=== PATIENT | male | born 1930 | race Caucasian/White ===

== ENCOUNTER 2019-04-15 08:10 | Inpatient (IN) | payer MEDICARE ==
[~2019-04-15] VITALS: Ht 177.8 cm; Wt 53.2 kg
--- OUTSIDE RECORDS SUMMARY | 2019-04-15 08:13 | XMS REPORT | Clinical Summary ---
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 Active omeprazole (PriLOSEC) 20 Take 20 mg by 0 12/25/201 MG capsule mouth daily. 6 Active VESICARE 5 mg tablet Take 5 mg by 0 mouth 6 nightly. Active aspirin (ECOTRIN) 81 MG Take 81 mg by 0 enteric coated tablet mouth daily. Active VIT C/VIT Take 1 tablet 0 E/LUTEIN/MIN/OMEGA-3 by mouth (OCUVITE ORAL) daily. Active FOLIC Take 1 tablet 0 ACID/MULTIVIT-MIN/LUTEIN by mouth (CENTRUM SILVER ORAL) daily. Active coenzyme Q10 100 mg Take 200 mg 0 capsule by mouth daily. Active lisinopril Take 1 tablet 30 tablet 3 (PRINIVIL,ZESTRIL) 10 MG (10 mg total) 6 tablet by mouth daily. Active Problems Problem Noted Date Hyperlipidemia 03/04/2016 Essential hypertension 03/03/2016 Bright red rectal bleeding 03/02/2016 GI bleed 03/02/2016 Social History Date Tobacco Use Types Packs/Day Years Used Smoker, Current Status Cigarettes Unknown Tobacco Cessation: Ready to Quit: Yes Alcohol Use Drinks/Week oz/Week Comments No Sex Assigned at Date Recorded Not on file Industry Job Start Date Occupation Not on file Not on file Not on file Travel End Travel History Travel Start No recent travel history available. Last Filed Vital Signs Not on file Plan of Treatment Health Maintenance Due Date Last Done Comments SHINGLES VACCINES (#1) 1980 65+ PNEUMOCOCCAL VACCINE 12/07/1995 (1 of 2 - PCV13) INFLUENZA VACCINE 04/22/2019 Results Not on fileafter 04/14/2018 Insurance Type Payer Benefit Subscriber ID Effective Phone Address Plan / Dates Group Medicare MEDICARE MEDICARE xxxxxxxxxx [id number] [place], PART A AND resent [place] B Indemnity [facility] xxxxxxxxx [id number] HEALTHCARE resent INDEMNITY Advance Directives Patient has advance care planning documents, and code status on file. For more i nformation, please contact: Thomas Huerta [phone] [place] [address] Date Inactivated Comments Code Status Date Activated 03/05/2016 7:16 PM Full Code 03/02/2016 9:09 PM Code Status decision reached by: Patient
--- OUTSIDE RECORDS SUMMARY | 2019-04-15 08:14 | XMS REPORT | Continuity of Care Document ---
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 Condition 04/20/2015 [facility] ANEMIA Active 12/15/2013 Condition 04/20/2015 [facility] WEIGHT LOSS, ABNORMAL Inactive 12/14/2013 Condition 04/20/2015 [facility] THYROID NODULE Inactive 12/14/2013 Condition 04/20/2015 [facility] NEED PROPHYLACTIC VACCINATION&INOCULATION FLU Inactive 07/09/2013 Condition 04/20/2015 [facility] BRONCHITIS Inactive 01/27/2013 Condition 04/20/2015 [facility] OTHER SPECIFIED DERMATOSES Inactive 01/29/2012 Condition 04/20/2015 [facility] OTHER ACUTE SINUSITIS Inactive 12/23/2011 Condition 04/20/2015 [facility] URINARY FREQUENCY Inactive 08/07/2011 Condition 04/20/2015 [facility] HYPERLIPIDEMIA Active 08/07/2011 Condition 04/20/2015 [facility] HYPERGLYCEMIA Inactive 08/07/2011 Condition 04/20/2015 [facility] COUGH Inactive 03/22/2011 Condition 04/20/2015 [facility] PNEUMONIA Inactive 02/08/2011 Condition 04/20/2015 [facility] URI Inactive 01/29/2011 Condition 04/20/2015 [facility] ALLERGIC RHINITIS Active 11/30/2010 Condition 04/20/2015 [facility] NOCTURIA Inactive 11/30/2010 Condition 04/20/2015 [facility] DYSURIA Inactive 11/30/2010 Condition 04/20/2015 [facility] BACK PAIN Inactive 09/07/2010 Condition 04/20/2015 [facility] B12 DEFICIENCY Inactive 09/07/2010 Condition 04/20/2015 [facility] UNSPECIFIED VITAMIN D DEFICIENCY Active 09/07/2010 Condition 04/20/2015 [facility] NEUROPATHY, UNSPECIFIED Inactive 04/24/2010 Condition 04/20/2015 [facility] ORTHOSTATIC HYPOTENSION Inactive 11/27/2009 Condition 04/20/2015 [facility] ABDOMINAL PAIN, PERIUMBILICAL Inactive 11/13/2009 Condition 04/20/2015 [facility] ANXIETY DISORDER, GENERALIZED Active 11/13/2009 Condition 04/20/2015 [facility] SCREENING FOR COLON CANCER Inactive 11/13/2009 Condition 04/20/2015 [facility] HTN Active 10/30/2009 Condition 04/20/2015 [facility] LEG PAIN Inactive 10/30/2009 Condition 04/20/2015 [facility] CLAUDICATION, INTERMITTENT Inactive 10/30/2009 Condition 04/20/2015 [facility] THYROMEGALY Inactive 10/30/2009 Condition 04/20/2015 [facility] Medications Medication Details Route Status Patient Instructions Ordering Provider Order Date Source KYLEER WALKER MISC use as directed Active 01/12/2015 [facility] VITAMIN D-3 CAPS 1 tab by mouth once a day Active 10/20/2014 [facility] IRON TABS 1 tab by mouth once a day Active 10/20/2014 [facility] CELEBREX 200 MG CAPS Take one capsule by mouth daily Active 01/25/2014 [facility] CELEBREX 200 MG CAPS Take one capsule by mouth daily No Longer Active 01/25/2014 [facility] CELEBREX 200 MG CAPS Take one capsule by mouth daily No Longer Active 01/25/2014 [facility] CENTRUM SILVER TABS 1 tab by mouth once a day Active 01/11/2014 [facility] CLONIDINE HCL 0.1 MG TABS 1/2 tab by mouth twice a day Active 01/11/2014 [facility] VITAMIN B12 1000 MCG TABS 1 tab by mouth once a day Active 01/11/2014 [facility] OMEPRAZOLE 20 MG TBEC 1 tab by mouth once a day Active 01/11/2014 [facility] LOSARTAN POTASSIUM 100 MG TABS 1 tab by mouth once a day Active 01/11/2014 [facility] XANAX TAB 0.25MG 1 tab by mouth twice a day Active 01/11/2014 [facility] VESICARE 5 MG TABS 1 tab by mouth once a day Active 01/11/2014 [facility] ZOLOFT TAB 50MG 1 tab by mouth once a day Active 01/11/2014 [facility] CLONIDINE HCL 0.1 MG TABS 1/2 tab by mouth twice a day Active 01/11/2014 [facility] OMEPRAZOLE 20 MG TBEC 1 tab by mouth once a day Active 01/11/2014 [facility] VESICARE 5 MG TABS 1 tab by mouth once a day Active 01/11/2014 [facility] LOSARTAN POTASSIUM 100 MG TABS 1 tab by mouth once a day No Longer Active 01/11/2014 [facility] ESCITALOPRAM OXALATE 10 MG TABS 1 tablet daily Active 01/11/2014 [facility] CLONIDINE HCL 0.1 MG TABS 1/2 tab by mouth twice a day Active 01/11/2014 [facility] VESICARE 5 MG TABS 1 tab by mouth once a day Active 01/11/2014 [facility] ESCITALOPRAM OXALATE 20 MG TABS 1 tab by mouth once a day Active 01/11/2014 [facility] LOSARTAN POTASSIUM 100 MG TABS 1 tab by mouth once a day No Longer Active 01/11/2014 [facility] LEVAQUIN 500 MG TABS 1 PO Daily No Longer Active 01/27/2013 [facility] FLONASE 50 MCG/ACT SUSP two sprays each nostril q day No Longer Active 01/27/2013 [facility] PRAVACHOL 20 MG TABS 1 po qhs No Longer Active 01/27/2013 [facility] LEVAQUIN 500 MG TABS 1 PO Daily No Longer Active 01/27/2013 [facility] FLONASE 50 MCG/ACT SUSP two sprays each nostril q day No Longer Active 01/27/2013 [facility] PRAVACHOL 20 MG TABS 1 po qhs No Longer Active 01/27/2013 [facility] LEVAQUIN 500 MG TABS 1 PO Daily No Longer Active 01/27/2013 [facility] FLONASE 50 MCG/ACT SUSP two sprays each nostril q day No Longer Active 01/27/2013 [facility] LEVAQUIN 500 MG TABS 1 po daily x 10 days No Longer Active 12/23/2011 [facility] LEVAQUIN 500 MG TABS 1 po daily x 10 days No Longer Active 12/23/2011 [facility] LEVAQUIN 500 MG TABS 1 po daily x 10 days No Longer Active 12/23/2011 [facility] AMOXICILLIN CAP 500MG one po tid for 10 days No Longer Active 08/23/2011 [facility] AMOXICILLIN CAP 500MG one po tid for 10 days No Longer Active 08/23/2011 [facility] AMOXICILLIN CAP 500MG one po tid for 10 days No Longer Active 08/23/2011 [facility] LEVAQUIN 500 MG TABS 1 po qd x 7 days No Longer Active 08/08/2011 [facility] LEVAQUIN 500 MG TABS 1 po qd x 7 days No Longer Active 08/08/2011 [facility] LEVAQUIN 500 MG TABS 1 po qd x 7 days No Longer Active 08/08/2011 [facility] AMLODIPINE BESYLATE 2.5 MG TABS one po daily No Longer Active 07/24/2011 [facility] AMLODIPINE BESYLATE 2.5 MG TABS one po daily No Longer Active 07/24/2011 [facility] AMLODIPINE BESYLATE 2.5 MG TABS one po daily No Longer Active 07/24/2011 [facility] LEVAQUIN 750 MG TABS 1 po qd x 5 days Inactive 03/22/2011 [facility] LEVAQUIN 750 MG TABS 1 po qd x 5 days Inactive 03/22/2011 [facility] VITAMIN D (ERGOCALCIFEROL) 61412 UNIT CAPS 1 po once a week x 12 weeks, then 1 po once a month Inactive 01/15/2011 [facility] XANAX TAB 0.25MG one tab PO q hs prn anxiety Inactive 01/15/2011 [facility] VITAMIN D (ERGOCALCIFEROL) 71197 UNIT CAPS 1 po once a week x 12 weeks, then 1 po once a month Inactive 01/15/2011 [facility] VITAMIN D (ERGOCALCIFEROL) 13314 UNIT CAPS 1 po once a week x 12 weeks, then 1 po once a month Inactive 01/15/2011 [facility] CLARITIN TAB 10MG one tablet daily Inactive 11/30/2010 [facility] CLARITIN TAB 10MG one tablet daily Inactive 11/30/2010 [facility] PREVACID 30 MG CPDR one a daily Inactive 09/07/2010 [facility] PREVACID 30 MG CPDR one a daily Inactive 09/07/2010 [facility] PREVACID 30 MG CPDR one a daily Inactive 09/07/2010 [facility] COZAAR TAB 25MG 1 po qd Inactive 05/08/2010 [facility] COZAAR TAB 25MG 1 po qd Inactive 05/08/2010 [facility] LEXAPRO 10 MG TABS 1 po qd Inactive 04/24/2010 [facility] LISINOPRIL 10 MG TABS one daily Inactive 04/24/2010 [facility] LEXAPRO 10 MG TABS 1 po qd Inactive 04/24/2010 [facility] LISINOPRIL 10 MG TABS one daily Inactive 04/24/2010 [facility] LISINOPRIL 10 MG TABS one daily Inactive 04/24/2010 [facility] LISINOPRIL 10 MG TABS one daily Inactive 04/24/2010 [facility] Allergies, Adverse Reactions, Alerts No Known Medication Allergies Immunizations Immunization Date Given Site Status Last Updated Comments Source influenza immunization (Flu Vax) has been administered 07/09/2013 completed [facility] Results Order Name Results Value Reference Range Date Interpretation Comments Source Chemistry SODIUM 142 MEQ/L 135 - 145 04/20/2015 [facility] Chemistry POTASSIUM 4.1 MEQ/L 3.5 - 5.1 04/20/2015 Medical [facility] Chemistry CREATININE 0.9 0.5 - 1.4 04/20/2015 [facility] Chemistry BUN 14 7 - 22 04/20/2015 Medical [facility] Chemistry BUN/CREAT 16 6 - 25 04/20/2015 Medical [facility] Chemistry ALBUMIN 3.8 3.5 - 5.0 04/20/2015 Medical [facility] Chemistry CALCIUM 8.7 8.5 - 10.5 04/20/2015 [facility] Chemistry SGPT (ALT) 26 0 - 65 04/20/2015 Medical [facility] Chemistry SGOT (AST) 18 0 - 37 04/20/2015 Medical [facility] Chemistry ALK PHOS 66 39 - 136 04/20/2015 Medical [facility] Hematology HGB 14.2 14.0 - 18.0 04/20/2015 Medical [facility] Hematology HCT 41.9 42.0 - 54.0 04/20/2015 Medical [facility] Hematology PLATELETS 178 K/CMM 133 - 450 04/20/2015 [facility] Chemistry HEMOCCULT Negative 12/19/2013 [facility] Chemistry HEMOCCULT Negative 12/19/2013 [facility] Microbiology HEMOCCULT Negative 12/19/2013 [facility] Chemistry HEMOCCULT Negative 12/17/2013 [facility] Chemistry HEMOCCULT Negative 12/17/2013 [facility] Microbiology HEMOCCULT Negative 12/17/2013 [facility] Chemistry CORTISOL SER 15.0 3.0 - 23.0 12/16/2013 [facility] Chemistry CORTISOL SER 15.0 3.0 - 23.0 12/16/2013 [facility] Chemistry HEMOCCULT Negative 12/15/2013 [facility] Chemistry HEMOCCULT Negative 12/15/2013 [facility] Microbiology HEMOCCULT Negative 12/15/2013 [facility] Chemistry HGBA1C 5.1 - 5.6 12/14/2013 [facility] Chemistry SODIUM 137 MEQ/L 135 - 145 12/14/2013 [facility] Chemistry POTASSIUM 4.8 MEQ/L 3.5 - 5.1 12/14/2013 [facility] Chemistry HGBA1C 5.1 - 5.6 12/14/2013 [facility] Chemistry SODIUM 137 MEQ/L 135 - 145 12/14/2013 [facility] Chemistry POTASSIUM 4.8 MEQ/L 3.5 - 5.1 12/14/2013 [facility] Chemistry CREATININE 0.8 0.5 - 1.4 12/14/2013 [facility] Chemistry BUN 10 7 - 22 12/14/2013 [facility] Chemistry BUN/CREAT 12 6 - 25 12/14/2013 [facility] Chemistry ALBUMIN 4.2 3.5 - 5.0 12/14/2013 [facility] Chemistry CALCIUM 8.9 8.5 - 10.5 12/14/2013 [facility] Chemistry SGPT (ALT) 22 0 - 65 12/14/2013 [facility] Chemistry SGOT (AST) 13 0 - 37 12/14/2013 [facility] Chemistry ALK PHOS 68 39 - 136 12/14/2013 [facility] Chemistry T4, FREE 1.20 0.76 - 1.46 12/14/2013 [facility] Chemistry TSH 1.650 0.360 - 3.740 12/14/2013 Medical [facility] Hematology HGB 13.1 14.0 - 18.0 12/14/2013 [facility] Hematology HCT 41.1 42.0 - 54.0 12/14/2013 Medical [facility] Hematology PLATELETS 197 K/CMM 133 - 450 12/14/2013 [facility] Urinalysis UA COLOR Light Yellow 12/14/2013 [facility] Urinalysis BACTERIA URN Occasional 12/14/2013 [facility] Urinalysis UA COLOR Light Yellow 12/14/2013 [facility] Urinalysis BACTERIA URN Occasional 12/14/2013 [facility] Chemistry CHOLESTEROL 196 120 - 200 01/28/2013 [facility] Chemistry TRIGLYCERIDE 74 0 - 200 01/28/2013 [facility] Chemistry HDL 56 >=35 01/28/2013 [facility] Chemistry CHOLESTEROL 196 120 - 200 01/28/2013 [facility] Chemistry TRIGLYCERIDE 74 0 - 200 01/28/2013 [facility] Chemistry HDL 56 >=35 01/28/2013 [facility] Chemistry SODIUM 141 MEQ/L 135 - 145 01/28/2013 [facility] Chemistry POTASSIUM 4.0 MEQ/L 3.5 - 5.1 01/28/2013 [facility] Chemistry CREATININE 0.9 0.5 - 1.4 01/28/2013 [facility] Chemistry BUN 14 7 - 22 01/28/2013 [facility] Chemistry BUN/CREAT 16 6 - 25 01/28/2013 [facility] Chemistry ALBUMIN 4.0 3.5 - 5.0 01/28/2013 [facility] Chemistry CALCIUM 8.8 8.5 - 10.5 01/28/2013 [facility] Chemistry SGPT (ALT) 19 0 - 65 01/28/2013 [facility] Chemistry SGOT (AST) 14 0 - 37 01/28/2013 [facility] Chemistry ALK PHOS 77 39 - 136 01/28/2013 [facility] Chemistry CHOLESTEROL 196 120 - 200 01/28/2013 [facility] Chemistry TRIGLYCERIDE 74 0 - 200 01/28/2013 [facility] Chemistry HDL 56 >=35 01/28/2013 [facility] Chemistry SODIUM 141 MEQ/L 135 - 145 01/28/2013 [facility] Chemistry POTASSIUM 4.0 MEQ/L 3.5 - 5.1 01/28/2013 [facility] Chemistry CREATININE 0.9 0.5 - 1.4 01/28/2013 [facility] Chemistry BUN 14 7 - 22 01/28/2013 [facility] Chemistry BUN/CREAT 16 6 - 25 01/28/2013 [facility] Chemistry ALBUMIN 4.0 3.5 - 5.0 01/28/2013 [facility] Chemistry CALCIUM 8.8 8.5 - 10.5 01/28/2013 [facility] Chemistry CHOLESTEROL 196 120 - 200 01/28/2013 [facility] Chemistry TRIGLYCERIDE 74 0 - 200 01/28/2013 [facility] Chemistry HDL 56 >=35 01/28/2013 [facility] Chemistry CHOLESTEROL 196 120 - 200 01/28/2013 [facility] Chemistry TRIGLYCERIDE 74 0 - 200 01/28/2013 [facility] Chemistry HDL 56 >=35 01/28/2013 [facility] Chemistry LDL 125 0 - 129 01/28/2013 [facility] Chemistry SODIUM 141 MEQ/L 135 - 145 01/28/2013 [facility] Chemistry POTASSIUM 4.0 MEQ/L 3.5 - 5.1 01/28/2013 [facility] Chemistry CREATININE 0.9 0.5 - 1.4 01/28/2013 [facility] Chemistry BUN 14 7 - 22 01/28/2013 [facility] Chemistry BUN/CREAT 16 6 - 25 01/28/2013 [facility] Chemistry ALBUMIN 4.0 3.5 - 5.0 01/28/2013 [facility] Chemistry CALCIUM 8.8 8.5 - 10.5 01/28/2013 [facility] Chemistry SGPT (ALT) 19 0 - 65 01/28/2013 [facility] Chemistry SGOT (AST) 14 0 - 37 01/28/2013 [facility] Chemistry ALK PHOS 77 39 - 136 01/28/2013 [facility] Chemistry SGPT (ALT) 19 0 - 65 01/28/2013 [facility] Chemistry SGOT (AST) 14 0 - 37 01/28/2013 [facility] Chemistry ALK PHOS 77 39 - 136 01/28/2013 [facility] Hematology HGB 13.7 14.0 - 18.0 01/28/2013 [facility] Hematology HCT 40.8 42.0 - 54.0 01/28/2013 [facility] Hematology PLATELETS 185 K/CMM 133 - 450 01/28/2013 [facility] Hematology HGB 13.7 14.0 - 18.0 01/28/2013 [facility] Hematology HCT 40.8 42.0 - 54.0 01/28/2013 [facility] Hematology PLATELETS 185 K/CMM 133 - 450 01/28/2013 [facility] Hematology HGB 13.7 14.0 - 18.0 01/28/2013 [facility] Hematology HCT 40.8 42.0 - 54.0 01/28/2013 [facility] Hematology PLATELETS 185 K/CMM 133 - 450 01/28/2013 [facility] Chemistry CHOLESTEROL 165 120 - 200 05/01/2012 [facility] Chemistry TRIGLYCERIDE 80 0 - 200 05/01/2012 [facility] Chemistry HDL 58 >=35 05/01/2012 [facility] Chemistry CHOLESTEROL 165 120 - 200 05/01/2012 [facility] Chemistry TRIGLYCERIDE 80 0 - 200 05/01/2012 [facility] Chemistry HDL 58 >=35 05/01/2012 [facility] Chemistry SODIUM 141 MEQ/L 135 - 145 05/01/2012 [facility] Chemistry POTASSIUM 4.0 MEQ/L 3.5 - 5.1 05/01/2012 [facility] Chemistry BUN 15 7 - 22 05/01/2012 [facility] Chemistry CREATININE 1.0 0.5 - 1.4 05/01/2012 [facility] Chemistry BUN/CREAT 15 6 - 25 05/01/2012 [facility] Chemistry ALBUMIN 3.8 3.5 - 5.0 05/01/2012 [facility] Chemistry CALCIUM 8.7 8.5 - 10.5 05/01/2012 [facility] Chemistry SGOT (AST) 13 0 - 37 05/01/2012 [facility] Chemistry SGPT (ALT) 23 0 - 65 05/01/2012 [facility] Chemistry ALK PHOS 50 39 - 136 05/01/2012 [facility] Chemistry CHOLESTEROL 165 120 - 200 05/01/2012 [facility] Chemistry TRIGLYCERIDE 80 0 - 200 05/01/2012 [facility] Chemistry HDL 58 >=35 05/01/2012 [facility] Chemistry LDL 91 0 - 129 05/01/2012 [facility] Chemistry SODIUM 141 MEQ/L 135 - 145 05/01/2012 [facility] Chemistry POTASSIUM 4.0 MEQ/L 3.5 - 5.1 05/01/2012 [facility] Chemistry BUN 15 7 - 22 05/01/2012 [facility] Chemistry CREATININE 1.0 0.5 - 1.4 05/01/2012 [facility] Chemistry BUN/CREAT 15 6 - 25 05/01/2012 [facility] Chemistry ALBUMIN 3.8 3.5 - 5.0 05/01/2012 [facility] Chemistry CALCIUM 8.7 8.5 - 10.5 05/01/2012 [facility] Chemistry CHOLESTEROL 165 120 - 200 05/01/2012 [facility] Chemistry TRIGLYCERIDE 80 0 - 200 05/01/2012 [facility] Chemistry HDL 58 >=35 05/01/2012 [facility] Chemistry CHOLESTEROL 165 120 - 200 05/01/2012 [facility] Chemistry TRIGLYCERIDE 80 0 - 200 05/01/2012 [facility] Chemistry HDL 58 >=35 05/01/2012 [facility] Chemistry LDL 91 0 - 129 05/01/2012 [facility] Chemistry SODIUM 141 MEQ/L 135 - 145 05/01/2012 [facility] Chemistry POTASSIUM 4.0 MEQ/L 3.5 - 5.1 05/01/2012 [facility] Chemistry BUN 15 7 - 22 05/01/2012 [facility] Chemistry CREATININE 1.0 0.5 - 1.4 05/01/2012 [facility] Chemistry BUN/CREAT 15 6 - 25 05/01/2012 [facility] Chemistry ALBUMIN 3.8 3.5 - 5.0 05/01/2012 [facility] Chemistry CALCIUM 8.7 8.5 - 10.5 05/01/2012 [facility] Chemistry SGOT (AST) 13 0 - 37 05/01/2012 [facility] Chemistry SGPT (ALT) 23 0 - 65 05/01/2012 [facility] Chemistry ALK PHOS 50 39 - 136 05/01/2012 [facility] Chemistry SGOT (AST) 13 0 - 37 05/01/2012 [facility] Chemistry SGPT (ALT) 23 0 - 65 05/01/2012 [facility] Chemistry ALK PHOS 50 39 - 136 05/01/2012 [facility] Chemistry CHOLESTEROL 166 120 - 200 11/08/2011 [facility] Chemistry TRIGLYCERIDE 98 0 - 200 11/08/2011 [facility] Chemistry HDL 62 >=35 11/08/2011 [facility] Chemistry CHOLESTEROL 166 120 - 200 11/08/2011 [facility] Chemistry TRIGLYCERIDE 98 0 - 200 11/08/2011 [facility] Chemistry HDL 62 >=35 11/08/2011 [facility] Chemistry LDL 84 0 - 129 11/08/2011 [facility] Chemistry SODIUM 142 MEQ/L 135 - 145 11/08/2011 [facility] Chemistry POTASSIUM 4.2 MEQ/L 3.5 - 5.1 11/08/2011 [facility] Chemistry BUN 14 7 - 22 11/08/2011 [facility] Chemistry CREATININE 0.9 0.5 - 1.4 11/08/2011 [facility] Chemistry BUN/CREAT 16 6 - 25 11/08/2011 [facility] Chemistry ALBUMIN 4.0 3.5 - 5.0 11/08/2011 [facility] Chemistry CALCIUM 9.2 8.5 - 10.5 11/08/2011 [facility] Chemistry SGOT (AST) 17 0 - 37 11/08/2011 [facility] Chemistry SGPT (ALT) 28 0 - 65 11/08/2011 [facility] Chemistry ALK PHOS 58 39 - 136 11/08/2011 [facility] Chemistry CHOLESTEROL 166 120 - 200 11/08/2011 [facility] Chemistry TRIGLYCERIDE 98 0 - 200 11/08/2011 [facility] Chemistry HDL 62 >=35 11/08/2011 [facility] Chemistry LDL 84 0 - 129 11/08/2011 [facility] Chemistry SODIUM 142 MEQ/L 135 - 145 11/08/2011 [facility] Chemistry POTASSIUM 4.2 MEQ/L 3.5 - 5.1 11/08/2011 [facility] Chemistry BUN 14 7 - 22 11/08/2011 [facility] Chemistry CREATININE 0.9 0.5 - 1.4 11/08/2011 [facility] Chemistry BUN/CREAT 16 6 - 25 11/08/2011 [facility] Chemistry ALBUMIN 4.0 3.5 - 5.0 11/08/2011 [facility] Chemistry CALCIUM 9.2 8.5 - 10.5 11/08/2011 [facility] Chemistry CHOLESTEROL 166 120 - 200 11/08/2011 [facility] Chemistry TRIGLYCERIDE 98 0 - 200 11/08/2011 [facility] Chemistry HDL 62 >=35 11/08/2011 [facility] Chemistry CHOLESTEROL 166 120 - 200 11/08/2011 [facility] Chemistry TRIGLYCERIDE 98 0 - 200 11/08/2011 [facility] Chemistry HDL 62 >=35 11/08/2011 [facility] Chemistry LDL 84 0 - 129 11/08/2011 [facility] Chemistry SODIUM 142 MEQ/L 135 - 145 11/08/2011 [facility] Chemistry POTASSIUM 4.2 MEQ/L 3.5 - 5.1 11/08/2011 [facility] Chemistry BUN 14 7 - 22 11/08/2011 [facility] Chemistry CREATININE 0.9 0.5 - 1.4 11/08/2011 [facility] Chemistry BUN/CREAT 16 6 - 25 11/08/2011 [facility] Chemistry ALBUMIN 4.0 3.5 - 5.0 11/08/2011 [facility] Chemistry CALCIUM 9.2 8.5 - 10.5 11/08/2011 [facility] Chemistry SGOT (AST) 17 0 - 37 11/08/2011 [facility] Chemistry SGPT (ALT) 28 0 - 65 11/08/2011 [facility] Chemistry ALK PHOS 58 39 - 136 11/08/2011 [facility] Chemistry SGOT (AST) 17 0 - 37 11/08/2011 [facility] Chemistry SGPT (ALT) 28 0 - 65 11/08/2011 [facility] Chemistry ALK PHOS 58 39 - 136 11/08/2011 [facility] Chemistry SODIUM 142 MEQ/L 135 - 145 08/23/2011 [facility] Chemistry POTASSIUM 4.2 MEQ/L 3.5 - 5.1 08/23/2011 [facility] Chemistry BUN 14 7 - 22 08/23/2011 [facility] Chemistry SODIUM 142 MEQ/L 135 - 145 08/23/2011 [facility] Chemistry POTASSIUM 4.2 MEQ/L 3.5 - 5.1 08/23/2011 [facility] Chemistry BUN 14 7 - 22 08/23/2011 [facility] Chemistry CREATININE 0.8 0.5 - 1.4 08/23/2011 [facility] Chemistry BUN/CREAT 18 6 - 25 08/23/2011 [facility] Chemistry ALBUMIN 3.9 3.5 - 5.0 08/23/2011 [facility] Chemistry CALCIUM 8.6 8.5 - 10.5 08/23/2011 [facility] Chemistry SODIUM 142 MEQ/L 135 - 145 08/23/2011 [facility] Chemistry POTASSIUM 4.2 MEQ/L 3.5 - 5.1 08/23/2011 [facility] Chemistry BUN 14 7 - 22 08/23/2011 [facility] Chemistry SODIUM 142 MEQ/L 135 - 145 08/23/2011 [facility] Chemistry POTASSIUM 4.2 MEQ/L 3.5 - 5.1 08/23/2011 [facility] Chemistry BUN 14 7 - 22 08/23/2011 [facility] Chemistry CREATININE 0.8 0.5 - 1.4 08/23/2011 [facility] Chemistry BUN/CREAT 18 6 - 25 08/23/2011 [facility] Chemistry ALBUMIN 3.9 3.5 - 5.0 08/23/2011 [facility] Chemistry CALCIUM 8.6 8.5 - 10.5 08/23/2011 [facility] Chemistry SGOT (AST) 20 0 - 37 08/23/2011 [facility] Chemistry SGPT (ALT) 29 0 - 65 08/23/2011 [facility] Chemistry ALK PHOS 63 39 - 136 08/23/2011 [facility] Chemistry SGOT (AST) 20 0 - 37 08/23/2011 [facility] Chemistry SGPT (ALT) 29 0 - 65 08/23/2011 [facility] Chemistry ALK PHOS 63 39 - 136 08/23/2011 [facility] Hematology HGB 14.0 14.0 - 18.0 08/23/2011 [facility] Hematology HCT 41.5 42.0 - 54.0 08/23/2011 [facility] Hematology PLATELETS 213 K/CMM 133 - 450 08/23/2011 [facility] Hematology HGB 14.0 14.0 - 18.0 08/23/2011 [facility] Hematology HCT 41.5 42.0 - 54.0 08/23/2011 [facility] Hematology PLATELETS 213 K/CMM 133 - 450 08/23/2011 [facility] Chemistry HGBA1C 5.8 08/07/2011 [facility] Chemistry PSA 8.17 0.00 - 4.00 08/07/2011 [facility] Chemistry HGBA1C 5.8 08/07/2011 [facility] Chemistry PSA 8.17 0.00 - 4.00 08/07/2011 [facility] Urinalysis UA COLOR Yellow Yellow 08/07/2011 [facility] Urinalysis BACTERIA URN None Seen None Seen 08/07/2011 [facility] Urinalysis UA COLOR Yellow Yellow 08/07/2011 [facility] Urinalysis BACTERIA URN None Seen None Seen 08/07/2011 [facility] Chemistry SODIUM 141 MEQ/L 135 - 145 07/12/2011 [facility] Chemistry POTASSIUM 4.1 MEQ/L 3.5 - 5.1 07/12/2011 [facility] Chemistry BUN 12 7 - 22 07/12/2011 [facility] Chemistry SODIUM 141 MEQ/L 135 - 145 07/12/2011 [facility] Chemistry POTASSIUM 4.1 MEQ/L 3.5 - 5.1 07/12/2011 [facility] Chemistry BUN 12 7 - 22 07/12/2011 [facility] Chemistry CREATININE 0.8 0.5 - 1.4 07/12/2011 [facility] Chemistry BUN/CREAT 15 6 - 25 07/12/2011 [facility] Chemistry ALBUMIN 4.2 3.5 - 5.0 07/12/2011 [facility] Chemistry CALCIUM 8.9 8.5 - 10.5 07/12/2011 [facility] Chemistry SODIUM 141 MEQ/L 135 - 145 07/12/2011 [facility] Chemistry POTASSIUM 4.1 MEQ/L 3.5 - 5.1 07/12/2011 [facility] Chemistry BUN 12 7 - 22 07/12/2011 [facility] Chemistry SODIUM 141 MEQ/L 135 - 145 07/12/2011 [facility] Chemistry POTASSIUM 4.1 MEQ/L 3.5 - 5.1 07/12/2011 [facility] Chemistry BUN 12 7 - 22 07/12/2011 [facility] Chemistry CREATININE 0.8 0.5 - 1.4 07/12/2011 [facility] Chemistry BUN/CREAT 15 6 - 25 07/12/2011 [facility] Chemistry ALBUMIN 4.2 3.5 - 5.0 07/12/2011 [facility] Chemistry CALCIUM 8.9 8.5 - 10.5 07/12/2011 [facility] Chemistry SGOT (AST) 10 0 - 37 07/12/2011 [facility] Chemistry SGPT (ALT) 25 0 - 65 07/12/2011 [facility] Chemistry ALK PHOS 66 39 - 136 07/12/2011 [facility] Chemistry SGOT (AST) 10 0 - 37 07/12/2011 [facility] Chemistry SGPT (ALT) 25 0 - 65 07/12/2011 [facility] Chemistry ALK PHOS 66 39 - 136 07/12/2011 [facility] Chemistry BUN 14 7 - 22 06/26/2011 [facility] Chemistry CREATININE 0.8 0.5 - 1.4 06/26/2011 [facility] Chemistry SODIUM 140 MEQ/L 135 - 145 06/26/2011 [facility] Chemistry BUN 14 7 - 22 06/26/2011 [facility] Chemistry CREATININE 0.8 0.5 - 1.4 06/26/2011 [facility] Chemistry BUN 14 7 - 22 06/26/2011 [facility] Chemistry CREATININE 0.8 0.5 - 1.4 06/26/2011 [facility] Chemistry SODIUM 140 MEQ/L 135 - 145 06/26/2011 [facility] Chemistry BUN 14 7 - 22 06/26/2011 [facility] Chemistry CREATININE 0.8 0.5 - 1.4 06/26/2011 [facility] Chemistry SODIUM 140 MEQ/L 135 - 145 06/26/2011 [facility] Chemistry POTASSIUM 4.3 MEQ/L 3.5 - 5.1 06/26/2011 [facility] Chemistry CALCIUM 8.8 8.5 - 10.5 06/26/2011 [facility] Chemistry SODIUM 140 MEQ/L 135 - 145 06/26/2011 [facility] Chemistry POTASSIUM 4.3 MEQ/L 3.5 - 5.1 06/26/2011 [facility] CALCIUM 8.8 8.5 - 10.5 06/26/2011 [facility] SODIUM 141 MEQ/L 135 - 145 05/07/2011 [facility] POTASSIUM 4.5 MEQ/L 3.5 - 5.1 05/07/2011 [facility] BUN 13 7 - 22 05/07/2011 [facility] SODIUM 141 MEQ/L 135 - 145 05/07/2011 [facility] POTASSIUM 4.5 MEQ/L 3.5 - 5.1 05/07/2011 [facility] BUN 13 7 - 22 05/07/2011 [facility] CREATININE 0.8 0.5 - 1.4 05/07/2011 [facility] BUN/CREAT 16 6 - 25 05/07/2011 [facility] ALBUMIN 3.8 3.5 - 5.0 05/07/2011 [facility] CALCIUM 9.1 8.5 - 10.5 05/07/2011 [facility] SODIUM 141 MEQ/L 135 - 145 05/07/2011 [facility] POTASSIUM 4.5 MEQ/L 3.5 - 5.1 05/07/2011 [facility] BUN 13 7 - 22 05/07/2011 [facility] SODIUM 141 MEQ/L 135 - 145 05/07/2011 [facility] POTASSIUM 4.5 MEQ/L 3.5 - 5.1 05/07/2011 [facility] BUN 13 7 - 22 05/07/2011 [facility] CREATININE 0.8 0.5 - 1.4 05/07/2011 [facility] BUN/CREAT 16 6 - 25 05/07/2011 [facility] ALBUMIN 3.8 3.5 - 5.0 05/07/2011 [facility] CALCIUM 9.1 8.5 - 10.5 05/07/2011 [facility] SGOT (AST) 10 0 - 37 05/07/2011 [facility] SGPT (ALT) 23 0 - 65 05/07/2011 [facility] ALK PHOS 59 39 - 136 05/07/2011 [facility] SGOT (AST) 10 0 - 37 05/07/2011 [facility] SGPT (ALT) 23 0 - 65 05/07/2011 [facility] ALK PHOS 59 39 - 136 05/07/2011 [facility] SODIUM 138 135 - 145 03/22/2011 [facility] POTASSIUM 4.4 3.5 - 5.1 03/22/2011 [facility] BUN 19 7 - 22 03/22/2011 [facility] SODIUM 138 135 - 145 03/22/2011 [facility] POTASSIUM 4.4 3.5 - 5.1 03/22/2011 [facility] BUN 19 7 - 22 03/22/2011 [facility] CREATININE 1.1 0.5 - 1.4 03/22/2011 [facility] BUN/CREAT 17 6 - 25 03/22/2011 [facility] ALBUMIN 4.1 3.5 - 5.0 03/22/2011 [facility] CALCIUM 9.0 8.5 - 10.5 03/22/2011 [facility] SGOT (AST) 6 0 - 37 03/22/2011 [facility] SGPT (ALT) 26 0 - 65 03/22/2011 [facility] ALK PHOS 70 39 - 136 03/22/2011 [facility] Hematology HGB 14.4 14.0 - 18.0 03/22/2011 [facility] H[facility] HCT 42.9 42.0 - 54.0 03/22/2011 [facility] PLATELETS 198 K/CMM 133 - 450 03/22/2011 [facility] ESR 4 0 - 15 03/22/2011 [facility] HGB 13.9 14.0 - 18.0 01/29/2011 [facility] H[facility] HCT 41.4 42.0 - 54.0 01/29/2011 [facility] H[facility] PLATELETS 189 K/CMM 133 - 450 01/29/2011 [facility] PSA 7.6 0.0 - 4.0 11/30/2010 [facility] PSA 7.6 0.0 - 4.0 11/30/2010 [facility] CHOLESTEROL 237 120 - 200 09/10/2010 [facility] TRIGLYCERIDE 140 0 - 200 09/10/2010 [facility] HDL 56 >=35 09/10/2010 [facility] CHOLESTEROL 237 120 - 200 09/10/2010 [facility] TRIGLYCERIDE 140 0 - 200 09/10/2010 [facility] HDL 56 >=35 09/10/2010 [facility] LDL 153 0 - 129 09/10/2010 [facility] SODIUM 140 135 - 145 09/10/2010 [facility] POTASSIUM 4.5 3.5 - 5.1 09/10/2010 [facility] BUN 18 7 - 22 09/10/2010 [facility] CREATININE 0.8 0.5 - 1.4 09/10/2010 [facility] BUN/CREAT 23 6 - 25 09/10/2010 [facility] ALBUMIN 3.8 3.5 - 5.0 09/10/2010 [facility] CALCIUM 9.0 8.5 - 10.5 09/10/2010 [facility] SGOT (AST) 15 0 - 37 09/10/2010 [facility] SGPT (ALT) 28 0 - 65 09/10/2010 [facility] ALK PHOS 52 39 - 136 09/10/2010 [facility] Hematology HGB 14.2 14.0 - 18.0 09/10/2010 [facility] Hematology HCT 43.6 42.0 - 54.0 09/10/2010 [facility] Hematology PLATELETS 201 K/CMM 133 - 450 09/10/2010 [facility] Urinalysis UA COLOR Yellow Yellow 09/10/2010 [facility] Urinalysis BACTERIA URN None Seen None Seen 09/10/2010 [facility] Urinalysis UA COLOR Yellow Yellow 09/10/2010 [facility] Urinalysis BACTERIA URN None Seen None Seen 09/10/2010 [facility] TSH 1.120 0.360 - 3.740 11/27/2009 [facility] SODIUM 138 135 - 145 11/27/2009 [facility] POTASSIUM 4.2 3.5 - 5.1 11/27/2009 [facility] TSH 1.120 0.360 - 3.740 11/27/2009 [facility] SODIUM 138 135 - 145 11/27/2009 [facility] POTASSIUM 4.2 3.5 - 5.1 11/27/2009 [facility] BUN 11 7 - 22 11/27/2009 [facility] CREATININE 0.9 0.5 - 1.4 11/27/2009 [facility] BUN/CREAT 12 6 - 25 11/27/2009 [facility] ALBUMIN 4.2 3.5 - 5.0 11/27/2009 [facility] CALCIUM 8.8 8.5 - 10.5 11/27/2009 [facility] SGOT (AST) 28 0 - 37 11/27/2009 [facility] SGPT (ALT) 34 0 - 65 11/27/2009 [facility] ALK PHOS 60 39 - 136 11/27/2009 [facility] T3, TOTAL 109 11/27/2009 [facility] Hematology HGB 14.6 14.0 - 18.0 11/27/2009 [facility] Hemat[facility] HCT 43.6 42.0 - 54.0 11/27/2009 [facility] Hematology PLATELETS 195 K/CMM 133 - 450 11/27/2009 [facility] Urinalysis UA COLOR STRAW 11/27/2009 [facility] Urinalysis BACTERIA URN None Seen NoneSeen 11/27/2009 [facility] Urinalysis UA COLOR STRAW 11/27/2009 [facility] Urinalysis BACTERIA URN None Seen NoneSeen 11/27/2009 [facility] Pathology Reports No Data Provided for This Section Diagnostic Reports No Data Provided for This Section Consultation Notes No Data Provided for This Section Discharge Summaries No Data Provided for This Section History and Physicals No Data Provided for This Section Vital Signs Vital Sign Value Date Comments Source Height 70 04/20/2015 [facility] Weight 156 04/20/2015 [facility] Systolic (mm Hg) 149 04/20/2015 [facility] Diastolic (mm Hg) 66 04/20/2015 [facility] Heart Rate 64 04/20/2015 [facility] Temperature Oral (F) 97.6 F 04/20/2015 [facility] Height 70 10/20/2014 [facility] Weight 159 10/20/2014 [facility] Temperature Oral (F) 97.7 F 10/20/2014 [facility] Systolic (mm Hg) 140 10/20/2014 [facility] Diastolic (mm Hg) 73 10/20/2014 [facility] Heart Rate 64 10/20/2014 [facility] Weight 141.38 04/21/2014 [facility] Temperature Oral (F) 98.0 F 04/21/2014 [facility] Heart Rate 63 04/21/2014 [facility] Systolic (mm Hg) 130 04/21/2014 [facility] Diastolic (mm Hg) 60 04/21/2014 [facility] Weight 136.13 02/08/2014 [facility] Temperature Oral (F) 96.5 F 02/08/2014 [facility] Heart Rate 66 02/08/2014 [facility] Systolic (mm Hg) 140 02/08/2014 [facility] Diastolic (mm Hg) 60 02/08/2014 [facility] Weight 135.38 01/11/2014 [facility] Temperature Oral (F) 96.8 F 01/11/2014 [facility] Heart Rate 63 01/11/2014 [facility] Systolic (mm Hg) 132 01/11/2014 [facility] Diastolic (mm Hg) 60 01/11/2014 [facility] Weight 130.13 12/14/2013 [facility] Temperature Oral (F) 96.4 F 12/14/2013 [facility] Heart Rate 60 12/14/2013 [facility] Systolic (mm Hg) 130 12/14/2013 [facility] Diastolic (mm Hg) 70 12/14/2013 [facility] Weight 135.13 10/22/2013 [facility] Temperature Oral (F) 97.5 F 10/22/2013 [facility] Heart Rate 60 10/22/2013 [facility] Systolic (mm Hg) 130 10/22/2013 [facility] Diastolic (mm Hg) 70 10/22/2013 [facility] Weight 139 09/09/2013 [facility] Systolic (mm Hg) 140 09/09/2013 [facility] Diastolic (mm Hg) 64 09/09/2013 [facility] Temperature Oral (F) 96.2 F 09/09/2013 [facility] Heart Rate 64 09/09/2013 [facility] Weight 144 07/09/2013 [facility] Temperature Oral (F) 97.1 F 07/09/2013 [facility] Systolic (mm Hg) 128 07/09/2013 [facility] Diastolic (mm Hg) 57 07/09/2013 [facility] Heart Rate 58 07/09/2013 [facility] Weight 144.0 06/09/2013 [facility] Temperature Oral (F) 97.6 F 06/09/2013 [facility] Systolic (mm Hg) 129 06/09/2013 [facility] Diastolic (mm Hg) 66 06/09/2013 [facility] Heart Rate 65 06/09/2013 [facility] Weight 144.6 05/26/2013 [facility] Temperature Oral (F) 97.2 F 05/26/2013 [facility] Systolic (mm Hg) 148 05/26/2013 [facility] Diastolic (mm Hg) 59 05/26/2013 [facility] Heart Rate 64 05/26/2013 [facility] Weight 145.25 01/27/2013 [facility] Temperature Oral (F) 98.8 F 01/27/2013 [facility] Systolic (mm Hg) 139 01/27/2013 [facility] Diastolic (mm Hg) 62 01/27/2013 [facility] Heart Rate 79 01/27/2013 [facility] Weight 151 08/17/2012 [facility] Systolic (mm Hg) 120 08/17/2012 [facility] Diastolic (mm Hg) 66 08/17/2012 [facility] Heart Rate 76 08/17/2012 [facility] Temperature Oral (F) 95.6 F 08/17/2012 [facility] Weight 152.13 05/01/2012 [facility] Systolic (mm Hg) 141 05/01/2012 [facility] Diastolic (mm Hg) 74 05/01/2012 [facility] Heart Rate 59 05/01/2012 [facility] Temperature Oral (F) 96.5 F 05/01/2012 [facility] Weight 154 01/29/2012 [facility] Temperature Oral (F) 97.6 F 01/29/2012 [facility] Systolic (mm Hg) 137 01/29/2012 [facility] Diastolic (mm Hg) 65 01/29/2012 [facility] Heart Rate 59 01/29/2012 [facility] Weight 154.4 12/23/2011 [facility] Systolic (mm Hg) 140 12/23/2011 [facility] Diastolic (mm Hg) 61 12/23/2011 [facility] Temperature Oral (F) 97.2 F 12/23/2011 [facility] Heart Rate 79 12/23/2011 [facility] Weight 158 11/06/2011 [facility] Temperature Oral (F) 97.0 F 11/06/2011 [facility] Systolic (mm Hg) 138 11/06/2011 [facility] Diastolic (mm Hg) 66 11/06/2011 [facility] Heart Rate 77 11/06/2011 [facility] Weight 154 08/23/2011 [facility] Temperature Oral (F) 97.1 F 08/23/2011 [facility] Systolic (mm Hg) 128 08/23/2011 [facility] Diastolic (mm Hg) 68 08/23/2011 [facility] Heart Rate 64 08/23/2011 [facility] Weight 154 08/07/2011 [facility] Temperature Oral (F) 97.1 F 08/07/2011 [facility] Systolic (mm Hg) 156 08/07/2011 [facility] Diastolic (mm Hg) 67 08/07/2011 [facility] Heart Rate 72 08/07/2011 [facility] Weight 154 07/24/2011 [facility] Temperature Oral (F) 97.9 F 07/24/2011 [facility] Heart Rate 60 07/24/2011 [facility] Systolic (mm Hg) 120 07/24/2011 [facility] Diastolic (mm Hg) 70 07/24/2011 [facility] Weight 156 06/26/2011 [facility] Temperature Oral (F) 97.2 F 06/26/2011 [facility] Systolic (mm Hg) 128 06/26/2011 [facility] Diastolic (mm Hg) 68 06/26/2011 [facility] Heart Rate 72 06/26/2011 [facility] Weight 155 05/07/2011 [facility] Temperature Oral (F) 98.0 F 05/07/2011 [facility] Systolic (mm Hg) 117 05/07/2011 [facility] Diastolic (mm Hg) 58 05/07/2011 [facility] Heart Rate 58 05/07/2011 [facility] Weight 153 04/22/2011 [facility] Height 70 04/22/2011 [facility] Temperature Oral (F) 96.5 F 04/22/2011 [facility] Systolic (mm Hg) 140 04/22/2011 [facility] Diastolic (mm Hg) 67 04/22/2011 [facility] Heart Rate 59 04/22/2011 [facility] Height 70 03/22/2011 [facility] Weight 153 03/22/2011 [facility] Temperature Oral (F) 98.1 F 03/22/2011 [facility] Systolic (mm Hg) 121 03/22/2011 [facility] Diastolic (mm Hg) 69 03/22/2011 [facility] Heart Rate 72 03/22/2011 [facility] Weight 152 02/08/2011 [facility] Height 70 02/08/2011 [facility] Temperature Oral (F) 97.6 F 02/08/2011 [facility] Systolic (mm Hg) 135 02/08/2011 [facility] Diastolic (mm Hg) 69 02/08/2011 [facility] Heart Rate 69 02/08/2011 [facility] Height 70 01/29/2011 [facility] Weight 151 01/29/2011 [facility] Temperature Oral (F) 98.2 F 01/29/2011 [facility] Systolic (mm Hg) 119 01/29/2011 [facility] Diastolic (mm Hg) 63 01/29/2011 [facility] Heart Rate 95 01/29/2011 [facility] Weight 155 01/15/2011 [facility] Height 70 01/15/2011 [facility] Systolic (mm Hg) 123 01/15/2011 [facility] Diastolic (mm Hg) 59 01/15/2011 [facility] Heart Rate 64 01/15/2011 [facility] Temperature Oral (F) 98.0 F 01/15/2011 [facility] Weight 154 11/30/2010 [facility] Height 70 11/30/2010 [facility] Systolic (mm Hg) 138 11/30/2010 [facility] Diastolic (mm Hg) 65 11/30/2010 [facility] Heart Rate 62 11/30/2010 [facility] Temperature Oral (F) 96.9 F 11/30/2010 [facility] Weight 158 09/07/2010 [facility] Height 70 09/07/2010 [facility] Temperature Oral (F) 96.3 F 09/07/2010 [facility] Systolic (mm Hg) 133 09/07/2010 [facility] Diastolic (mm Hg) 61 09/07/2010 [facility] Heart Rate 60 09/07/2010 [facility] Height 70 06/08/2010 [facility] Weight 164 06/08/2010 [facility] Temperature Oral (F) 97.1 F 06/08/2010 [facility] Systolic (mm Hg) 134 06/08/2010 [facility] Diastolic (mm Hg) 76 06/08/2010 [facility] Heart Rate 59 06/08/2010 [facility] Height 70 05/08/2010 [facility] Weight 166.13 05/08/2010 [facility] Temperature Oral (F) 97.6 F 05/08/2010 [facility] Systolic (mm Hg) 145 05/08/2010 [facility] Diastolic (mm Hg) 73 05/08/2010 [facility] Heart Rate 77 05/08/2010 [facility] Weight 166 04/24/2010 [facility] Height 70 04/24/2010 [facility] Systolic (mm Hg) 154 04/24/2010 [facility] Diastolic (mm Hg) 73 04/24/2010 [facility] Heart Rate 76 04/24/2010 [facility] Temperature Oral (F) 97.0 F 04/24/2010 [facility] Height 70 11/27/2009 [facility] Weight 164 11/27/2009 [facility] Temperature Oral (F) 96.5 F 11/27/2009 [facility] Systolic (mm Hg) 167 11/27/2009 [facility] Diastolic (mm Hg) 67 11/27/2009 [facility] Heart Rate 63 11/27/2009 [facility] Height 70 11/13/2009 [facility] Weight 165 11/13/2009 [facility] Temperature Oral (F) 96.4 F 11/13/2009 [facility] Systolic (mm Hg) 156 11/13/2009 [facility] Diastolic (mm Hg) 70 11/13/2009 [facility] Heart Rate 59 11/13/2009 [facility] Weight 168.50 10/30/2009 [facility] Height 70 10/30/2009 [facility] Temperature Oral (F) 96.8 F 10/30/2009 [facility] Heart Rate 65 10/30/2009 [facility] Systolic (mm Hg) 140 10/30/2009 [facility] Diastolic (mm Hg) 65 10/30/2009 [facility] Encounters Location Location Details Encounter Type Encounter Number Reason For Visit Attending Provider ADM Date DC Date Status Source [facility] Office Visit [id number] Pretty Read MD 02/08/2014 02/08/2014 [facility] Office Visit [id number] Pretty Read MD 04/21/2014 04/21/2014 [facility] Office Visit [id number] Pretty Read MD 10/20/2014 10/20/2014 [facility] Lab Report [id number] Pretty Read MD 04/20/2015 04/20/2015 [facility] Office Visit [id number] Pretty Read MD 04/20/2015 04/20/2015 [facility] Procedures Procedure Code Date Perfomer Comments Source echocardiogram, complete [id number] 05/06/2013 Complete [facility] Assessment and Plan No Data Provided for This Section Plan of Care No Data Provided for This Section Social History No Data Provided for This Section Family History No Data Provided for This Section Advance Directives No Data Provided for This Section Functional Status No Data Provided for This Section
--- OUTSIDE RECORDS SUMMARY | 2019-04-15 08:14 | XMS REPORT | Continuity of Care Document ---
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 Name Role Phone MD Jacek, Pretty PP Unavailable Insurance Providers Payer name Policy type / Coverage type Policy ID Covered green party ID Policy [place] (INDEMN[facility]) [place]OVITAS IQMS [place] VisipriseITAS IQMS [place] VisipriseITAS IQMS Encounters Encounter Performer Location Date Office Visit Pretty Read MD [facility] [place] February 08, 2014 Problems Problem Effective Dates Problem Status HTN Oct 30, 2009 Active LEG PAIN Oct 30, 2009 Inactive CLAUDICATION, INTERMITTENT Oct 30, 2009 Inactive THYROMEGALY Oct 30, 2009 Inactive ABDOMINAL PAIN, PERIUMBILICAL Nov 13, 2009 Inactive ANXIETY DISORDER, 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, 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 SCREENING FOR COLON CANCER Nov 13, 2009 Active ORTHOSTATIC HYPOTENSION Nov 27, 2009 Inactive NEUROPATHY, UNSPECIFIED Apr 24, 2010 Inactive ANXIETY DISORDER, GENERALIZED Apr 24, 2010 Inactive BACK PAIN Sep 07, 2010 Inactive B12 DEFICIENCY Sep 07, 2010 Inactive UNSPECIFIED VITAMIN D DEFICIENCY Sep 07, 2010 Active ALLERGIC RHINITIS Nov 30, 2010 Active NOCTURIA Nov 30, 2010 Inactive DYSURIA Nov 30, 2010 Inactive URI January 29, 2011 Inactive PNEUMONIA February 08, 2011 Inactive COUGH Mar 22, 2011 Inactive URINARY FREQUENCY Aug 07, 2011 Inactive HYPERLIPIDEMIA Aug 07, 2011 Active HYPERGLYCEMIA Aug 07, 2011 Inactive DYSURIA Aug 07, 2011 Inactive OTHER ACUTE SINUSITIS Dec 23, 2011 Inactive OTHER SPECIFIED DERMATOSES January 29, 2012 Inactive BRONCHITIS January 27, 2013 Inactive NEED PROPHYLACTIC VACCINATION&INOCULATION FLU Jul 09, 2013 Inactive WEIGHT LOSS, ABNORMAL Dec 14, 2013 Active 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, 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 ANEMIA Dec 15, 2013 Active Procedures Date Description Comments Oct 30, 2009 smoking status quit Jun 26, 2011 smoking status never smoker May 06, 2013 echocardiogram, complete Complete Medications Medication Instructions Start Date Status LEXAPRO 10 MG TABS 1 po qd Apr 24, 2010 Inactive LISINOPRIL 10 MG TABS one daily Apr 24, 2010 Inactive COZAAR TAB 25MG 1 po qd May 08, 2010 Inactive PREVACID 30 MG CPDR one a daily Sep 07, 2010 Inactive CLARITIN TAB 10MG one tablet daily Nov 30, 2010 Inactive VITAMIN D (ERGOCALCIFEROL) 36001 UNIT CAPS 1 po once a week x 12 weeks, then 1 po once a month Jan 15, 2011 Inactive XANAX TAB 0.25MG one tab PO q hs prn anxiety Jan 15, 2011 Inactive LEVAQUIN 750 MG TABS 1 po qd x 5 days Mar 22, 2011 Inactive LEVAQUIN 500 MG TABS 1 po qd x 7 days Aug 08, 2011 Inactive AMOXICILLIN CAP 500MG one po tid for 10 days Aug 23, 2011 Inactive LEVAQUIN 500 MG TABS 1 po daily x 10 days Dec 23, 2011 Inactive AMLODIPINE BESYLATE 2.5 MG TABS one po daily Jul 24, 2011 Inactive LEVAQUIN 500 MG TABS 1 PO Daily January 27, 2013 Inactive FLONASE 50 MCG/ACT SUSP two sprays each nostril q day January 27, 2013 Inactive PRAVACHOL 20 MG TABS 1 po qhs January 27, 2013 Inactive CENTRUM SILVER TABS 1 tab by mouth once a day Jan 11, 2014 Active CLONIDINE HCL 0.1 MG TABS 1/2 tab by mouth twice a day Jan 11, 2014 Active [facility] VITAMIN B12 1000 MCG TABS 1 tab by mouth once a day Jan 11, 2014 Active OMEPRAZOLE 20 MG TBEC 1 tab by mouth once a day Jan 11, 2014 Active LOSARTAN POTASSIUM 100 MG TABS 1 tab by mouth once a day Jan 11, 2014 Active XANAX TAB 0.25MG 1 tab by mouth twice a day Jan 11, 2014 Active VESICARE 5 MG TABS 1 tab by mouth once a day Jan 11, 2014 Active ZOLOFT TAB 50MG 1 tab by mouth once a day Jan 11, 2014 Active CELEBREX 200 MG CAPS Take one capsule by mouth daily January 25, 2014 Active Immunizations Vaccine Date Status influenza immunization (Flu Vax) has been administered Jul 09, 2013 completed Vital Signs Date Description Test Result Oct 30, 2009 weight E&M - 3141-9 WEIGHT 168.50 lb Oct 30, 2009 height E&M - 8302-2 HEIGHT 70 in Oct 30, 2009 temperature E&M TEMPERATURE 96.8 deg f Oct 30, 2009 pulse rate E&M - 8867-4 PULSE RATE 65 /min Oct 30, 2009 blood pressure, systolic - 8480-6 BP SYSTOLIC 140 mm Hg Oct 30, 2009 blood pressure, diastolic - 8462-4 BP DIASTOLIC 65 mm Hg Oct 30, 2009 blood pressure, systolic, second observation BP SYS #2 132 mm Hg Oct 30, 2009 blood pressure, diastolic, second observation BP YUE #2 78 mm Hg Nov 13, 2009 height E&M - 8302-2 HEIGHT 70 in Nov 13, 2009 weight E&M - 3141-9 WEIGHT 165 lb Nov 13, 2009 temperature E&M TEMPERATURE 96.4 deg f Nov 13, 2009 blood pressure, systolic - 8480-6 BP SYSTOLIC 156 mm Hg Nov 13, 2009 blood pressure, diastolic - 8462-4 BP DIASTOLIC 70 mm Hg Nov 13, 2009 pulse rate E&M - 8867-4 PULSE RATE 59 /min Nov 13, 2009 blood pressure, systolic, second observation BP SYS #2 138 mm Hg Nov 13, 2009 blood pressure, diastolic, second observation BP YUE #2 78 mm Hg Nov 27, 2009 height E&M - 8302-2 HEIGHT 70 in Nov 27, 2009 weight E&M - 3141-9 WEIGHT 164 lb Nov 27, 2009 temperature E&M TEMPERATURE 96.5 deg f Nov 27, 2009 blood pressure, systolic - 8480-6 BP SYSTOLIC 167 mm Hg Nov 27, 2009 blood pressure, diastolic - 8462-4 BP DIASTOLIC 67 mm Hg Nov 27, 2009 pulse rate E&M - 8867-4 PULSE RATE 63 /min Nov 27, 2009 blood pressure, systolic, second observation BP SYS #2 138 mm Hg Nov 27, 2009 blood pressure, diastolic, second observation BP YUE #2 62 mm Hg Apr 24, 2010 weight E&M - 3141-9 WEIGHT 166 lb Apr 24, 2010 height E&M - 8302-2 HEIGHT 70 in Apr 24, 2010 blood pressure, systolic - 8480-6 BP SYSTOLIC 154 mm Hg Apr 24, 2010 blood pressure, diastolic - 8462-4 BP DIASTOLIC 73 mm Hg Apr 24, 2010 pulse rate E&M - 8867-4 PULSE RATE 76 /min Apr 24, 2010 temperature E&M TEMPERATURE 97.0 deg f May 08, 2010 height E&M - 8302-2 HEIGHT 70 in May 08, 2010 weight E&M - 3141-9 WEIGHT 166.13 lb May 08, 2010 temperature E&M TEMPERATURE 97.6 deg f May 08, 2010 blood pressure, systolic - 8480-6 BP SYSTOLIC 145 mm Hg May 08, 2010 blood pressure, diastolic - 8462-4 BP DIASTOLIC 73 mm Hg May 08, 2010 pulse rate E&M - 8867-4 PULSE RATE 77 /min May 08, 2010 blood pressure, systolic, second observation BP SYS #2 128 mm Hg May 08, 2010 blood pressure, diastolic, second observation BP YUE #2 78 mm Hg Jun 08, 2010 height E&M - 8302-2 HEIGHT 70 in Jun 08, 2010 weight E&M - 3141-9 WEIGHT 164 lb Jun 08, 2010 temperature E&M TEMPERATURE 97.1 deg f Jun 08, 2010 blood pressure, systolic - 8480-6 BP SYSTOLIC 134 mm Hg Jun 08, 2010 blood pressure, diastolic - 8462-4 BP DIASTOLIC 76 mm Hg Jun 08, 2010 pulse rate E&M - 8867-4 PULSE RATE 59 /min Sep 07, 2010 weight E&M - 3141-9 WEIGHT 158 lb Sep 07, 2010 height E&M - 8302-2 HEIGHT 70 in Sep 07, 2010 temperature E&M TEMPERATURE 96.3 deg f Sep 07, 2010 blood pressure, systolic - 8480-6 BP SYSTOLIC 133 mm Hg Sep 07, 2010 blood pressure, diastolic - 8462-4 BP DIASTOLIC 61 mm Hg Sep 07, 2010 pulse rate E&M - 8867-4 PULSE RATE 60 /min Nov 30, 2010 weight E&M - 3141-9 WEIGHT 154 lb Nov 30, 2010 height E&M - 8302-2 HEIGHT 70 in Nov 30, 2010 blood pressure, systolic - 8480-6 BP SYSTOLIC 138 mm Hg Nov 30, 2010 blood pressure, diastolic - 8462-4 BP DIASTOLIC 65 mm Hg Nov 30, 2010 pulse rate E&M - 8867-4 PULSE RATE 62 /min Nov 30, 2010 temperature E&M TEMPERATURE 96.9 deg f Jan 15, 2011 weight E&M - 3141-9 WEIGHT 155 lb Jan 15, 2011 height E&M - 8302-2 HEIGHT 70 in Jan 15, 2011 blood pressure, systolic - 8480-6 BP SYSTOLIC 123 mm Hg Jan 15, 2011 blood pressure, diastolic - 8462-4 BP DIASTOLIC 59 mm Hg Jan 15, 2011 pulse rate E&M - 8867-4 PULSE RATE 64 /min Jan 15, 2011 temperature E&M TEMPERATURE 98.0 deg f January 29, 2011 height E&M - 8302-2 HEIGHT 70 in January 29, 2011 weight E&M - 3141-9 WEIGHT 151 lb January 29, 2011 temperature E&M TEMPERATURE 98.2 deg f January 29, 2011 blood pressure, systolic - 8480-6 BP SYSTOLIC 119 mm Hg January 29, 2011 blood pressure, diastolic - 8462-4 BP DIASTOLIC 63 mm Hg January 29, 2011 pulse rate E&M - 8867-4 PULSE RATE 95 /min February 08, 2011 weight E&M - 3141-9 WEIGHT 152 lb February 08, 2011 height E&M - 8302-2 HEIGHT 70 in February 08, 2011 temperature E&M TEMPERATURE 97.6 deg f February 08, 2011 blood pressure, systolic - 8480-6 BP SYSTOLIC 135 mm Hg February 08, 2011 blood pressure, diastolic - 8462-4 BP DIASTOLIC 69 mm Hg February 08, 2011 pulse rate E&M - 8867-4 PULSE RATE 69 /min Mar 22, 2011 height E&M - 8302-2 HEIGHT 70 in Mar 22, 2011 weight E&M - 3141-9 WEIGHT 153 lb Mar 22, 2011 temperature E&M TEMPERATURE 98.1 deg f Mar 22, 2011 blood pressure, systolic - 8480-6 BP SYSTOLIC 121 mm Hg Mar 22, 2011 blood pressure, diastolic - 8462-4 BP DIASTOLIC 69 mm Hg Mar 22, 2011 pulse rate E&M - 8867-4 PULSE RATE 72 /min Apr 22, 2011 weight E&M - 3141-9 WEIGHT 153 lb Apr 22, 2011 height E&M - 8302-2 HEIGHT 70 in Apr 22, 2011 temperature E&M TEMPERATURE 96.5 deg f Apr 22, 2011 blood pressure, systolic - 8480-6 BP SYSTOLIC 140 mm Hg Apr 22, 2011 blood pressure, diastolic - 8462-4 BP DIASTOLIC 67 mm Hg Apr 22, 2011 pulse rate E&M - 8867-4 PULSE RATE 59 /min May 07, 2011 weight E&M - 3141-9 WEIGHT 155 lb May 07, 2011 temperature E&M TEMPERATURE 98.0 deg f May 07, 2011 blood pressure, systolic - 8480-6 BP SYSTOLIC 117 mm Hg May 07, 2011 blood pressure, diastolic - 8462-4 BP DIASTOLIC 58 mm Hg May 07, 2011 pulse rate E&M - 8867-4 PULSE RATE 58 /min Jun 26, 2011 weight E&M - 3141-9 WEIGHT 156 lb Jun 26, 2011 temperature E&M TEMPERATURE 97.2 deg f Jun 26, 2011 blood pressure, systolic - 8480-6 BP SYSTOLIC 128 mm Hg Jun 26, 2011 blood pressure, diastolic - 8462-4 BP DIASTOLIC 68 mm Hg Jun 26, 2011 pulse rate E&M - 8867-4 PULSE RATE 72 /min Jul 24, 2011 weight E&M - 3141-9 WEIGHT 154 lb Jul 24, 2011 temperature E&M TEMPERATURE 97.9 deg f Jul 24, 2011 pulse rate E&M - 8867-4 PULSE RATE 60 /min Jul 24, 2011 blood pressure, systolic - 8480-6 BP SYSTOLIC 120 mm Hg Jul 24, 2011 blood pressure, diastolic - 8462-4 BP DIASTOLIC 70 mm Hg Aug 07, 2011 weight E&M - 3141-9 WEIGHT 154 lb Aug 07, 2011 temperature E&M TEMPERATURE 97.1 deg f Aug 07, 2011 blood pressure, systolic - 8480-6 BP SYSTOLIC 156 mm Hg Aug 07, 2011 blood pressure, diastolic - 8462-4 BP DIASTOLIC 67 mm Hg Aug 07, 2011 pulse rate E&M - 8867-4 PULSE RATE 72 /min Aug 23, 2011 weight E&M - 3141-9 WEIGHT 154 lb Aug 23, 2011 temperature E&M TEMPERATURE 97.1 deg f Aug 23, 2011 blood pressure, systolic - 8480-6 BP SYSTOLIC 128 mm Hg Aug 23, 2011 blood pressure, diastolic - 8462-4 BP DIASTOLIC 68 mm Hg Aug 23, 2011 pulse rate E&M - 8867-4 PULSE RATE 64 /min Nov 06, 2011 weight E&M - 3141-9 WEIGHT 158 lb Nov 06, 2011 temperature E&M TEMPERATURE 97.0 deg f Nov 06, 2011 blood pressure, systolic - 8480-6 BP SYSTOLIC 138 mm Hg Nov 06, 2011 blood pressure, diastolic - 8462-4 BP DIASTOLIC 66 mm Hg Nov 06, 2011 pulse rate E&M - 8867-4 PULSE RATE 77 /min Dec 23, 2011 weight E&M - 3141-9 WEIGHT 154.4 lb Dec 23, 2011 blood pressure, systolic - 8480-6 BP SYSTOLIC 140 mm Hg Dec 23, 2011 blood pressure, diastolic - 8462-4 BP DIASTOLIC 61 mm Hg Dec 23, 2011 temperature E&M TEMPERATURE 97.2 deg f Dec 23, 2011 pulse rate E&M - 8867-4 PULSE RATE 79 /min January 29, 2012 weight Michaela&Tomas - Luc1-9 WEIGHT 154 lb January 29, 2012 temperature E&M TEMPERATURE 97.6 deg f January 29, 2012 blood pressure, systolic - 8480-6 BP SYSTOLIC 137 mm Hg January 29, 2012 blood pressure, diastolic - 8462-4 BP DIASTOLIC 65 mm Hg January 29, 2012 pulse rate E&M - 8867-4 PULSE RATE 59 /min May 01, 2012 weight Michaela&Tomas - Luc1-9 WEIGHT 152.13 lb May 01, 2012 blood pressure, systolic - 8480-6 BP SYSTOLIC 141 mm Hg May 01, 2012 blood pressure, diastolic - 8462-4 BP DIASTOLIC 74 mm Hg May 01, 2012 pulse rate E&M - 8867-4 PULSE RATE 59 /min May 01, 2012 temperature E&M TEMPERATURE 96.5 deg f Aug 17, 2012 weight Michaela&Tomas - Luc1-9 WEIGHT 151 lb Aug 17, 2012 blood pressure, systolic - 8480-6 BP SYSTOLIC 120 mm Hg Aug 17, 2012 blood pressure, diastolic - 8462-4 BP DIASTOLIC 66 mm Hg Aug 17, 2012 pulse rate E&M - 8867-4 PULSE RATE 76 /min Aug 17, 2012 temperature E&M TEMPERATURE 95.6 deg f January 27, 2013 weight Michaela&Tomas Calle1-9 WEIGHT 145.25 lb January 27, 2013 temperature E&M TEMPERATURE 98.8 deg f January 27, 2013 blood pressure, systolic - 8480-6 BP SYSTOLIC 139 mm Hg January 27, 2013 blood pressure, diastolic - 8462-4 BP DIASTOLIC 62 mm Hg January 27, 2013 pulse rate E&M - 8867-4 PULSE RATE 79 /min May 26, 2013 weight Michaela&Tomas - Luc1-9 WEIGHT 144.6 lb May 26, 2013 temperature E&M TEMPERATURE 97.2 deg f May 26, 2013 blood pressure, systolic - 8480-6 BP SYSTOLIC 148 mm Hg May 26, 2013 blood pressure, diastolic - 8462-4 BP DIASTOLIC 59 mm Hg May 26, 2013 pulse rate E&M - 8867-4 PULSE RATE 64 /min Jun 09, 2013 weight Michaela&Tomas - Luc1-9 WEIGHT 144.0 lb Jun 09, 2013 temperature E&M TEMPERATURE 97.6 deg f Jun 09, 2013 blood pressure, systolic - 8480-6 BP SYSTOLIC 129 mm Hg Jun 09, 2013 blood pressure, diastolic - 8462-4 BP DIASTOLIC 66 mm Hg Jun 09, 2013 pulse rate E&M - 8867-4 PULSE RATE 65 /min Jul 09, 2013 weight E&M - 3141-9 WEIGHT 144 lb Jul 09, 2013 temperature E&M TEMPERATURE 97.1 deg f Jul 09, 2013 blood pressure, systolic - 8480-6 BP SYSTOLIC 128 mm Hg Jul 09, 2013 blood pressure, diastolic - 8462-4 BP DIASTOLIC 57 mm Hg Jul 09, 2013 pulse rate E&M - 8867-4 PULSE RATE 58 /min Sep 09, 2013 weight E&M - 3141-9 WEIGHT 139 lb Sep 09, 2013 blood pressure, systolic - 8480-6 BP SYSTOLIC 140 mm Hg Sep 09, 2013 blood pressure, diastolic - 8462-4 BP DIASTOLIC 64 mm Hg Sep 09, 2013 temperature E&M TEMPERATURE 96.2 deg f Sep 09, 2013 pulse rate E&M - 8867-4 PULSE RATE 64 /min Oct 22, 2013 weight E&M - 3141-9 WEIGHT 135.13 lb Oct 22, 2013 temperature E&M TEMPERATURE 97.5 deg f Oct 22, 2013 pulse rate E&M - 8867-4 PULSE RATE 60 /min Oct 22, 2013 blood pressure, systolic - 8480-6 BP SYSTOLIC 130 mm Hg Oct 22, 2013 blood pressure, diastolic - 8462-4 BP DIASTOLIC 70 mm Hg Dec 14, 2013 weight E&M - 3141-9 WEIGHT 130.13 lb Dec 14, 2013 temperature E&M TEMPERATURE 96.4 deg f Dec 14, 2013 pulse rate E&M - 8867-4 PULSE RATE 60 /min Dec 14, 2013 blood pressure, systolic - 8480-6 BP SYSTOLIC 130 mm Hg Dec 14, 2013 blood pressure, diastolic - 8462-4 BP DIASTOLIC 70 mm Hg Jan 11, 2014 weight E&M - 3141-9 WEIGHT 135.38 lb Jan 11, 2014 temperature E&M TEMPERATURE 96.8 deg f Jan 11, 2014 pulse rate E&M - 8867-4 PULSE RATE 63 /min Jan 11, 2014 blood pressure, systolic - 8480-6 BP SYSTOLIC 132 mm Hg Jan 11, 2014 blood pressure, diastolic - 8462-4 BP DIASTOLIC 60 mm Hg February 08, 2014 weight E&M - 3141-9 WEIGHT 136.13 lb February 08, 2014 temperature E&M TEMPERATURE 96.5 deg f February 08, 2014 pulse rate E&M - 8867-4 PULSE RATE 66 /min February 08, 2014 blood pressure, systolic - 8480-6 BP SYSTOLIC 140 mm Hg February 08, 2014 blood pressure, diastolic - 8462-4 BP DIASTOLIC 60 mm Hg Results Date Description Test Name Value Reference Interpretation Status Aug 23, 2011 hemoglobin, blood HGB 14.0 g/dL 14.0-18.0 Aug 23, 2011 hematocrit, blood HCT 41.5 % 42.0-54.0 Low Aug 23, 2011 platelet count PLATELETS 213 K/CMM /mm3 133-450 January 28, 2013 hemoglobin, blood HGB 13.7 g/dL 14.0-18.0 Low January 28, 2013 hematocrit, blood HCT 40.8 % 42.0-54.0 Low January 28, 2013 platelet count PLATELETS 185 K/CMM /mm3 133-450 January 28, 2013 hemoglobin, blood HGB 13.7 g/dL 14.0-18.0 Low January 28, 2013 hematocrit, blood HCT 40.8 % 42.0-54.0 Low January 28, 2013 platelet count PLATELETS 185 K/CMM /mm3 133-450 Nov 27, 2009 hemoglobin, blood HGB 14.6 g/dL 14.0-18.0 Nov 27, 2009 hematocrit, blood HCT 43.6 % 42.0-54.0 Nov 27, 2009 platelet count PLATELETS 195 K/CMM /mm3 133-450 Sep 10, 2010 hemoglobin, blood HGB 14.2 g/dL 14.0-18.0 Sep 10, 2010 hematocrit, blood HCT 43.6 % 42.0-54.0 Sep 10, 2010 platelet count PLATELETS 201 K/CMM /mm3 133-450 January 29, 2011 hemoglobin, blood HGB 13.9 g/dL 14.0-18.0 Low January 29, 2011 hematocrit, blood HCT 41.4 % 42.0-54.0 Low January 29, 2011 platelet count PLATELETS 189 K/CMM /mm3 133-450 Mar 22, 2011 hemoglobin, blood HGB 14.4 g/dL 14.0-18.0 Mar 22, 2011 hematocrit, blood HCT 42.9 % 42.0-54.0 Mar 22, 2011 platelet count PLATELETS 198 K/CMM /mm3 133-450 Mar 22, 2011 erythrocyte sedimentation rate ESR 4 mm/hr 0-15 Aug 23, 2011 hemoglobin, blood HGB 14.0 g/dL 14.0-18.0 Aug 23, 2011 hematocrit, blood HCT 41.5 % 42.0-54.0 Low Aug 23, 2011 platelet count PLATELETS 213 K/CMM /mm3 133-450 January 28, 2013 hemoglobin, blood HGB 13.7 g/dL 14.0-18.0 Low January 28, 2013 hematocrit, blood HCT 40.8 % 42.0-54.0 Low January 28, 2013 platelet count PLATELETS 185 K/CMM /mm3 133-450 Dec 14, 2013 hemoglobin, blood HGB 13.1 g/dL 14.0-18.0 Low Dec 14, 2013 hematocrit, blood HCT 41.1 % 42.0-54.0 Low Dec 14, 2013 platelet count PLATELETS 197 K/CMM /mm3 133-450 Nov 27, 2009 urine color UA COLOR STRAW null - Nov 27, 2009 bacteria, urine microscopy BACTERIA URN None Seen null NoneSeen- Sep 10, 2010 urine color UA COLOR Yellow null Yellow- Sep 10, 2010 bacteria, urine microscopy BACTERIA URN None Seen null None Seen- Aug 07, 2011 urine color UA COLOR Yellow null Yellow- Aug 07, 2011 bacteria, urine microscopy BACTERIA URN None Seen null None Seen- Dec 14, 2013 urine color UA COLOR Light Yellow null Yellow Dec 14, 2013 bacteria, urine microscopy BACTERIA URN Occasional null None Seen May 07, 2011 sodium, serum SODIUM 141 MEQ/L mmol/L 135-145 May 07, 2011 potassium, serum POTASSIUM 4.5 MEQ/L mmol/L 3.5-5.1 May 07, 2011 urea nitrogen, blood BUN 13 mg/dL 7-22 May 07, 2011 creatinine, serum CREATININE 0.8 mg/dL 0.5-1.4 May 07, 2011 urea nitrogen/creatinine ratio, serum BUN/CREAT 16 null 6-25 May 07, 2011 albumin, serum ALBUMIN 3.8 g/dL 3.5-5.0 May 07, 2011 calcium, serum CALCIUM 9.1 mg/dL 8.5-10.5 May 07, 2011 aspartate aminotransferase (SGOT), serum SGOT (AST) 10 U/L 0-37 May 07, 2011 alanine aminotransferase (SGPT), serum SGPT (ALT) 23 U/L 0-65 May 07, 2011 alkaline phosphatase, serum ALK PHOS 59 U/L 39-136 Jun 26, 2011 urea nitrogen, blood BUN 14 mg/dL -Jun 26, 2011 creatinine, serum CREATININE 0.8 mg/dL 0.5-1.4 Jun 26, 2011 sodium, serum SODIUM 140 MEQ/L mmol/L 135-145 Jun 26, 2011 potassium, serum POTASSIUM 4.3 MEQ/L mmol/L 3.5-5.1 Jun 26, 2011 calcium, serum CALCIUM 8.8 mg/dL 8.5-10.5 Jul 12, 2011 sodium, serum SODIUM 141 MEQ/L mmol/L 135-145 Jul 12, 2011 potassium, serum POTASSIUM 4.1 MEQ/L mmol/L 3.5-5.1 Jul 12, 2011 urea nitrogen, blood BUN 12 mg/dL -Jul 12, 2011 creatinine, serum CREATININE 0.8 mg/dL 0.5-1.4 Jul 12, 2011 urea nitrogen/creatinine ratio, serum BUN/CREAT 15 null 6-25 Jul 12, 2011 albumin, serum ALBUMIN 4.2 g/dL 3.5-5.0 Jul 12, 2011 calcium, serum CALCIUM 8.9 mg/dL 8.5-10.5 Jul 12, 2011 aspartate aminotransferase (SGOT), serum SGOT (AST) 10 U/L 0-37 Jul 12, 2011 alanine aminotransferase (SGPT), serum SGPT (ALT) 25 U/L 0-65 Jul 12, 2011 alkaline phosphatase, serum ALK PHOS 66 U/L 39-136 Aug 23, 2011 sodium, serum SODIUM 142 MEQ/L mmol/L 135-145 Aug 23, 2011 potassium, serum POTASSIUM 4.2 MEQ/L mmol/L 3.5-5.1 Aug 23, 2011 urea nitrogen, blood BUN 14 mg/dL -Aug 23, 2011 creatinine, serum CREATININE 0.8 mg/dL 0.5-1.4 Aug 23, 2011 urea nitrogen/creatinine ratio, serum BUN/CREAT 18 null 6-25 Aug 23, 2011 albumin, serum ALBUMIN 3.9 g/dL 3.5-5.0 Aug 23, 2011 calcium, serum CALCIUM 8.6 mg/dL 8.5-10.5 Aug 23, 2011 aspartate aminotransferase (SGOT), serum SGOT (AST) 20 U/L 0-37 Aug 23, 2011 alanine aminotransferase (SGPT), serum SGPT (ALT) 29 U/L 0-65 Aug 23, 2011 alkaline phosphatase, serum ALK PHOS 63 U/L 39-136 Nov 08, 2011 cholesterol, serum CHOLESTEROL 166 mg/dl 120-200 Nov 08, 2011 triglyceride, serum, fasting TRIGLYCERIDE 98 mg/dl 0-200 Nov 08, 2011 HDL cholesterol, serum HDL 62 mg/dl >=35 Nov 08, 2011 LDL cholesterol, serum LDL 84 mg/dl 0-129 Nov 08, 2011 sodium, serum SODIUM 142 MEQ/L mmol/L 135-145 Nov 08, 2011 potassium, serum POTASSIUM 4.2 MEQ/L mmol/L 3.5-5.1 Nov 08, 2011 urea nitrogen, blood BUN 14 mg/dL 7-Nov 08, 2011 creatinine, serum CREATININE 0.9 mg/dL 0.5-1.4 Nov 08, 2011 urea nitrogen/creatinine ratio, serum BUN/CREAT 16 null 6-Nov 08, 2011 albumin, serum ALBUMIN 4.0 g/dL 3.5-5.0 Nov 08, 2011 calcium, serum CALCIUM 9.2 mg/dL 8.5-10.5 Nov 08, 2011 aspartate aminotransferase (SGOT), serum SGOT (AST) 17 U/L 0-37 Nov 08, 2011 alanine aminotransferase (SGPT), serum SGPT (ALT) 28 U/L 0-65 Nov 08, 2011 alkaline phosphatase, serum ALK PHOS 58 U/L 39-136 Nov 08, 2011 cholesterol, serum CHOLESTEROL 166 mg/dl 120-200 Nov 08, 2011 triglyceride, serum, fasting TRIGLYCERIDE 98 mg/dl 0-200 Nov 08, 2011 HDL cholesterol, serum HDL 62 mg/dl >=35 Nov 08, 2011 LDL cholesterol, serum LDL 84 mg/dl 0-129 Nov 08, 2011 sodium, serum SODIUM 142 MEQ/L mmol/L 135-145 Nov 08, 2011 potassium, serum POTASSIUM 4.2 MEQ/L mmol/L 3.5-5.1 Nov 08, 2011 urea nitrogen, blood BUN 14 mg/dL -Nov 08, 2011 creatinine, serum CREATININE 0.9 mg/dL 0.5-1.4 Nov 08, 2011 urea nitrogen/creatinine ratio, serum BUN/CREAT 16 null 6-25 Nov 08, 2011 albumin, serum ALBUMIN 4.0 g/dL 3.5-5.0 Nov 08, 2011 calcium, serum CALCIUM 9.2 mg/dL 8.5-10.5 Nov 08, 2011 aspartate aminotransferase (SGOT), serum SGOT (AST) 17 U/L 0-37 Nov 08, 2011 alanine aminotransferase (SGPT), serum SGPT (ALT) 28 U/L 0-65 Nov 08, 2011 alkaline phosphatase, serum ALK PHOS 58 U/L 39-136 May 01, 2012 cholesterol, serum CHOLESTEROL 165 mg/dl 120-200 May 01, 2012 triglyceride, serum, fasting TRIGLYCERIDE 80 mg/dl 0-200 May 01, 2012 HDL cholesterol, serum HDL 58 mg/dl >=35 May 01, 2012 sodium, serum SODIUM 141 MEQ/L mmol/L 135-145 May 01, 2012 potassium, serum POTASSIUM 4.0 MEQ/L mmol/L 3.5-5.1 May 01, 2012 urea nitrogen, blood BUN 15 mg/dL 7-May 01, 2012 creatinine, serum CREATININE 1.0 mg/dL 0.5-1.4 May 01, 2012 urea nitrogen/creatinine ratio, serum BUN/CREAT 15 null 6-25 May 01, 2012 albumin, serum ALBUMIN 3.8 g/dL 3.5-5.0 May 01, 2012 calcium, serum CALCIUM 8.7 mg/dL 8.5-10.5 May 01, 2012 aspartate aminotransferase (SGOT), serum SGOT (AST) 13 U/L 0-37 May 01, 2012 alanine aminotransferase (SGPT), serum SGPT (ALT) 23 U/L 0-65 May 01, 2012 alkaline phosphatase, serum ALK PHOS 50 U/L 39-136 May 01, 2012 cholesterol, serum CHOLESTEROL 165 mg/dl 120-200 May 01, 2012 triglyceride, serum, fasting TRIGLYCERIDE 80 mg/dl 0-200 May 01, 2012 HDL cholesterol, serum HDL 58 mg/dl >=35 May 01, 2012 LDL cholesterol, serum LDL 91 mg/dl 0-129 May 01, 2012 sodium, serum SODIUM 141 MEQ/L mmol/L 135-145 May 01, 2012 potassium, serum POTASSIUM 4.0 MEQ/L mmol/L 3.5-5.1 May 01, 2012 urea nitrogen, blood BUN 15 mg/dL 7-May 01, 2012 creatinine, serum CREATININE 1.0 mg/dL 0.5-1.4 May 01, 2012 urea nitrogen/creatinine ratio, serum BUN/CREAT 15 null 6-25 May 01, 2012 albumin, serum ALBUMIN 3.8 g/dL 3.5-5.0 May 01, 2012 calcium, serum CALCIUM 8.7 mg/dL 8.5-10.5 May 01, 2012 aspartate aminotransferase (SGOT), serum SGOT (AST) 13 U/L 0-37 May 01, 2012 alanine aminotransferase (SGPT), serum SGPT (ALT) 23 U/L 0-65 May 01, 2012 alkaline phosphatase, serum ALK PHOS 50 U/L 39-136 January 28, 2013 cholesterol, serum CHOLESTEROL 196 mg/dl 120-200 January 28, 2013 triglyceride, serum, fasting TRIGLYCERIDE 74 mg/dl 0-200 January 28, 2013 HDL cholesterol, serum HDL 56 mg/dl >=35 January 28, 2013 sodium, serum SODIUM 141 MEQ/L mmol/L 135-145 January 28, 2013 potassium, serum POTASSIUM 4.0 MEQ/L mmol/L 3.5-5.1 January 28, 2013 creatinine, serum CREATININE 0.9 mg/dL 0.5-1.4 January 28, 2013 urea nitrogen, blood BUN 14 mg/dL -January 28, 2013 urea nitrogen/creatinine ratio, serum BUN/CREAT 16 null 6-25 January 28, 2013 albumin, serum ALBUMIN 4.0 g/dL 3.5-5.0 January 28, 2013 calcium, serum CALCIUM 8.8 mg/dL 8.5-10.5 January 28, 2013 alanine aminotransferase (SGPT), serum SGPT (ALT) 19 U/L 0-65 January 28, 2013 aspartate aminotransferase (SGOT), serum SGOT (AST) 14 U/L 0-37 January 28, 2013 alkaline phosphatase, serum ALK PHOS 77 U/L 39-136 January 28, 2013 cholesterol, serum CHOLESTEROL 196 mg/dl 120-200 January 28, 2013 triglyceride, serum, fasting TRIGLYCERIDE 74 mg/dl 0-200 January 28, 2013 HDL cholesterol, serum HDL 56 mg/dl >=35 January 28, 2013 sodium, serum SODIUM 141 MEQ/L mmol/L 135-145 January 28, 2013 potassium, serum POTASSIUM 4.0 MEQ/L mmol/L 3.5-5.1 January 28, 2013 creatinine, serum CREATININE 0.9 mg/dL 0.5-1.4 January 28, 2013 urea nitrogen, blood BUN 14 mg/dL 7-January 28, 2013 urea nitrogen/creatinine ratio, serum BUN/CREAT 16 null 6-25 January 28, 2013 albumin, serum ALBUMIN 4.0 g/dL 3.5-5.0 January 28, 2013 calcium, serum CALCIUM 8.8 mg/dL 8.5-10.5 January 28, 2013 alanine aminotransferase (SGPT), serum SGPT (ALT) 19 U/L 0-65 January 28, 2013 aspartate aminotransferase (SGOT), serum SGOT (AST) 14 U/L 0-37 January 28, 2013 alkaline phosphatase, serum ALK PHOS 77 U/L 39-136 Nov 27, 2009 thyroid stimulating hormone, serum TSH 1.120 uIU/mL 0.360-3.740 Nov 27, 2009 sodium, serum SODIUM 138 mmol/L 135-145 Nov 27, 2009 potassium, serum POTASSIUM 4.2 mmol/L 3.5-5.1 Nov 27, 2009 urea nitrogen, blood BUN 11 mg/dL 7-Nov 27, 2009 creatinine, serum CREATININE 0.9 mg/dL 0.5-1.4 Nov 27, 2009 urea nitrogen/creatinine ratio, serum BUN/CREAT 12 null 6-25 Nov 27, 2009 albumin, serum ALBUMIN 4.2 g/dL 3.5-5.0 Nov 27, 2009 calcium, serum CALCIUM 8.8 mg/dL 8.5-10.5 Nov 27, 2009 aspartate aminotransferase (SGOT), serum SGOT (AST) 28 U/L 0-37 Nov 27, 2009 alanine aminotransferase (SGPT), serum SGPT (ALT) 34 U/L 0-65 Nov 27, 2009 alkaline phosphatase, serum ALK PHOS 60 U/L 39-136 Nov 27, 2009 triiodothyronine (T3), serum T3, TOTAL 109 ng/dL Units converted. See lab report for original value. Sep 10, 2010 cholesterol, serum CHOLESTEROL 237 mg/dl 120-200 High Sep 10, 2010 triglyceride, serum, fasting TRIGLYCERIDE 140 mg/dl 0-200 Sep 10, 2010 HDL cholesterol, serum HDL 56 mg/dl >=35- Sep 10, 2010 LDL cholesterol, serum LDL 153 mg/dl 0-129 High Sep 10, 2010 sodium, serum SODIUM 140 mmol/L 135-145 Sep 10, 2010 potassium, serum POTASSIUM 4.5 mmol/L 3.5-5.1 Sep 10, 2010 urea nitrogen, blood BUN 18 mg/dL 7-Sep 10, 2010 creatinine, serum CREATININE 0.8 mg/dL 0.5-1.4 Sep 10, 2010 urea nitrogen/creatinine ratio, serum BUN/CREAT 23 null 6-25 Sep 10, 2010 albumin, serum ALBUMIN 3.8 g/dL 3.5-5.0 Sep 10, 2010 calcium, serum CALCIUM 9.0 mg/dL 8.5-10.5 Sep 10, 2010 aspartate aminotransferase (SGOT), serum SGOT (AST) 15 U/L 0-37 Sep 10, 2010 alanine aminotransferase (SGPT), serum SGPT (ALT) 28 U/L 0-65 Sep 10, 2010 alkaline phosphatase, serum ALK PHOS 52 U/L 39-136 Nov 30, 2010 prostate specific antigen PSA 7.6 ng/mL 0.0-4.0 High Mar 22, 2011 sodium, serum SODIUM 138 mmol/L 135-145 Mar 22, 2011 potassium, serum POTASSIUM 4.4 mmol/L 3.5-5.1 Mar 22, 2011 urea nitrogen, blood BUN 19 mg/dL -Mar 22, 2011 creatinine, serum CREATININE 1.1 mg/dL 0.5-1.4 Mar 22, 2011 urea nitrogen/creatinine ratio, serum BUN/CREAT 17 null 6-25 Mar 22, 2011 albumin, serum ALBUMIN 4.1 g/dL 3.5-5.0 Mar 22, 2011 calcium, serum CALCIUM 9.0 mg/dL 8.5-10.5 Mar 22, 2011 aspartate aminotransferase (SGOT), serum SGOT (AST) 6 U/L 0-37 Mar 22, 2011 alanine aminotransferase (SGPT), serum SGPT (ALT) 26 U/L 0-65 Mar 22, 2011 alkaline phosphatase, serum ALK PHOS 70 U/L 39-136 May 07, 2011 sodium, serum SODIUM 141 MEQ/L mmol/L 135-145 May 07, 2011 potassium, serum POTASSIUM 4.5 MEQ/L mmol/L 3.5-5.1 May 07, 2011 urea nitrogen, blood BUN 13 mg/dL -May 07, 2011 creatinine, serum CREATININE 0.8 mg/dL 0.5-1.4 May 07, 2011 urea nitrogen/creatinine ratio, serum BUN/CREAT 16 null 6-25 May 07, 2011 albumin, serum ALBUMIN 3.8 g/dL 3.5-5.0 May 07, 2011 calcium, serum CALCIUM 9.1 mg/dL 8.5-10.5 May 07, 2011 aspartate aminotransferase (SGOT), serum SGOT (AST) 10 U/L 0-37 May 07, 2011 alanine aminotransferase (SGPT), serum SGPT (ALT) 23 U/L 0-65 May 07, 2011 alkaline phosphatase, serum ALK PHOS 59 U/L 39-136 Jun 26, 2011 urea nitrogen, blood BUN 14 mg/dL -Jun 26, 2011 creatinine, serum CREATININE 0.8 mg/dL 0.5-1.4 Jun 26, 2011 sodium, serum SODIUM 140 MEQ/L mmol/L 135-145 Jun 26, 2011 potassium, serum POTASSIUM 4.3 MEQ/L mmol/L 3.5-5.1 Jun 26, 2011 calcium, serum CALCIUM 8.8 mg/dL 8.5-10.5 Jul 12, 2011 sodium, serum SODIUM 141 MEQ/L mmol/L 135-145 Jul 12, 2011 potassium, serum POTASSIUM 4.1 MEQ/L mmol/L 3.5-5.1 Jul 12, 2011 urea nitrogen, blood BUN 12 mg/dL -Jul 12, 2011 creatinine, serum CREATININE 0.8 mg/dL 0.5-1.4 Jul 12, 2011 urea nitrogen/creatinine ratio, serum BUN/CREAT 15 null 6-25 Jul 12, 2011 albumin, serum ALBUMIN 4.2 g/dL 3.5-5.0 Jul 12, 2011 calcium, serum CALCIUM 8.9 mg/dL 8.5-10.5 Jul 12, 2011 aspartate aminotransferase (SGOT), serum SGOT (AST) 10 U/L 0-37 Jul 12, 2011 alanine aminotransferase (SGPT), serum SGPT (ALT) 25 U/L 0-65 Jul 12, 2011 alkaline phosphatase, serum ALK PHOS 66 U/L 39-136 Aug 07, 2011 hemoglobin A1C, blood, as % of total hemoglobin HGBA1C 5.8 % - Aug 07, 2011 prostate specific antigen PSA 8.17 ng/mL 0.00-4.00 High Aug 23, 2011 sodium, serum SODIUM 142 MEQ/L mmol/L 135-145 Aug 23, 2011 potassium, serum POTASSIUM 4.2 MEQ/L mmol/L 3.5-5.1 Aug 23, 2011 urea nitrogen, blood BUN 14 mg/dL -Aug 23, 2011 creatinine, serum CREATININE 0.8 mg/dL 0.5-1.4 Aug 23, 2011 urea nitrogen/creatinine ratio, serum BUN/CREAT 18 null 6-25 Aug 23, 2011 albumin, serum ALBUMIN 3.9 g/dL 3.5-5.0 Aug 23, 2011 calcium, serum CALCIUM 8.6 mg/dL 8.5-10.5 Aug 23, 2011 aspartate aminotransferase (SGOT), serum SGOT (AST) 20 U/L 0-37 Aug 23, 2011 alanine aminotransferase (SGPT), serum SGPT (ALT) 29 U/L 0-65 Aug 23, 2011 alkaline phosphatase, serum ALK PHOS 63 U/L 39-136 Nov 08, 2011 cholesterol, serum CHOLESTEROL 166 mg/dl 120-200 Nov 08, 2011 triglyceride, serum, fasting TRIGLYCERIDE 98 mg/dl 0-200 Nov 08, 2011 HDL cholesterol, serum HDL 62 mg/dl >=35 Nov 08, 2011 LDL cholesterol, serum LDL 84 mg/dl 0-129 Nov 08, 2011 sodium, serum SODIUM 142 MEQ/L mmol/L 135-145 Nov 08, 2011 potassium, serum POTASSIUM 4.2 MEQ/L mmol/L 3.5-5.1 Nov 08, 2011 urea nitrogen, blood BUN 14 mg/dL 7-22 Nov 08, 2011 creatinine, serum CREATININE 0.9 mg/dL 0.5-1.4 Nov 08, 2011 urea nitrogen/creatinine ratio, serum BUN/CREAT 16 null 6-25 Nov 08, 2011 albumin, serum ALBUMIN 4.0 g/dL 3.5-5.0 Nov 08, 2011 calcium, serum CALCIUM 9.2 mg/dL 8.5-10.5 Nov 08, 2011 aspartate aminotransferase (SGOT), serum SGOT (AST) 17 U/L 0-37 Nov 08, 2011 alanine aminotransferase (SGPT), serum SGPT (ALT) 28 U/L 0-65 Nov 08, 2011 alkaline phosphatase, serum ALK PHOS 58 U/L 39-136 May 01, 2012 cholesterol, serum CHOLESTEROL 165 mg/dl 120-200 May 01, 2012 triglyceride, serum, fasting TRIGLYCERIDE 80 mg/dl 0-200 May 01, 2012 HDL cholesterol, serum HDL 58 mg/dl >=35 May 01, 2012 LDL cholesterol, serum LDL 91 mg/dl 0-129 May 01, 2012 sodium, serum SODIUM 141 MEQ/L mmol/L 135-145 May 01, 2012 potassium, serum POTASSIUM 4.0 MEQ/L mmol/L 3.5-5.1 May 01, 2012 urea nitrogen, blood BUN 15 mg/dL 7-May 01, 2012 creatinine, serum CREATININE 1.0 mg/dL 0.5-1.4 May 01, 2012 urea nitrogen/creatinine ratio, serum BUN/CREAT 15 null 6-25 May 01, 2012 albumin, serum ALBUMIN 3.8 g/dL 3.5-5.0 May 01, 2012 calcium, serum CALCIUM 8.7 mg/dL 8.5-10.5 May 01, 2012 aspartate aminotransferase (SGOT), serum SGOT (AST) 13 U/L 0-37 May 01, 2012 alanine aminotransferase (SGPT), serum SGPT (ALT) 23 U/L 0-65 May 01, 2012 alkaline phosphatase, serum ALK PHOS 50 U/L 39-136 January 28, 2013 cholesterol, serum CHOLESTEROL 196 mg/dl 120-200 January 28, 2013 triglyceride, serum, fasting TRIGLYCERIDE 74 mg/dl 0-200 January 28, 2013 HDL cholesterol, serum HDL 56 mg/dl >=35 January 28, 2013 LDL cholesterol, serum LDL 125 mg/dl 0-129 January 28, 2013 sodium, serum SODIUM 141 MEQ/L mmol/L 135-145 January 28, 2013 potassium, serum POTASSIUM 4.0 MEQ/L mmol/L 3.5-5.1 January 28, 2013 creatinine, serum CREATININE 0.9 mg/dL 0.5-1.4 January 28, 2013 urea nitrogen, blood BUN 14 mg/dL -January 28, 2013 urea nitrogen/creatinine ratio, serum BUN/CREAT 16 null 6-25 January 28, 2013 albumin, serum ALBUMIN 4.0 g/dL 3.5-5.0 January 28, 2013 calcium, serum CALCIUM 8.8 mg/dL 8.5-10.5 January 28, 2013 alanine aminotransferase (SGPT), serum SGPT (ALT) 19 U/L 0-65 January 28, 2013 aspartate aminotransferase (SGOT), serum SGOT (AST) 14 U/L 0-37 January 28, 2013 alkaline phosphatase, serum ALK PHOS 77 U/L 39-136 Dec 14, 2013 hemoglobin A1C, blood, as % of total hemoglobin HGBA1C 5.1 % <=5.6 Dec 14, 2013 sodium, serum SODIUM 137 MEQ/L mmol/L 135-145 Dec 14, 2013 potassium, serum POTASSIUM 4.8 MEQ/L mmol/L 3.5-5.1 Dec 14, 2013 creatinine, serum CREATININE 0.8 mg/dL 0.5-1.4 Dec 14, 2013 urea nitrogen, blood BUN 10 mg/dL 7-22 Dec 14, 2013 urea nitrogen/creatinine ratio, serum BUN/CREAT 12 null 6-25 Dec 14, 2013 albumin, serum ALBUMIN 4.2 g/dL 3.5-5.0 Dec 14, 2013 calcium, serum CALCIUM 8.9 mg/dL 8.5-10.5 Dec 14, 2013 alanine aminotransferase (SGPT), serum SGPT (ALT) 22 U/L 0-65 Dec 14, 2013 aspartate aminotransferase (SGOT), serum SGOT (AST) 13 U/L 0-37 Dec 14, 2013 alkaline phosphatase, serum ALK PHOS 68 U/L 39-136 Dec 14, 2013 thyroxine, serum, free T4, FREE 1.20 ng/dl 0.76-1.46 Dec 14, 2013 thyroid stimulating hormone, serum TSH 1.650 uIU/mL 0.360-3.740 Dec 16, 2013 cortisol, serum CORTISOL SER 15.0 ug/dL 3.0-23.0 Dec 15, 2013 occult blood, stool (E&M) HEMOCCULT Negative null Negative Dec 17, 2013 occult blood, stool (E&M) HEMOCCULT Negative null Negative Dec 19, 2013 occult blood, stool (E&M) HEMOCCULT Negative null Negative
--- OUTSIDE RECORDS SUMMARY | 2019-04-15 08:15 | XMS REPORT | Continuity of Care Document ---
Author Author [facility] Organization [facility] Address Unknown Phone Unavailable Care Team Providers Care [employer] Name Role Phone MD Jacek, Pretty PP Unavailable Insurance Providers Payer name Policy type / Coverage type Policy ID Covered constitution party ID Policy [place] [place] [place] [employer] [place] [employer]tastic [place] [employer] Encounters Encounter Performer Location Date Office Visit Pretty Read MD 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] by mouth daily January 25, 2014 Active ESCITALOPRAM OXALATE 20 MG TABS 1 tab by mouth once a day Jan 11, 2014 Active LOSARTAN POTASSIUM 100 MG TABS 1 tab by mouth once a day Jan 11, 2014 Inactive Immunizations Vaccine Date Status influenza immunization (Flu Vax) has been administered Jul 09, 2013 completed Vital Signs Date Description Test Result Oct 30, 2009 weight E&M WEIGHT 168.50 lb Oct 30, 2009 height E&M HEIGHT 70 in Oct 30, 2009 temperature E&M TEMPERATURE 96.8 deg f Oct 30, 2009 pulse rate E&M PULSE RATE 65 /min Oct 30, 2009 blood pressure, systolic BP SYSTOLIC 140 mm Hg Oct 30, 2009 blood pressure, diastolic BP DIASTOLIC 65 mm Hg Oct 30, 2009 blood pressure, systolic, second observation BP SYS #2 132 mm Hg Oct 30, 2009 blood pressure, diastolic, second observation BP YUE #2 78 mm Hg Nov 13, 2009 height E&M HEIGHT 70 in Nov 13, 2009 weight E&M WEIGHT 165 lb Nov 13, 2009 temperature E&M TEMPERATURE 96.4 deg f Nov 13, 2009 blood pressure, systolic BP SYSTOLIC 156 mm Hg Nov 13, 2009 blood pressure, diastolic BP DIASTOLIC 70 mm Hg Nov 13, 2009 pulse rate E&M PULSE RATE 59 /min Nov 13, 2009 blood pressure, systolic, second observation BP SYS #2 138 mm Hg Nov 13, 2009 blood pressure, diastolic, second observation BP YUE #2 78 mm Hg Nov 27, 2009 height E&M HEIGHT 70 in Nov 27, 2009 weight E&M WEIGHT 164 lb Nov 27, 2009 temperature E&M TEMPERATURE 96.5 deg f Nov 27, 2009 blood pressure, systolic BP SYSTOLIC 167 mm Hg Nov 27, 2009 blood pressure, diastolic BP DIASTOLIC 67 mm Hg Nov 27, 2009 pulse rate E&M PULSE RATE 63 /min Nov 27, 2009 blood pressure, systolic, second observation BP SYS #2 138 mm Hg Nov 27, 2009 blood pressure, diastolic, second observation BP YUE #2 62 mm Hg Apr 24, 2010 weight E&M WEIGHT 166 lb Apr 24, 2010 height E&M HEIGHT 70 in Apr 24, 2010 blood pressure, systolic BP SYSTOLIC 154 mm Hg Apr 24, 2010 blood pressure, diastolic BP DIASTOLIC 73 mm Hg Apr 24, 2010 pulse rate E&M PULSE RATE 76 /min Apr 24, 2010 temperature E&M TEMPERATURE 97.0 deg f May 08, 2010 height E&M HEIGHT 70 in May 08, 2010 weight E&M WEIGHT 166.13 lb May 08, 2010 temperature E&M TEMPERATURE 97.6 deg f May 08, 2010 blood pressure, systolic BP SYSTOLIC 145 mm Hg May 08, 2010 blood pressure, diastolic BP DIASTOLIC 73 mm Hg May 08, 2010 pulse rate E&M PULSE RATE 77 /min May 08, 2010 blood pressure, systolic, second observation BP SYS #2 128 mm Hg May 08, 2010 blood pressure, diastolic, second observation BP YUE #2 78 mm Hg Jun 08, 2010 height E&M HEIGHT 70 in Jun 08, 2010 weight E&M WEIGHT 164 lb Jun 08, 2010 temperature E&M TEMPERATURE 97.1 deg f Jun 08, 2010 blood pressure, systolic BP SYSTOLIC 134 mm Hg Jun 08, 2010 blood pressure, diastolic BP DIASTOLIC 76 mm Hg Jun 08, 2010 pulse rate E&M PULSE RATE 59 /min Sep 07, 2010 weight E&M WEIGHT 158 lb Sep 07, 2010 height E&M HEIGHT 70 in Sep 07, 2010 temperature E&M TEMPERATURE 96.3 deg f Sep 07, 2010 blood pressure, systolic BP SYSTOLIC 133 mm Hg Sep 07, 2010 blood pressure, diastolic BP DIASTOLIC 61 mm Hg Sep 07, 2010 pulse rate E&M PULSE RATE 60 /min Nov 30, 2010 weight E&M WEIGHT 154 lb Nov 30, 2010 height E&M HEIGHT 70 in Nov 30, 2010 blood pressure, systolic BP SYSTOLIC 138 mm Hg Nov 30, 2010 blood pressure, diastolic BP DIASTOLIC 65 mm Hg Nov 30, 2010 pulse rate E&M PULSE RATE 62 /min Nov 30, 2010 temperature E&M TEMPERATURE 96.9 deg f Jan 15, 2011 weight E&M WEIGHT 155 lb Jan 15, 2011 height E&M HEIGHT 70 in Jan 15, 2011 blood pressure, systolic BP SYSTOLIC 123 mm Hg Jan 15, 2011 blood pressure, diastolic BP DIASTOLIC 59 mm Hg Jan 15, 2011 pulse rate E&M PULSE RATE 64 /min Jan 15, 2011 temperature E&M TEMPERATURE 98.0 deg f January 29, 2011 height E&M HEIGHT 70 in January 29, 2011 weight E&M WEIGHT 151 lb January 29, 2011 temperature E&M TEMPERATURE 98.2 deg f January 29, 2011 blood pressure, systolic BP SYSTOLIC 119 mm Hg January 29, 2011 blood pressure, diastolic BP DIASTOLIC 63 mm Hg January 29, 2011 pulse rate E&M PULSE RATE 95 /min February 08, 2011 weight E&M WEIGHT 152 lb February 08, 2011 height E&M HEIGHT 70 in February 08, 2011 temperature E&M TEMPERATURE 97.6 deg f February 08, 2011 blood pressure, systolic BP SYSTOLIC 135 mm Hg February 08, 2011 blood pressure, diastolic BP DIASTOLIC 69 mm Hg February 08, 2011 pulse rate E&M PULSE RATE 69 /min Mar 22, 2011 height E&M HEIGHT 70 in Mar 22, 2011 weight E&M WEIGHT 153 lb Mar 22, 2011 temperature E&M TEMPERATURE 98.1 deg f Mar 22, 2011 blood pressure, systolic BP SYSTOLIC 121 mm Hg Mar 22, 2011 blood pressure, diastolic BP DIASTOLIC 69 mm Hg Mar 22, 2011 pulse rate E&M PULSE RATE 72 /min Apr 22, 2011 weight E&M WEIGHT 153 lb Apr 22, 2011 height E&M HEIGHT 70 in Apr 22, 2011 temperature E&M TEMPERATURE 96.5 deg f Apr 22, 2011 blood pressure, systolic BP SYSTOLIC 140 mm Hg Apr 22, 2011 blood pressure, diastolic BP DIASTOLIC 67 mm Hg Apr 22, 2011 pulse rate E&M PULSE RATE 59 /min May 07, 2011 weight E&M WEIGHT 155 lb May 07, 2011 temperature E&M TEMPERATURE 98.0 deg f May 07, 2011 blood pressure, systolic BP SYSTOLIC 117 mm Hg May 07, 2011 blood pressure, diastolic BP DIASTOLIC 58 mm Hg May 07, 2011 pulse rate E&M PULSE RATE 58 /min Jun 26, 2011 weight E&M WEIGHT 156 lb Jun 26, 2011 temperature E&M TEMPERATURE 97.2 deg f Jun 26, 2011 blood pressure, systolic BP SYSTOLIC 128 mm Hg Jun 26, 2011 blood pressure, diastolic BP DIASTOLIC 68 mm Hg Jun 26, 2011 pulse rate E&M PULSE RATE 72 /min Jul 24, 2011 weight E&M WEIGHT 154 lb Jul 24, 2011 temperature E&M TEMPERATURE 97.9 deg f Jul 24, 2011 pulse rate E&M PULSE RATE 60 /min Jul 24, 2011 blood pressure, systolic BP SYSTOLIC 120 mm Hg Jul 24, 2011 blood pressure, diastolic BP DIASTOLIC 70 mm Hg Aug 07, 2011 weight E&M WEIGHT 154 lb Aug 07, 2011 temperature E&M TEMPERATURE 97.1 deg f Aug 07, 2011 blood pressure, systolic BP SYSTOLIC 156 mm Hg Aug 07, 2011 blood pressure, diastolic BP DIASTOLIC 67 mm Hg Aug 07, 2011 pulse rate E&M PULSE RATE 72 /min Aug 23, 2011 weight E&M WEIGHT 154 lb Aug 23, 2011 temperature E&M TEMPERATURE 97.1 deg f Aug 23, 2011 blood pressure, systolic BP SYSTOLIC 128 mm Hg Aug 23, 2011 blood pressure, diastolic BP DIASTOLIC 68 mm Hg Aug 23, 2011 pulse rate E&M PULSE RATE 64 /min Nov 06, 2011 weight E&M WEIGHT 158 lb Nov 06, 2011 temperature E&M TEMPERATURE 97.0 deg f Nov 06, 2011 blood pressure, systolic BP SYSTOLIC 138 mm Hg Nov 06, 2011 blood pressure, diastolic BP DIASTOLIC 66 mm Hg Nov 06, 2011 pulse rate E&M PULSE RATE 77 /min Dec 23, 2011 weight E&M WEIGHT 154.4 lb Dec 23, 2011 blood pressure, systolic BP SYSTOLIC 140 mm Hg Dec 23, 2011 blood pressure, diastolic BP DIASTOLIC 61 mm Hg Dec 23, 2011 temperature E&M TEMPERATURE 97.2 deg f Dec 23, 2011 pulse rate E&M PULSE RATE 79 /min January 29, 2012 weight E&M WEIGHT 154 lb January 29, 2012 temperature E&M TEMPERATURE 97.6 deg f January 29, 2012 blood pressure, systolic BP SYSTOLIC 137 mm Hg January 29, 2012 blood pressure, diastolic BP DIASTOLIC 65 mm Hg January 29, 2012 pulse rate E&M PULSE RATE 59 /min May 01, 2012 weight E&M WEIGHT 152.13 lb May 01, 2012 blood pressure, systolic BP SYSTOLIC 141 mm Hg May 01, 2012 blood pressure, diastolic BP DIASTOLIC 74 mm Hg May 01, 2012 pulse rate E&M PULSE RATE 59 /min May 01, 2012 temperature E&M TEMPERATURE 96.5 deg f Aug 17, 2012 weight E&M WEIGHT 151 lb Aug 17, 2012 blood pressure, systolic BP SYSTOLIC 120 mm Hg Aug 17, 2012 blood pressure, diastolic BP DIASTOLIC 66 mm Hg Aug 17, 2012 pulse rate E&M PULSE RATE 76 /min Aug 17, 2012 temperature E&M TEMPERATURE 95.6 deg f January 27, 2013 weight E&M WEIGHT 145.25 lb January 27, 2013 temperature E&M TEMPERATURE 98.8 deg f January 27, 2013 blood pressure, systolic BP SYSTOLIC 139 mm Hg January 27, 2013 blood pressure, diastolic BP DIASTOLIC 62 mm Hg January 27, 2013 pulse rate E&M PULSE RATE 79 /min May 26, 2013 weight E&M WEIGHT 144.6 lb May 26, 2013 temperature E&M TEMPERATURE 97.2 deg f May 26, 2013 blood pressure, systolic BP SYSTOLIC 148 mm Hg May 26, 2013 blood pressure, diastolic BP DIASTOLIC 59 mm Hg May 26, 2013 pulse rate E&M PULSE RATE 64 /min Jun 09, 2013 weight E&M WEIGHT 144.0 lb Jun 09, 2013 temperature E&M TEMPERATURE 97.6 deg f Jun 09, 2013 blood pressure, systolic BP SYSTOLIC 129 mm Hg Jun 09, 2013 blood pressure, diastolic BP DIASTOLIC 66 mm Hg Jun 09, 2013 pulse rate E&M PULSE RATE 65 /min Jul 09, 2013 weight E&M WEIGHT 144 lb Jul 09, 2013 temperature E&M TEMPERATURE 97.1 deg f Jul 09, 2013 blood pressure, systolic BP SYSTOLIC 128 mm Hg Jul 09, 2013 blood pressure, diastolic BP DIASTOLIC 57 mm Hg Jul 09, 2013 pulse rate E&M PULSE RATE 58 /min Sep 09, 2013 weight E&M WEIGHT 139 lb Sep 09, 2013 blood pressure, systolic BP SYSTOLIC 140 mm Hg Sep 09, 2013 blood pressure, diastolic BP DIASTOLIC 64 mm Hg Sep 09, 2013 temperature E&M TEMPERATURE 96.2 deg f Sep 09, 2013 pulse rate E&M PULSE RATE 64 /min Oct 22, 2013 weight E&M WEIGHT 135.13 lb Oct 22, 2013 temperature E&M TEMPERATURE 97.5 deg f Oct 22, 2013 pulse rate E&M PULSE RATE 60 /min Oct 22, 2013 blood pressure, systolic BP SYSTOLIC 130 mm Hg Oct 22, 2013 blood pressure, diastolic BP DIASTOLIC 70 mm Hg Dec 14, 2013 weight E&M WEIGHT 130.13 lb Dec 14, 2013 temperature E&M TEMPERATURE 96.4 deg f Dec 14, 2013 pulse rate E&M PULSE RATE 60 /min Dec 14, 2013 blood pressure, systolic BP SYSTOLIC 130 mm Hg Dec 14, 2013 blood pressure, diastolic BP DIASTOLIC 70 mm Hg Jan 11, 2014 weight E&M WEIGHT 135.38 lb Jan 11, 2014 temperature E&M TEMPERATURE 96.8 deg f Jan 11, 2014 pulse rate E&M PULSE RATE 63 /min Jan 11, 2014 blood pressure, systolic BP SYSTOLIC 132 mm Hg Jan 11, 2014 blood pressure, diastolic BP DIASTOLIC 60 mm Hg February 08, 2014 weight E&M WEIGHT 136.13 lb February 08, 2014 temperature E&M TEMPERATURE 96.5 deg f February 08, 2014 pulse rate E&M PULSE RATE 66 /min February 08, 2014 blood pressure, systolic BP SYSTOLIC 140 mm Hg February 08, 2014 blood pressure, diastolic BP DIASTOLIC 60 mm Hg Apr 21, 2014 weight E&M WEIGHT 141.38 lb Apr 21, 2014 temperature E&M TEMPERATURE 98.0 deg f Apr 21, 2014 pulse rate E&M PULSE RATE 63 /min Apr 21, 2014 blood pressure, systolic BP SYSTOLIC 130 mm Hg Apr 21, 2014 blood pressure, diastolic BP DIASTOLIC 60 mm Hg Results Date [...] urea nitrogen/creatinine ratio, serum BUN/CREAT 16 null -May 07, 2011 albumin, serum ALBUMIN 3.8 g/dL 3.5-5.0 May 07, 2011 calcium, serum CALCIUM 9.1 mg/dL 8.5-10.5 May 07, 2011 aspartate aminotransferase (SGOT), serum SGOT (AST) 10 U/L 0-37 May 07, 2011 alanine aminotransferase (SGPT), serum SGPT (ALT) 23 U/L 0-65 May 07, 2011 alkaline phosphatase, serum ALK PHOS 59 U/L 39-136 Jun 26, 2011 urea nitrogen, blood BUN 14 mg/dL 7-Jun 26, 2011 creatinine, serum CREATININE 0.8 mg/dL [...] 2011 urea nitrogen, blood BUN 12 mg/dL 7-Jul 12, 2011 creatinine, serum CREATININE 0.8 mg/dL [...] 2012 urea nitrogen, blood BUN 15 mg/dL 7-22 May 01, 2012 creatinine, serum CREATININE 1.0 mg/dL [...] urea nitrogen/creatinine ratio, serum BUN/CREAT 16 null 6-January 28, 2013 albumin, serum ALBUMIN 4.0 g/dL 3.5-5.0 January 28, 2013 calcium, serum CALCIUM 8.8 mg/dL 8.5-10.5 January 28, 2013 alanine aminotransferase (SGPT), serum SGPT (ALT) 19 U/L 0-January 28, 2013 aspartate aminotransferase (SGOT), serum SGOT [...] 2013 urea nitrogen, blood BUN 14 mg/dL 04-12January 28, 2013 urea nitrogen/creatinine ratio, serum BUN/CREAT 16 null 6-January 28, 2013 albumin, serum ALBUMIN 4.0 g/dL [...] 2009 urea nitrogen, blood BUN 11 mg/dL 7-22 Nov 27, 2009 creatinine, serum CREATININE 0.9 mg/dL [...] PHOS 60 U/L 39-136 Nov 27, 2009 triiodothyronine, serum T3, TOTAL 109 ng/dL Units converted. [...] 2010 urea nitrogen, blood BUN 18 mg/dL 7-22 Sep 10, 2010 creatinine, serum CREATININE 0.8 mg/dL [...] 2011 urea nitrogen, blood BUN 12 mg/dL 7-22 Jul 12, 2011 creatinine, serum CREATININE 0.8 mg/dL [...] 2011 urea nitrogen, blood BUN 14 mg/dL 7-Aug 23, 2011 creatinine, serum CREATININE 0.8 mg/dL [...] urea nitrogen/creatinine ratio, serum BUN/CREAT 16 null 6-January 28, 2013 albumin, serum ALBUMIN 4.0 g/dL [...] 2013 urea nitrogen, blood BUN 10 mg/dL 7-Dec 14, 2013 urea nitrogen/creatinine ratio, serum BUN/CREAT [...]
--- OUTSIDE RECORDS SUMMARY | 2019-04-15 08:16 | XMS REPORT | Continuity of Care Document ---
Author Author [facility] Organization [facility] Address Unknown Phone Unavailable Care Team Providers Care Cooling Tower Technician Name Role Phone MD Jacek, Pretty PP Unavailable Insurance Providers Payer name Policy type / Coverage type Policy ID Covered democrat ID Policy Cash [place]: [facility] ([facility]MN[facility]) [place]: NOVITAS [employer] MEDICARE [place]: NOV[place]AS [employer] [place]: [employer] Encounters Encounter Performer Location Date Lab Report Pretty Read MD [facility] Apr 20, 2015 Problems Problem Effective Dates Problem Status HTN [...] Inactive WEIGHT LOSS, ABNORMAL Dec 14, 2013 Inactive 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, 2013 Inactive ANEMIA Dec 15, 2013 Active OSTEOARTHROSIS, GENERALIZED, MULTIPLE SITES Oct 20, 2014 Active Procedures Date Description Comments Oct 30, 2009 smoking status quit Jun 26, 2011 smoking status never smoker May 06, 2013 echocardiogram, complete Complete Apr 21, 2014 smoking status Never smoker Oct 20, 2014 smoking status Never smoker Apr 20, 2015 smoking status Never smoker Medications Medication Instructions [...] Nov 30, 2010 Inactive VITAMIN D (ERGOCALCIFEROL) 62781 UNIT CAPS 1 po once a week [...] once a day Jan 11, 2014 Inactive CELEBREX 200 MG CAPS Take one capsule by mouth daily January 25, 2014 Inactive VITAMIN D-3 CAPS 1 tab by mouth once a day Oct 20, 2014 Active IRON TABS 1 tab by mouth once a day Oct 20, 2014 Active ESCITALOPRAM OXALATE 10 MG TABS 1 tablet daily Jan 11, 2014 Active ROLLER WALKER MISC use as directed Jan 12, 2015 Active Immunizations Vaccine Date Status influenza immunization [...] RATE 59 /min May 07, 2011 weight Michaela&M - 3141-9 WEIGHT 155 lb May 07, 2011 temperature E&M TEMPERATURE 98.0 deg f May 07, 2011 blood pressure, systolic - 8480-6 BP SYSTOLIC 117 mm Hg May 07, 2011 blood pressure, diastolic - 8462-4 BP DIASTOLIC 58 mm Hg May 07, 2011 pulse rate E&M - 8867-4 PULSE RATE 58 /min Jun 26, 2011 weight Michaela&M - 3141-9 WEIGHT 156 lb Jun 26, 2011 temperature E&M TEMPERATURE 97.2 deg f Jun 26, 2011 blood pressure, systolic - 8480-6 BP SYSTOLIC 128 mm Hg Jun 26, 2011 blood pressure, diastolic - 8462-4 BP DIASTOLIC 68 mm Hg Jun 26, 2011 pulse rate E&M - 8867-4 PULSE RATE 72 /min Jul 24, 2011 weight Michaela&M - 3141-9 WEIGHT 154 lb Jul 24, 2011 temperature E&M TEMPERATURE 97.9 deg f Jul 24, 2011 pulse rate E&M - 8867-4 PULSE RATE 60 /min Jul 24, 2011 blood pressure, systolic - 8480-6 BP SYSTOLIC 120 mm Hg Jul 24, 2011 blood pressure, diastolic - 8462-4 BP DIASTOLIC 70 mm Hg Aug 07, 2011 weight Michaela&M - 3141-9 WEIGHT 154 lb Aug 07, 2011 temperature E&M TEMPERATURE 97.1 deg f Aug 07, 2011 blood pressure, systolic - 8480-6 BP SYSTOLIC 156 mm Hg Aug 07, 2011 blood pressure, diastolic - 8462-4 BP DIASTOLIC 67 mm Hg Aug 07, 2011 pulse rate E&M - 8867-4 PULSE RATE 72 /min Aug 23, 2011 weight Michaela&M - 3141-9 WEIGHT 154 lb Aug 23, 2011 temperature E&M TEMPERATURE 97.1 deg f Aug 23, 2011 blood pressure, systolic - 8480-6 BP SYSTOLIC 128 mm Hg Aug 23, 2011 blood pressure, diastolic - 8462-4 BP DIASTOLIC 68 mm Hg Aug 23, 2011 pulse rate E&M - 8867-4 PULSE RATE 64 /min Nov 06, 2011 weight Michaela&M - 3141-9 WEIGHT 158 lb Nov 06, 2011 temperature E&M TEMPERATURE 97.0 deg f Nov 06, 2011 blood pressure, systolic - 8480-6 BP SYSTOLIC 138 mm Hg Nov 06, 2011 blood pressure, diastolic - 8462-4 BP DIASTOLIC 66 mm Hg Nov 06, 2011 pulse rate E&M - 8867-4 PULSE RATE 77 /min Dec 23, 2011 weight Michaela&Tomas - Arlene-9 WEIGHT 154.4 lb Dec 23, 2011 blood pressure, systolic - 8480-6 BP SYSTOLIC 140 mm Hg Dec 23, 2011 blood pressure, diastolic - 8462-4 BP DIASTOLIC 61 mm Hg Dec 23, 2011 temperature E&M TEMPERATURE 97.2 deg f Dec 23, 2011 pulse rate E&M - 8867-4 PULSE RATE 79 /min January 29, 2012 weight Michaela&Tomas Jacobs-9 WEIGHT 154 lb January 29, 2012 temperature E&M TEMPERATURE 97.6 deg f January 29, 2012 blood pressure, systolic - 8480-6 BP SYSTOLIC 137 mm Hg January 29, 2012 blood pressure, diastolic - 8462-4 BP DIASTOLIC 65 mm Hg January 29, 2012 pulse rate E&M - 8867-4 PULSE RATE 59 /min May 01, 2012 weight Jerry Jacobs-9 WEIGHT 152.13 lb May 01, 2012 blood pressure, systolic - 8480-6 BP SYSTOLIC 141 mm Hg May 01, 2012 blood pressure, diastolic - 8462-4 BP DIASTOLIC 74 mm Hg May 01, 2012 pulse rate E&M - 8867-4 PULSE RATE 59 /min May 01, 2012 temperature E&M TEMPERATURE 96.5 deg f Aug 17, 2012 weight Jerry Jacobs-Terrie WEIGHT 151 lb Aug 17, 2012 blood pressure, systolic - 8480-6 BP SYSTOLIC 120 mm Hg Aug 17, 2012 blood pressure, diastolic - 8462-4 BP DIASTOLIC 66 mm Hg Aug 17, 2012 pulse rate E&M - 8867-4 PULSE RATE 76 /min Aug 17, 2012 temperature E&M TEMPERATURE 95.6 deg f January 27, 2013 weight Jerry Alexander9 WEIGHT 145.25 lb January 27, 2013 temperature E&M TEMPERATURE 98.8 deg f January 27, 2013 blood pressure, systolic - 8480-6 BP SYSTOLIC 139 mm Hg January 27, 2013 blood pressure, diastolic - 8462-4 BP DIASTOLIC 62 mm Hg January 27, 2013 pulse rate E&M - 8867-4 PULSE RATE 79 /min May 26, 2013 weight Michaela&Tomas Jacobs-9 WEIGHT 144.6 lb May 26, 2013 temperature E&M TEMPERATURE 97.2 deg f May 26, 2013 blood pressure, systolic - 8480-6 BP SYSTOLIC 148 mm Hg May 26, 2013 blood pressure, diastolic - 8462-4 BP DIASTOLIC 59 mm Hg May 26, 2013 pulse rate E&M - 8867-4 PULSE RATE 64 /min Jun 09, 2013 weight E&M - Luc1-9 WEIGHT 144.0 lb Jun 09, [...] RATE 58 /min Sep 09, 2013 weight Michaela&Tomas - Luc1-9 WEIGHT 139 lb Sep 09, 2013 blood pressure, systolic - 8480-6 BP SYSTOLIC 140 mm Hg Sep 09, 2013 blood pressure, diastolic - 8462-4 BP DIASTOLIC 64 mm Hg Sep 09, 2013 temperature E&M TEMPERATURE 96.2 deg f Sep 09, 2013 pulse rate E&M - 8867-4 PULSE RATE 64 /min Oct 22, 2013 weight Michaela&Tomas - Luc1-9 WEIGHT 135.13 lb Oct 22, 2013 temperature E&M TEMPERATURE 97.5 deg f Oct 22, 2013 pulse rate E&M - 8867-4 PULSE RATE 60 /min Oct 22, 2013 blood pressure, systolic - 8480-6 BP SYSTOLIC 130 mm Hg Oct 22, 2013 blood pressure, diastolic - 8462-4 BP DIASTOLIC 70 mm Hg Dec 14, 2013 weight Michaela&Tomas - 3141-9 WEIGHT 130.13 lb Dec 14, 2013 temperature E&M TEMPERATURE 96.4 deg f Dec 14, 2013 pulse rate E&M - 8867-4 PULSE RATE 60 /min Dec 14, 2013 blood pressure, systolic - 8480-6 BP SYSTOLIC 130 mm Hg Dec 14, 2013 blood pressure, diastolic - 8462-4 BP DIASTOLIC 70 mm Hg Jan 11, 2014 weight E&M - Luc1-9 WEIGHT 135.38 lb Jan 11, 2014 temperature E&M TEMPERATURE 96.8 deg f Jan 11, 2014 pulse rate E&M - 8867-4 PULSE RATE 63 /min Jan 11, 2014 blood pressure, systolic - 8480-6 BP SYSTOLIC 132 mm Hg Jan 11, 2014 blood pressure, diastolic - 8462-4 BP DIASTOLIC 60 mm Hg February 08, 2014 weight Michaela&M - 3141-9 WEIGHT 136.13 lb February 08, 2014 temperature E&M TEMPERATURE 96.5 deg f February 08, 2014 pulse rate E&M - 8867-4 PULSE RATE 66 /min February 08, 2014 blood pressure, systolic - 8480-6 BP SYSTOLIC 140 mm Hg February 08, 2014 blood pressure, diastolic - 8462-4 BP DIASTOLIC 60 mm Hg Apr 21, 2014 weight E&M - 3141-9 WEIGHT 141.38 lb Apr 21, 2014 temperature E&M TEMPERATURE 98.0 deg f Apr 21, 2014 pulse rate E&M - 8867-4 PULSE RATE 63 /min Apr 21, 2014 blood pressure, systolic - 8480-6 BP SYSTOLIC 130 mm Hg Apr 21, 2014 blood pressure, diastolic - 8462-4 BP DIASTOLIC 60 mm Hg Oct 20, 2014 height E&M - 8302-2 HEIGHT 70 in Oct 20, 2014 weight Michaela&M - 3141-9 WEIGHT 159 lb Oct 20, 2014 temperature E&M TEMPERATURE 97.7 deg f Oct 20, 2014 blood pressure, systolic - 8480-6 BP SYSTOLIC 140 mm Hg Oct 20, 2014 blood pressure, diastolic - 8462-4 BP DIASTOLIC 73 mm Hg Oct 20, 2014 pulse rate E&M - 8867-4 PULSE RATE 64 /min Apr 20, 2015 height E&M - 8302-2 HEIGHT 70 in Apr 20, 2015 weight Michaela&M - 3141-9 WEIGHT 156 lb Apr 20, 2015 blood pressure, systolic - 8480-6 BP SYSTOLIC 149 mm Hg Apr 20, 2015 blood pressure, diastolic - 8462-4 BP DIASTOLIC 66 mm Hg Apr 20, 2015 pulse rate E&M - 8867-4 PULSE RATE 64 /min Apr 20, 2015 temperature E&M TEMPERATURE 97.6 deg f Results Date Description Test Name Value Reference [...] platelet count PLATELETS 197 K/CMM /mm3 133-450 Apr 20, 2015 hemoglobin, blood HGB 14.2 g/dL 14.0-18.0 Apr 20, 2015 hematocrit, blood HCT 41.9 % 42.0-54.0 Low Apr 20, 2015 platelet count PLATELETS 178 K/CMM /mm3 133-450 Nov 27, 2009 urine [...] urea nitrogen/creatinine ratio, serum BUN/CREAT 16 null 6-May 07, 2011 albumin, serum ALBUMIN 3.8 g/dL [...] 2011 urea nitrogen, blood BUN 19 mg/dL 7-Mar 22, 2011 creatinine, serum CREATININE 1.1 mg/dL [...] 2011 urea nitrogen, blood BUN 13 mg/dL 7-May 07, 2011 creatinine, serum CREATININE 0.8 mg/dL [...] blood, stool (E&M) HEMOCCULT Negative null Negative Apr 20, 2015 sodium, serum SODIUM 142 MEQ/L mmol/L 135-145 Apr 20, 2015 potassium, serum POTASSIUM 4.1 MEQ/L mmol/L 3.5-5.1 Apr 20, 2015 creatinine, serum CREATININE 0.9 mg/dL 0.5-1.4 Apr 20, 2015 urea nitrogen, blood BUN 14 mg/dL 7-22 Apr 20, 2015 urea nitrogen/creatinine ratio, serum BUN/CREAT 16 null 6-Apr 20, 2015 albumin, serum ALBUMIN 3.8 g/dL 3.5-5.0 Apr 20, 2015 calcium, serum CALCIUM 8.7 mg/dL 8.5-10.5 Apr 20, 2015 alanine aminotransferase (SGPT), serum SGPT (ALT) 26 U/L 0-65 Apr 20, 2015 aspartate aminotransferase (SGOT), serum SGOT (AST) 18 U/L 0-37 Apr 20, 2015 alkaline phosphatase, serum ALK PHOS 66 U/L 39-136
--- OUTSIDE RECORDS SUMMARY | 2019-04-15 08:16 | XMS REPORT | Continuity of Care Document ---
Author Author [facility] Organization [facility] Address Unknown Phone Unavailable Care Team Providers Care District Court Bailiff Name Role Phone MD Jacek, Pretty PP Unavailable Insurance Providers Payer name Policy type / Coverage type Policy ID Covered constitution party ID Policy Cash [place]: [employer] [facility] (INDEMNITY) [place]: [place]OVITAS [employer] MEDICARE [place]: [employer] [place]ARE [place]: [place] [employer] Encounters Encounter Performer Location Date Office Visit Pretty Read MD [facility] Apr 20, 2015 Problems Problem Effective Dates [...] Nov 30, 2010 Inactive VITAMIN D (ERGOCALCIFEROL) 29415 UNIT CAPS 1 po once a week [...]
--- OUTSIDE RECORDS SUMMARY | 2019-04-15 08:16 | XMS REPORT | Continuity of Care Document ---
Author Author [facility] Organization [facility] Address Unknown Phone Unavailable Care Team Providers Care Television Station Manager Name Role Phone MD Jacek, Pretty PP Unavailable Insurance Providers Payer name Policy type / Coverage type Policy ID Covered alliance party ID Policy Cash [place]ICARE [place]: Equ[facility] (INDEMNITY) MEDICARE [place]: NOVITAS [employer] MEDICARE [place]: [employer] MEDICARE [place]: [employer]AS [employer] Encounters Encounter Performer Location Date Office Visit Pretty Read MD [facility] Oct 20, 2014 Problems Problem Effective Dates Problem Status [...] Oct 20, 2014 smoking status Never smoker Medications Medication [...] Nov 30, 2010 Inactive VITAMIN D (ERGOCALCIFEROL) 86507 UNIT CAPS 1 po once a week [...] 1 tablet daily Jan 11, 2014 Active Immunizations Vaccine Date Status influenza [...] RATE 72 /min Jul 24, 2011 weight Michaela&Tomas - 3141-9 WEIGHT 154 lb Jul 24, 2011 temperature E&M TEMPERATURE 97.9 deg f Jul 24, 2011 pulse rate E&M - 8867-4 PULSE RATE 60 /min Jul 24, 2011 blood pressure, systolic - 8480-6 BP SYSTOLIC 120 mm Hg Jul 24, 2011 blood pressure, diastolic - 8462-4 BP DIASTOLIC 70 mm Hg Aug 07, 2011 weight Michaela&Tomas - 3141-9 WEIGHT 154 lb Aug 07, 2011 temperature E&M TEMPERATURE 97.1 deg f Aug 07, 2011 blood pressure, systolic - 8480-6 BP SYSTOLIC 156 mm Hg Aug 07, 2011 blood pressure, diastolic - 8462-4 BP DIASTOLIC 67 mm Hg Aug 07, 2011 pulse rate E&M - 8867-4 PULSE RATE 72 /min Aug 23, 2011 weight Michaela&Tomas - Luc1-9 WEIGHT 154 lb Aug 23, 2011 temperature E&M TEMPERATURE 97.1 deg f Aug 23, 2011 blood pressure, systolic - 8480-6 BP SYSTOLIC 128 mm Hg Aug 23, 2011 blood pressure, diastolic - 8462-4 BP DIASTOLIC 68 mm Hg Aug 23, 2011 pulse rate E&M - 8867-4 PULSE RATE 64 /min Nov 06, 2011 weight Michaela&Tomas - 3141-9 WEIGHT 158 lb Nov 06, [...] 79 /min January 29, 2012 weight E&M - 3141-9 WEIGHT 154 lb January 29, 2012 temperature E&M TEMPERATURE 97.6 deg f January 29, 2012 blood pressure, systolic - 8480-6 BP SYSTOLIC 137 mm Hg January 29, 2012 blood pressure, diastolic - 8462-4 BP DIASTOLIC 65 mm Hg January 29, 2012 pulse rate E&M - 8867-4 PULSE RATE 59 /min May 01, 2012 weight E&M - 3141-9 WEIGHT 152.13 lb May 01, 2012 blood pressure, systolic - 8480-6 BP SYSTOLIC 141 mm Hg May 01, 2012 blood pressure, diastolic - 8462-4 BP DIASTOLIC 74 mm Hg May 01, 2012 pulse rate E&M - 8867-4 PULSE RATE 59 /min May 01, 2012 temperature E&M TEMPERATURE 96.5 deg f Aug 17, 2012 weight Michaela&M - 3141-9 WEIGHT 151 lb Aug 17, 2012 blood pressure, systolic - 8480-6 BP SYSTOLIC 120 mm Hg Aug 17, 2012 blood pressure, diastolic - 8462-4 BP DIASTOLIC 66 mm Hg Aug 17, 2012 pulse rate E&M - 8867-4 PULSE RATE 76 /min Aug 17, 2012 temperature E&M TEMPERATURE 95.6 deg f January 27, 2013 weight E&M - 3141-9 WEIGHT 145.25 lb January 27, 2013 temperature E&M TEMPERATURE 98.8 deg f January 27, 2013 blood pressure, systolic - 8480-6 BP SYSTOLIC 139 mm Hg January 27, 2013 blood pressure, diastolic - 8462-4 BP DIASTOLIC 62 mm Hg January 27, 2013 pulse rate E&M - 8867-4 PULSE RATE 79 /min May 26, 2013 weight E&M - 3141-9 WEIGHT 144.6 lb May 26, 2013 temperature [...] /min Jul 09, 2013 weight E&M - Luc1-9 WEIGHT 144 lb Jul 09, 2013 temperature [...] 64 /min Oct 22, 2013 weight Michaela&Tomas Jacobs-9 WEIGHT 135.13 lb Oct 22, 2013 temperature E&M TEMPERATURE 97.5 deg f Oct 22, 2013 pulse rate E&M - 8867-4 PULSE RATE 60 /min Oct 22, 2013 blood pressure, systolic - 8480-6 BP SYSTOLIC 130 mm Hg Oct 22, 2013 blood pressure, diastolic - 8462-4 BP DIASTOLIC 70 mm Hg Dec 14, 2013 weight Michaela&Tomas - Luc1-9 WEIGHT 130.13 lb Dec 14, 2013 temperature E&M TEMPERATURE 96.4 deg f Dec 14, 2013 pulse rate E&M - 8867-4 PULSE RATE 60 /min Dec 14, 2013 blood pressure, systolic - 8480-6 BP SYSTOLIC 130 mm Hg Dec 14, 2013 blood pressure, diastolic - 8462-4 BP DIASTOLIC 70 mm Hg Jan 11, 2014 weight Michaela&Tomas - Luc1-9 WEIGHT 135.38 lb Jan 11, [...] HEIGHT 70 in Oct 20, 2014 weight E&M - 3141-9 WEIGHT 159 lb Oct 20, 2014 temperature E&M TEMPERATURE 97.7 deg f Oct 20, 2014 blood pressure, systolic - 8480-6 BP SYSTOLIC 140 mm Hg Oct 20, 2014 blood pressure, diastolic - 8462-4 BP DIASTOLIC 73 mm Hg Oct 20, 2014 pulse rate E&M - 8867-4 PULSE RATE 64 /min Results Date Description Test Name Value Reference [...] urea nitrogen/creatinine ratio, serum BUN/CREAT 15 null -Jul 12, 2011 albumin, serum ALBUMIN 4.2 g/dL [...] urea nitrogen, blood BUN 14 mg/dL 7-22 Aug 23, 2011 creatinine, serum CREATININE 0.8 mg/dL [...] urea nitrogen/creatinine ratio, serum BUN/CREAT 16 null -January 28, 2013 albumin, serum ALBUMIN 4.0 g/dL [...] 2009 urea nitrogen, blood BUN 11 mg/dL -Nov 27, 2009 creatinine, serum CREATININE 0.9 mg/dL 0.5-1.4 Nov 27, 2009 urea nitrogen/creatinine ratio, serum BUN/CREAT 12 null -Nov 27, 2009 albumin, serum ALBUMIN 4.2 g/dL [...] 2011 urea nitrogen, blood BUN 12 mg/dL 04-12Jul 12, 2011 creatinine, serum CREATININE 0.8 mg/dL [...] urea nitrogen, blood BUN 14 mg/dL 7-22 Aug 23, 2011 creatinine, serum CREATININE 0.8 mg/dL [...] 2012 urea nitrogen, blood BUN 15 mg/dL -May 01, 2012 creatinine, serum CREATININE 1.0 mg/dL [...] 2013 urea nitrogen, blood BUN 14 mg/dL 7-22 January 28, 2013 urea nitrogen/creatinine ratio, serum BUN/CREAT [...]
--- OUTSIDE RECORDS SUMMARY | 2019-04-15 08:17 | XMS REPORT ---
Author Author [facility] Address Unknown Phone Unavailable Care Team Providers Care Lance Crewmember Name Role Phone Unavailable Unavailable Problems This patient has no known problems. Allergies, Adverse Reactions, Alerts This patient has no known allergies or adverse reactions. Medications This patient has no known medications. Encounters Start Date/Time End Date/Time Encounter Type Admission Type Attending Clinicians Care Facility Care Department Encounter ID 2019-03-29 15:07:46 Outpatient [id number] 2019-03-11 14:47:00 2019-03-11 14:47:00 Outpatient [id number]
[2019-04-15 09:16] LABS: BASOPHILS % 0.5 % (0.0-1.0); EOSINOPHILS % 0.5 % (0.0-6.0); HEMATOCRIT 36.3 % (38.2-49.6); HEMOGLOBIN 12.3 g/dL (14.0-18.0); LYMPHOCYTES # (AUTO) 0.6 (1.0-3.2); LYMPHOCYTES % 8.1 % (18.0-39.1); MEAN CORPUSCULAR HEMOGLOBIN 31.9 pg (28-32); MEAN CORPUSCULAR HGB CONC 33.9 g/dL (31-35); MEAN CORPUSCULAR VOLUME 94.3 fL (81-99); MONOCYTES # (AUTO) 0.8 (0.2-0.8); MONOCYTES % 10.1 % (4.4-11.3); NEUTROPHILS % 80.4 % (38.7-80.0); PLATELET COUNT 238 x10e3/uL (140-360); RED BLOOD COUNT 3.85 x10e6/uL (4.3-5.7); RED CELL DISTRIBUTION WIDTH 13.8 % (11.7-14.4)
[2019-04-15] MEDS ORDERED: LISINOPRIL2.5 MG PO (09:36)
[2019-04-15] MEDS ORDERED: CLONIDINE HCL0.1 MG PO (09:36)
[2019-04-15] MEDS ORDERED: ESOMEPRAZOLE (09:36)
[2019-04-15] MEDS ORDERED: OCUVITE LUTEIN1 EACH PO (09:36)
[2019-04-15] MEDS ORDERED: PAROXETINE HCL20 MG PO (09:36)
[2019-04-15 09:38] LABS: ALANINE AMINOTRANSFERASE 12 IU/L (0-55); ALBUMIN 3.8 g/dL (3.5-5.0); ALBUMIN/GLOBULIN RATIO 1.1 (0.8-2.0); ALKALINE PHOSPHATASE 63 IU/L (40-150); ANION GAP 12.1 mmol/L (8-16); BLOOD UREA NITROGEN 20 mg/dL (7-26); BUN/CREATININE RATIO 19 (6-25); CARBON DIOXIDE 29 mmol/L (22-29); CHLORIDE 92 mmol/L (98-107); CREATININE, SERUM 1.03 mg/dL (0.72-1.25); EST GLOMERULAR FILTRATION RATE > 60 ML/MIN (60-); GLUCOSE 117 mg/dL (74-118); POTASSIUM 4.1 mmol/L (3.5-5.1); SODIUM 129 mmol/L (136-145)
[2019-04-15 10:14] LABS: BILIRUBIN,URINE NEGATIVE (NEGATIVE); CLARITY,URINE SL CLOUDY (CLEAR); COLOR,URINE YELLOW (YELLOW); KETONES,URINE NEGATIVE (NEGATIVE); LEUKOCYTE ESTERASE ,URINE NEGATIVE (NEGATIVE); NITRITE,URINE NEGATIVE (NEGATIVE); PROTEIN,URINE DIPSTICK TRACE (NEGATIVE); URINE UROBILINOGEN 0.2 mg/dL (0.2 - 1)
[2019-04-15] MEDS ORDERED: HYDRALAZINE HCL 20 MG/ML VIAL IV NR (10:30)
[2019-04-15 10:42] LABS: BACTERIA,URINE MODERATE /HPF; EPITHELIAL CELLS,URINE FEW /LPF
--- NOTE | 2019-04-15 11:27 | Diagnostic Imaging Report ---
CT of the abdomen and pelvis, with contrast, 04/15/2019. History: Prostate cancer, burning with urination. Comparison: None available. Technique: Multidetector CT scanning of the abdomen and pelvis was performed from the level of the lung bases to the inferior pubic rami after intravenous administration of contrast. No oral contrast was given. Coronal and sagittal multiplanar reformations were obtained. RADIATION DOSE: Total DLP: 173 mGy*cm Dose modulation, iterative reconstruction, and/or weight based adjustment of the mA/kV was utilized to reduce the radiation dose to as low as reasonably achievable. 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 ABDOMEN: There is decreased cortical enhancement of the right kidney with moderate right hydronephrosis and dilatation of the right renal pelvis, but the right ureter is not dilated. No stones are visible. The left kidney is normal. The liver, gallbladder, biliary tree, spleen, pancreas, and adrenal glands normal. The hepatic vein, portal vein, and splenic vein are patent. The infrarenal abdominal aorta is prominent measuring 3.2 x 3.0 cm. Evaluation of bowel is limited without oral contrast or multiple colonic diverticuli are present without evidence of adjacent inflammation. There is no evidence of adenopathy or free fluid. PELVIS: The bladder and prostate are unremarkable. There is no evidence of free fluid. An oval structure is present in the right inguinal canal measuring 1.8 x 2.0 cm and 18 Hounsfield units in density. BONES AND SOFT TISSUES: Degenerative changes are present throughout the lumbar spine without evidence of lytic or sclerotic lesion. IMPRESSION: 1. Moderate right hydronephrosis without visible stone, suggestive of UPJ obstruction. Recommend urologic consult. 2. Infrarenal abdominal aortic aneurysm measuring 3.2 cm. Recommend follow-up exam every 3 years. 3. Colonic diverticulosis. 4. Oval low-density structure in the right inguinal canal suggestive of fluid in the inguinal canal rather than adenopathy. Consider further evaluation with ultrasound. Signed by: Jesus Altman on 04/15/2019 11:23 AM
--- OUTSIDE RECORDS SUMMARY | 2019-04-15 12:08 | XMS REPORT | Clinical Summary ---
Author Author [facility] Address Unknown Phone Unavailable Care Team Providers Care User Acceptance Tester Name Role Phone Pretty Read MD PCP [...] PART A AND resent [place] B Indemnity [facility] xxxxxxxxx 2014-P HEALTHCARE resent INDEMNITY Advance Directives Patient has advance care planning documents, and code status on file. For more i nformation, please contact: Thomas Huerta [address] [place] [address] Date Inactivated Comments Code Status Date Activated 03/05/2016 7:16 PM Full Code 03/02/2016 9:09 PM Code Status decision reached by: Patient
--- OUTSIDE RECORDS SUMMARY | 2019-04-15 12:09 | XMS REPORT | Continuity of Care Document ---
Author Author [facility] Organization [facility] Address Unknown Phone Unavailable Care Team Providers Care Dehydrogenation Converter Operator Name Role Phone [facility] Unavailable Unavailable Problems Problem Status Onset Date [...] Inactive 03/22/2011 Medical Group VITAMIN D (ERGOCALCIFEROL) 29671 UNIT CAPS 1 po once a week x 12 weeks, then 1 po once a month Inactive 01/15/2011 Medical Group XANAX TAB 0.25MG one tab PO q hs prn anxiety Inactive 01/15/2011 Medical Group VITAMIN D (ERGOCALCIFEROL) 54850 UNIT CAPS 1 po once a week x 12 weeks, then 1 po once a month Inactive 01/15/2011 Medical Group VITAMIN D (ERGOCALCIFEROL) 85982 UNIT CAPS 1 po once a week [...] 4.1 MEQ/L 3.5 - 5.1 04/20/2015 [facility] Chemistry CREATININE 0.9 0.5 - 1.4 04/20/2015 [facility] Chemistry BUN 14 7 - 22 04/20/2015 [facility] Chemistry BUN/CREAT 16 6 - 25 04/20/2015 [facility] Chemistry ALBUMIN 3.8 3.5 - 5.0 04/20/2015 [facility] Chemistry CALCIUM 8.7 8.5 - 10.5 04/20/2015 [facility] Chemistry SGPT (ALT) 26 0 - 65 04/20/2015 [facility] Chemistry SGOT (AST) 18 0 - 37 04/20/2015 [facility] Chemistry ALK PHOS 66 39 - 136 04/20/2015 [facility] Hematology HGB 14.2 14.0 - 18.0 04/20/2015 [facility] Hematology HCT 41.9 42.0 - 54.0 04/20/2015 [facility] Hematology PLATELETS 178 K/CMM 133 - 450 [...] TSH 1.650 0.360 - 3.740 12/14/2013 [facility] Hematology HGB 13.1 14.0 - 18.0 12/14/2013 [facility] Hematology HCT 41.1 42.0 - 54.0 12/14/2013 [facility] Hematology PLATELETS 197 K/CMM 133 - 450 [...] HGB 14.2 14.0 - 18.0 09/10/2010 [facility] Hematology HCT 43.6 42.0 - 54.0 09/10/2010 [facility] Hematology PLATELETS 201 K/CMM 133 - 450 [...] Group Diastolic (mm Hg) 65 10/30/2009 [facility] Encounters Location Location Details Encounter Type Encounter Number Reason For Visit Attending Provider ADM Date DC Date Status Source [facility] Office Visit [id number] Pretty Read MD 02/08/2014 02/08/2014 [facility] Office Visit [id number] Pretty Read MD 04/21/2014 04/21/2014 [facility] Office Visit [id number] Pretty Read MD 10/20/2014 10/20/2014 [facility] Lab Report [id number] Pretty Read MD 04/20/2015 04/20/2015 [facility] Office Visit [id number] Pretty Read MD 04/20/2015 04/20/2015 [facility] Procedures Procedure Code Date Perfomer Comments Source echocardiogram, complete [id number] 05/06/2013 Complete [facility] Assessment and Plan No Data Provided for This Section Plan of Care No Data Provided for This Section Social History No Data Provided for This Section Family History No Data Provided for This Section Advance Directives No Data Provided for This Section Functional Status No Data Provided for This Section
[2019-04-15] MEDS: SODIUM CHLORIDE 0.9% 1000ML 1,000 ML IV SCH ×2 (12:15→23:57)
[2019-04-15 13:55] VITALS: BP 146/65
[2019-04-15 14:32] VITALS: BP 146/65
[2019-04-15 15:32] VITALS: BP 149/68
[2019-04-15] MEDS ORDERED: SODIUM CHLORIDE 0.9% 50ML 50 ML ONE (16:50)
[2019-04-15] MEDS ORDERED: IOPAMIDOL 370 MG/ML 200 ML INFUS..BTL INJ ONE (16:50)
--- NOTE | 2019-04-15 18:00 | NUR ---
RECEIVED PHONE CALL FROM RE FLORES, PATIENT'S DAUGHTER, PATIENT GAVE VERBAL CONSENT TO TALK TO TO PATIENT TO RE FLORES, RE FLORES STATED THAT SHE WANTS TO BE CALL PRIOR TO ANY PROCEDURES ON HER FATHER.
[2019-04-15] MEDS ORDERED: CEFEPIME HCL 1 GM VIAL IV SCH (18:30)
--- NOTE | 2019-04-15 19:00 | NUR ---
CHANGE OF SHIFT REPORT GIVEN TO COY Vega RN.
--- NOTE | 2019-04-15 19:18 | NUR ---
Bedside report and walking rounds complete. Pt resting in bed and in no apparent distress. All safety measured ensured and pt call velez near.
[2019-04-15 20:00] VITALS: BP 190/81
[2019-04-15 20:18] VITALS: BP 190/81
[2019-04-15] MEDS: CEFEPIME 1GM/NS 0.9% 50 ML 50 ML IV SCH (20:18)
[2019-04-15 23:51] VITALS: BP 157/79
[2019-04-16] VITALS (8 sets, daily range): BP systolic 100–176; BP diastolic 58–86
[2019-04-16] MEDS: SODIUM CHLORIDE 0.9% 1000ML 1,000 ML IV SCH ×2 (03:36→12:07)
[2019-04-16 05:04] LABS: BASOPHILS % 0.6 % (0.0-1.0); EOSINOPHILS # (AUTO) 0.2 (0.0-0.4); EOSINOPHILS % 3.3 % (0.0-6.0); HEMATOCRIT 37.2 % (38.2-49.6); HEMOGLOBIN 12.4 g/dL (14.0-18.0); LYMPHOCYTES # (AUTO) 0.9 (1.0-3.2); LYMPHOCYTES % 14.1 % (18.0-39.1); MEAN CORPUSCULAR HEMOGLOBIN 31.2 pg (28-32); MEAN CORPUSCULAR HGB CONC 33.3 g/dL (31-35); MEAN CORPUSCULAR VOLUME 93.7 fL (81-99); MONOCYTES # (AUTO) 0.8 (0.2-0.8); NEUTROPHILS # (AUTO) 4.6 (2.1-6.9); NEUTROPHILS % 69.7 % (38.7-80.0); PLATELET COUNT 229 x10e3/uL (140-360); RED BLOOD COUNT 3.97 x10e6/uL (4.3-5.7); RED CELL DISTRIBUTION WIDTH 13.9 % (11.7-14.4)
[2019-04-16 05:35] LABS: ALANINE AMINOTRANSFERASE 13 IU/L (0-55); ALBUMIN 3.4 g/dL (3.5-5.0); ALBUMIN/GLOBULIN RATIO 1.1 (0.8-2.0); ALKALINE PHOSPHATASE 60 IU/L (40-150); BLOOD UREA NITROGEN 12 mg/dL (7-26); BUN/CREATININE RATIO 14 (6-25); CALCIUM 8.7 mg/dL (8.4-10.2); CARBON DIOXIDE 25 mmol/L (22-29); CHLORIDE 95 mmol/L (98-107); CREATININE, SERUM 0.83 mg/dL (0.72-1.25); EST GLOMERULAR FILTRATION RATE > 60 ML/MIN (60-); GLUCOSE 84 mg/dL (74-118); SODIUM 130 mmol/L (136-145)
--- NOTE | 2019-04-16 06:08 | NUR ---
Pt BP 170-190s systolic on occasion. Last reading 176/86. Called Dr. Minor for orders to get prn BP or restart home meds. Message left for .
--- NOTE | 2019-04-16 06:28 | NUR ---
Dr. Minor returned call. Ok'd to restart pt home meds.
[2019-04-16] MEDS: CEFEPIME 1GM/NS 0.9% 50 ML 50 ML IV SCH ×2 (06:29→18:37)
--- NOTE | 2019-04-16 07:00 | NUR ---
BEDSIDE SHIFT REPORT RECEIVED FROM COY ALFARO. PT DENIES NEEDS AT THIS TIME.
--- NOTE | 2019-04-16 07:40 | NUR ---
Bedside report and walking rounds complete with day shift RN
[2019-04-16] MEDS: PAROXETINE HCL 20 MG TAB PO SCH (08:49)
[2019-04-16] MEDS ORDERED: CLONIDINE HCL 0.1 MG TAB PO SCH (09:00)
[2019-04-16] MEDS ORDERED: LISINOPRIL 2.5 MG TAB PO SCH (09:00)
[2019-04-16] MEDS ORDERED: ALBUTEROL/IPRATROPIUM 3 ML NEB NEB PRN (12:45)
[2019-04-16] MEDS: ALBUTEROL/IPRATROPIUM 3 ML NEB NEB SCH ×2 (13:00→20:15)
--- NOTE | 2019-04-16 13:23 | NUR ---
Introductory visit. Tech performing procedure bedside. Informed pt of the scope of [employer] and availability. Will follow up as able. [employer] Spiritual Care Department O: [phone] Pager: [phone] ([phone] number calling from)
[2019-04-16 13:29] LABS: BLOOD UREA NITROGEN 12 mg/dL (7-26); GLUCOSE 84 mg/dL (74-118); OSMOLALITY,SERUM 260 mOsm/kg (278-305); SODIUM 130 mmol/L (136-145)
--- NOTE | 2019-04-16 14:04 | NUR ---
PATIENT INDENTIFIER . Patient Identifier Name Date of PATIENT INFORMATION . Diagnosis hyponatremia, UPJ Patient History Pt is 88 year old male admitted with hyponatremia and UPJ. WBC ok, on cardiac diet, Pt has felt nauseaated and been unable to keep food down recently and has had burning whith urination. Pt dx with prostate CA 2 weeks ago. Lugs show calcified pleural plaque in bilateral lung bases Hearing Acuity WFL CXR/CT of the Chest see above Previous Swallowing Function history of dysphagia at another facility, did not seek treatment Patient/Family Goals none stated, "I have lived too long" Current Diet Regular Current Diet Comments cardiat restrictions CURRENT PAIN . Current Complaint of Pain Yes Pain Comment pain level of 2 in abdomin ORAL PERIPHERAL EXAMINATION . Unable to assess? No Mandible Normal Lingual Normal Labial Normal Vocal Quality Normal Velar Function unable to visualize Dentition Missing Teeth Secretions WFL Consistencies Administered Thin by cup Thick puree Regular ORAL PHASE . Anterior Spillage Not present Decreased A-P Bolus Populsion Not present Tongue Pumping Severe Reduced Tongue Function Not present Slow/Ineffective Mastication Mild Prolonged Oral Transit Time Not present Reduced Bolus Formation Mild Oral/Lingual Residue Not present Pocketing Not present Piecemeal Deglutition Not present Comments slow mastication, excessive mastication, multiple swallows PHARYNGEAL PHASE . Delay in Swallow Initiation Swallow not delayed Signs of Aspiration SPO2 steady, clear vocals, however, concern with pharyngeal residue and expectoration and risk for aspiration Pharyngeal Phase Comments Swallow not delayed, multiple oral and pharyngeal swallows noted with need for liquid wash, pt expectorated after each bolus, some food brought up with expectoration. Pt stated this is normal and that he "had one of theses done a while ago and never sought treatment" POST TREATMENT PAIN . Patient's pain level post treatment 2 Post treatment pain scale used 0-10 Scale THERAPIST ASSESSMENT . Clinical Impressions Pt with mild/mod oropharyngeal dysphagia, concern for aspiraiton/penetration, excessive pharyngeal residue and riskd of aspiration/penetration Recommendations MBS today Recommendations to follow Aspiration Precautions Standard Correction Goal(s) Pt to tolerate LRD while maintaining proper nutrition/hydration Short Term Goal(s) Pt to safely swallow regular texture with thin liquids Pt to follow standard swallow precautions Frequency & Duration 2 x week x duration of hospitalization Education Provided to Patient Nurse Physician Education provided and patient response R, pt, MD verbalize understanding of eval results/recs/POC Swallow precautions were given to patient to take home? No Clinical Evaluation of Swallow Function 1 Therapy Discipline Speech Justification for Modifier Comments LYN NOMS swallow level 4 Handoff to ANGELINA Palomares and Dr Minor
--- NOTE | 2019-04-16 15:00 | History and Physical ---
PRIMARY CARE PHYSICIAN: Dr. Weiss. TIRE TESTER: Dr. Kenroy Newton. CHIEF COMPLAINT: Recent diagnosis of prostate cancer with nausea, vomiting, unable to keep food down. The patient also has generalized weakness. HISTORY: An 88-year-old male recently had a prostate biopsy approximately two weeks ago, found to have prostate cancer. The patient progressively worse since then the patient was having increasing nausea, vomiting, not able to eat oral food. Therefore, he had to increase in his oral intake. The patient came to the hospital with evaluation, found to have sodium level 129. The patient also has some dehydration as well. Urinalysis showed bacteria, which is moderate, cloudy urine. The patient had a CT scan of abdomen and pelvis, found to have moderate right hydronephrosis without visible stone, but possible UPJ obstruction. The patient is admitted to the hospital for further evaluation. PAST MEDICAL HISTORY: Prostate cancer recently diagnosed. 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 Hypertension. SOCIAL HISTORY: A smoker, but no alcohol. ALLERGIES: NO KNOWN ALLERGIES. HOME MEDICATION: Include clonidine, lisinopril, Paxil. PHYSICAL EXAMINATION: VITAL SIGNS: Temperature is 98, blood pressure 197/82, pulse rate 78, respiration 18. GENERAL: The patient is not in acute distress. HEENT: Normocephalic, atraumatic. Pupils reactive. Anicteric. NECK: Supple grossly. PULMONARY: Diminished breath sounds bilaterally with some courses. CARDIOVASCULAR: S1, S2. Regular rate and rhythm. ABDOMEN: Soft, cachexia. EXTREMITIES: No cyanosis or edema. NEUROLOGIC: No gross focal deficit. LABORATORY DATA: Sodium is 129, potassium 4.1, chloride 92, bicarb 29, BUN is 20, creatinine 1.0, glucose is 117. WBC 7.4, hemoglobin 12.3, hematocrit 36.3, and platelets 238. IMPRESSION: 1. Hyponatremia. 2. Prostatitis and urinary tract infection. 3. Generalized weakness. 4. Nausea and vomiting. 5. Dysphagia, problem with swallowing. 6. Progressive decline with weight loss. 7. 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 PLAN: CT chest without contrast. Echocardiogram. Continue with antibiotics. IV fluid, normal saline cut down to 75 mL/hour. Resume the patient's home medication. The patient will see Dr. Newton. The patient may need cystoscopy with right UPJ or ureteral stent placement pending on finding. The patient is otherwise stable. We will admit this patient and continue with treatment. MD MANDA Kovacs/BAMBI /[id number]
--- NOTE | 2019-04-16 15:46 | NUR ---
Nutrition Intervention Note RD Recommendation(s) for Physician: - Continue Cardiac diet - Recommend Ensure Enlive TID - Recommend MVI with minerals once daily for adequacy - Consider DAMPPROOFER eval 2/2 swallowing difficulties - Consider an appetite stimulant - Pt meets criteria for severe protein calorie malnutrition Plan of Care: RD following, monitoring for tolerance and adequacy Nutrition reason for involvement: Nutrition Risk Trigger- MST RD Assessment 04/16: 88 YOM admitted for hyponatremia, R UPJ, and UTI. Pt seen today per MST score. Pt with recent dx of prostate cancer, Urology consulted. Pt reports decreased appetite "for the past 6 mo to a year." He states he has been eating 50% of typical intake and weighed 140# 6 mo-1 yr ago, noted 17% wt loss in 1 yr. Pt reports difficulties swallowing that have made it more difficult to eat, states "I had an x-ray for it today". Pt states he drinks Ensure at home, receptive to Ensure Enlive while inpatient. Pt denies any GI distress. All questions and concerns addressed at time of visit. Pt discussed during am rounds. Will monitor and continue to follow. Principal Problems/Diagnoses: Hyponatremia, R UPJ, UTI PMH: HTN, recent prostate cancer dx GI: WDL Skin: intact Labs: 04/16: Na 130, 4, BUN 12, Cr 0.83, Gluc 84 Meds: abx Ht: 70 in Wt:116 lb BMI: 16.6 IBW: 166 lb Malnutrition Evaluation (04/16/19) The patient meets criteria for unspecified SEVERE protein-calorie malnutrition. Energy intake: <75% of estimated energy requirements for >3 months Weight loss: >10% in 6 months (Chronic) Fat loss: Moderate- very little arm skinfold fat Muscle loss: Severe- clavicle protrusion Supporting Evidence: Fluid accumulation: none Functional Status: not assessed Nutrition Prescription (Diet Order): Cardiac Estimated Nutritional Needs: 6904-7843 calories/day (30-35 kcal/kg CBW) 79-105 g protein/day (1.5-2 g pro/kg CBW) Diet Adequacy: Not meeting calorie needs, Not meeting protein needs Diet Education Needs Assessment: Diet education indicated, but patient not appropriate for education at this time. 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 Goal: Patient will meet 75-100% of estimated needs by follow up Progress: N/A Interventions: Fat, mineral modified diet, Commercial beverage, Prescription medications, Multivitamin/mineral supplement therapy, Collaboration with other providers Monitoring/Evaluation: Total energy intake, Total protein intake,Prescription medication, Modified diet, Liquid supplement, Weight change Signed: Katelyn Mcfarlane RD, LD, [facility]
[2019-04-16] MEDS: CLONIDINE HCL 0.1 MG TAB PO SCH ×2 (16:35→20:26)
[2019-04-16] MEDS: LISINOPRIL 2.5 MG TAB PO SCH (16:36)
--- NOTE | 2019-04-16 19:41 | Diagnostic Imaging Report ---
EXAM: CT Chest WITHOUT contrast 04/16/2019 12:32 PM INDICATION: ^SOB ^[id number] ^[id number] COMPARISON: Modified barium swallow 04/16/[address] abdomen pelvis 04/15/2019 TECHNIQUE: Chest was scanned utilizing a multidetector helical scanner from the lung apex through the level of the adrenal glands without administration of IV contrast. Absence of intravenous contrast decreases sensitivity for detection of lymphadenopathy and vascular pathology. Coronal and sagittal reformations were obtained. Routine protocol was performed. IV CONTRAST: None COMPLICATIONS: None RADIATION DOSE: Total DLP: 341.5 mGy*cm Estimated effective dose: (DLP x 0.015 x size factor) mSv CTDIvol has been reviewed. It is below the limits set by the Radiation Protocol Committee (RPC). FINDINGS: LINES/ TUBES: None. LUNGS AND AIRWAYS: Mild subpleural reticulation of the lungs in the posterior lower lobes, better seen on series 3, image 117. Few tree-in-bud pulmonary nodules in the posterior right lower lobe, measuring up to 3 mm on series 3, image 107 and unchanged and suggestive of aspiration. No new consolidations or suspicious pulmonary nodules. Mild bilateral centrilobular emphysema. 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 Minimal bronchiectasis without peribronchial wall thickening. PLEURA: The pleural spaces are clear. Extensive bilateral lower lobe calcified pleural plaques, unchanged. HEART AND MEDIASTINUM: The thyroid gland is normal. No mediastinal, hilar or axillary lymphadenopathy. The heart is normal in size. There is no pericardial effusion. Extensive coronary artery calcifications. Mild ectasia of the descending thoracic aorta measuring up to 3.2 cm. Moderate calcification throughout. The main pulmonary arteries normal in size measuring 2.2 cm, however there is enlargement of the right and left pulmonary artery measuring 2.1 cm in each site. Small hiatal hernia. UPPER ABDOMEN: Diffuse calcification versus retained contrast in the right kidney suggestive of some degree of dysfunction. Severe hydronephrosis. This is unchanged. Diverticulosis of the visualized descending colon. Postsurgical changes there appears to be in the stomach. BONES: Diffuse bone demineralization. Multilevel degenerative changes of the thoracic spine. SOFT TISSUES: Unremarkable. IMPRESSION: Unchanged small foci of tree-in-bud pulmonary nodules in the posterior right lower lobe suggestive of aspiration. No new consolidations or suspicious pulmonary nodules. Signed by: Dr. Olimpia Orta M.D. on 04/16/2019 7:37 PM
[2019-04-17] VITALS (7 sets, daily range): BP systolic 112–149; BP diastolic 58–78
[2019-04-17] MEDS: SODIUM CHLORIDE 0.9% 1000ML 1,000 ML IV SCH ×3 (01:36→17:06)
[2019-04-17] MEDS: ALBUTEROL/IPRATROPIUM 3 ML NEB NEB SCH ×4 (03:05→19:35)
[2019-04-17 05:24] LABS: BASOPHILS % 0.4 % (0.0-1.0); EOSINOPHILS # (AUTO) 0.2 (0.0-0.4); EOSINOPHILS % 2.9 % (0.0-6.0); HEMATOCRIT 36.5 % (38.2-49.6); HEMOGLOBIN 12.2 g/dL (14.0-18.0); LYMPHOCYTES # (AUTO) 0.7 (1.0-3.2); LYMPHOCYTES % 9.1 % (18.0-39.1); MEAN CORPUSCULAR HEMOGLOBIN 31.6 pg (28-32); MEAN CORPUSCULAR HGB CONC 33.4 g/dL (31-35); MEAN CORPUSCULAR VOLUME 94.6 fL (81-99); MONOCYTES % 12.8 % (4.4-11.3); NEUTROPHILS # (AUTO) 5.8 (2.1-6.9); NEUTROPHILS % 74.5 % (38.7-80.0); PLATELET COUNT 191 x10e3/uL (140-360); RED BLOOD COUNT 3.86 x10e6/uL (4.3-5.7); RED CELL DISTRIBUTION WIDTH 14.1 % (11.7-14.4)
[2019-04-17 05:47] LABS: ANION GAP 14.1 mmol/L (8-16); BLOOD UREA NITROGEN 10 mg/dL (7-26); BUN/CREATININE RATIO 13 (6-25); CALCIUM 8.5 mg/dL (8.4-10.2); CARBON DIOXIDE 24 mmol/L (22-29); CHLORIDE 97 mmol/L (98-107); CREATININE, SERUM 0.78 mg/dL (0.72-1.25); EST GLOMERULAR FILTRATION RATE > 60 ML/MIN (60-); GLUCOSE 90 mg/dL (74-118); POTASSIUM 4.1 mmol/L (3.5-5.1); SODIUM 131 mmol/L (136-145)
[2019-04-17] MEDS: CEFEPIME 1GM/NS 0.9% 50 ML 50 ML IV SCH ×2 (05:52→19:06)
--- NOTE | 2019-04-17 07:00 | NUR ---
PT RESTING IN BED AA0X3. PT C/O OF PAIN TO BILATERAL ANKLES (STATES THIS PAIN STARTED FROM WALKING YESTERDAY ) WILL GET ICE PACK FOR COMFORT PT HAS AN IV ACCESS TO THE LEFT AC 20 WITH NS AT 75CC.HR (SITE IS CLEAN AND DRY) WILL CONTINUE TO MONITOR PT CLOSELY SIDE RAILSX2, BED WHEELS LOCKED CALL LIGHT IS WITHIN EASY REACH INSTRUCTED TO CALL FOR ASSISTANCE IF NEEDED
[2019-04-17] MEDS: PAROXETINE HCL 20 MG TAB PO SCH (08:32)
[2019-04-17] MEDS: CLONIDINE HCL 0.1 MG TAB PO SCH ×3 (08:32→20:15)
[2019-04-17] MEDS: LISINOPRIL 2.5 MG TAB PO SCH ×2 (08:32→16:43)
--- NOTE | 2019-04-17 18:05 | NUR ---
TOTAL OUTPUT OF TODAY IS 200 PLUS ONE VOID INTO RR. BLADDER SCAN SHOWS 0CC ON BLADDER PT VOIDED 200 BEFORE SCAN DONE NOTIFIED MD STEWART OF PT LOW OUTPUT OF TODAY NOTIFIED MD STEWART OF PT DAUGHTER CONCERNS TO WHY PT WAS NOT ON FLOMAX TO HELP WITH URINATION NEW ORDER TO START FLOMAX GIVEN
[2019-04-17] MEDS ORDERED: TAMSULOSIN HCL 0.4 MG CAP PO NR (18:45)
--- NOTE | 2019-04-17 20:15 | NUR ---
PATIENT WAS CONVINCED BY FAMILY MEMBER TO TAKE FLOMAX MEDICATION. DISPLAYS NO SIGNS OF DISTRESS AND IS AOX4. BED IS LOW, BOTH SIDE RAILS ARE UP, CALL LIGHT WITHIN EASY REACH, WILL CONTINUE TO MONITOR.
[2019-04-18] VITALS (8 sets, daily range): BP systolic 90–136; BP diastolic 51–72
[2019-04-18] MEDS: ALBUTEROL/IPRATROPIUM 3 ML NEB NEB SCH ×4 (00:08→19:00)
--- NOTE | 2019-04-18 00:42 | NUR ---
PATIENT RESTING IN BED, BOTH EYES ARE CLOSED. NO RESPIRATORY DISTRESS NOTED, BOTH SIDE RAILS UP. BED IS IN LOWEST POSITION AND LOCKED, CALL LIGHT IS WITHIN REACH, WILL CONTINUE TO MONITOR.
[2019-04-18] MEDS: CEFEPIME 1GM/NS 0.9% 50 ML 50 ML IV SCH (06:33)
[2019-04-18] MEDS: SODIUM CHLORIDE 0.9% 1000ML 1,000 ML IV SCH ×3 (06:38→23:46)
[2019-04-18] MEDS: PAROXETINE HCL 20 MG TAB PO SCH (08:41)
[2019-04-18] MEDS: CLONIDINE HCL 0.1 MG TAB PO SCH (08:41)
[2019-04-18] MEDS: LISINOPRIL 2.5 MG TAB PO SCH ×2 (08:41→17:07)
[2019-04-18] MEDS ORDERED: CLONIDINE HCL 0.1 MG TAB PO PRN (09:30)
[2019-04-18] MEDS ORDERED: ACETAMINOPHEN 325 MG TAB PO PRN (09:30)
[2019-04-18] MEDS: FAMOTIDINE 20 MG TAB PO SCH ×2 (10:20→17:07)
[2019-04-18] MEDS: SENNOSIDES 8.6 MG TAB PO SCH (10:20)
[2019-04-18] MEDS: LACTOBACILLUS ACIDOPHILUS CAPSULE PO SCH ×3 (10:20→20:55)
[2019-04-18] MEDS: PIPER-TAZ 3.375 GM 50 ML IV SCH ×2 (10:20→17:23)
[2019-04-18] MEDS: HYDROCODONE/APAP 5MG-325MG TAB PO PRN (10:21)
[2019-04-18] MEDS ORDERED: BISACODYL 10 MG SUPP PR ONE (14:45)
--- NOTE | 2019-04-18 16:18 | Diagnostic Imaging Report ---
EXAM: Renal Ultrasound INDICATION: ^hydronephrosis ^[id number] ^[id number] COMPARISON: CT abdomen and pelvis 04/15/2019 TECHNIQUE: Transverse and longitudinal images of the kidneys and bladder were obtained. FINDINGS: Right Kidney: Size: 10.8 cm, right renal cortex 1.5 cm. Appearance: Mildly increased echogenicity. Collecting system: Moderate hydronephrosis Stones: None Cyst/Mass: None Left Kidney: Size: 9.3 cm, left renal cortex 1.4 cm. Appearance: Normal echogenicity. Collecting system: No hydronephrosis Stones: None Cyst/Mass: None Bladder: No focal lesions. Left ureteral jet is identified. Prevoid bladder volume 54.7 mL. Post void bladder volume 12.7 mL. Prostate measures 2.9 x 4.4 x 3.4 cm (estimated volume 22.6 mL, normal). IMPRESSION: 1. Moderate right hydronephrosis, unchanged since prior CT. 2. Mildly increased right renal cortical echogenicity, consistent with medical renal disease. Signed by: Dr. Jackson Patel M.D. on 04/18/2019 4:15 PM
--- NOTE | 2019-04-18 17:00 | Consultation ---
DATE OF CONSULTATION: HISTORY OF PRESENT ILLNESS: This is an 88-year-old male, who recently had a prostate biopsy when he was found to have prostate cancer and since then has been having nausea, vomiting, not eating well, continued not to eat and was found to have sodium of 129. CAT scan demonstrated right hydronephrosis without visible stone, but possible UPJ obstruction. He is followed by Urology and might need a cystoscopy. SOCIAL HISTORY: Positive smoking. No alcohol. ALLERGIES: NO KNOWN DRUG ALLERGIES. PAST MEDICAL HISTORY: Include: 1. Hypertension. 2. Asbestos exposure. 3. Prostate cancer. MEDICATIONS: Home medications: 1. Clonidine. 2. Lisinopril. 3. Paxil. Current medications: 1. Albuterol. 2. Sodium chloride. 3. Paroxetine. 4. Clonidine. 5. Lisinopril. 6. Tamsulosin. REVIEW OF SYSTEMS: Positive nausea. No vomiting. Positive decreased appetite. Positive decreased weight. No blood in the stool. No blood in the urine. No sensory loss or motor loss. No skin changes. No enlarged lymph nodes. Basically otherwise negative. PHYSICAL EXAMINATION: VITAL SIGNS: Blood pressure 129/72. GENERAL: Alert, following commands. HEENT: Pupils are equal, reactive to light and accommodation. NECK: No JVD. No bruit. LUNGS: No rhonchi. No rales. HEART: Regular rate and rhythm. No S3. No S4. ABDOMEN: Nontender and nondistended. No hepatomegaly or splenomegaly. EXTREMITIES: No clubbing, cyanosis, or edema. NEUROLOGIC: Cranial nerves II through XII grossly intact. Sensation intact. LABORATORY DATA: Sodium 131 up from 129, potassium 4.1, chloride 97, BUN 10, and creatinine 0.78. White count 7.8 and hemoglobin 12.2. ASSESSMENT AND PLAN: 1. Hyponatremia. 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 We will check serum osmolality and urine osmolality. Currently, we will restart his normal saline, but we will also change his diet. The patient is currently is on a low-salt diet so changing to a regular diet. The patient has not been eating well and he stated he did not like to food so I am not sure if this is lack of appetite or the need for sodium, so we will evaluate him over the next 24 hours and then might need to add protein supplements, but for now we will liberalize the diet. Restart IV fluids. 2. Possible pneumonia. The patient is on IV antibiotics. 3. Hydronephrosis, followed by Urology. 4. Prostate cancer, followed by Urology. 5. We will order renal ultrasound and bladder ultrasound since the patient's urine output has decreased within the last 24 hours. Last bladder scan was within normal. Carson Witt MD MA/BAMBI /[id number]
[2019-04-18] MEDS: TAMSULOSIN HCL 0.4 MG CAP PO SCH (17:07)
[2019-04-19] VITALS (7 sets, daily range): BP systolic 118–146; BP diastolic 58–94
[2019-04-19] MEDS: ALBUTEROL/IPRATROPIUM 3 ML NEB NEB SCH ×4 (01:00→19:32)
[2019-04-19] MEDS: PIPER-TAZ 3.375 GM 50 ML IV SCH ×2 (02:12→10:06)
--- NOTE | 2019-04-19 04:06 | NUR ---
Patient received lying in bed. AAO x 3. Patient had no complaints of pain. Respirations even and non-labored. Fall precautions implemented. Patient instructed to call for assistance when needed. Call light within reach.
[2019-04-19 05:16] LABS: BASOPHILS % 0.4 % (0.0-1.0); EOSINOPHILS # (AUTO) 0.4 (0.0-0.4); EOSINOPHILS % 5.6 % (0.0-6.0); HEMATOCRIT 30.1 % (38.2-49.6); HEMOGLOBIN 10.1 g/dL (14.0-18.0); LYMPHOCYTES # (AUTO) 0.7 (1.0-3.2); LYMPHOCYTES % 10.3 % (18.0-39.1); MEAN CORPUSCULAR HEMOGLOBIN 31.5 pg (28-32); MEAN CORPUSCULAR HGB CONC 33.6 g/dL (31-35); MEAN CORPUSCULAR VOLUME 93.8 fL (81-99); MONOCYTES # (AUTO) 0.8 (0.2-0.8); MONOCYTES % 11.8 % (4.4-11.3); NEUTROPHILS # (AUTO) 4.9 (2.1-6.9); NEUTROPHILS % 71.6 % (38.7-80.0); PLATELET COUNT 176 x10e3/uL (140-360); RED BLOOD COUNT 3.21 x10e6/uL (4.3-5.7); RED CELL DISTRIBUTION WIDTH 14.2 % (11.7-14.4)
[2019-04-19 05:39] LABS: ANION GAP 10.7 mmol/L (8-16); BLOOD UREA NITROGEN 16 mg/dL (7-26); BUN/CREATININE RATIO 20 (6-25); CALCIUM 7.9 mg/dL (8.4-10.2); CARBON DIOXIDE 25 mmol/L (22-29); CHLORIDE 97 mmol/L (98-107); CREATININE, SERUM 0.79 mg/dL (0.72-1.25); EST GLOMERULAR FILTRATION RATE > 60 ML/MIN (60-); GLUCOSE 95 mg/dL (74-118); POTASSIUM 3.7 mmol/L (3.5-5.1); SODIUM 129 mmol/L (136-145)
[2019-04-19] MEDS: FAMOTIDINE 20 MG TAB PO SCH ×2 (08:15→17:20)
[2019-04-19] MEDS: LISINOPRIL 2.5 MG TAB PO SCH ×2 (08:16→17:00)
[2019-04-19] MEDS: SENNOSIDES 8.6 MG TAB PO SCH (08:16)
[2019-04-19] MEDS: LACTOBACILLUS ACIDOPHILUS CAPSULE PO SCH ×3 (08:16→22:04)
--- NOTE | 2019-04-19 10:17 | NUR ---
ASSESSMENT: Follow up visit Pt's son, Marc, at bedside. Pt communicated in short answers and didn't appear open for conversation. Intervention: Reminded pt of availability of glass furnace tender, if needed. Outcome: Will follow as able. [employer] Description Writer Spiritual Care Department O: [phone] Pager: [phone] ([phone] number calling from)
--- NOTE | 2019-04-19 11:10 | Diagnostic Imaging Report ---
PROCEDURE: X-RAY MODIFIED BARIUM SWALLOW COMPARISON: None. INDICATION: Dysphasia Radiation Details: Fluoroscopy time: 2.0 minutes Cumulative dose: 3.28mGy DISCUSSION: Fluoroscopic examination was performed in conjunction with speech pathology during swallowing a variety of thin and thick liquid consistencies. Provided images demonstrate laryngeal penetration and trace microaspiration. CONCLUSION: Modified barium swallow demonstrating laryngeal penetration and trace microaspiration. Please refer to the speech pathology report for further details. Signed by: Martha Leon MD on 04/19/2019 11:07 AM
[2019-04-19] MEDS ORDERED: IOPAMIDOL 610MG/1ML 300 MG/ML VIAL IV ONE (14:12)
[2019-04-19] MEDS ORDERED: B&O 60MG R/S 60 MG SUPP PR ONE (14:12)
--- NOTE | 2019-04-19 14:31 | NUR ---
ST NOTE: Pt in surgery, unable to complete treatment session at this time, will return 04/20/19, handoff to ANGELINA Abbott
--- NOTE | 2019-04-19 15:12 | NUR ---
DISCUSSED IN BARRIER ROUNDS, PATIENT SODIUM CONTINUE TO DROP AND FLUCTUATE UNDER 130. PATIENT ON IV ABX AND NPO FOR PROCEDURE: RIGHT STENT PLACEMENT AND CYSTOGRAM; RETROGRADE PYELOGRAM. AT THIS TIME DISCHARGE PLAN IS HOME WITH HOME HEALTH. PENDING POST PROCEDURE PROGRESS FOR ANY CHANGES IN DISCHARGE PLAN.
[2019-04-19] MEDS: PHENAZOPYRIDINE HCL 100 MG TAB PO SCH (17:20)
[2019-04-19] MEDS: TAMSULOSIN HCL 0.4 MG CAP PO SCH (17:20)
[2019-04-19] MEDS: SODIUM CHLORIDE 0.9% 1000ML 1,000 ML IV SCH (17:20)
[2019-04-19] MEDS ORDERED: PROPOFOL IV EMULSION 10 MG/ML 20 ML VIAL ONE (19:03)
[2019-04-19] MEDS ORDERED: EPHEDRINE SULFATE INJ 50 MG/10 ML SYR ONE (19:03)
[2019-04-19] MEDS ORDERED: SEVOFLURANE INHAL SOLN 250 ML PEN BTL ONE (19:03)
[2019-04-19] MEDS ORDERED: LIDOCAINE HCL 2% LOCAL INJ 5 ML SDV VIAL INJ ONE (19:03)
[2019-04-19] MEDS: PIPERACILLIN/TAZO 2.25 GM 50 ML IV SCH (22:00)
[2019-04-19] MEDS: HYDROCODONE/APAP 5MG-325MG TAB PO PRN (22:13)
[2019-04-20] VITALS (9 sets, daily range): BP systolic 96–168; BP diastolic 50–70
[2019-04-20] MEDS: ALBUTEROL/IPRATROPIUM 3 ML NEB NEB SCH ×4 (01:20→19:15)
[2019-04-20] MEDS: SODIUM CHLORIDE 0.9% 1000ML 1,000 ML IV SCH (05:20)
[2019-04-20] MEDS: PIPERACILLIN/TAZO 2.25 GM 50 ML IV SCH ×3 (05:21→22:09)
[2019-04-20 05:25] LABS: BASOPHILS % 0.8 % (0.0-1.0); EOSINOPHILS # (AUTO) 0.3 (0.0-0.4); EOSINOPHILS % 5.3 % (0.0-6.0); HEMATOCRIT 29.7 % (38.2-49.6); HEMOGLOBIN 9.7 g/dL (14.0-18.0); LYMPHOCYTES % 18.7 % (18.0-39.1); MEAN CORPUSCULAR HEMOGLOBIN 31.3 pg (28-32); MEAN CORPUSCULAR HGB CONC 32.7 g/dL (31-35); MEAN CORPUSCULAR VOLUME 95.8 fL (81-99); MONOCYTES # (AUTO) 0.7 (0.2-0.8); MONOCYTES % 13.8 % (4.4-11.3); NEUTROPHILS # (AUTO) 3.2 (2.1-6.9); PLATELET COUNT 181 x10e3/uL (140-360); RED CELL DISTRIBUTION WIDTH 14.8 % (11.7-14.4)
[2019-04-20 05:43] LABS: ANION GAP 10.5 mmol/L (8-16); BLOOD UREA NITROGEN 11 mg/dL (7-26); BUN/CREATININE RATIO 12 (6-25); CALCIUM 7.8 mg/dL (8.4-10.2); CARBON DIOXIDE 28 mmol/L (22-29); CHLORIDE 99 mmol/L (98-107); CREATININE, SERUM 0.95 mg/dL (0.72-1.25); EST GLOMERULAR FILTRATION RATE > 60 ML/MIN (60-); GLUCOSE 96 mg/dL (74-118); POTASSIUM 3.5 mmol/L (3.5-5.1); SODIUM 134 mmol/L (136-145)
--- NOTE | 2019-04-20 07:00 | NUR ---
The pt. is awake and alert at bedside rounding and denies pain or discomfort at this time. The bed rails are elevated times [address] in [address].
--- NOTE | 2019-04-20 07:07 | NUR ---
Walking rounds done. Shift report given to oncoming nurse.
[2019-04-20] MEDS: FAMOTIDINE 20 MG TAB PO SCH ×2 (07:30→17:25)
[2019-04-20] MEDS: LISINOPRIL 2.5 MG TAB PO SCH ×2 (08:22→17:26)
[2019-04-20] MEDS: LACTOBACILLUS ACIDOPHILUS CAPSULE PO SCH ×3 (08:22→21:34)
[2019-04-20] MEDS: PHENAZOPYRIDINE HCL 100 MG TAB PO SCH ×3 (08:22→17:26)
[2019-04-20] MEDS: SENNOSIDES 8.6 MG TAB PO SCH (08:22)
[2019-04-20] MEDS ORDERED: POTASSIUM CHLORIDE 20 MEQ TAB CR PO ONE (10:15)
[2019-04-20] MEDS: TAMSULOSIN HCL 0.4 MG CAP PO SCH (17:25)
--- NOTE | 2019-04-20 19:15 | NUR ---
Patient received lying in bed. No acute distress noted. Denies pain at this time. Safety measures in place. Patient instructed to call for assistance when needed. Call light within reach.
[2019-04-21] VITALS: BP 126/59
[2019-04-21] MEDS: ALBUTEROL/IPRATROPIUM 3 ML NEB NEB SCH ×2 (01:25→08:15)
[2019-04-21 04:00] VITALS: BP 115/56
[2019-04-21] MEDS: PIPERACILLIN/TAZO 2.25 GM 50 ML IV SCH (05:45)
[2019-04-21 05:58] LABS: BASOPHILS % 0.4 % (0.0-1.0); EOSINOPHILS # (AUTO) 0.3 (0.0-0.4); EOSINOPHILS % 4.9 % (0.0-6.0); HEMATOCRIT 32.8 % (38.2-49.6); HEMOGLOBIN 11.1 g/dL (14.0-18.0); LYMPHOCYTES % 14.1 % (18.0-39.1); MEAN CORPUSCULAR HEMOGLOBIN 31.7 pg (28-32); MEAN CORPUSCULAR HGB CONC 33.8 g/dL (31-35); MEAN CORPUSCULAR VOLUME 93.7 fL (81-99); MONOCYTES # (AUTO) 0.8 (0.2-0.8); MONOCYTES % 11.7 % (4.4-11.3); NEUTROPHILS # (AUTO) 4.7 (2.1-6.9); NEUTROPHILS % 68.6 % (38.7-80.0); PLATELET COUNT 195 x10e3/uL (140-360); RED CELL DISTRIBUTION WIDTH 14.6 % (11.7-14.4)
[2019-04-21 06:20] LABS: BLOOD UREA NITROGEN 15 mg/dL (7-26); BUN/CREATININE RATIO 18 (6-25); CALCIUM 8.8 mg/dL (8.4-10.2); CARBON DIOXIDE 30 mmol/L (22-29); CHLORIDE 98 mmol/L (98-107); CREATININE, SERUM 0.82 mg/dL (0.72-1.25); EST GLOMERULAR FILTRATION RATE > 60 ML/MIN (60-); GLUCOSE 88 mg/dL (74-118); SODIUM 136 mmol/L (136-145)
[2019-04-21 08:00] VITALS: BP 137/63
[2019-04-21 08:28] VITALS: BP 137/63
[2019-04-21] MEDS: FAMOTIDINE 20 MG TAB PO SCH (09:04)
[2019-04-21] MEDS: LISINOPRIL 2.5 MG TAB PO SCH (09:04)
[2019-04-21] MEDS: PHENAZOPYRIDINE HCL 100 MG TAB PO SCH (09:04)
[2019-04-21] MEDS: LACTOBACILLUS ACIDOPHILUS CAPSULE PO SCH (09:04)
[2019-04-21] MEDS: SENNOSIDES 8.6 MG TAB PO SCH (09:04)
--- NOTE | 2019-04-21 09:30 | NUR ---
IMM letter delivered and explained to pt. He verbalized understanding. Stated he was ready to go home. Son will pick him up. Signed copy placed in chart. Copy to pt.
--- NOTE | 2019-04-21 09:31 | NUR ---
CM SPOKE TO PATIENT AT BEDSIDE REGARDING PLAN OF CARE AND DISCHARGE PLAN. PATIENT STATES HE WANTS TO RESUME HOME HEALTH BUT NOT WITH THE SAME COMPANY. PATIENT GIVEN CHOICES. CHOICE SIGNED FOR [facility]. CLINICAL SENT TO [facility]. LIAISON NOTIFIED. [facility] (P) [phone] (F) [phone] LIAISON: TERESA
--- NOTE | 2019-04-22 06:06 | Discharge Summary ---
CONSULTANTS: Dr. Francesco Williamson. Dr. Kenroy Newton. FINAL DIAGNOSES: 1. Status post aspiration pneumonia on admission. 2. Moderate right hydronephrosis, status post right ureteral stent placement by Dr. Kenroy Newton. 3. Urinary tract infection. 4. Hyponatremia, resolved. 5. Nausea and vomiting, improving. 6. Constipation, resolved. SUMMARY: The patient is an 88 years old male, came into the hospital with low sodium level, but because the patient was having increasing pain in the right flank area, the patient was not able to tolerate oral intake, so therefore, he is to increase in his oral fluid intake. The patient has been on the fluid restriction for possible syndrome of inappropriate antidiuretic hormone. The patient is otherwise stable. Right hydronephrosis, status post stent placement by Dr. Kenroy Newton. The patient will need a stent removal. The patient also has aspiration pneumonia treated. The patient is doing much better. He is stable. He is ambulatory. He has been cleared by specialist for going home. DISCHARGE MEDICATIONS: Includin. Resume home medication. 2. Cipro 5 mg b.i.d. for 7 days. 3. Zofran ODT 4 mg sublingual q.4h. p.r.n. for nausea and vomiting. The patient is otherwise stable. Discharged home. Follow up with Dr. Kenroy Newton in approximately one week. MD MANDA Kovacs/BAMBI /[id number]
--- NOTE | 2019-04-23 15:05 | Diagnostic Imaging Report ---
EXAM: Renal Ultrasound INDICATION: ^hydronephrosis ^[id number] ^[id number] COMPARISON: CT abdomen and pelvis 04/15/2019 TECHNIQUE: Transverse and longitudinal images of the kidneys and bladder were obtained. FINDINGS: Right Kidney: Size: 10.8 cm, right renal cortex 1.5 cm. Appearance: Mildly increased echogenicity. Collecting system: Moderate hydronephrosis Stones: None Cyst/Mass: None Left Kidney: Size: 9.3 cm, left renal cortex 1.4 cm. Appearance: Normal echogenicity. Collecting system: No hydronephrosis Stones: None Cyst/Mass: None Bladder: No focal lesions. Left ureteral jet is identified. Prevoid bladder volume 54.7 mL. Post void bladder volume 12.7 mL. Prostate measures 2.9 x 4.4 x 3.4 cm (estimated volume 22.6 mL, normal). IMPRESSION: 1. Moderate right hydronephrosis, unchanged since prior CT. 2. Mildly increased right renal cortical echogenicity, consistent with medical renal disease. Signed by: Dr. Jackson Patel M.D. on 04/18/2019 4:15 PM
--- NOTE | 2019-06-17 10:07 | Operative Report ---
DATE OF PROCEDURE: 04/19/2019 SURGEON: Kenroy Newton MD PREOPERATIVE DIAGNOSES: 1. Right hydronephrosis. 2. Urinary tract infection. 3. Microhematuria. POSTOPERATIVE DIAGNOSES: 1. Right hydronephrosis. 2. Urinary tract infection. 3. Microhematuria. 4. Right ureteral stricture. OPERATIONS PERFORMED: 1. Cystourethroscopy with bilateral ureteral catheterization and retrograde ureteropyelography (separate procedure performed for the hematuria and urinary tract infections). 2. Interpretation of retrograde ureteropyelography. 3. Supervision of fluoroscopy, no radiologist present. 4. Cystourethroscopy with insertion of right indwelling ureteral stent (separate procedure performed to relieve the hydronephrosis due to ureteral stricture). ANESTHESIA: General. COMPLICATIONS: None. CLINICAL SUMMARY: John Gilman is a complicated 88-year-old man, please refer to the chart. The patient has hydronephrosis in the late 80s, was noted to have hematuria and urinary tract infection. He is brought for evaluation and management. He is aware of the risks of bleeding, infection, injury to adjacent structures, need for additional procedures, and elected to proceed. OPERATIVE PROCEDURE IN DETAIL: Informed consent was verified. John Gilman was properly identified, taken to the operating room, and placed on the cystoscopy table in supine position. Anesthesia was uneventfully begun. The patient was then carefully and gently repositioned in dorsal lithotomy position with all pressure points well padded. The genitalia were prepared and draped in usual sterile fashion. The cystoscope sheath with the visual obturator in place was atraumatically inserted into the patient's urethra. It was guided down the unremarkable distal urethra through the prostate bed, which was significant for trilobar prostatic hypertrophy with visual obstruction. We entered the patient's bladder, where panendoscopy revealed trabeculations, but no tumors, no stones, and no diverticula. Normally positioned and configured ureteral orifices were identified. Ureteral catheter was used to cannulate left ureter and retrograde ureteral pyelogram was performed, was inserted in the right ureter and retrograde ureteral pyelogram was performed. With cystoscopic and fluoroscopic guidance, the right-sided indwelling ureteral stent was then placed, it was coiled in the patient's kidney as well as the patient's bladder. The retaining suture was cut short. Interpretation of retrograde ureteropyelography contrast was instilled in retrograde fashion bilaterally. There was colonic contrast remaining. There was bilateral fullness of both collecting systems with severe ureteral tortuosity. The left hand side did not exhibit any obstruction. The right hand side exhibited severe obstruction at the proximal ureter. The guidewire that was previously negotiated into the upper collecting system allowed the placement of the stent which was now coiled in the patient's kidney as well as the patient's bladder. The patient's bladder was drained. Cystoscope was withdrawn. Belladonna and opium suppositories were placed. The patient was uneventfully reversed from anesthesia and taken to recovery in stable condition. There were no complications of the procedure. He tolerated the procedure well. We will proceed with ongoing in-hospital care and of course we will follow the patient up in the office for further management for his newly diagnosed prostate cancer. Kenroy Newton MD [facility]/MODL /[id number] cc: Kenroy Newton MD
== END 2019-04-21 10:33 | disposition home health service (06) | DRG 177 ==
LOC: ER 08:10 → ERHOLD 11:36 → MED/SURG2 12:50
PROVIDERS: ADMIT Internal Medicine; ATTEND Internal Medicine
PROC: BT1D1ZZ Fluoroscopy of Right Kidney, Ureter and Bladder using Low Osmolar Contrast (ICD-10-PCS; 2019-04-19)
PROC: 0T9680Z Drainage of Right Ureter with Drainage Device, Via Natural or Artificial Opening Endoscopic (ICD-10-PCS; principal; 2019-04-19 11:30)
DX: J69.0 Pneumonitis due to inhalation of food and vomit (principal); E43 Unspecified severe protein-calorie malnutrition; N39.0 Urinary tract infection, site not specified; N13.0 Hydronephrosis with ureteropelvic junction obstruction; R64 Cachexia; E22.2 Syndrome of inappropriate secretion of antidiuretic hormone; Z68.1 Body mass index [BMI] 19.9 or less, adult; C61 Malignant neoplasm of prostate; R33.8 Other retention of urine; E86.0 Dehydration; I10 Essential (primary) hypertension; R53.1 Weakness; R11.2 Nausea with vomiting, unspecified; Z77.090 Contact with and (suspected) exposure to asbestos; R62.7 Adult failure to thrive; K59.00 Constipation, unspecified; R13.12 Dysphagia, oropharyngeal phase; Z87.891 Personal history of nicotine dependence
CPT/HCPCS: 36415; 71250; 74177; 74230; 74420; 76770; 76857; 80048; 80053; 81001; 82947; 83880; 83930; 83935; 84295; 84300; 84443; 84520; 84550; 85025; 87086; 93306; 94640; 97139; 99284; C1758; C2617; J0360; J0692; J2001; J2543; J7030; Q9967

== ENCOUNTER → 2019-05-14 | Outpatient (CLI) | payer MEDICARE ==
[~2019-05-14] MED LIST: CLONIDINE HCL0.1 MG PO; ESOMEPRAZOLE; LISINOPRIL2.5 MG PO; OCUVITE LUTEIN1 EACH PO; PAROXETINE HCL20 MG PO
--- NOTE | 2019-05-14 14:56 | Diagnostic Imaging Report ---
Renal Scan Clinical information: N13.30 Hydronephrosis, unspecified. A right ureteral stent is in place. Technique: Following intravenous administration of 10 mCi of Tc-99m MAG3, dynamic images of the kidneys in the posterior projection were obtained through 40 minutes. Report: Left kidney: Perfusion of the left kidney is prompt. The kidney has a normal reniform shape. Extraction of tracer from the blood pool is normal. Clearance of tracer from the renal parenchyma begins promptly but is not complete by the end of the study. The pelvicalyceal system is not dilated. Physiologic pooling of tracer is seen within the pelvicalyceal system. Drainage of tracer from the pelvicalyceal system is adequate. No significant stasis of tracer is seen within the left ureter. Right kidney: Perfusion to the right kidney is prompt. The right kidney has a reniform shape with mild thinning of the renal cortex. The kidney is slightly smaller than the left kidney. Extraction of tracer by the renal parenchyma is mildly decreased. Clearance of tracer from the renal parenchyma begins promptly but is not complete by the end of the study. The pelvicalyceal system is not dilated. Physiologic pooling of tracer is seen within the pelvicalyceal system. Drainage of tracer from the pelvicalyceal system is adequate. No significant stasis of tracer is seen within the right ureter. Differential renal function: The left kidney contributes 54% of total renal function and the right kidney contributes 46% (normal 43-57%). Impression: 1. Mild medical renal disease is present in the left kidney. No hydronephrosis is present. No obstruction of the renal collecting system is suspected. 2. Mild medical renal disease is present in the right kidney. There is some loss of renal parenchyma evidenced by the smaller size of the kidney and the thinning of the renal cortex. This accounts for the decreased differential function of 46%. No hydronephrosis is present. No obstruction of the renal collecting system is suspected. Signed by: Dr. Ree Bowles M.D. on 05/14/2019 2:53 PM
== END ==
LOC: NM 07:33
PROVIDERS: ATTEND Urology
DX: N13.30 Unspecified hydronephrosis (principal)
CPT/HCPCS: 78707; A9562

== ENCOUNTER → 2019-11-10 | Day surgery (SDC) | payer MEDICARE ==
[2019-11-09 08:57] LABS: BASOPHILS # (AUTO) 0.1 (0.0-0.1); BASOPHILS % 0.9 % (0.0-1.0); EOSINOPHILS # (AUTO) 0.2 (0.0-0.4); HEMATOCRIT 39.8 % (38.2-49.6); HEMOGLOBIN 12.8 g/dL (14.0-18.0); LYMPHOCYTES # (AUTO) 1.1 (1.0-3.2); LYMPHOCYTES % 15.7 % (18.0-39.1); MEAN CORPUSCULAR HEMOGLOBIN 32.7 pg (28-32); MEAN CORPUSCULAR HGB CONC 32.2 g/dL (31-35); MEAN CORPUSCULAR VOLUME 101.5 fL (81-99); MONOCYTES # (AUTO) 0.6 (0.2-0.8); MONOCYTES % 9.3 % (4.4-11.3); NEUTROPHILS # (AUTO) 4.8 (2.1-6.9); NEUTROPHILS % 70.8 % (38.7-80.0); PLATELET COUNT 226 x10e3/uL (140-360); RED BLOOD COUNT 3.92 x10e6/uL (4.3-5.7); RED CELL DISTRIBUTION WIDTH 14.1 % (11.7-14.4)
--- NOTE | 2019-11-09 09:24 | Diagnostic Imaging Report ---
Exam: KUB - 2 views Indication: Preoperative Comparison: KUB of 08/27/2019 Findings: Right internal nephroureteral stent in place. Calcifications overlying both renal silhouettes correspond to vascular calcifications on prior CT. No radiographically apparent renal calculi. No acute osseous injury. Degenerative changes of the visualized spine and both hip joints. Nonobstructive bowel gas pattern. No free air. Impression: Right internal nephroureteral stent in place. No radiographically apparent renal calculi. Signed by: Martha Leon MD on 11/09/2019 9:22 AM
[2019-11-09 09:28] LABS: ALANINE AMINOTRANSFERASE 13 IU/L (0-55); ALBUMIN 4.1 g/dL (3.5-5.0); ALBUMIN/GLOBULIN RATIO 1.2 (0.8-2.0); ALKALINE PHOSPHATASE 72 IU/L (40-150); ANION GAP 14.9 mmol/L (8-16); BLOOD UREA NITROGEN 15 mg/dL (7-26); BUN/CREATININE RATIO 20 (6-25); CALCIUM 9.4 mg/dL (8.4-10.2); CARBON DIOXIDE 29 mmol/L (22-29); CHLORIDE 100 mmol/L (98-107); CREATININE, SERUM 0.74 mg/dL (0.72-1.25); EST GLOMERULAR FILTRATION RATE > 60 ML/MIN (60-); GLUCOSE 111 mg/dL (74-118); POTASSIUM 3.9 mmol/L (3.5-5.1); SODIUM 140 mmol/L (136-145)
[~2019-11-10] MED LIST changes: +B&O 60MG R/S 60 MG SUPP PR ONE; +DEXAMETHASONE SOD PHOS INJ 4 MG/ML VIAL ONE; +FINASTERIDE5 MG PO; +FLOMAX0.4 MG PO; +GENTAMICIN 80MG/NS 100 ML 100 ML IV ONE; +IOPAMIDOL 300MG/ML 50ML INFUS..BTL IV ONE; +LEVOFLOXACIN 500MG/D5W 100ML 100 ML IV ONE; +LIDOCAINE HCL 2% LOCAL INJ 5 ML SDV VIAL INJ ONE; +ONDANSETRON HCL INJ 2MG/ML 2ML 2 MG/ML VIAL ONE; +PROPOFOL IV EMULSION 10 MG/ML 20 ML VIAL ONE; +RABEPRAZOLE SOD20 MG PO; +SEVOFLURANE INHAL SOLN 250 ML PEN BTL ONE
[2019-11-10 09:55] VITALS: BP 147/81
--- NOTE | 2019-12-15 02:07 | Operative Report ---
DATE OF PROCEDURE: 11/10/2019 SURGEON: Kenroy Newton MD PREOPERATIVE DIAGNOSES: 1. Right hydronephrosis. 2. Right ureteropelvic obstruction. 3. Right indwelling ureteral stent. POSTOPERATIVE DIAGNOSES: 1. Right hydronephrosis. 2. Right ureteropelvic obstruction. 3. Right indwelling ureteral stent. OPERATION PERFORMED: 1. Cystourethroscopy with complicated removal of right indwelling ureteral stent (separate procedure performed for the diagnosis of stent). 2. Right ureteroscopy with dilation of UPJ stricture (separate procedure performed for the diagnosis of stricture). 3. Radiological services with supervision and interpretation of ureteroscopy. 4. Interpretation of retrograde ureteropyelography. 5. Supervision of fluoroscopy, no radiologist present. 6. Cystourethroscopy with insertion of right indwelling ureteral stent (separate procedure performed to relieve the hydronephrosis). ANESTHESIA: General. COMPLICATIONS: None. CLINICAL SUMMARY: Please refer to the prior operative dictations for details. The patient was brought for the above procedures. He and his daughter are aware of the risks of bleeding, infection, injury to adjacent structures. They understand that any procedure is riskier in a patient of his age. He understood these risks and elected to proceed. OPERATIVE PROCEDURE IN DETAIL: Informed consent was verified. John Gilman was properly identified, taken to the operating room, placed in a cystoscopy table in supine position. Anesthesia was uneventfully begun. The patient was then carefully and gently repositioned in the dorsal lithotomy position with all pressure points well padded. His genitalia were prepared and draped in usual sterile fashion. The cystoscope sheath with the visual obturator in place was atraumatically inserted into the patient's urethra, was guided unremarkably to distal urethra through normal sphincteric region through the prostate bed, which was significant for visually obstructing BPH and into the patient's bladder. Panendoscopy revealed no suspicious mucosal lesions, no tumors, trabeculations were noted. There was a stent emerging from the right ureteral orifice and it was not significantly encrusted. It was only minimally encrusted. A guidewire was then placed into the right ureter and guided to the level of the patient's kidney. The stent was then grasped completely removed and discarded. A flexible ureteroscope was then placed over the guidewire and guided to the proximal ureter. Contrast was injected and performed ureteroscopy. We identified the proximal ureteral stricture that was at the level of the UPJ over the guidewire. We utilized the ureteroscope to dilate across the stricture. We entered the patient's kidney where panendoscopy revealed dilated kidney with chronic hydronephrosis and some debris. The debris was irrigated out. Guidewire was left in place and with cystoscopic fluoroscopic guidance a right-sided indwelling ureteral stent was then placed. It was coiled in the patient's kidney as well as the patient's bladder. The retaining suture was cut short. Interpretation of retrograde ureteropyelography contrast was instilled in retrograde fashion bilaterally. The ureter was unremarkable distal to the stricture portion of the ureteropelvic junction. There was chronic-appearing hydronephrosis on the right-hand side. The stent was in good position, coiled in the patient's kidneys as well as patient's bladder at the end of the case. The patient's bladder was drained. Cystoscope was withdrawn. Belladonna and opium suppository were placed. The patient was uneventfully reversed from anesthesia and taken to recovery room in stable condition. There were no complications to the procedure. He tolerated the procedure well. Plans will be to bring the patient to the office in followup for his next Lupron injection. Kenroy Newton MD [facility]/MODL /[id number] cc: Asif Weiss MD
== END | disposition home or self-care (01) ==
LOC: OR 06:22
PROVIDERS: ATTEND Urology
DX: N13.30 Unspecified hydronephrosis (principal); N13.5 Crossing vessel and stricture of ureter without hydronephrosis; Z96.0 Presence of urogenital implants; N32.89 Other specified disorders of bladder; N40.1 Benign prostatic hyperplasia with lower urinary tract symptoms; N13.8 Other obstructive and reflux uropathy; Z87.891 Personal history of nicotine dependence; M54.9 Dorsalgia, unspecified; F41.9 Anxiety disorder, unspecified; R05 Cough; K21.9 Gastro-esophageal reflux disease without esophagitis; I10 Essential (primary) hypertension; I71.4 Abdominal aortic aneurysm, without rupture; Z01.812 Encounter for preprocedural laboratory examination; Z01.818 Encounter for other preprocedural examination
CPT/HCPCS: 36415; 74018; 74420; 80053; 84152; 85025; 87086; C2617; J1100; J1580; J1956; J2001; J2405

== ENCOUNTER → 2020-02-09 | Day surgery (SDC) | payer MEDICARE, OTHER ==
[2020-02-04 11:09] LABS: BASOPHILS # (AUTO) 0.1 (0.0-0.1); BASOPHILS % 0.7 % (0.0-1.0); EOSINOPHILS # (AUTO) 0.2 (0.0-0.4); EOSINOPHILS % 3.3 % (0.0-6.0); HEMATOCRIT 38.5 % (38.2-49.6); HEMOGLOBIN 12.2 g/dL (14.0-18.0); LYMPHOCYTES # (AUTO) 1.4 (1.0-3.2); LYMPHOCYTES % 19.1 % (18.0-39.1); MEAN CORPUSCULAR HEMOGLOBIN 31.2 pg (28-32); MEAN CORPUSCULAR HGB CONC 31.7 g/dL (31-35); MEAN CORPUSCULAR VOLUME 98.5 fL (81-99); MONOCYTES # (AUTO) 0.7 (0.2-0.8); MONOCYTES % 9.6 % (4.4-11.3); NEUTROPHILS # (AUTO) 4.9 (2.1-6.9); PLATELET COUNT 200 x10e3/uL (140-360); RED BLOOD COUNT 3.91 x10e6/uL (4.3-5.7); RED CELL DISTRIBUTION WIDTH 14.3 % (11.7-14.4)
--- NOTE | 2020-02-04 13:14 | Diagnostic Imaging Report ---
EXAMINATION: CHEST 2 VIEWS INDICATION: Pre-operative COMPARISON: Chest CT 04/16/2019 FINDINGS: LINES/TUBES:None LUNGS:The lungs are hyperinflated. No focal consolidation or pulmonary edema. PLEURA:No pleural effusion or pneumothorax. Multifocal calcified pleural plaques. MEDIASTINUM:The cardiomediastinal silhouette appears normal in size and shape. Atherosclerotic calcifications of the thoracic aorta. BONES/SOFT TISSUES:No acute osseous injury. ABDOMEN:No free air under the diaphragm. IMPRESSION: Hyperinflated lungs. No focal pneumonia or pulmonary edema. Calcified pleural plaques can be seen in the setting of prior asbestos exposure. Signed by: Martha Leon MD on 02/04/2020 1:11 PM
[~2020-02-09] MED LIST changes: +CEFTRIAXONE SOD 1 GM/NS 50 ML 50 ML IV ONE; +CITRACAL SOFT1 EACH PO; -GENTAMICIN 80MG/NS 100 ML 100 ML IV ONE; -LEVOFLOXACIN 500MG/D5W 100ML 100 ML IV ONE; +MULTIVITAMINS1 EAC7 PO; +OCUVITE TABLET1 EAC1 PO; +PROBIOTIC & AC1 EACH PO; +SENOKOT8.6 MG PO
--- NOTE | 2020-02-09 14:50 | Diagnostic Imaging Report ---
OR Fluoroscopy: IMPRESSION: Fluoroscopy service provided in the OR. Interpretation not requested. Signed by: Renny Marte MD on 02/09/2020 2:47 PM
[2020-02-09 15:00] VITALS: BP 160/88
--- NOTE | 2020-02-10 01:11 | Operative Report ---
DATE OF PROCEDURE: 02/09/2020 SURGEON: Kenroy Newton MD PREOPERATIVE DIAGNOSES: 1. Right ureteropelvic junction obstruction. 2. Right hydronephrosis. 3. Microhematuria. 4. Indwelling ureteral stent. POSTOPERATIVE DIAGNOSES: 1. Right ureteropelvic junction obstruction. 2. Right hydronephrosis. 3. Microhematuria. 4. Indwelling ureteral stent. OPERATION PERFORMED: 1. Cystourethroscopy with complicated removal of right indwelling ureteral stent (separate procedure performed with separate scope for the diagnosis of stent). 2. Cystourethroscopy with dilation for of right ureteropelvic junction obstruction (separate procedure performed for the obstruction). 3. Radiological services with supervision and interpretation of stricture dilation. 4. Cystourethroscopy with insertion of right indwelling ureteral stent (separate procedure performed to relieve the hydronephrosis). 5. Cystourethroscopy with left ureteral catheterization and retrograde ureteropyelography (separate procedure performed to evaluate the contralateral side in light of microhematuria). 6. Interpretation of retrograde ureteropyelography, no radiologist present. 7. Supervision of fluoroscopy, no radiologist present. ANESTHESIA: General. COMPLICATIONS: None. CLINICAL SUMMARY: John Gilman is a complicated 89-year-old male with right ureteropelvic junction obstruction. The patient has prostate cancer, he was managed with hormone therapy. He is brought for the above procedures. He is aware of the risks of bleeding, infection, injury to adjacent structures, need for additional procedures and elected to proceed. OPERATIVE PROCEDURE IN DETAIL: Informed consent was verified. John Gilman was properly identified taken to the operating room, placed on the cystoscopy table in supine position. Anesthesia was uneventfully begun. The patient was then carefully and gently repositioned in the dorsal lithotomy position with all pressure points well padded. His genitalia were prepared and draped in usual sterile fashion. The cystoscope sheath with the visual obturator in place was atraumatically inserted into the patient's urethra. It was guided unremarkable distal urethra through the normal sphincteric region through the patient's prostate bed, which has been significant for trilobar prostatic hypertrophy with visual obstruction. We entered the patient's bladder, where panendoscopy revealed at least grade 2 trabeculations, but no tumors and no suspicious lesions. Normal left ureteral orifice was identified. A stent was emerging from the right ureteral orifice and it was somewhat encrusted. A guidewire was then placed alongside the stent and guided to the level of the patient's kidney. The stent was then grasped completely, removed and discarded. Double-lumen ureteral catheter was then inserted alongside the guidewire and brought up to the level of the proximal ureter. Contrast was injected since there was a persistent ureteropelvic junction obstruction. We then utilized the double-lumen ureteral catheter as a coaxial dilator sheath and we brought it through the ureteropelvic junction into the upper pole calyx. This dilated the obstruction. The dilator was withdrawn under cystoscopic and fluoroscopic guidance. The right-sided indwelling ureteral stent was then placed, it was coiled to the patient's kidneys as well as the patient's bladder. The retaining suture was cut short. An open-ended ureteral catheter was then utilized to cannulate left ureter and retrograde ureteral pyelograms were performed. Interpretation of retrograde ureteropyelography, contrast was instilled in retrograde fashion bilaterally. The right side exhibited hydronephrosis and ureteropelvic junction obstruction. The stone was in good position, coiled the patient's kidney as well as the patient's bladder at the end of the case. The right side exhibited some dramatic ureteral tortuosity of the mid ureter. This tortuosity was significant, but there was no hydronephrosis. Calices were sharp and delicate. There were no obvious stones and there were no obvious lesions. An Unobstructed drainage was observed fluoroscopically and a stent was not required on the left hand side. The patient's bladder was drained. Cystoscope was withdrawn. Belladonna and opium suppository were placed. The patient was uneventfully reversed from anesthesia and taken to recovery room in stable condition. There were no complications of the procedure. He tolerated the procedure well. Plans will be to see the patient in the office in about a [id number] and the plan the next step of management. Kenroy Newton MD [facility]/MODL /[id number] cc: Asif Weiss MD
--- OUTSIDE RECORDS SUMMARY | 2020-02-10 08:56 | XMS REPORT | Clinical Summary ---
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 Active omeprazole (PriLOSEC) 20 Take 20 mg by 0 12/25 MG capsule mouth daily. 6 Active VESICARE [...] Unknown Tobacco Cessation: Ready to Quit: Yes Drinks/Week oz/Week Comments Alcohol Use No Sex Assigned at Date Recorded Not [...] (1 of 2 - PCV13) INFLUENZA VACCINE 04/22/2020 Results Not on fileafter 02/08/2019 Insurance Type Payer Benefit Subscriber ID Effective Phone Address Plan / Dates Group Medicare MEDICARE MEDICARE xxxxxxxxxx [id number] [place], PART A AND resent [place] Indemnity [facility] xxxxxxxxx [id number] HEALTHCARE resent INDEMNITY [id number] Advance Directives For more information, please contact: [phone] Patient Investigation Specialist Explanation Type Date Recorded Advance Directives, Living Will and Medical Power of Sales Operations Specialist Date Inactivated Comments Code Status Date Activated 03/05/2016 7:16 PM Full Code 03/02/2016 9:09 PM Code Status decision reached by: Patient
--- OUTSIDE RECORDS SUMMARY | 2020-02-10 08:58 | XMS REPORT | Continuity of Care Document ---
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 Role Phone [employer] Unavailable Un available Problems Problem Status Onset Date Classification Date [...] Condition 04/20/2015 [facility] OTHER SPECIFIED DERMATOSES [place] ctive 01/29/2012 Condition 04/20/2015 [facility] OTHER ACUTE [...] 09/07/2010 Condition 04/20/2015 [facility] NEUROPATHY, UNSPECIFIED Inacti ve 04/24/2010 Condition 04/20/2015 [facility] ORTHOSTATIC HYPOTENSION Inacti ve 11/27/2009 Condition 04/20/2015 [facility] ABDOMINAL PAIN, PERIUMBILICAL Inactive 11/13/2009 Condition 04/20/2015 [facility] ANXIETY DISORDER, GENERALIZED Active 11/13/2009 Condition 04/20/2015 [facility] SCREENING FOR COLON CANCER [place] ct[place] 11/13/2009 Condition 04/20/2015 [facility] HTN Active 0 10/30/2009 Condition 04/20/2015 [facility] LEG PAIN Inactive 10/30/2009 Condition 04/20/2015 [facility] CLAUDICATION, INTERMITTENT [place] ctive 10/30/2009 Condition 04/20/2015 [facility] THYROMEGALY Inactive 10/30/2009 Condition 04/20/2015 [facility] Medications Medication Details Route Status Patient Instructions Ordering Provider Order Date Source OBDULIO WALKER MISC use as dire cted Active 01/12/2015 [facility] VITAMIN D-3 CAPS 1 tab by mout h once a day Active 10/20/2014 [facility] [...] Group CENTRUM SILVER TABS 1 tab by m outh once a day Active 01/11/2014 [facility] CLONIDINE HCL 0.1 MG TABS 1/2 tab by mouth twice a day Active 01/11/2014 [facility] VITAMIN B12 1000 MCG TABS 1 tab by mouth once a day Active 01/11/2014 [facility] OMEPRAZOLE 20 MG TBEC 1 tab by mouth once a day Active 01/11/2014 [facility] XANAX TAB 0.25MG 1 tab by mout h twice a day Active 01/11/2014 [facility] VESICARE 5 MG TABS 1 tab by mo uth once a day Active 01/11/2014 [facility] LOSARTAN POTASSIUM 100 MG TABS 1 tab by mouth once a day No Longer Active 01/11/2014 [facility] ESCITALOPRAM OXALATE 10 MG TABS 1 tablet daily Active 01/11/2014 [facility] CLONIDINE HCL 0.1 MG TABS 1/2 tab by mouth twice a day Active 01/11/2014 [facility] VESICARE 5 MG TABS 1 tab by mo uth once a day Active 01/11/2014 [facility] ESCITALOPRAM OXALATE 20 MG TABS 1 tab by mouth once a day Active 01/11/2014 [facility] LOSARTAN POTASSIUM 100 MG TABS 1 tab by mouth once a day No Longer Active 01/11/2014 [facility] CLONIDINE HCL 0.1 MG TABS 1/2 tab by mouth twice a day Active 01/11/2014 [facility] OMEPRAZOLE 20 MG TBEC 1 tab by mouth once a day Active 01/11/2014 [facility] LOSARTAN POTASSIUM 100 MG TABS 1 tab by mouth once a day Active 01/11/2014 [facility] VESICARE 5 MG TABS 1 tab by mo uth once a day Active 01/11/2014 [facility] ZOLOFT TAB 50MG 1 tab by mouth once a day Active 01/11/2014 [facility] LEVAQUIN 500 MG TABS 1 PO Daily No Longer Active 01/27/2013 [facility] FLONASE 50 MCG/ACT SUSP two sp rays each nostril q day No Longer Active 01/27/2013 [facility] PRAVACHOL 20 MG TABS 1 po qhs No Longer Active 01/27/2013 [facility] LEVAQUIN 500 MG TABS 1 PO Daily No Longer Active 01/27/2013 [facility] FLONASE 50 MCG/ACT SUSP two sp rays each nostril q day No Longer Active 01/27/2013 [facility] PRAVACHOL 20 MG TABS 1 po qhs No Longer Active 01/27/2013 [facility] LEVAQUIN 500 MG TABS 1 PO Daily No Longer Active 01/27/2013 [facility] FLONASE 50 MCG/ACT SUSP two sp rays each nostril q day No Longer Active 01/27/2013 [facility] LEVAQUIN 500 MG TABS 1 po damian y x 10 days No Longer Active 12/23/2011 [facility] LEVAQUIN 500 MG TABS 1 po damian y x 10 days No Longer Active 12/23/2011 [facility] LEVAQUIN 500 MG TABS 1 po damian y x 10 days No Longer Active 12/23/2011 [facility] AMOXICILLIN CAP 500MG one po t id for 10 days No Longer Active 08/23/2011 [facility] AMOXICILLIN CAP 500MG one po t id for 10 days No Longer Active 08/23/2011 [facility] AMOXICILLIN CAP 500MG one po t id for 10 days No Longer Active 08/23/2011 [...] Inactive 03/22/2011 [facility] VITAMIN D (ERGOCALCIFEROL) 33033 UNIT CAPS 1 po once a week x 12 weeks, then 1 po once a month Inactive 01/15/2011 [facility] XANAX TAB 0.25MG one tab PO q hs prn anxiety Inactive 01/15/2011 [facility] VITAMIN D (ERGOCALCIFEROL) 03138 UNIT CAPS 1 po once a week x 12 weeks, then 1 po once a month Inactive 01/15/2011 [facility] VITAMIN D (ERGOCALCIFEROL) 63520 UNIT CAPS 1 po once a week x 12 weeks, then 1 po once a month Inactive 01/15/2011 [facility] CLARITIN TAB 10MG one tablet d aily Inactive 11/30/2010 [facility] CLARITIN TAB 10MG one tablet d aily Inactive 11/30/2010 [facility] PREVACID 30 MG [...] 4.1 MEQ/L 3.5 - 5.1 04/20/2015 [facility] Chemistry CREATININE 0.9 0.5 - 1.4 04/20/2015 [facility] Chemistry BUN 14 7 - 22 04/20/2015 [facility] Chemistry BUN/CREAT 16 6 - 25 04/20/2015 [facility] Chemistry ALBUMIN 3.8 3.5 - 5.0 04/20/2015 [facility] Chemistry CALCIUM 8.7 8.5 - 10.5 04/20/2015 [facility] Chemistry SGPT (ALT) 26 0 - 65 04/20/2015 [facility] Chemistry SGOT (AST) 18 0 - 37 04/20/2015 [facility] Chemistry ALK PHOS 66 39 - 136 04/20/2015 [facility] Hematology HGB 14.2 14.0 - 18.0 04/20/2015 [facility] Hematology HCT 41.9 42.0 - 54.0 04/20/2015 [facility] Hematology PLATELETS 178 K/CMM 133 - 450 [...] TSH 1.650 0.360 - 3.740 12/14/2013 [facility] Chemistry HGBA1C 5.1 - 5.6 12/14/2013 [facility] Chemistry SODIUM 137 MEQ/L 135 - 145 12/14/2013 [facility] Chemistry POTASSIUM 4.8 MEQ/L 3.5 - 5.1 12/14/2013 [facility] Hematology HGB 13.1 14.0 - 18.0 12/14/2013 [facility] Hematology HCT 41.1 42.0 - 54.0 12/14/2013 [facility] Hematology PLATELETS 197 K/CMM 133 - 450 12/14/2013 [facility] Urinalysis UA COLOR Light Yellow 12/14/2013 [facility] Urinalysis BACTERIA URN Occas ional 12/14/2013 [facility] Urinalysis UA COLOR Light Yellow 12/14/2013 [facility] Urinalysis BACTERIA URN Occas ional 12/14/2013 [facility] Chemistry CHOLESTEROL 196 120 [...] Chemistry HDL 56 >=35 01/28/2013 [facility] Hematology HGB 13.7 14.0 [...] 58 >=35 05/01/2012 [facility] Chemistry CHOLESTEROL 166 120 [...] HDL 62 >=35 11/08/2011 [facility] Chemistry SODIUM 142 MEQ/L [...] 39 - 136 08/23/2011 [facility] Chemistry SODIUM 142 MEQ/L [...] 39 - 136 08/23/2011 [facility] Chemistry SODIUM 142 MEQ/L 135 - 145 08/23/2011 [facility] Chemistry POTASSIUM 4.2 MEQ/L 3.5 - 5.1 08/23/2011 [facility] Chemistry BUN 14 7 - 22 08/23/2011 [facility] Chemistry SODIUM 142 MEQ/L 135 - 145 08/23/2011 [facility] Chemistry POTASSIUM 4.2 MEQ/L 3.5 - 5.1 08/23/2011 [facility] Chemistry BUN 14 7 - 22 08/23/2011 [facility] Hematology HGB 14.0 14.0 [...] 39 - 136 07/12/2011 [facility] Chemistry SODIUM 141 MEQ/L [...] 39 - 136 07/12/2011 [facility] Chemistry SODIUM 141 MEQ/L 135 - 145 07/12/2011 [facility] Chemistry POTASSIUM 4.1 MEQ/L 3.5 - 5.1 07/12/2011 [facility] Chemistry BUN 12 7 - 22 07/12/2011 [facility] Chemistry SODIUM 141 MEQ/L 135 - 145 07/12/2011 [facility] Chemistry POTASSIUM 4.1 MEQ/L 3.5 - 5.1 07/12/2011 [facility] Chemistry BUN 12 7 - 22 07/12/2011 [facility] Chemistry BUN 14 7 - 22 06/26/2011 [facility] Chemistry CREATININE 0.8 0.5 - 1.4 06/26/2011 [facility] Chemistry SODIUM 140 MEQ/L 135 - 145 06/26/2011 [facility] Chemistry POTASSIUM 4.3 MEQ/L 3.5 - 5.1 06/26/2011 [facility] Chemistry CALCIUM 8.8 8.5 - 10.5 06/26/2011 [facility] Chemistry BUN 14 7 - 22 06/26/2011 [facility] Chemistry CREATININE 0.8 0.5 - 1.4 06/26/2011 [facility] Chemistry SODIUM 140 MEQ/L 135 - 145 06/26/2011 [facility] Chemistry POTASSIUM 4.3 MEQ/L 3.5 - 5.1 06/26/2011 [facility] Chemistry CALCIUM 8.8 8.5 - 10.5 06/26/2011 [facility] Chemistry BUN 14 7 - 22 06/26/2011 [facility] Chemistry CREATININE 0.8 0.5 - 1.4 06/26/2011 [facility] Chemistry SODIUM 140 MEQ/L 135 - 145 06/26/2011 [facility] Chemistry BUN 14 7 - 22 06/26/2011 [facility] Chemistry CREATININE 0.8 0.5 - 1.4 06/26/2011 [facility] Chemistry SODIUM 140 MEQ/L 135 - 145 06/26/2011 [facility] Chemistry SODIUM 141 MEQ/L [...] - 136 05/07/2011 [facility] Chemistry SODIUM 141 MEQ/L [...] - 136 05/07/2011 [facility] Chemistry SODIUM 141 MEQ/L 135 - 145 05/07/2011 [facility] Chemistry POTASSIUM 4.5 MEQ/L 3.5 - 5.1 05/07/2011 [facility] Chemistry BUN 13 7 - 22 05/07/2011 [facility] Chemistry SODIUM 141 MEQ/L 135 - 145 05/07/2011 [facility] Chemistry POTASSIUM 4.5 MEQ/L 3.5 - 5.1 05/07/2011 [facility] Chemistry BUN 13 7 - 22 05/07/2011 [facility] Chemistry SODIUM 138 135 [...] 70 39 - 136 03/22/2011 [facility] Chemistry SODIUM 138 135 - 145 03/22/2011 [facility] Chemistry POTASSIUM 4.4 3.5 - 5.1 03/22/2011 [facility] Chemistry BUN 19 7 - 22 03/22/2011 [facility] Hematology HGB 14.4 14.0 [...] 52 39 - 136 09/10/2010 [facility] Chemistry CHOLESTEROL 237 120 - 200 09/10/2010 [facility] Chemistry TRIGLYCERIDE 140 0 - 200 09/10/2010 [facility] Chemistry HDL 56 >=35 09/10/2010 [facility] Hematology HGB 14.2 14.0 - 18.0 09/10/2010 [facility] Hematology HCT 43.6 42.0 - 54.0 09/10/2010 [facility] Hematology PLATELETS 201 K/CMM 133 - 450 [...] Chemistry T3, TOTAL 109 11/27/2009 [facility] Chemistry TSH 1.120 0.360 - 3.740 11/27/2009 [facility] Chemistry SODIUM 138 135 - 145 11/27/2009 [facility] Chemistry POTASSIUM 4.2 3.5 - 5.1 11/27/2009 [facility] Hematology HGB 14.6 14.0 [...] Sign Value Date Comments Source Height 70 0 04/20/2015 [facility] Weight 156 04/20/2015 [facility] Systolic (mm Hg) 149 04/20/2015 [facility] Diastolic (mm Hg) 66 04/20/2015 [facility] Heart Rate 64 04/20/2015 [facility] Temperature Oral (F) 97.6 F 04/20/2015 [facility] Height 70 0 10/20/2014 [facility] Weight 159 10/20/2014 [facility] [...] [facility] Diastolic (mm Hg) 60 01/11/2014 [facility] Weight 130.13 12/14/2013 [facility] Temperature Oral (F) 96.4 F [...] [facility] Systolic (mm Hg) 140 09/09/2013 [facility] Diastolic (mm Hg) 64 09/09/2013 [facility] Temperature Oral (F) 96.2 F 09/09/2013 [facility] Heart Rate 64 09/09/2013 [facility] Weight 144 07/09/2013 [facility] Temperature Oral (F) 97.1 F 07/09/2013 [facility] Systolic (mm Hg) 128 07/09/2013 [facility] Diastolic (mm Hg) 57 07/09/2013 [facility] Heart Rate 58 07/09/2013 [facility] Weight 144.0 06/09/2013 [facility] Temperature Oral (F) 97.6 F 06/09/2013 [facility] Systolic (mm Hg) 129 06/09/2013 [facility] Diastolic (mm Hg) 66 06/09/2013 [facility] Heart Rate 65 06/09/2013 [facility] Weight 144.6 05/26/2013 [facility] Temperature Oral (F) 97.2 F 05/26/2013 [facility] Systolic (mm Hg) 148 05/26/2013 [facility] Diastolic (mm Hg) 59 05/26/2013 [...] 08/17/2012 [facility] Heart Rate 76 08/17/2012 [facility] Temperature Oral (F) 95.6 F 08/17/2012 [facility] Weight 152.13 05/01/2012 [facility] Systolic (mm Hg) 141 05/01/2012 [facility] Diastolic (mm Hg) 74 05/01/2012 [facility] Heart Rate 59 05/01/2012 [facility] [...] [facility] Diastolic (mm Hg) 61 12/23/2011 [facility] Temperature Oral (F) 97.2 F 12/23/2011 [facility] Heart Rate 79 12/23/2011 [facility] Weight 158 11/06/2011 [facility] Temperature Oral (F) 97.0 F 11/06/2011 [facility] Systolic (mm Hg) 138 11/06/2011 [facility] Diastolic (mm Hg) 66 11/06/2011 [facility] Heart Rate 77 11/06/2011 [facility] Weight 154 08/23/2011 [facility] Temperature Oral (F) 97.1 F 08/23/2011 [facility] Systolic (mm Hg) 128 08/23/2011 [facility] Diastolic (mm Hg) 68 08/23/2011 [facility] Heart Rate 64 08/23/2011 [facility] Weight 154 08/07/2011 [facility] Temperature Oral (F) 97.1 F 08/07/2011 [facility] Systolic (mm Hg) 156 08/07/2011 [facility] Diastolic (mm Hg) 67 08/07/2011 [...] Weight 153 04/22/2011 [facility] Height 70 0 04/22/2011 [facility] Temperature Oral (F) 96.5 F 04/22/2011 [facility] Systolic (mm Hg) 140 04/22/2011 [facility] Diastolic (mm Hg) 67 04/22/2011 [facility] Heart Rate 59 04/22/2011 [facility] Height 70 0 03/22/2011 [facility] Weight 153 03/22/2011 [facility] Temperature Oral (F) 98.1 F 03/22/2011 [facility] Systolic (mm Hg) 121 03/22/2011 [facility] Diastolic (mm Hg) 69 03/22/2011 [facility] Heart Rate 72 03/22/2011 [facility] Weight 152 02/08/2011 [facility] Height 70 0 02/08/2011 [facility] Temperature Oral (F) 97.6 F 02/08/2011 [facility] Systolic (mm Hg) 135 02/08/2011 [facility] Diastolic (mm Hg) 69 02/08/2011 [facility] Heart Rate 69 02/08/2011 [facility] Height 70 0 01/29/2011 [facility] Weight 151 01/29/2011 [facility] Temperature Oral (F) 98.2 F 01/29/2011 [facility] Systolic (mm Hg) 119 01/29/2011 [facility] Diastolic (mm Hg) 63 01/29/2011 [facility] Heart Rate 95 01/29/2011 [facility] Weight 155 01/15/2011 [facility] Height 70 0 01/15/2011 [facility] Systolic (mm Hg) 123 01/15/2011 [facility] Diastolic (mm Hg) 59 01/15/2011 [facility] Heart Rate 64 01/15/2011 [facility] Temperature Oral (F) 98.0 F 01/15/2011 [facility] Weight 154 11/30/2010 [facility] Height 70 0 11/30/2010 [facility] Systolic (mm Hg) 138 11/30/2010 [facility] Diastolic (mm Hg) 65 11/30/2010 [facility] Heart Rate 62 11/30/2010 [facility] Temperature Oral (F) 96.9 F 11/30/2010 [facility] Weight 158 09/07/2010 [facility] Height 70 1 11/08/2009 [facility] Temperature Oral (F) 96.3 F 09/07/2010 [facility] Systolic (mm Hg) 133 09/07/2010 [facility] Diastolic (mm Hg) 61 09/07/2010 [facility] Heart Rate 60 09/07/2010 [facility] Height 70 0 06/08/2010 [facility] Weight 164 06/08/2010 [facility] Temperature Oral (F) 97.1 F 06/08/2010 [facility] Systolic (mm Hg) 134 06/08/2010 [facility] Diastolic (mm Hg) 76 06/08/2010 [facility] Heart Rate 59 06/08/2010 [facility] Height 70 0 05/08/2010 [facility] Weight 166.13 05/08/2010 [facility] Temperature Oral (F) 97.6 F 05/08/2010 [facility] Systolic (mm Hg) 145 05/08/2010 [facility] Diastolic (mm Hg) 73 05/08/2010 [facility] Heart Rate 77 05/08/2010 [facility] Weight 166 04/24/2010 [facility] Height 70 0 04/24/2010 [facility] Systolic (mm Hg) 154 04/24/2010 [facility] Diastolic (mm Hg) 73 04/24/2010 [facility] Heart Rate 76 04/24/2010 [facility] Temperature Oral (F) 97.0 F 04/24/2010 [facility] Height 70 0 11/27/2009 [facility] Weight 164 11/27/2009 [facility] Temperature Oral (F) 96.5 F 11/27/2009 [facility] Systolic (mm Hg) 167 11/27/2009 [facility] Diastolic (mm Hg) 67 11/27/2009 [facility] Heart Rate 63 11/27/2009 [facility] Height 70 0 11/13/2009 [facility] Weight 165 11/13/2009 [facility] Temperature Oral (F) 96.4 F 11/13/2009 [facility] Systolic (mm Hg) 156 11/13/2009 [facility] Diastolic (mm Hg) 70 11/13/2009 [facility] Heart Rate 59 11/13/2009 [facility] Weight 168.50 10/30/2009 [facility] Height 70 0 10/30/2009 [facility] Temperature Oral (F) 96.8 F 10/30/2009 [facility] Heart Rate 65 10/30/2009 [facility] Systolic (mm Hg) 140 10/30/2009 [facility] Diastolic (mm Hg) 65 10/30/2009 [facility] Encounters Location Location Details Encounter Type Encounter Number Reason For Visit Attending Provider ADM Date DC Date Status Source [facility] Office Visit [id number] Pretty Read MD 02/08/2014 02/08/2014 [facility] Office Visit [id number] Pretty Read MD 04/21/2014 04/21/2014 [facility] Office Visit [id number] Pretty Read MD 10/20/2014 10/20/2014 [facility] Lab Report [id number] Pretty Read MD 04/20/2015 04/20/2015 [facility] Office Visit [id number] Pretty Read MD 04/20/2015 04/20/2015 [facility] Procedures Procedure Code Date Perfomer Comments Source echocardiogram, complete 36625 05/06/2013 Complete [facility] Assessment and Plan No Data Provided for This Section Plan of Care No Data Provided for This Section Social History No Data Provided for This Section Family History No Data Provided for This Section Advance Directives No Data Provided for This Section Functional Status No Data Provided for This Section
--- OUTSIDE RECORDS SUMMARY | 2020-02-10 09:00 | XMS REPORT ---
Author Author [facility] t Organization [facility] Address [address] [place] [address] Phone Unavailable Care Team Providers Care Shredding Specialist Name Role Phone NONSTAFF PCP Unavailable HAMPEL, NANDO Attphys Unavailable JOIE VELAZQUEZ Attphys Unavailable JOIE VELAZQUEZ Admphys Unavailable Payers Payer Name Policy Type Policy Number Effective Date Expiration Date [facility] [id number] I [facility] Problems Condition Name Condition Details Condition Category Status Onset Date Resolution Date Last Treatment Date Treating Clinician Comments Source Hyperlipidemia Hyperlipidemia Disease Active 2016-03-04 00:00:00 Thomas Huerta Essential hypertension Essential hypertension Disease Active 2016-03-03 00:00:[address] GI bleed GI bleed Disease Active 2016-03-02 00:00:00 Thomas Huerta OSTEOARTHROSIS, GENERALIZED, MULTIPLE SITES OSTEOARTHROSIS, GENERALIZED, MULTIPLE SITES Active 10/20/2014 Condition 04/20/2015 [facility] Group Condition Active 2014-10-20 00:00:00 2015-04-20 08:15:0 0 Medical Group ANEMIA ANEM IA Active 12/15/2013 Condition 04/20/2015 Medical Group Condition Active 2013-12-15 00:00:00 2015-04-20 08:15:00 Medical Group HYPERLIPIDEMIA HYPE RLIPIDEMIA Active 08/07/2011 Condition 04/20/2015 Medical Group Condition Active 2011-08-07 00:00:00 2015-04-20 08:15:00 Medical Group ALLERGIC RHINITIS ONEL RGIC RHINITIS Active 11/30/2010 Condition 04/20/2015 Medical Group Condition Active 2010-11-30 00:00:00 2015-04-20 08:15:00 Medical Group UNSPECIFIED VITAMIN D DEFICIENCY UNSPECIFIED VITAMIN D DEFICIENCY Active 09/07/2010 Condition 04/20/2015 Medical Group Condition Active 2010-09-07 00:00:00 2015-04-20 08:15:00 Medical Group ANXIETY DISORDER, GENERALIZED ANXIETY DISORDER, GENERALIZED Active 11/13/2009 Condition 04/20/2015 Medical Group Condition Active 2009-11-13 00:00:00 2015-04-20 08:15:00 Medical Group HTN HTN Active 10/30/2009 Condition 04/20/2015 Medical Group Condition Active 2009-10-30 00:00:00 2015-04-20 08:15:00 Medical Group Hyponatremia Hyponatremia Problem Active [facility] 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 Social History Social Habit Start Date Stop Date Quantity Comments Source History of tobacco use Cigarette Smoker Thomas Huerta Sex Assigned At [place] Alcohol intake 2016-03-21 00:00:00 2016-03-21 00:00:00 Current non-drinker of alcohol (finding) Thomas Huerta Smoking Status Start Date Stop Date Source Smoker, current status unknown 2016-03-21 00:00:00 Thomas Huerta Medications Ordered Medication Name Filled Medication Name Start Date Stop Da te Current Medication? Ordering Clinician Indication Dosage Frequency Signature (SIG) Comments Components Source aspirin (ECOTRIN) 81 MG enteric coated tablet 2016-03-05 17:16:4 0 Yes 81mg QD Take 81 mg by mouth daily. H geo Huerta VIT C/VIT E/LUTEIN/MIN/OMEGA-3 (OCUVITE ORAL) 2016-03-05 17:16:4 0 Yes 1{tbl} QD Take 1 tablet by mouth daily. Thomas Huerta FOLIC ACID/MULTIVIT-MIN/LUTEIN (CENTRUM SILVER ORAL) 2 17:16:40 Yes 1{tbl} QD Take 1 tablet by mouth daily. Thomas Huerta coenzyme Q10 100 mg capsule 2016-03-05 17:16:40 Yes 200mg QD Take 200 mg by mouth daily. Thomas Huerta lisinopril (PRINIVIL,ZESTRIL) 10 MG tablet 2016-03-05 00:00:00 Yes 10mg QD Take 1 tablet (10 mg total) by mouth daily. Thomas Huerta VESICARE 5 mg tablet 2016-01-12 00:00:00 Yes 5mg QD Take 5 mg by mouth nightly. Thomas Huerta atorvastatin (LIPITOR) 10 MG tablet 2016-01-11 00:00:00 Yes 10mg QD Take 10 mg by mouth nightly. Thomas pro omeprazole (PriLOSEC) 20 MG capsule 2015-12-26 00:00:00 Yes 20mg QD Take 20 mg by mouth daily. Thomas [facility] 2015-01-12 00:00:00 Yes u se as directed [facility] VITAMIN D-3 CAPS 2014-10-20 00:00:00 Yes 1 tab by mouth once a day [facility] IRON TABS 2014-10-20 00:00:00 Yes 1 tab by m outh once a day [facility] CELEBREX 200 MG CAPS 2014-01-25 00:00:00 No Take one capsule by mouth daily [facility] CELEBREX 200 MG CAPS 2014-01-25 00:00:00 Yes Take one capsule by mouth daily [facility] CELEBREX 200 MG [facility] 2014-01-25 00:00:00 No Take one capsule by mouth daily [facility] CENTRUM SILVER TABS 2014-01-11 00:00:00 Yes 1 tab by mouth once a day [facility] CLONIDINE HCL 0.1 MG TABS 2014-01-11 00:00:00 Yes 1/2 tab by mouth twice a day [facility] VITAMIN B12 1000 MCG TABS 2014-01-11 00:00:00 Yes 1 tab by mouth once a day [facility] O[facility]AZOLE 20 MG [facility] 2014-01-11 00:00:00 Yes 1 tab by mouth once a day [facility] XANAX TAB 0.25MG 2014-01-11 00:00:00 Yes 1 tab by mouth twice a day [facility] VESICARE 5 MG TABS 2014-01-11 00:00:00 Yes 1 tab by mouth once a day [facility] LOSARTAN POTASSIUM 100 MG TABS 2014-01-11 00:00:00 No 1 tab by mouth once a day [facility] ESCITALOPRAM OXALATE 10 MG TABS 2014-01-11 00:00:00 Yes 1 tablet daily [facility] CLONIDINE HCL 0.1 MG TABS 2014-01-11 00:00:00 Yes 1/2 tab by mouth twice a day [facility] VESICARE 5 MG TABS 2014-01-11 00:00:00 Yes 1 tab by mouth once a day [facility] ESCITALOPRAM OXALATE 20 MG TABS 2014-01-11 00:00:00 Yes 1 tab by mouth once a day [facility] LOSARTAN POTASSIUM 100 MG TABS 2014-01-11 00:00:00 No 1 tab by mouth once a day [facility] CLONIDINE HCL 0.1 MG TABS 2014-01-11 00:00:00 Yes 1/2 tab by mouth twice a day [facility] OMEPRAZOLE 20 MG [facility]EC 2014-01-11 00:00:00 Yes 1 tab by mouth once a day [facility] LOSARTAN POTASSIUM 100 MG TABS 2014-01-11 00:00:00 Yes 1 tab by mouth once a day [facility] VESICARE 5 MG TABS 2014-01-11 00:00:00 Yes 1 tab by mouth once a day [facility] ZOLOFT TAB 50MG 2014-01-11 00:00:00 Yes 1 tab by mouth once a day [facility] LEVAQUIN 500 MG TABS 2013-01-27 00:00:00 No 1 PO Daily [facility] FLONASE 50 MCG/ACT SUSP 2013-01-27 00:00:00 No two sprays each nostril q day [facility] PRAVACHOL 20 MG TABS 2013-01-27 00:00:00 No 1 po qhs [facility] LEVAQUIN 500 MG TABS 2013-01-27 00:00:00 No 1 PO Daily [facility] FLONASE 50 MCG/ACT SUSP 2013-01-27 00:00:00 No two sprays each nostril q day [facility] PRAVACHOL 20 MG TABS 2013-01-27 00:00:00 No 1 po qhs [facility] LEVAQUIN 500 MG TABS 2013-01-27 00:00:00 No 1 PO Daily [facility] FLONASE 50 MCG/ACT SUSP 2013-01-27 00:00:00 No two sprays each nostril q day [facility] LEVAQUIN 500 MG TABS 2011-12-23 00:00:00 No 1 po daily x 10 days [facility] LEVAQUIN 500 MG TABS 2011-12-23 00:00:00 No 1 po daily x 10 days [facility] LEVAQUIN 500 MG TABS 2011-12-23 00:00:00 No 1 po daily x 10 days [facility] AMOXICILLIN CAP 500MG 2011-08-23 00:00:00 No one po tid for 10 days [facility] AMOXICILLIN CAP 500MG 2011-08-23 00:00:00 No one po tid for 10 days [facility] AMOXICILLIN CAP 500MG 2011-08-23 00:00:00 No one po tid for 10 days [facility] LEVAQUIN 500 MG TABS 2011-08-08 00:00:00 No 1 po qd x 7 days [facility] LEVAQUIN 500 MG TABS 2011-08-08 00:00:00 No 1 po qd x 7 days [facility] LEVAQUIN 500 MG TABS 2011-08-08 00:00:00 No 1 po qd x 7 days [facility] AMLODIPINE BESYLATE 2.5 MG TABS 2011-07-24 00:00:00 No one po daily [facility] AMLODIPINE BESYLATE 2.5 MG TABS 2011-07-24 00:00:00 No one po daily [facility] AMLODIPINE BESYLATE 2.5 MG TABS 2011-07-24 00:00:00 No one po daily [facility] LEVAQUIN 750 MG TABS 2011-03-22 00:00:00 No 1 po qd x 5 days [facility] LEVAQUIN 750 MG TABS 2011-03-22 00:00:00 No 1 po qd x 5 days [facility] VITAMIN D (ERGOCALCIFEROL) 52605 UNIT CAPS 2011-01-15 00:00:00 No 1 po once a week x 12 weeks, then 1 po once a month [facility] XANAX TAB 0.25MG 2011-01-15 00:00:00 No one tab PO q hs prn anxiety [facility] VITAMIN D (ERGOCALCIFEROL) 34313 UNIT CAPS 2011-01-15 00:00:00 No 1 po once a week x 12 weeks, then 1 po once a month [facility] VITAMIN D (ERGOCALCIFEROL) [id number] UNIT CAPS 2011-01-15 00:00:00 No 1 po once a week x 12 weeks, then 1 po once a month [facility] CLARITIN TAB 10MG 2010-11-30 00:00:00 No on e tablet daily [facility] CLARITIN TAB 10MG 2010-11-30 00:00:00 No on e tablet daily [facility] PREVACID 30 MG CPDR 2010-09-07 00:00:00 No one a daily [facility] PREVACID 30 MG CPDR 2010-09-07 00:00:00 No one a daily [facility] PREVACID 30 MG CPDR 2010-09-07 00:00:00 No one a daily [facility] COZAAR TAB 25MG 2010-05-08 00:00:00 No 1 po qd [facility] Group COZAAR TAB 25MG 2010-05-08 00:00:00 No 1 po qd [facility] LEXAPRO 10 MG TABS 2010-04-24 00:00:00 No 1 po qd [facility] LISINOPRIL 10 MG TABS 2010-04-24 00:00:00 No one daily [facility] LISINOPRIL 10 MG TABS 2010-04-24 00:00:00 No one daily [facility] LISINOPRIL 10 MG TABS 2010-04-24 00:00:00 No one daily [facility] LEXAPRO 10 MG TABS 2010-04-24 00:00:00 No 1 po qd [facility] LISINOPRIL 10 MG TABS 2010-04-24 00:00:00 No one daily [facility] Clonidine Hcl 0.1 Mg Tablet Clonidine Hcl 0.1 Mg Tablet Yes 1 Twice A Day [facility] Esomeprazazole Esomeprazazole Yes [facility] Lisinopril 2.5 Mg Tablet Lisinopril 2.5 Mg Tablet Yes 5 Daily [facility] Paroxetine Hcl 20 Mg Tablet Paroxetine Hcl 20 Mg Tablet Yes 10 Daily [facility] Vit C/Vit E Acetate/Lutein/Min (Ocuvite Lutein Capsule ) 1 Each Capsule Vit C/Vit E Acetate/Lutein/Min (Ocuvite Lutein Capsule) 1 Each Capsule Yes 1 Daily [facility] Vital Signs Vital Name Observation Time Observation Value Comments Source Height 2015-04-20 12:46:42 [facility] Weight 2015-04-20 12:46:42 [facility] Systolic (mm Hg) 2015-04-20 12:46:42 [facility] ed[facility] Group Diastolic (mm Hg) 2015-04-20 12:46:42 [facility] Heart Rate 2015-04-20 12:46:42 [facility] Temperature Oral (F) 2015-04-20 12:46:42 97.6 F [facility] Height 2014-10-20 13:47:41 Medic al Group Weight 2014-10-20 13:47:41 [facility] Temperature Oral (F) 2014-10-20 13:47:41 97.7 F [facility] Systolic (mm Hg) 2014-10-20 13:47:41 [facility] ed[facility] Group Diastolic (mm Hg) 2014-10-20 13:47:41 [facility] Group Heart Rate 2014-10-20 13:47:41 Medic al Group Weight 2014-04-21 13:04:11 Medic al Group Temperature Oral (F) 2014-04-21 13:04:11 98.0 F [facility] Heart Rate 2014-04-21 13:04:11 Medic al Group Systolic (mm Hg) 2014-04-21 13:04:11 M ed[facility] Group Diastolic (mm Hg) 2014-04-21 13:04:11 [facility] Group Weight 2014-02-08 13:22:22 Medic al Group Temperature Oral (F) 2014-02-08 13:22:22 96.5 F [facility] Heart Rate 2014-02-08 13:22:22 [facility] Systolic (mm Hg) 2014-02-08 13:22:22 M ed[facility] Group Diastolic (mm Hg) 2014-02-08 13:22:22 [facility] Weight 2014-01-11 18:07:40 Medic al Group Temperature Oral (F) 2014-01-11 18:07:40 96.8 F [facility] Heart Rate 2014-01-11 18:07:40 [facility] Systolic (mm Hg) 2014-01-11 18:07:40 [facility] Diastolic (mm Hg) 2014-01-11 18:07:40 [facility] Weight 2013-12-14 14:08:51 [facility] Temperature Oral (F) 2013-12-14 14:08:51 96.4 F [facility] Heart Rate 2013-12-14 14:08:51 [facility] Systolic (mm Hg) 2013-12-14 14:08:51 [facility] Diastolic (mm Hg) 2013-12-14 14:08:51 [facility] Weight 2013-10-22 21:52:20 [facility] Temperature Oral (F) 2013-10-22 21:52:20 97.5 F [facility] Heart Rate 2013-10-22 21:52:20 [facility] Systolic (mm Hg) 2013-10-22 21:52:20 [facility] Diastolic (mm Hg) 2013-10-22 21:52:20 [facility] Weight 2013-09-09 16:09:52 [facility] Systolic (mm Hg) 2013-09-09 16:09:52 [facility] Diastolic (mm Hg) 2013-09-09 16:09:52 [facility] Temperature Oral (F) 2013-09-09 16:09:52 96.2 F [facility] Heart Rate 2013-09-09 16:09:52 [facility] Weight 2013-07-09 21:17:30 [facility] Temperature Oral (F) 2013-07-09 21:17:30 97.1 F [facility] Systolic (mm Hg) 2013-07-09 21:17:30 [facility] Diastolic (mm Hg) 2013-07-09 21:17:30 [facility] Heart Rate 2013-07-09 21:17:30 [facility] Weight 2013-06-09 17:51:40 [facility] Temperature Oral (F) 2013-06-09 17:51:40 97.6 F [facility] Systolic (mm Hg) 2013-06-09 17:51:40 [facility] Diastolic (mm Hg) 2013-06-09 17:51:40 [facility] Heart Rate 2013-06-09 17:51:40 [facility] Weight 2013-05-26 17:53:51 [facility] Temperature Oral (F) 2013-05-26 17:53:51 97.2 F [facility] Systolic (mm Hg) 2013-05-26 17:53:51 [facility] Diastolic (mm Hg) 2013-05-26 17:53:51 [facility] Heart Rate 2013-05-26 17:53:51 [facility] Weight 2013-01-27 19:42:02 [facility] Temperature Oral (F) 2013-01-27 19:42:02 98.8 F [facility] Systolic (mm Hg) 2013-01-27 19:42:02 [facility] Diastolic (mm Hg) 2013-01-27 19:42:02 [facility] Heart Rate 2013-01-27 19:42:02 [facility] Weight 2012-08-17 21:56:10 [facility] Systolic (mm Hg) 2012-08-17 21:56:10 M ed[facility] Group Diastolic (mm Hg) 2012-08-17 21:56:10 [facility] Heart Rate 2012-08-17 21:56:10 [facility] Temperature Oral (F) 2012-08-17 21:56:10 95.6 F [facility] Weight 2012-05-01 13:09:31 [facility] Systolic (mm Hg) 2012-05-01 13:09:31 [facility] Diastolic (mm Hg) 2012-05-01 13:09:31 [facility] Heart Rate 2012-05-01 13:09:31 [facility] Temperature Oral (F) 2012-05-01 13:09:31 96.5 F [facility] Weight 2012-01-29 14:05:10 [facility] Temperature Oral (F) 2012-01-29 14:05:10 97.6 F [facility] Systolic (mm Hg) 2012-01-29 14:05:10 [facility] Diastolic (mm Hg) 2012-01-29 14:05:10 [facility] Heart Rate 2012-01-29 14:05:10 [facility] Weight 2011-12-23 18:47:23 [facility] Systolic (mm Hg) 2011-12-23 18:47:23 M ed[facility] Group Diastolic (mm Hg) 2011-12-23 18:47:23 [facility] Temperature Oral (F) 2011-12-23 18:47:23 97.2 F [facility] Heart Rate 2011-12-23 18:47:23 [facility] Weight 2011-11-06 15:47:41 [facility] Temperature Oral (F) 2011-11-06 15:47:41 97.0 F [facility] Systolic (mm Hg) 2011-11-06 15:47:41 [facility] Diastolic (mm Hg) 2011-11-06 15:47:41 [facility] Heart Rate 2011-11-06 15:47:41 [facility] Weight 2011-08-23 16:00:20 [facility] Temperature Oral (F) 2011-08-23 16:00:20 97.1 F [facility] Systolic (mm Hg) 2011-08-23 16:00:20 M ed[facility] Group Diastolic (mm Hg) 2011-08-23 16:00:20 [facility] Group Heart Rate 2011-08-23 16:00:20 Medic al Group Weight 2011-08-07 14:47:31 Medic al Group Temperature Oral (F) 2011-08-07 14:47:31 97.1 F [facility] Systolic (mm Hg) 2011-08-07 14:47:31 M ed[facility] Group Diastolic (mm Hg) 2011-08-07 14:47:31 [facility] Group Heart Rate 2011-08-07 14:47:31 [facility] Weight 2011-07-24 14:25:50 [facility] Temperature Oral (F) 2011-07-24 14:25:50 97.9 F [facility] Heart Rate 2011-07-24 14:25:50 Medic al Group Systolic (mm Hg) 2011-07-24 14:25:50 [facility] ed[facility] Group Diastolic (mm Hg) 2011-07-24 14:25:50 [facility] Weight 2011-06-26 15:59:21 Medic al Group Temperature Oral (F) 2011-06-26 15:59:21 97.2 F [facility] Systolic (mm Hg) 2011-06-26 15:59:21 M ed[facility] Group Diastolic (mm Hg) 2011-06-26 15:59:21 [facility] Heart Rate 2011-06-26 15:59:21 [facility] Weight 2011-05-07 18:28:02 [facility] Temperature Oral (F) 2011-05-07 18:28:02 98.0 F [facility] Systolic (mm Hg) 2011-05-07 18:28:02 [facility] Diastolic (mm Hg) 2011-05-07 18:28:02 [facility] Heart Rate 2011-05-07 18:28:02 [facility] Weight 2011-04-22 14:25:54 [facility] Height 2011-04-22 14:25:54 [facility] Temperature Oral (F) 2011-04-22 14:25:54 96.5 F [facility] Systolic (mm Hg) 2011-04-22 14:25:54 [facility] Diastolic (mm Hg) 2011-04-22 14:25:54 [facility] Heart Rate 2011-04-22 14:25:54 [facility] Height 2011-03-22 20:52:21 [facility] Weight 2011-03-22 20:52:21 [facility] Temperature Oral (F) 2011-03-22 20:52:21 98.1 F [facility] Systolic (mm Hg) 2011-03-22 20:52:21 [facility] Diastolic (mm Hg) 2011-03-22 20:52:21 [facility] Heart Rate 2011-03-22 20:52:21 [facility] Weight 2011-02-08 16:05:33 [facility] Height 2011-02-08 16:05:33 [facility] Temperature Oral (F) 2011-02-08 16:05:33 97.6 F [facility] Systolic (mm Hg) 2011-02-08 16:05:33 [facility] Diastolic (mm Hg) 2011-02-08 16:05:33 [facility] Heart Rate 2011-02-08 16:05:33 [facility] Height 2011-01-29 13:43:51 [facility] Weight 2011-01-29 13:43:51 [facility] Temperature Oral (F) 2011-01-29 13:43:51 98.2 F [facility] Systolic (mm Hg) 2011-01-29 13:43:51 [facility] Diastolic (mm Hg) 2011-01-29 13:43:51 [facility] Heart Rate 2011-01-29 13:43:51 [facility] Weight 2011-01-15 18:15:30 [facility] Height 2011-01-15 18:15:30 [facility] Systolic (mm Hg) 2011-01-15 18:15:30 M ed[facility] Group Diastolic (mm Hg) 2011-01-15 18:15:30 [facility] Heart Rate 2011-01-15 18:15:30 [facility] Temperature Oral (F) 2011-01-15 18:15:30 98.0 F [facility] Weight 2010-11-30 14:51:23 [facility] Height 2010-11-30 14:51:23 [facility] Systolic (mm Hg) 2010-11-30 14:51:23 M ed[facility] Group Diastolic (mm Hg) 2010-11-30 14:51:23 [facility] Heart Rate 2010-11-30 14:51:23 [facility] Temperature Oral (F) 2010-11-30 14:51:23 96.9 F [facility] Weight 2010-09-07 15:05:42 [facility] Height 2010-09-07 15:05:42 [facility] Temperature Oral (F) 2010-09-07 15:05:42 96.3 F [facility] Systolic (mm Hg) 2010-09-07 15:05:42 M ed[facility] Group Diastolic (mm Hg) 2010-09-07 15:05:42 [facility] Heart Rate 2010-09-07 15:05:42 [facility] Height 2010-06-08 14:19:40 [facility] Weight 2010-06-08 14:19:40 [facility] Temperature Oral (F) 2010-06-08 14:19:40 97.1 F [facility] Systolic (mm Hg) 2010-06-08 14:19:40 [facility] Diastolic (mm Hg) 2010-06-08 14:19:40 [facility] Heart Rate 2010-06-08 14:19:40 [facility] Height 2010-05-08 14:19:41 [facility] Weight 2010-05-08 14:19:41 [facility] Temperature Oral (F) 2010-05-08 14:19:41 97.6 F [facility] Group Systolic (mm Hg) 2010-05-08 14:19:41 M ed[facility] Group Diastolic (mm Hg) 2010-05-08 14:19:41 Medical Group Heart Rate 2010-05-08 14:19:41 Medic al Group Weight 2010-04-24 15:30:40 Medic al Group Height 2010-04-24 15:30:40 Medic al Group Systolic (mm Hg) 2010-04-24 15:30:40 M ed[facility] Group Diastolic (mm Hg) 2010-04-24 15:30:40 Medical Group Heart Rate 2010-04-24 15:30:40 Medic al Group Temperature Oral (F) 2010-04-24 15:30:40 97.0 F [facility] Height 2009-11-27 15:03:11 Medic al Group Weight 2009-11-27 15:03:11 Medic al Group Temperature Oral (F) 2009-11-27 15:03:11 96.5 F [facility] Systolic (mm Hg) 2009-11-27 15:03:11 M ed[facility] Group Diastolic (mm Hg) 2009-11-27 15:03:11 Medical Group Heart Rate 2009-11-27 15:03:11 Medic al Group Height 2009-11-13 14:29:11 Medic al Group Weight 2009-11-13 14:29:11 Medic al Group Temperature Oral (F) 2009-11-13 14:29:11 96.4 F [facility] Systolic (mm Hg) 2009-11-13 14:29:11 [facility] ed[facility] Diastolic (mm Hg) 2009-11-13 14:29:11 Medical Group Heart Rate 2009-11-13 14:29:11 Medic al Group Weight 2009-10-30 19:49:00 Medic al Group Height 2009-10-30 19:49:00 Medic al Group Temperature Oral (F) 2009-10-30 19:49:00 96.8 F [facility] Group Heart Rate 2009-10-30 19:49:00 Medic al Group Systolic (mm Hg) 2009-10-30 19:49:00 M edical Group Diastolic (mm Hg) 2009-10-30 19:49:00 Medical Group Procedures Procedure Date / Time Performed Performing Clinician Sourc e Cystoscopy with retrograde pyelography 2019-04-19 00:00:00 NANDO HUMPHREY [facility] Ultrasound, renal 2019-04-18 00:00:[address] [facility] Ultrasound examination of pelvis, limited or follow-up 04-18 00:00:00 ROSALINDARITCHIE [facility] Computed tomography of chest without contrast 2019-04-16 00:00:0 0 JOIE VELAZQUEZ [facility] Computed tomography of abdomen and pelvis with contrast 2018 00:00:00 ISHAN MADERA [facility] echocardiogram, complete 2013-05-06 05:00:00 Medical Group Plan of Care Planned Activity Planned Date Details Comments Source Future Scheduled Test 2020-04-22 00:00:00 INFLUENZA VACCINE [code = INFLUENZA VACCINE] [facility] Future Scheduled Test 1995-12-07 00:00:00 65+ PNEUMOCOCCAL V ACCINE (1 of 2 - PCV13) [code = 65+ PNEUMOCOCCAL VACCINE (1 of 2 - PCV13)] [facility] Future Scheduled Test 1980 00:00:00 SHINGLES VACCINES (#1) [code = SHINGLES VACCINES (#1)] [facility] Encounters Start Date/Time End Date/Time En[facility] Source 2019-03-29 15:07:46 Outpatient [id number] 2019-06-23 12:20:00 2019-06-23 12:20:00 Outpatient [id number] 2019-04-15 11:36:00 2019-04-21 10:33:00 Discharged Inpatient [facility] [id number] 2019-03-11 14:47:00 2019-03-11 14:47:00 [id number] 2015-04-20 00:00:00 2015-04-20 00:00:00 Lab Report [facility] [id number] Medical Group 2015-04-20 00:00:00 2015-04-20 00:00:00 [facility] [id number] [facility] 2014-10-20 00:00:00 2014-10-20 00:00:[facility] [id number] [facility] 2014-04-21 00:00:00 2014-04-21 00:00:00 Office Visit [facility] [id number] Medical Group 2014-02-08 00:00:00 2014-02-08 00:00:00 Office Visit [facility] [id number] Medical [facility] Results Test Description Test Time Test Comments Results Result Comments Source RETROGRADE PYELOGRAM 2020-02-09 14:47:00 [place] [id number] Patient Name: SARAH GILMAN MR #: [id number] : 1930 Age/Sex: 89/M Req #: [id number] Adm Physician: Ordered by: NANDO STEWART MD Report #: [id number] Location: OR Room/Bed: Procedure: DX/RETROGRADE PYELOGRAM Exam Date: 02/09/20 Exam Time: 1322 REPORT STATUS: Signed OR Fluoroscopy: IMPRESSION: Fluoroscopy service provided in the OR. Interpretation not requested. Signed by: Renny Jamison MD on 02/09/2020 2:47 PM Dictated By: RENNY JAMISON MD [id number] Transcribed By: LESLEY on 02/09/20 1440 COPY TO: NANDO STEWART MD CHEST 2 VIEWS 2020-02-04 13:09:00 [place] [id number] Patient Name: SARAH GILMAN MR #: [id number] : 1930 Age/Sex: 89/M Req #: [id number] Adm Physician: Ordered by: NANDO STEWART MD Report #: [id number] Location: OR Room/Bed: Procedure: [id number] DX/CHEST 2 VIEWS Exam Date: 02/04/20 Exam Time: 1230 REPORT STATUS: Signed EXAMINATION: CHEST 2 VIEWS INDICATION: Pre-operative COMPARISON: Chest CT 04/16/2019 FINDINGS: LINES/TUBES:None LUNGS:The lungs are hyperinflated. No focal consolidation or pulmonary edema. PLEURA:No pleural effusion or pneumothorax. Multifocal calcified pleural plaques. MEDIASTINUM:The cardiomediastinal silhouette appears normal in size and shape. Atherosclerotic calcifications of the thoracic aorta. BONES/SOFT TISSUES:No acute osseous injury. ABDOMEN:No free air under the diaphragm. IMPRESSION: Hyperinflated lungs. No focal pneumonia or pulmonary edema. Calcified pleural plaques can be seen in the setting of prior asbestos exposure. Signed by: Tarah Andrews MD on 02/04/2020 1:11 PM Dictated By: TARAH ANDREWS MD [id number] Transcribed By: BEKA CASAS on 02/04/20 1311 COPY TO: NANDO STEWART MD ABDOMEN-1VIEW (KUB) 2019-11-09 09:20:00 [place] [address] Patient Name: SARAH GILMAN MR #: [id number] : 1930 Age/Sex: 88/M Req #: [id number] Adm Physician: Ordered by: NANDO STEWART MD Report #: [id number] Location: OR Room/Bed: Procedure: [id number] DX/ABDOMEN-1VIEW (KUB) Exam Date: 11/09/19 Exam Time: 839 REPORT STATUS: Signed Exam: KUB - 2 views Indication: Preoperative Comparison: KUB of 08/27/2019 Findings: Right internal nephroureteral stent in place. Calcifications overlying both renal silhouettes correspond to vascular calcifications on prior CT. No radiographically apparent renal calculi. No acute osseous injury. Degenerative changes of the visualized spine and both hip joints. Nonobstructive bowel gas pattern. No free air. Impression: Right internal nephroureteral stent in place. No radiographically apparent renal calculi. Signed by: Tarah Andrews MD on 11/09/2019 9:22 AM Dictated By: TARAH ANDREWS MD 1 Transcribed By: LESLEY on 11/09/19921 COPY TO: NANDO STEWART MD ABDOMEN-1VIEW (KUB) 2019-08-27 08:16:00 [place] [address] Patient Name: SARAH GILMAN MR #: [id number] : 1930 Age/Sex: 88/M Req #: [id number] Adm Physician: Ordered by: NANDO STEWART MD Report #: [id number] Location: OR Room/Bed: Procedure: [id number] DX/ABDOMEN-1VIEW (KUB) Exam Date: 08/27/19 Exam Time: 0730 REPORT STATUS: Signed Abdomen, one view Clinical indication: Hydronephrosis, preoperative evaluation Comparison: CT the abdomen and pelvis performed 04/15/2019 Findings: A right double-J ureteral stent is in place. A 4 mm calcific density overlies the midpole of th e right kidney and a 5 mm calcific density overlies the upper pole of the right kidney. These correspond to vascular calcifications on the patient's CT scan from 04/16/2019. No renal calculi are identified over the left renal shadow. The bowel gas pattern is nonobstructed. No acute osseous abnormalities. Nonspecific calcified pleural plaques. Impression: Right double-J ureteral stent in place. Signed by: Jhonatan Pinzon MD on 08/27/2019 8:21 AM Dictated By: JHONATAN PINZON MD 0 Transcribed By: LESLEY on 08/27/19820 COPY TO: NANDO STEWART MD CHEST 2 VIEWS 2019-08-24 10:13:00 [place] [address] Patient Name: SARAH GILMAN MR #: [id number] : 1930 Age/Sex: 88/M Req #: [id number] Adm Physician: Ordered by: NANDO STEWART MD Report #: [id number] Location: OR Room/Bed: Procedure: [id number] DX/CHEST 2 VIEWS Exam Date: Exam Time: REPORT STATUS: Signed EXAM: CHEST 2 VIEWS DATE: 08/24/2019 8:42 AM INDICATION: Preoperative evaluation COMPARISON: CT chest without contrast from 04/16/2019. IMPRESSION: The trachea is midline. There are bilateral calcified pleural plaques as noted on prior CT examination. Mildly increased interstitial/reticular opacities noted bilaterally. There is no evidence for large focal consolidation, pneumothorax, or significant pleural effusion. The cardiomediastinal silhouette and pulmonary vasculature are within normal limits. No acute osseous abnormalities identified. Signed by: Dr. Claude Villagomez MD on 08/24/2019 10:16 AM Dictated By: CLAUDE VILLAGOMEZ MD 1016 Transcribed By: LESLEY on 08/24/19 1016 COPY TO: NANDO STEWART MD RENAL SCAN W/FLOW FUNCTION 2019-05-14 14:38:00 [place] [address] Patient Name: SARAH GILMAN MR #: [id number] : 1930 Age/Sex: 88/M Req #: [id number] [facility] Physician: Ordered by: NANDO STEWART MD Report #: [id number] Location: PR Room/Bed: Procedure: [id number] NM/RENAL SCAN W/FLOW FUNCTION Exam Date: 05/14/19 Exam Time: 834 REPORT STATUS: Signed Renal Scan Clinical information: N13.30 Hydronephrosis, unspecified. A right ureteral stent is in place. Technique: Following intravenous administration of 10 mCi of Tc-99m MAG3, dynamic images of the kidneys in the posterior projection were obtained through 40 minutes. Report: Left kidney: Perfusion of the left kidney is prompt. The kidney has a normal reniform shape. Extraction of tracer from the blood pool is normal. Clearance of tracer from the renal parenchyma begins promptly but is not complete by the end of the study. The pelvicalyceal system is not dilated. Physiologic pooling of tracer is seen w ithin the pelvicalyceal system. Drainage of tracer from the pelvicalyceal system is adequate. No significant stasis of tracer is seen within the left ureter. Right kidney: Perfusion to the right kidney is prompt. The right kidney has a reniform shape with mild thinning of the renal cortex. The kidney is slightly smaller than the left kidney. Extraction of tracer by the renal parenchyma is mildly decreased. Clearance of tracer from the renal parenchyma begins promptly but is not complete by the end of the study. The pelvicalyceal system is not dilated. Physiologic pooling of tracer is seen within the pelvicalyceal system. Drainage of tracer from the pelvicalyceal system is adequate. No significant stasis of tracer is seen within the right ureter. Differential renal function: The left kidney contributes 54% of total renal function and the right kidney contributes 46% (normal 43-57%). Impression: 1. Mild medical renal disease is present in the left kidney. No hydronephrosis is present. No obstruction of the renal collecting system is suspected. 2. Mild medical renal disease is present in the right kidney. There is some loss of renal parenchyma evidenced by the smaller size of the kidney and the thinning of the renal cortex. This accounts for the decreased differential function of 46%. No hydronephrosis is present. No obstruction of the renal collecting system is suspected. Signed by: Dr. Dori Bowles M.D. on 05/14/2019 2:53 PM Dictated By: DORI BOWLES MD 52 Transcribed By: LESLEY on 05/14/191452 COPY TO: NANDO STEWART MD Sodium Level 2019-04-21 06:23:00 Test Item Sodium Level (test code = 2951-2) 136 136-145 [facility]Potassium Lltyo2969-85-16 06:23:00* Test Item Value Reference Range Interpretation Comments Potassium Level (test code = 2823-3) 4.0 3.5-5.1 [facility] HospitalChloride Nbpgl1891-06-07 06:23:00* Test Item Value Reference Range Interpretation Comments Chloride Level (test code = 2075-0) 98 98-107 [facility] HospitalCarbon Dioxide Krjiy0804-42-79 06:23:00* Test Item Value Reference Range Interpretation Comments Carbon Dioxide Level (test code = 2028-9) 30 22-29 [facility] HospitalAnion Tdk1107-33-72 06:23:00* Test Item Value Reference Range Interpretation Comments Anion Gap (test code = 34618-6) 12.0 8-16 [facility] HospitalBlood Urea Ikkwauol9308-99-08 06:23:00* Test Item Value Reference Range Interpretation Comments Blood Urea Nitrogen (test code = 3094-0) 15 7-26 [facility] HospitalCreatinine2019-07-31 06:23:00* Test Item Value Reference Range Interpretation Comments Creatinine (test code = 2160-0) 0.82 0.72-1.25 [facility] HospitalBUN/Creatinine Dulpa7804-32-07 06:23:00* Test Item Value Reference Range Interpretation Comments BUN/Creatinine Ratio (test code = 3097-3) 18 6-25 [facility] HospitalEstimat Glomerular Filtration Rate 2019-04-21 06:23:00* Test Item Value Reference Range Interpretation Comments Estimat Glomerular Filtration Rate (test code = 491174231) > 60 >60 Ranges were taken from the National Kidney Disease Education Program and the [facility] Foundation literature.Reference ranges:60 or greater: Fgzymd79-79 ( for 3 consecutive months): Chronic kidney disease 15 or less: Kidney failureNavarro Regional HospitalGlucose Phlou1274-84-97 06:23:00* Test Item Value Reference Range Interpretation Comments Glucose Level (test code = HAJ0903) 88 74-118 [facility] HospitalCalcium Qicgd3935-99-30 06:23:00* Test Item Value Reference Range Interpretation Comments Calcium Level (test code = 88493-2) 8.8 8.4-10.2 [facility] HospitalWhite Blood Nqnkw7010-94-29 06:00:00* Test Item Value Reference Range Interpretation Comments White Blood Count (test code = 6690-2) 6.90 4.8-10.8 [facility] HospitalRed Blood Rttui2371-51-46 06:00:00* Test Item Value Reference Range Interpretation Comments Red Blood Count (test code = 789-8) 3.50 4.3-5.7 [facility] HospitalHemoglobin2019-07-31 06:00:00* Test Item Value Reference Range Interpretation Comments Hemoglobin (test code = 27840-6) 11.1 14.0-18.0 [facility] HospitalHematocrit2019-07-31 06:00:00* Test Item Value Reference Range Interpretation Comments Hematocrit (test code = 4544-3) 32.8 38.2-49.6 [facility] HospitalMean Corpuscular Xhiotk7812-09-27 06:00:00* Test Item Value Reference Range Interpretation Comments Mean Corpuscular Volume (test code = 787-2) 93.7 81-99 [facility] HospitalMean Corpuscular Eeytijopvq0910-69-49 06:00:00* Test Item Value Reference Range Interpretation Comments Mean Corpuscular Hemoglobin (test code = 785-6) 31.7 28-32 [facility] HospitalMean Corpuscular Hemoglobin Concent 2019-04-21 06:00:00* Test Item Value Reference Range Interpretation Comments Mean Corpuscular Hemoglobin Concent (test code = 786-4) 33.8 31-35 [facility] HospitalRed Cell Distribution Uqdnn3626-61-00 06:00:00* Test Item Value Reference Range Interpretation Comments Red Cell Distribution Width (test code = 48215-6) 14.6 11.7 -14.4 [facility] HospitalPlatelet Scaog0200-63-00 06:00:00* Test Item Value Reference Range Interpretation Comments Platelet Count (test code = 777-3) 195 140-360 [facility] HospitalNeutrophils (%) (Auto)2019-04-21 06:00:00 * Test Item Value Reference Range Interpretation Comments Neutrophils (%) (Auto) (test code = 95353-4) 68.6 38.7-80.0 [facility] HospitalLymphocytes (%) (Auto)2019-04-21 06:00:00 * Test Item Value Reference Range Interpretation Comments Lymphocytes (%) (Auto) (test code = 736-9) 14.1 18.0-39.1 [facility] HospitalMonocytes (%) (Auto)2019-04-21 06:00:00* Test Item Value Reference Range Interpretation Comments Monocytes (%) (Auto) (test code = 5905-5) 11.7 4.4-11.3 [facility] HospitalEosinophils (%) (Auto)2019-04-21 06:00:00 * Test Item Value Reference Range Interpretation Comments Eosinophils (%) (Auto) (test code = 713-8) 4.9 0.0-6.0 [facility] HospitalBasophils (%) (Auto)2019-04-21 06:00:00* Test Item Value Reference Range Interpretation Comments Basophils (%) (Auto) (test code = 706-2) 0.4 0.0-1.0 [facility] HospitalIM GRANULOCYTES %2019-04-21 06:00:00* Test Item Value Reference Range Interpretation Comments IM GRANULOCYTES % (test code = IM GRANULOCYTES %) 0.3 0.0- 1.0 [facility] HospitalNeutrophils # (Auto)2019-04-21 06:00:00* Test Item Value Reference Range Interpretation Comments Neutrophils # (Auto) (test code = 751-8) 4.7 2.1-6.9 [facility] HospitalLymphocytes # (Auto)2019-04-21 06:00:00* Test Item Value Reference Range Interpretation Comments Lymphocytes # (Auto) (test code = 63787-0) 1.0 1.0-3.2 [facility] HospitalMonocytes # (Auto)2019-04-21 06:00:00* Test Item Value Reference Range Interpretation Comments Monocytes # (Auto) (test code = 742-7) 0.8 0.2-0.8 [facility] HospitalEosinophils # (Auto)2019-04-21 06:00:00* Test Item Value Reference Range Interpretation Comments Eosinophils # (Auto) (test code = 711-2) 0.3 0.0-0.4 [facility] HospitalBasophils # (Auto)2019-04-21 06:00:00* Test Item Value Reference Range Interpretation Comments Basophils # (Auto) (test code = 704-7) 0.0 0.0-0.1 [facility] HospitalAbsolute Immature Granulocyte (auto 2019-04-21 06:00:00* Test Item Value Reference Range Interpretation Comments Absolute Immature Granulocyte (auto (antwan t code = Absolute Immature Granulocyte (auto) 0.02 0-0.1 [facility] HospitalUrine Ggabbyygbz4386-43-71 22:33:00* Test Item Value Reference Range Interpretation Comments Urine Osmolality (test code = 2695-5) 473 . 24 hr : 300 - 900 Random: 50 - 1400 After 12hr fluid restriction: >850Performed at: HD - [facility] [id number] Director: Dawit Vincent MD, Phone: [phone] Methodist Hospitalerum Osmolality 2019-04-20 22:33:00* Test Item Value Reference Range Interpretation Comments Serum Osmolality (test code = 2692-2) 267 280-301 Performed at: [facility] - [facility] [address] [id number] Director: Dawit Vincent MD, Phone: [phone] Regional HospitalB-Type Natriuretic Wepigzv9288-54-21 05:54:00* Test Item Value Reference Range Interpretation Comments B-Type Natriuretic Peptide (test code = 88548-2) 152.0 0-100 [facility] HospitalMODIFIED BA. TMKTJEZ3722-60-70 11:05:00 [facility] [address] [place] [address] Patient Name: SARAH GILMAN MR #: [id number] : 1930 Age/Sex: 88/M Req #: [id number] Adm Physician: JOIE VELAZQUEZ MD Ordered by: JOIE VELAZQUEZ MD Report #: [id number] Location: [facility]/S[facility] Room/Bed: [facility] Procedure: [id number] DX/MOD IFIED BA. SWALLOW Exam Date: 04/16/19 Exam Time: 133 0 REPORT STATUS: Signed PROCEDUR E: X-RAY MODIFIED BARIUM SWALLOW COMPARISON: None. INDICATION: Dyspha denny Radiation Details: Fluoroscopy time: 2.0 minutes Cumulative dose: 3.28mGy DISCUSSION: Fluoroscopic examination was performed in conjunction w [facility] speech pathology during swallowing a variety of thin and thick liquid cons istencies. Provided images demonstrate laryngeal penetration and trace microas piration. CONCLUSION: Modified barium swallow demonstrating laryngeal p enetration and trace microaspiration. Please refer to the speech pathology rep ort for further details. Signed by: Tarah Andrews MD on 04/19/2019 11:07 AM Dictated By: TARAH ANDREWS MD COPY TO: TARA VELAZQUEZ MD US RENAL RETROPERITONEAL XPAL7878-34-50 16:13:00 [place] [address] Patient Name: SARAH GILMAN MR #: [id number] : 1930 Age/Sex: 88/M Req #: [id number] Adm Physician: JOIE VELAZQUEZ MD Ordered by: RITCHIE TELLEZ MD Report #: [id number] Location: MED/SURG2 Room/Bed: [facility] Procedure: [id number] US/ US RENAL RETROPERITONEAL COMP Exam Date: 04/18/19 Ex am Time: 1445 REPORT STATUS: Signed EXAM: Renal Ultrasound INDICATION: hydronephrosis [id number] COMPARISON: CT abdomen and pelvis 04/15/2019 TECHNIQUE: Transverse and longitudinal images of the kidneys and bladder were obtained. FINDI NGS: Right Kidney: Size: 10.8 cm, right renal cortex 1.5 cm. Appe arance: Mildly increased echogenicity. Collecting system: Moderate hydroneph rosis Stones: None Cyst/Mass: None Left Kidney: Size: 9.3 cm, left r enal cortex 1.4 cm. Appearance: Normal echogenicity. Collecting system: No hydronephrosis Stones: None Cyst/Mass: None Bladder: No focal lesio ns. Left ureteral jet is identified. Prevoid bladder volume 54.7 mL. Post void bladder volume 12.7 mL. Prostate measures 2.9 x 4.4 x 3.4 cm (estimated v olume 22.6 mL, normal). IMPRESSION: 1. Moderate right hydronephrosis, unchanged since prior CT. 2. Mildly increased right renal cortical echogeni city, consistent with medical renal disease. Signed by: Dr. Jackson English M.D. on 04/18/2019 4:15 PM Dictated By: JACKSON ENGLISH MD Electr onically Signed By: JACKSON ENGLISH MD on 04/23/19 1505 Transcribed By: LESLEY on 04/23/19 1502 COPY TO: RITCHIE TELLEZ MD US PELVIC (NON OB) [place] OR F/R7932-78-95 16:13:00 [place] [address] Patient Name: SARAH GILMAN MR #: [id number] : 1930 Age/Sex: 88/M Req #: [id number] Adm Physician: JOIE VELAZQUEZ MD Ordered by: RITCHIE TELLEZ MD Report #: [id number] Location: [facility] Room/Bed: [facility] Procedure: [id number] US/ US PELVIC (NON OB) [place] OR F/U Exam Date: 04/18/19 Ex am Time: 1445 REPORT STATUS: Signed EXAM: Renal Ultrasound INDICATION: hydronephrosis [id number] 1445 COMPARISON: CT abdomen and pelvis 04/15/2019 TECHNIQUE: Transverse and longitudinal images of the kidneys and bladder were obtained. FINDI NGS: Right Kidney: Size: 10.8 cm, right renal cortex 1.5 cm. Appe arance: Mildly increased echogenicity. Collecting system: Moderate hydroneph rosis Stones: None Cyst/Mass: None Left Kidney: Size: 9.3 cm, left r enal cortex 1.4 cm. Appearance: Normal echogenicity. Collecting system: No hydronephrosis Stones: None Cyst/Mass: None Bladder: No focal lesio ns. Left ureteral jet is identified. Prevoid bladder volume 54.7 mL. Post void bladder volume 12.7 mL. Prostate measures 2.9 x 4.4 x 3.4 cm (estimated v olume 22.6 mL, normal). IMPRESSION: 1. Moderate right hydronephrosis, unchanged since prior CT. 2. Mildly increased right renal cortical echogeni city, consistent with medical renal disease. Signed by: Dr. Jackson English M.D. on 04/18/2019 4:15 PM Dictated By: JACKSON ENGLISH MD Electr onically Signed By: JACKSON ENGLISH MD on 04/23/19 1502 Transcribed By: LESLEY on 04/23/19 1502 COPY TO: RITCHIE TELLEZ MD Urine Random Sodium 2019-04-18 13:28:00* Test Item Value Reference Range Interpretation Comments Urine Random Sodium (test code = 2955-3) 108 [facility] HospitalUric Qfyt4765-47-82 12:12:00* Test Item Value Reference Range Interpretation Comments Uric Acid (test code = 3084-1) 2.1 4.8-8.0 [facility] HospitalThyroid Stimulating Hormone (TSH) 2019-04-17 06:25:00* Test Item Value Reference Range Interpretation Comments Thyroid Stimulating Hormone (TSH) (test code = 57143-4) 3.627 0.350-4.940 [facility] HospitalCT CHEST [id number] 18:48:00 [place] [address] Patient Name: SARAH GILMAN MR #: [id number] : 1930 Age/Sex: 88/M Req #: [id number] Adm Physician: JOIE VELAZQUEZ MD Ordered by: JOIE VELAZQEUZ MD Report #: [id number] Location: [facility] Room/Bed: [facility] Procedure: [id number] CT/CT CHEST WO Exam Date: 04/16/19 Exam Time: 1814 REPORT STATUS: Signed EXAM: CT Chest WI THOUT contrast 04/16/2019 12:32 PM INDICATION: SOB [id number] COMPARISON: Modified barium swallow 04/16/[address] abdomen pelvis 04/15/2019 TECHNIQUE: Chest was scanned utilizing a multidetector helical scanner f rom the lung apex through the level of the adrenal glands without administrati on of IV contrast. Absence of intravenous contrast decreases sensitivity for d etection of lymphadenopathy and vascular pathology. Coronal and sagittal refor mations were obtained. Routine protocol was performed. IV CONTRA ST: None COMPLICATIONS: None RADIATION DOSE: Total DLP: 341.5 m Gy*cm Estimated effective dose: (DLP x 0.015 x size factor) mSv CT DIvol has been reviewed. It is below the limits set by the Radiation Protocol Committee (RPC). FINDINGS: LINES/ TUBES: None. LUNGS AND AIRWAYS: Mild subpleural reticulation of the lungs in the posterior lower lobes, bett er seen on series 3, image 117. Few tree-in-bud pulmonary nodules in the poste rior right lower lobe, measuring up to 3 mm on series 3, image 107 and unchang ed and suggestive of aspiration. No new consolidations or suspicious pulmonary nodules. Mild bilateral centrilobular emphysema. 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 Minimal bronchiectasis without peribronchi al wall thickening. PLEURA: The pleural spaces are clear. Extensive bi lateral lower lobe calcified pleural plaques, unchanged. HEART AND MEDIAS TINUM: The thyroid gland is normal. No mediastinal, hilar or axillary lymphad enopathy. The heart is normal in size. There is no pericardial effusion. Ext ensive coronary artery calcifications. Mild ectasia of the descending thoraci c aorta measuring up to 3.2 cm. Moderate calcification throughout. The main pu lmonary arteries normal in size measuring 2.2 cm, however there is enlargement of the right and left pulmonary artery measuring 2.1 cm in each site. Small h iatal hernia. UPPER ABDOMEN: Diffuse calcification versus retained contrast in the right kidney suggestive of some degree of dysfunction. Severe hydronep hrosis. This is unchanged. Diverticulosis of the visualized descending colon. Postsurgical changes there appears to be in the stomach. BONES: Diffuse b one demineralization. Multilevel degenerative changes of the thoracic spine. SOFT TISSUES: Unremarkable. IMPRESSION: Unchanged small foci of tree -in-bud pulmonary nodules in the posterior right lower lobe suggestive of aspi ration. No new consolidations or suspicious pulmonary nodules. Signed by: Dr. Olimpia Orta M.D. on 04/16/2019 7:37 PM Dictated By: Joyce ORTA MD 36 Transcribed By: LESLEY on 04/16/191936 COPY TO: JOIE VELAZQUEZ MD Serum Taxvzwreca0964-20-13 13:29:00* Test Item Value Reference Range Interpretation Comments Serum Osmolality (test code = 99323-8) 260 278-305 [facility] HospitalTotal Ispgooknj8508-07-59 05:35:00* Test Item Value Reference Range Interpretation Comments Total Bilirubin (test code = 1975-2) 0.5 0.2-1.2 [facility] HospitalAspartate Amino Transf (AST/SGOT) 2019-04-16 05:35:00* Test Item Value Reference Range Interpretation Comments Aspartate Amino Transf (AST/SGOT) (test code = Aspartate Amino Transf (AST/SGOT)) 18 5-34 [facility] HospitalAlanine Aminotransferase (ALT/SGPT) 2019-04-16 05:35:00* Test Item Value Reference Range Interpretation Comments Alanine Aminotransferase (ALT/SGPT) (test code = 1742-6) 13 0-55 [facility] HospitalTotal Peejctu0197-36-73 05:35:00* Test Item Value Reference Range Interpretation Comments Total Protein (test code = 2885-2) 6.5 6.5-8.1 [facility] HospitalAlbumin2019-07-26 05:35:00* Test Item Value Reference Range Interpretation Comments Albumin (test code = 1751-7) 3.4 3.5-5.0 [facility] HospitalGlobulin2019-07-26 05:35:00* Test Item Value Reference Range Interpretation Comments Globulin (test code = 35222-6) 3.1 2.3-3.5 [facility] HospitalAlbumin/Globulin Wjflk6364-90-01 05:35:00 * Test Item Value Reference Range Interpretation Comments Albumin/Globulin Ratio (test code = 1759-0) 1.1 0.8-2.0 [facility] HospitalAlkaline Tluyfjmdhhu8006-36-24 05:35:00* Test Item Value Reference Range Interpretation Comments Alkaline Phosphatase (test code = 6768-6) 60 40-150 [facility] HospitalCT ABDOMEN/PELVIS I4472-10-19 10:59:00 [facility] [address] [place] [address] Patient Name: SARAH GILMAN MR #: [id number] : 1930 Age/Sex: 88/M Req #: [id number] Adm Physician: Ordered by: ISHAN MADERA MD Report #: [id number] Location: ER Room/Bed: Procedure: [id number] C T/CT ABDOMEN/PELVIS W Exam Date: 04/15/19 Exam Time: 1030 REPORT STATUS: Signed CT of the abdomen and pelvis, with contrast, 04/15/2019. History: Pros rouse cancer, burning with urination. Comparison: None available. Techn ique: Multidetector CT scanning of the abdomen and pelvis was performed from t he level of the lung bases to the inferior pubic rami after intravenous admini stration of contrast. No oral contrast was given. Coronal and sagittal multipl rome reformations were obtained. RADIATION DOSE: Total DLP: 173 m Gy*cm Dose modulation, iterative reconstruction, and/or weight based adju stment of the mA/kV was utilized to reduce the radiation dose to as low as gualberto sonably achievable. 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 ABDOMEN: There is decreased cortical enhan cement of the right kidney with moderate right hydronephrosis and dilatation o f the right renal pelvis, but the right ureter is not dilated. No stones are v isible. The left kidney is normal. The liver, gallbladder, biliary tree, sp erik, pancreas, and adrenal glands normal. The hepatic vein, portal vein, and splenic vein are patent. The infrarenal abdominal aorta is prominent measurin g 3.2 x 3.0 cm. Evaluation of bowel is limited without oral contrast or multip le colonic diverticuli are present without evidence of adjacent inflammation. There is no evidence of adenopathy or free fluid. PELVIS: The bladder and prostate are unremarkable. There is no evidence of free fluid. An oval str ucture is present in the right inguinal canal measuring 1.8 x 2.0 cm and 18 Ho unsfield units in density. BONES AND SOFT TISSUES: Degenerative changes are present throughout the lumbar spine without evidence of lytic or sclerotic le clara. IMPRESSION: 1. Moderate right hydronephrosis without visible stone, suggestive of UPJ obstruction. Recommend urologic consult. 2. Infrare nal abdominal aortic aneurysm measuring 3.2 cm. Recommend follow-up exam every 3 years. 3. Colonic diverticulosis. 4. Oval low-density structure in the r ight inguinal canal suggestive of fluid in the inguinal canal rather than kiley opathy. Consider further evaluation with ultrasound. Signed by: Jesus nelson on 04/15/2019 11:23 AM Dictated By: JESUS PINEDO MD 1123 Transcribed By: LESLEY on 9 1123 COPY TO: ISHAN MADERA MD Urine OKA6945-93-76 10:42:00 * Test Item Value Reference Range Interpretation Comments Urine WBC (test code = 5821-4) 6-10 0-5 [facility]47 10:42:00* Test Item Value Reference Range Interpretation Comments Urine RBC (test code = 22605-6) 6-10 0-5 [facility] Qvqmrgnb3645-18-30 10:42:00* Test Item Value Reference Range Interpretation Comments Urine Bacteria (test code = 52475-8) MODERATE NONE [facility] Epithelial Avoea8225-08-77 10:42:00 * Test Item Value Reference Range Interpretation Comments Urine Epithelial Cells (test code = 83509-1) FEW NONE [facility] Wwbfz3231-15-55 10:18:00* Test Item Value Reference Range Interpretation Comments Urine Color (test code = 5778-6) YELLOW YELLOW [facility] Ztaqmvo1317-98-53 10:18:00* Test Item Value Reference Range Interpretation Comments Urine Clarity (test code = 07982-9) SL CLOUDY CLEAR [facility] Specific Wciamqd0852-82-06 10:18:00 * Test Item Value Reference Range Interpretation Comments Urine Specific [place] (test code = 5811-5) 1.015 1.010-1.02 5 [facility] oW3745-84-25 10:18:00* Test Item Value Reference Range Interpretation Comments Urine pH (test code = 24527-8) 6.5 5-7 [facility] Leukocyte Jweincui6147-90-41 10:18:00* Test Item Value Reference Range Interpretation Comments Urine Leukocyte Esterase (test code = 11493-2) NEGATIVE NEGATIV E [facility] Lwrlzxo8243-36-87 10:18:00* Test Item Value Reference Range Interpretation Comments Urine Nitrite (test code = 69634-8) NEGATIVE NEGATIVE [facility] Ewmmxvd3500-38-39 10:18:00* Test Item Value Reference Range Interpretation Comments Urine Protein (test code = 89333-8) TRACE NEGATIVE [facility] Glucose (UA)2019-04-15 10:18:00* Test Item Value Reference Range Interpretation Comments Urine Glucose (UA) (test code = 26735-6) NEGATIVE NEGATIVE [facility] Vtieukn7462-22-63 10:18:00* Test Item Value Reference Range Interpretation Comments Urine Ketones (test code = 41006-2) NEGATIVE NEGATIVE [facility] Actlotuldtmb1930 10:18:00* Test Item Value Reference Range Interpretation Comments Urine Urobilinogen (test code = 45228-5) 0.2 0.2-1 [facility] Ojzokqxyz7094-71-06 10:18:00* Test Item Value Reference Range Interpretation Comments Urine Bilirubin (test code = 1977-8) NEGATIVE NEGATIVE [facility] Sfcjx3047-86-12 10:18:00* Test Item Value Reference Range Interpretation Comments Urine Blood (test code = 90497-1) TRACE NEGATIVE [facility] 13:15:37528 MEQ/LM Medical SiwbzWkwasckpr6913-28-98 13:15:004.1 [facility] Medical GroupChemistry 2015-04-20 13:15:000.9 Medical JwbacKwrudaydu1077-54-68 13:15:0014 Medical LrwjgNzwffcqzl7950-55-92 13:15:00* Test Item Value Reference Range Interpretation Comments BUN/CREAT (test code = BUN/CREAT) 16 1 03-16 Medical VgybpFrlqjeswh2469-33-47 13:15:003.8 Medical GroupChemistry 2015-04-20 13:15:008.7 Medical KnnvkHhcayynhi1078-24-43 13:15:0026 Medical SquesHmcnqqthr7422-42-37 13:15:0018 Medical SougbTptwaljwk3047-82-82 13:15:00 66 Medical DeefhKvukyqgfzf3737-74-66 13:15:0014.[facility] Medical GroupHematology 2015-04-20 13:15:0041.9 Medical LqnxzUzgljdjnxm7555-57-53 13:15:48997 [facility] ToaxhBrhnpdngg7899-15-17 16:21:00Negative Medical GroupChemistry 2013-12-19 16:21:00Negative Medical ZctgmUqvnslvixpfz1146-19-66 16:21:00 Negative Medical WwzqiHjuvgoyso9114-14-65 16:20:00Negative Medical Group Hixziqxgy8370-81-87 16:20:00Negative Medical JryfkGjtclgkyiihf6873-72-66 16:20:00Negative Medical OgjdpVagmwufej6107-35-23 14:39:0015.0 Medical Group Tgyaotfgz6997-76-97 14:39:0015.0 Medical QnkbxUokgkqmpz2400-38-61 16:18:00 Negative Medical FftfzGzwtinrqp8270-41-16 16:18:00Negative Medical Group Qxfoxhyiyssi4294-35-08 16:18:00Negative Medical KfzemRordiwlbt1342-07-44 15:09:005.[facility] Medical CifvrXnolkievm7419-89-26 15:09:77019 [facility] Medical Group Olvmetqur3768-13-51 15:09:004.8 [facility] Medical PzaolDujpiusxp3552-54-12 15:09:000.8 Medical MdtuoSldeamozv6728-00-66 15:09:0010 Medical [facility] Qgdqejutk7578-99-13 15:09:00* Test Item Value Reference Range Interpretation Comments BUN/CREAT (test code = BUN/CREAT) 12 03-16 Medical ZlwmsMmasquwpg6912-83-87 15:09:004.[facility] Medical GroupChemistry 2013-12-14 15:09:008.9 Medical YotzfSwjlvukqc5061-69-50 15:09:0022 Medical HfhxwGuguvrswl3175-31-55 15:09:0013 Medical DjixsNglsqbwmz4873-69-78 15:09:00 68 Medical FryfaJipeypdjw5827-21-25 15:09:001.20 Medical GroupChemistry 2013-12-14 15:09:001.650 Medical RukocWqbvljzka8995-46-46 15:09:005.[facility] Medical StadbXsnywotxz3926-75-06 15:09:13943 [facility] Medical GroupChemistry 2013-12-14 15:09:004.8 [facility] Medical VkkgcFuepwnwzvf6489-48-94 15:09:0013.[facility] Medical KlinmMeccgmebzq6144-61-14 15:09:0041.[facility] Medical GroupHematology 2013-12-14 15:09:65794 K/CMMM Medical HvznvVkrkltqgce8536-71-10 15:09:00[facility] Medical JprboFxqyxetftt7129-46-29 [facility] Utfoweelpb1786-15-57 15:09:00[facility] Medical FojruDrkgmqvpqo9820-35-68 15:[facility] MyocwOjjvzgynt7918-02-17 13:47:50682PE Medical EtcjhRiycvazsv9056-13-08 13:47:0074 Medical ScoyhTaelozpac1595-36-39 13:47:00 56 Medical FpgdrPutlogkow0722-40-52 13:47:43102 [facility] Medical GroupChemistry 2013-01-28 13:47:004.0 [facility] Medical CjwpmHkhmqijbi5335-73-37 13:47:000.9 Medical OhexfEgqtocmmq3213-29-70 13:47:0014 Medical YtwajXsevxtoov0562-37-67 13:47:00* Test Item Value Reference Range Interpretation Comments BUN/CREAT (test code = BUN/CREAT) 16 09 27-25 Medical QvxfbVgdvbdqii0727-54-14 13:47:004.0 Medical GroupChemistry 2013-01-28 13:47:008.8 Medical QwcmeCpuiatsgx6214-14-19 13:47:0019 Medical DleljKtdbpkpcm6048-78-15 13:47:0014 Medical PchawByrstatiz4306-55-58 13:47:00 [facility] Medical IwybkIkqipabqy1585-53-97 13:47:07145NC Medical GroupChemistry 2013-01-28 13:47:0074 Medical YtvegAuxenszun9444-17-91 13:47:0056 Medical JubgyVwybyvemu5630-94-77 13:47:48790 [facility] Medical CwtohXeqobsrpx4252-60-05 13:47:004.0 [facility] Medical EuiidTsoqlgnmf1042-54-31 13:47:000.9 Medical Group Nikqywopb2317-80-53 13:47:0014 Medical HhrvjHdnjzbtsr2561-53-45 13:47:00* Test Item Value Reference Range Interpretation Comments BUN/CREAT (test code = BUN/CREAT) 16 09 27- Medical UpktfQurkchqhs2499-07-79 13:47:004.0 Medical GroupChemistry 2013-01-28 13:47:008.8 Medical ChmzeInecodqbs0380-51-74 13:47:0019 Medical LojcyEkithuxzv7291-29-06 13:47:0014 Medical GpkryFvjixblud7803-76-42 13:47:00 [facility] Medical RghbgZydbhjryi7089-48-03 13:47:74123BE Medical GroupChemistry 2013-01-28 13:47:0074 Medical GcxslIlizaflqo9613-43-42 13:47:0056 Medical TnoezQeazyehio6715-69-48 13:47:87956PF Medical LvgniPhdrxypnw3726-29-78 13:47:00 141 MEQ/LMH Medical ZidiaZglbccvqf9935-61-80 13:47:004.0 MEQ/LM Medical Group Pqpzrsjol0438-70-43 13:47:000.9 Medical WqtotLlnqcyqcc0545-81-57 13:47:0014 Medical IngkbXycsatggx8250-31-94 13:47:00* Test Item Value Reference Range Interpretation Comments BUN/CREAT (test code = BUN/CREAT) 16 1 6-25 Medical SqbdiJuyadodmw4673-32-17 13:47:004.0 Medical GroupChemistry 2013-01-28 13:47:008.8 Medical BzawrImnnyygdz1082-36-59 13:47:0019 Medical QzioxAfacpscsa9226-26-81 13:47:0014 Medical WixnfEwwketabo1899-74-00 13:47:00 77 Medical SqegaCrrnzdcxt1682-79-10 13:47:35342VQ Medical GroupChemistry 2013-01-28 13:47:0074 Medical FcxuxVtkjnioqn4978-98-23 13:47:0056 Medical LqoltQuwqbhhjy1631-93-26 13:47:12632MX Medical NrbxrQsgejlvyt5129-10-70 13:47:00 74 Medical VverbHcyozwbim3413-99-48 13:47:0056 Medical GroupHematology 2013-01-28 13:47:0013.7 Medical NsieeSoxvsktjpa5690-73-18 13:47:0040.[facility] Medical DebnmJibtdprgno2774-06-54 13:47:69659 [facility] Medical GroupHematology 2013-01-28 13:47:0013.[facility] Medical CaqdnRwrtmdleit8572-33-30 13:47:0040.[facility] Medical QfadhJkxkweraus3302-52-27 13:47:03795 [facility] Medical GroupHematology 2013-01-28 13:47:0013.[facility] Medical YmckzUmyhnjpdtb4377-56-75 13:47:0040.[facility] Medical BcudxMumnhyshab2658-27-98 13:47:60329 [facility] Medical GroupChemistry 2012-05-01 15:46:35586HA Medical RfmbpNfpnvoifi6784-53-28 15:46:0080 Medical PvddvCxckrapvu2273-68-79 15:46:0058 Medical EyysxCdgvsziln9353-75-65 15:46:00 141 MEQ/LMH Medical EknfoHphgahdhs7827-70-11 15:46:004.0 MEQ/LM Medical Group Esjtmyplb8167-43-79 15:46:0015 Medical NfeqwEofnhopkf5606-93-77 15:46:001.0 Medical MpsalKfqaemeys1646-72-67 15:46:00* Test Item Value Reference Range Interpretation Comments BUN/CREAT (test code = BUN/CREAT) 15 03-16 Medical HndkyRfeijdgdm5814-39-06 15:46:003.8 Medical GroupChemistry 2012-05-01 15:46:008.7 Medical BfcklBdxpwwgzb3445-54-06 15:46:0013 Medical QvnlkNicffrtsr5489-36-44 15:46:0023 Medical AejcbTjoddgysc1812-19-47 15:46:00 [facility] Medical HvsfqTlkqumqkv0609-48-50 15:46:57489HK Medical GroupChemistry 2012-05-01 15:46:0080 Medical SzycxSwerbuqnz7858-67-68 15:46:0058 Medical FtwqhCzwvooozv3706-85-73 15:46:0091 Medical AafrbYirfgzhfq1517-97-25 15:46:00 141 MEQ/[facility] Medical DrvszKwiesobyx0720-64-15 15:46:004.0 [facility] Medical Group Ioitbrebw3342-65-27 15:46:0015 Medical WmmxsBewputccy0425-78-46 15:46:001.0 Medical AluedLnzawwlho8835-52-99 15:46:00* Test Item Value Reference Range Interpretation Comments BUN/CREAT (test code = BUN/CREAT) 15 03-16 Medical IvivrNalfzomfm3466-77-90 15:46:003.8 Medical GroupChemistry 2012-05-01 15:46:008.[facility] Medical TmlbaHnyedewbp6582-98-31 15:46:0013 Medical NunvvJghznbpwb0935-72-57 15:46:0023 Medical QhqqbZzhddoblm6065-46-68 15:46:00 [facility] Medical SwxvuLntrxyatp0853-06-72 15:46:09039ZS Medical GroupChemistry 2012-05-01 15:46:0080 Medical JhygwXyojbyxia4107-62-53 15:46:0058 Medical CneppKcklrmoxg9654-43-47 15:46:0091 Medical TlhieZfsmezwan2672-11-95 15:46:00 141 MEQ/LMH Medical AimeiWvvlmjpxt5298-00-72 15:46:004.0 MEQ/[facility]H Medical Group Fzkaonjze3920-68-11 15:46:0015 Medical TwiofIszdndpzz0369-96-43 15:46:001.0 Medical VtjquNdbtlsgya4493-33-49 15:46:00* Test Item Value Reference Range Interpretation Comments BUN/CREAT (test code = BUN/CREAT) 15 1 6-25 Medical BnjgbGxcfwdjql2104-04-61 15:46:003.8 Medical GroupChemistry 2012-05-01 15:46:008.7 Medical FhaizQxyexumtf0651-74-35 15:46:0013 Medical RenygKoyexzqai9731-81-11 15:46:0023 Medical WpeckRxjjtochm1221-74-35 15:46:00 50 Medical NingzArfpnbhyc5438-45-48 15:46:12608HL Medical GroupChemistry 2012-05-01 15:46:0080 Medical GedpbVojauvgvw5949-95-53 15:46:0058 Medical IslaaYtcqorwoz4327-10-66 15:46:20959QI Medical CbmwwPwwpkxojq7626-96-87 15:46:00 80 Medical AeiqeYpcdmupxx7585-32-07 15:46:0058 Medical GroupChemistry 2011-11-08 14:35:95475MZ Medical YgruiCtljroavl0757-97-23 14:35:0098 Medical NsnnqIyrvpjiul9348-59-88 14:35:0062 Medical LixdqAkibtmgti7032-79-43 14:35:00 84 Medical UmfltRgacayigf8810-04-01 14:35:07407 MEQ/LM Medical GroupChemistry 2011-11-08 14:35:004.2 MEQ/LM Medical CiiymShtasdwle0585-18-97 14:35:0014 Medical MhqypZvfitokov3298-05-73 14:35:000.9 Medical XvmzqCihvujcwy4534-81-44 14:35:00* Test Item Value Reference Range Interpretation Comments BUN/CREAT (test code = BUN/CREAT) 16 1 - Medical VdwdhEnfupkzpt4572-05-25 14:35:004.0 Medical GroupChemistry 2011-11-08 14:35:009.[facility] Medical NgwdsEkrebdjih6334-63-80 14:35:0017 Medical OkovvPxqsghvas3788-29-49 14:35:0028 Medical XwrvaLhvijhkqp5059-49-33 14:35:00 58 Medical SwhooCaurjuikp3464-92-68 14:35:07765TQ Medical GroupChemistry 2011-11-08 14:35:0098 Medical ZarqtJlgbtuxsk0653-78-20 14:35:0062 Medical KyoqdJvznlxakl4592-58-66 14:35:0084 Medical WyzcuXoyjsamuk4829-37-90 14:35:00 142 MEQ/[facility] Medical MqmmqAcwrcvqsl9816-26-96 14:35:004.2 [facility] Medical Group Yqkfljxaw1193-71-91 14:35:0014 Medical ImwejCocknhadp0858-34-90 14:35:000.[facility] Medical JignnHfjsrljqb6043-03-94 14:35:00* Test Item Value Reference Range Interpretation Comments BUN/CREAT (test code = BUN/CREAT) 16 1 - Medical YxqjzWuqsfxctj3093-80-47 14:35:004.0 Medical GroupChemistry 2011-11-08 14:35:009.[facility] Medical BplmfCxzjgzbxw1545-50-57 14:35:0017 Medical MjkyqOsgyxjytm1800-01-68 14:35:0028 Medical VrrrzWdczbxgqh0870-74-86 14:35:00 58 Medical TizydWnpbmxkof9815-80-05 14:35:15140HD Medical GroupChemistry 2011-11-08 14:35:0098 Medical PtrqgTyrotetpo4304-25-85 14:35:006 Medical TcdhjOhbeswdmk0512-35-35 14:35:0084 Medical BknimCnyhezgar9864-28-10 14:35:00 142 MEQ/[facility] Medical XmeyfVpsbxpfpo8154-43-48 14:35:004.2 [facility] Medical Group Dxjmmvnwc4787-87-79 14:35:0014 Medical PhbpxNaqgsahgp0089-50-38 14:35:000.9 Medical QisfkHpjkssqig8938-05-98 14:35:00* Test Item Value Reference Range Interpretation Comments BUN/CREAT (test code = BUN/CREAT) 16 1 6-25 Medical KxdqtJruqcigbp3926-28-61 14:35:004.0 Medical GroupChemistry 2011-11-08 14:35:009.[facility] Medical MwpmwAbspqwxhk5868-90-26 14:35:0017 Medical HoyvqAmpyvuqhx0768-13-22 14:35:0028 Medical DmmbgUdkiqdyru1877-76-84 14:35:00 58 Medical CwupuOuuewlaec1707-76-28 14:35:97310BM Medical GroupChemistry 2011-11-08 14:35:0098 Medical CtpfsHudzdcdss0747-83-86 14:35:0062 Medical XxhvuPatmasxum6838-45-09 14:35:91764RJ Medical LhpvwBszmavhve3751-64-55 14:35:00 98 Medical KcqddPzurxjdsd0240-92-71 14:35:0062 Medical GroupChemistry 2011-08-23 16:25:48298 [facility] Medical OdnedCscochxfm8126-38-47 16:25:004.2 [facility] Medical BdyccQszxpcvyg2542-89-47 16:25:0014 Medical GroupChemistry 2011-08-23 16:25:000.8 Medical SbolkTnfflvons3930-82-87 16:25:00* Test Item Value Reference Range Interpretation Comments BUN/CREAT (test code = BUN/CREAT) 18 1 6- Medical GdyydCzpwuudah9660-21-28 16:25:003.9 Medical GroupChemistry 2011-08-23 16:25:008.[facility] Medical IbrbxSkyxoxewv2415-08-41 16:25:0020 Medical CkzbaGepttveoz4710-06-92 16:25:0029 Medical MvfmdGrjmanaag2555-29-61 16:25:00 63 Medical HysxdOmrryzpxu1023-12-68 16:25:40391 [facility] Medical GroupChemistry 2011-08-23 16:25:004.2 MEQ/[facility] Medical AcgcgQmaeolexe5017-81-00 16:25:0014 Medical WqozoRelsbymzg7369-84-32 16:25:000.8 Medical KihmoTflyzjsuo2046-89-21 16:25:00* Test Item Value Reference Range Interpretation Comments BUN/CREAT (test code = BUN/CREAT) 18 1 625 Medical TziweJzxqhtcim1523-24-33 16:25:003.9 Medical GroupChemistry 2011-08-23 16:25:008.[facility] Medical QfkpsIzsmeiswb2952-54-68 16:25:0020 Medical XfuyeUpbypjqtj0091-21-32 16:25:0029 Medical HhlfkTsuoniyhp4525-03-58 16:25:00 [facility] Medical FdxhkVwffkords2161-87-71 16:25:03185 MEQ/[facility] Medical GroupChemistry 2011-08-23 16:25:004.2 MEQ/[facility] Medical RwntzLxuwfuhik0426-03-68 16:25:0014 Medical WsminDwacpsirh8484-29-35 16:25:00657 MEQ/[facility] Medical GroupChemistry 2011-08-23 16:25:004.2 MEQ/[facility] Medical IubfjWbfyclvas2652-16-02 16:25:0014 Medical DmuxcCmhuybpnft5684-86-90 16:25:0014.[facility] Medical GroupHematology 2011-08-23 16:25:0041.[facility] Medical KfsmtPhgnkyexlw0335-66-69 16:25:02678 [facility] Medical BjlpmBmjwjsytqp9814-77-83 16:25:0014.[facility] Medical GroupHematology 2011-08-23 16:25:0041.[facility] Medical WkewrCvypubdtox5753-98-40 16:25:22323 [facility] Medical DleusRmlvakliz0211-00-22 15:10:005.[facility] Medical CzdclJogelnggk8595-16-33 15:10:008.[facility] Medical NwyvfGibhffwmp0611-67-17 15:10:005.[facility] Medical Group Dcjyorgmk2657-53-02 15:10:008.[facility] Medical OepoaJluezddjjh0975-02-05 15:10:00 [facility] Medical OskzkKvfpzajlbk9139-06-98 15:10:00None [facility] Hniecrpfys3854-54-43 [facility] OlkqnZjdjssrymj6717-97-24 15:10:00 None [facility] Medical IzhjkAdvdjpehb9717-51-34 14:20:10543 [facility] Medical Group Mgseuvwak5779-73-52 14:20:004.1 MEQ/[facility] Medical QpxjtRewlwqins6428-19-95 14:20:0012 Medical GgarbXptsqhvat3759-56-67 14:20:000.[facility] Medical [facility] Xwjfkpyqi8592-12-69 14:20:00* Test Item Value Reference Range Interpretation Comments BUN/CREAT (test code = BUN/CREAT) 15 03-16 Medical UyfglCuhajwdvz2662-38-59 14:20:004.[facility] Medical GroupChemistry 2011-07-12 14:20:008.[facility] Medical AfzftGrfvcyhlz8300-67-85 14:20:0010 Medical ShbylFipxbgofx0267-81-85 14:20:0025 Medical RiavvAzgenqzsy9252-59-97 14:20:00 [facility] Medical SsxtrTiuxahell3648-27-05 14:20:25141 [facility] Medical GroupChemistry 2011-07-12 14:20:004.1 MEQ/[facility] Medical VdtqbDzozsbluo7300-35-81 14:20:0012 Medical LejgtHgghvxodv0089-61-69 14:20:000.[facility] Medical WsqwzIrhhyudeu8694-76-55 14:20:00* Test Item Value Reference Range Interpretation Comments BUN/CREAT (test code = BUN/CREAT) 15 03-16 Medical UknukTpasoxjoy0087-32-13 14:20:004.[facility] Medical GroupChemistry 2011-07-12 14:20:008.[facility] Medical ZgehdYkjoagfce8122-50-83 14:20:0010 Medical HotayCdbkegkub1583-48-15 14:20:0025 Medical JhrwmKsqahnhrh2991-93-53 14:20:00 [facility] Medical SqiksBastexqfc2291-12-34 14:20:15909 [facility] Medical GroupChemistry 2011-07-12 14:20:004.1 MEQ/[facility] Medical AcfbdHjraejdsk6475-56-42 14:20:0012 Medical AdeppKjuzlbjfb3873-68-90 14:20:47862 ME[facility] Medical GroupChemistry 2011-07-12 14:20:004.1 ME[facility] Medical ZbouzVarsfkikk4270-82-81 14:20:0012 Medical IavclEmulojxfv0597-40-84 17:00:0014 Medical RvudnWydsectds0653-14-17 17:00:000.[facility] Medical IwuywLfyfeipuz2391-37-52 17:00:04450 ME[facility] Medical Group Qeprwrmcn3842-03-96 17:00:004.3 ME[facility] Medical BfmpoGekbazprt4669-54-02 17:00:008.[facility] Medical JcpkpBdyzdbuik6255-82-60 17:00:0014 Medical [facility] Vsbbfggvu0023-56-88 17:00:000.[facility] Medical JudilNwgvriunn0712-52-59 17:00:51192 ME[facility] Medical FjqxuKlmnccgva2699-84-17 17:00:004.3 [facility] Medical Group Vxcnyxavp0530-46-94 17:00:008.[facility] Medical NgstpLjuebsimv9943-21-66 17:00:0014 Medical AmrkuMdtnevipq8387-93-49 17:00:000.[facility] Medical PqfhxAvhuzwqzm3935-02-54 17:00:84627 MEQ/[facility] Medical MajsqAcvxabymz5105-01-00 17:00:0014 Medical Group Opufkzfzk5321-13-65 17:00:000.[facility] Medical FgjzwXkcylymbd1998-10-89 17:00:37496 MEQ/[facility] Medical SfoeaHpmmntxpy3473-92-29 18:50:36477 MEQ/[facility] Medical Group Aginwplde1347-84-01 18:50:004.5 MEQ/[facility] Medical CgizzGzkoddxuz6244-17-77 18:50:0013 Medical RebhpZpcogimil2153-30-40 18:50:000.[facility] Medical Group Kocqnbtyf1500-19-92 18:50:00* Test Item Value Reference Range Interpretation Comments BUN/CREAT (test code = BUN/CREAT) 16 1 6-25 Medical BcidmMlhqfwvsl7280-77-50 18:50:003.8 Medical [facility] 2011-05-07 18:50:009.[facility] Medical KdwrkSgpzgypsw4798-83-69 18:50:0010 Medical IacvlKhxwlxnga5776-96-85 18:50:0023 Medical RhkwoXunezwgjg2066-61-87 18:50:00 59 Medical VxupbExwmohwhb1184-91-21 18:50:47623 MEQ/[facility] Medical GroupChemistry 2011-05-07 18:50:004.5 MEQ/[facility] Medical EwinpOynuqykqv6837-41-40 18:50:0013 Medical DxvmtIfskcukom9019-90-07 18:50:000.8 Medical ThdpmIaykiubha9810-86-89 18:50:00* Test Item Value Reference Range Interpretation Comments BUN/CREAT (test code = BUN/CREAT) 16 03-16 Medical KsgbaIoeiqcojn4081-71-16 18:50:003.8 Medical Group[facility] 2011-05-07 18:50:009.[facility] Medical QcpbqQrmhiddoj0139-03-50 18:50:0010 Medical XwungKvfugfmqz1659-72-80 18:50:0023 Medical FexpqHgpsoiniv3359-51-35 18:50:00 [facility] Medical OvtznSvckhvzsq3475-64-49 18:50:40746 MEQ/[facility] Medical GroupChemistry 2011-05-07 18:50:004.5 MEQ/[facility] Medical YkiwaXzsomwcld9412-03-17 18:50:0013 Medical DqmdyKykazugnm8277-66-83 18:50:58006 MEQ/[facility] Medical GroupChemistry 2011-05-07 18:50:004.5 MEQ/[facility] Medical UoopcSyzgnyjpb3070-16-74 18:50:0013 Medical ZpzqzSshbcchyf4395-38-07 21:35:99642SW Medical UsyeaWvhekyjwc4510-93-96 21:35:004.[facility] Medical RhhdvIszrhknox2256-66-55 21:35:0019 Medical Group Oeakyxaup7666-99-39 21:35:001.[facility] Medical YvfahSnnpieddk7655-38-26 21:35:00* Test Item Value Reference Range Interpretation Comments BUN/CREAT (test code = BUN/CREAT) 17 03-16 Medical QtssnGilvpkxem0250-62-19 21:35:004.[facility] Medical GroupChemistry 2011-03-22 21:35:009.0 Medical LcqyxNgtrzhnii8960-12-41 21:35:006 Medical FtklgQzzxujtau5480-64-75 21:35:0026 Medical DcfdmLxxdnoqcq3051-70-48 21:35:00 70 Medical VnbkzKvxyilylf5616-01-13 21:35:76356SX Medical GroupChemistry 2011-03-22 21:35:004.4 Medical UillfMdslovapq4489-29-95 21:35:0019 Medical EpwncCsluurikui6360-36-82 21:35:0014.[facility] Medical GstfzWwqpspgbwd1042-61-78 21:35:0042.[facility] Medical LmsvsWffoyyxdhm6185-85-01 21:35:57938 [facility] Medical PzrpgEtbrcftekn5987-08-94 21:35:004 Medical WeaplRnqjmojust7239-06-04 14:37:00 13.9 Medical QgvirEtmvbencxh2710-58-05 14:37:0041.[facility] Medical GroupHematology 2011-01-29 14:37:45882 [facility] Medical ByedpHzzyrwcgp6937-93-16 15:39:007.[facility] Medical ByjxzDvcpajywc8540-33-52 15:39:007.[facility] Medical GluduBvgcggjsl8233-76-83 14:40:89396HD Medical MemmbYqqlgyvmg8562-04-08 14:40:87372GI Medical Group Wgrjagdxb2671-08-07 14:40:0056 Medical MacpiLdozhxqjz9524-03-48 14:40:80209HT Medical TxqviRvvzbnvft1739-43-93 14:40:18785GK Medical RbqjuDrjzhkpwx1682-31-74 14:40:004.5 Medical NpcaiHcizuqttd3778-14-83 14:40:0018 Medical Group Zaecjqrya4506-09-76 14:40:000.8 Medical FqlamSqcnpmfiu2549-67-98 14:40:00* Test Item Value Reference Range Interpretation Comments BUN/CREAT (test code = BUN/CREAT) 23 09 27- Medical AuhmdHycncyvuo7915-01-50 14:40:003.8 Medical GroupChemistry 2010-09-10 14:40:009.0 Medical RozgnNqkvkwnba5936-60-56 14:40:0015 Medical JlrkgEdguyjiyh7993-76-52 14:40:0028 Medical JmtbjXfriqnbzd8871-16-51 14:40:00 52 Medical KpdvfRpebfugac7197-09-30 14:40:25876QF Medical GroupChemistry 2010-09-10 14:40:21073AL Medical PlqaiIktpcrjlr7925-32-81 14:40:0056 Medical CfqcqQwposqstco0369-53-21 14:40:0014.[facility] Medical VdbyjHtznznwwuo7391-09-04 14:40:0043.[facility] Medical OvsgxJufxeqeubt1335-69-45 14:40:10239 /[facility] Medical PtugsJvszcpjqch6499-53-62 14:40:[facility] BmphtEtststuoaz7171-17-49 14:40:00None Seen Medical CzzteLfnutykxfx3389-63-55 14:40:[facility] ClrxsZfgvgjjoav9244-44-92 14:40:00None [facility] Medical QjtjoNtqmlkcec2670-24-08 16:40:001.120 Medical FikvmGkahfdfqo2516-15-75 16:40:38710MK Medical Group Rkpqiwhld8125-57-91 16:40:004.[facility] Medical IzxsbVvwmwkwpl3948-31-70 16:40:0011 Medical FlogaYceaikrds0318-65-62 16:40:000.9 Medical StnlbThpnvasgj7538-65-50 16:40:00* Test Item Value Reference Range Interpretation Comments BUN/CREAT (test code = BUN/CREAT) 12 1 6-25 Medical QidgsOdxwyxvhk0318-37-86 16:40:004.[facility] Medical GroupChemistry 2009-11-27 16:40:008.8 Medical QsddjOlrkqlbaw7845-20-53 16:40:0028 Medical NkcbiLzngyvnwn7068-25-08 16:40:0034 Medical BhkhjMqfuqzice5560-92-30 16:40:00 60 Medical MrzvuTceyhufwf7549-14-86 16:40:94955LP Medical GroupChemistry 2009-11-27 16:40:001.[facility] Medical YihbiOzvhostoz6311-73-10 16:40:62865QQ Medical KehmpVmyiyynhu0681-72-32 16:40:004.[facility] Medical JrdrpJyohnxskay8447-12-67 16:40:0014.[facility] Medical VnjgoNuaherdvdj0694-72-41 16:40:0043.[facility] Medical Group Cfcynpjisk7810-62-35 16:40:54474 K/[facility] Medical BbpzeWzvcrlgcyz0515-66-21 16:40:00STRAW Medical MvujhBbmmynsoyh8431-37-36 16:40:00None Seen Medical MxzioLwwwbmmxut8179-04-79 16:40:00[facility] HgxrdLmkopyyfnl5617-22-25 16:40:00[facility]
== END | disposition home or self-care (01) ==
LOC: OR 08:55
PROVIDERS: ATTEND Urology
DX: N13.5 Crossing vessel and stricture of ureter without hydronephrosis (principal); N13.30 Unspecified hydronephrosis; Z46.6 Encounter for fitting and adjustment of urinary device; C61 Malignant neoplasm of prostate; Z79.890 Hormone replacement therapy; N40.1 Benign prostatic hyperplasia with lower urinary tract symptoms; N13.8 Other obstructive and reflux uropathy; N32.89 Other specified disorders of bladder; J44.9 Chronic obstructive pulmonary disease, unspecified; I10 Essential (primary) hypertension; I25.10 Atherosclerotic heart disease of native coronary artery without angina pectoris; I71.4 Abdominal aortic aneurysm, without rupture; Z01.810 Encounter for preprocedural cardiovascular examination; Z01.812 Encounter for preprocedural laboratory examination; Z01.818 Encounter for other preprocedural examination; Z11.59 Encounter for screening for other viral diseases
CPT/HCPCS: 36415; 52332; 52341; 71046; 74420; 85025; 87086; 87635; 93005; C1758; C1769; C2617; J0696; J1100; J2001; J2405; J2704; Q9967

== ENCOUNTER → 2020-05-31 | Day surgery (SDC) | payer MEDICARE, OTHER ==
[2020-05-26 10:27] LABS: BASOPHILS % 0.6 % (0.0-1.0); EOSINOPHILS # (AUTO) 0.1 (0.0-0.4); EOSINOPHILS % 1.4 % (0.0-6.0); HEMATOCRIT 36.7 % (38.2-49.6); LYMPHOCYTES # (AUTO) 1.1 (1.0-3.2); MEAN CORPUSCULAR HEMOGLOBIN 31.6 pg (28-32); MEAN CORPUSCULAR HGB CONC 32.7 g/dL (31-35); MEAN CORPUSCULAR VOLUME 96.6 fL (81-99); MONOCYTES # (AUTO) 0.6 (0.2-0.8); MONOCYTES % 9.2 % (4.4-11.3); NEUTROPHILS # (AUTO) 4.6 (2.1-6.9); NEUTROPHILS % 71.6 % (38.7-80.0); PLATELET COUNT 223 x10e3/uL (140-360); RED CELL DISTRIBUTION WIDTH 15.2 % (11.7-14.4)
[2020-05-26 11:15] LABS: ANION GAP 16.2 mmol/L (8-16); BLOOD UREA NITROGEN 15 mg/dL (7-26); BUN/CREATININE RATIO 21 (6-25); CALCIUM 8.7 mg/dL (8.4-10.2); CARBON DIOXIDE 26 mmol/L (22-29); CHLORIDE 96 mmol/L (98-107); EST GLOMERULAR FILTRATION RATE > 60 ML/MIN (60-); GLUCOSE 98 mg/dL (74-118); POTASSIUM 4.2 mmol/L (3.5-5.1); SODIUM 134 mmol/L (136-145)
[~2020-05-31] MED LIST changes: -DEXAMETHASONE SOD PHOS INJ 4 MG/ML VIAL ONE; +FENTANYL CITRATE/PF 100MCG/2 ML INJ ONE; +LISINOPRIL5 MG PO; +NORCO 7.5-3251 EACH PO; -ONDANSETRON HCL INJ 2MG/ML 2ML 2 MG/ML VIAL ONE
[2020-05-31 08:40] VITALS: BP 159/83
--- NOTE | 2020-06-23 04:05 | Operative Report ---
DATE OF PROCEDURE: 05/31/2020 SURGEON: Kenroy Newton MD PREOPERATIVE DIAGNOSES: 1. Right ureteropelvic junction obstruction. 2. Right hydronephrosis. 3. Right indwelling ureteral stent. 4. Microhematuria. POSTOPERATIVE DIAGNOSES: 1. Right ureteropelvic junction obstruction. 2. Right hydronephrosis. 3. Right indwelling ureteral stent. 4. Microhematuria. OPERATION PERFORMED: 1. Cystourethroscopy with left ureteral catheterization and retrograde ureteropyelography (separate procedure performed for the microhematuria). 2. Cystourethroscopy with complicated removal of right indwelling ureteral stent (separate procedure performed for the diagnosis of stent). 3. Cystourethroscopy with dilation of right ureteropelvic junction stricture (separate procedure performed for the diagnosis of stricture). 4. Radiological services for supervision and interpretation of stricture dilation, no radiologist present. 5. Cystourethroscopy with insertion of right indwelling ureteral stent (separate procedure performed to relieve the hydronephrosis). 6. Interpretation of retrograde ureteropyelography, no radiologist present. 7. Supervision of fluoroscopy, no radiologist present. ANESTHESIA: General. COMPLICATIONS: None. CLINICAL SUMMARY: John Gilman is a complicated 89-year-old man with prostate cancer in the ureteropelvic junction with obstruction on the right hand side. The patient has failed non-stenting and is brought for a stent change. He is aware of the risks of bleeding, infection, injury to adjacent structures, need for additional procedures, and elected to proceed. OPERATIVE PROCEDURE IN DETAIL: Informed consent was verified. John Gilman was appropriately identified, taken to the operating room, and placed on the cystoscopy table in supine position. Anesthesia was uneventfully begun. The patient was then carefully gently repositioned in the dorsal lithotomy position with all pressure points well padded. His genitalia were prepared and draped in the usual sterile fashion. The cystoscope sheath with visual obturator in place was atraumatically inserted into the patient's urethra and was guided unremarkable through the normal sphincteric region, through the prostate bed, which was significant for visually obstructing BPH. We entered the patient's bladder, where there were grade 3 trabeculations, but no tumors, no stones, no diverticula, and no suspicious mucosal lesions were identified. A ureteral catheter was used to cannulate the left ureter and retrograde ureteropyelography was performed. A guidewire was then placed into the right ureter and guided to the level of the patient's kidney. The stent was then grasped completely, removed, and discarded. A double-lumen ureteral catheter was then replaced over the guidewire and a coaxial dilator sheath was brought to the level of the patient's kidney. Clear hydronephrotic drip was obtained, but it was sent for culture and sensitivity. With cystoscopic and fluoroscopic guidance, a right-sided indwelling ureteral stent was then placed. It was coiled in the patient's kidney as well as the patient's bladder. The retaining suture was cut short. The patient's bladder was drained and cystoscope was withdrawn. Belladonna and opium suppository were placed revealing 40 g prostate, that was smooth and nonfluctuant without any nodules. The patient was then uneventfully reversed from anesthesia and taken to recovery room in stable condition. There were no complications to the procedure. He tolerated the procedure well. Plan will be to follow the patient up in the office for his next Lupron injection. INTERPRETATION OF RETROGRADE URETEROPYELOGRAPHY: Contrast was instilled in a retrograde fashion bilaterally. Ureteral tortuosity was noted bilaterally. However, on the left hand side, there was no significant hydronephrosis, but on the right-hand side, there was very significant hydronephrosis at the level of the UPJ with calyceal blunting. There was no extravasation. The stent was in good position, coiled into the patient's kidney as well as the patient's bladder at the end of the case. There was sign of prior kyphoplasty. Kenroy Newton MD [place]/MODL /[id number]
== END | disposition home or self-care (01) ==
LOC: OR 05:43
PROVIDERS: ATTEND Urology
DX: N13.5 Crossing vessel and stricture of ureter without hydronephrosis (principal); C61 Malignant neoplasm of prostate; N13.30 Unspecified hydronephrosis; Z46.6 Encounter for fitting and adjustment of urinary device; N40.1 Benign prostatic hyperplasia with lower urinary tract symptoms; N13.8 Other obstructive and reflux uropathy; R35.1 Nocturia; R39.14 Feeling of incomplete bladder emptying; N50.0 Atrophy of testis; N26.9 Renal sclerosis, unspecified; N32.81 Overactive bladder; N39.41 Urge incontinence; E29.1 Testicular hypofunction; N32.89 Other specified disorders of bladder; I25.10 Atherosclerotic heart disease of native coronary artery without angina pectoris; I10 Essential (primary) hypertension; J44.9 Chronic obstructive pulmonary disease, unspecified; I71.4 Abdominal aortic aneurysm, without rupture; K28.9 Gastrojejunal ulcer, unspecified as acute or chronic, without hemorrhage or perforation; K57.90 Diverticulosis of intestine, part unspecified, without perforation or abscess without bleeding; K21.9 Gastro-esophageal reflux disease without esophagitis; M19.90 Unspecified osteoarthritis, unspecified site; Z01.810 Encounter for preprocedural cardiovascular examination; Z01.812 Encounter for preprocedural laboratory examination; Z11.59 Encounter for screening for other viral diseases; Z87.891 Personal history of nicotine dependence
CPT/HCPCS: 36415; 52332; 52341; 74420; 80048; 85025; 87086; 93005; C1758 ×2; C1769; C2617; J0696; J2001; J2704; J3010; Q9967; U0002

== ENCOUNTER 2020-06-20 13:54 | Inpatient (IN) | payer MEDICARE, OTHER ==
[~2020-06-20] VITALS: Ht 177.8 cm; Wt 53.1 kg
[~2020-06-20 13:54] MED LIST changes: -B&O 60MG R/S 60 MG SUPP PR ONE; -CEFTRIAXONE SOD 1 GM/NS 50 ML 50 ML IV ONE; -FENTANYL CITRATE/PF 100MCG/2 ML INJ ONE; -IOPAMIDOL 300MG/ML 50ML INFUS..BTL IV ONE; -LIDOCAINE HCL 2% LOCAL INJ 5 ML SDV VIAL INJ ONE; -PROPOFOL IV EMULSION 10 MG/ML 20 ML VIAL ONE; -SEVOFLURANE INHAL SOLN 250 ML PEN BTL ONE
--- NOTE | 2020-06-20 14:16 | Emergency Department Note ---
History of Present Illnes History of Present Illness Chief Complaint: Genitourinary History of Present Illness This is a 89 year old male Chief Complaint Comment Patient in from home with complaints of back pain from an old vertebral fracture as well as concerns about a kidney stent placed by Dr. Newton and abdominal pain. Patient's daughter did some internet research and decided the patient had a rectal infection. They called his PCP and he was placed on flagyl and cipro last Friday which he took for a couple of days and then stopped when he started wi th "side effects". Patient has had frequent stenting done to his kidney with the most recent about 3 weeks ago. Patient's daughter states that Dr. Newton did a urine sample and called this morning and told them to come to the ER. 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 Any updates have been documented here. Past Medical History Recent Fever: No Clinical Suspicion of Infectio: No New/Unexplained Change in Ment: No Past Medical History: Hypertension, Depression, GERD Other Medical History: MACULAR DEGENERATION Past Surgical History: Knee Replacement Other Surgery: HAMD SURGERY Other Last Tetanus: NONE Review of Systems Review of Systems Constitutional: Reports no symptoms EENTM: Reports no symptoms Cardiovascular: Reports no symptoms Respiratory: Reports no symptoms Gastrointestinal: Reports no symptoms Genitourinary: Reports as per HPI, Reports pain Musculoskeletal: Reports no symptoms Integumentary: Reports no symptoms Neurological: Reports no symptoms Psychological: Reports no symptoms Endocrine: Reports no symptoms Hematological/Lymphatic: Reports no symptoms Physical Exam Related Data Allergies: Coded Allergies: No Known Allergies (Unverified , 04/15/19) Triage Vital Signs Vital Signs Date Time Temp Pulse Resp B/P (MAP) Pulse Ox O2 Delivery O2 Flow Rate FiO2 06/20/20 14:05 98.5 85 18 124/57 100 Room Air Vital signs reviewed: Yes Physical Exam CONSTITUTIONAL Constitutional: Present well-developed, Present well-nourished HENT HENT: Present normocephalic, Present atraumatic, Present oropharynx clear/moist, Present nose normal HENT L/R: Present left ext ear normal, Present right ext ear normal EYES Eyes: Reports PERRL, Reports conjunctivae normal NECK Neck: Present ROM normal PULMONARY Pulmonary: Present effort normal, Present breath sounds normal CARDIOVASCULAR Cardiovascular: Present regular rhythm, Present heart sounds normal, Present capillary refill normal, Present normal rate GASTROINTESTINAL Abdominal: Present soft, Present nontender, Present bowel sounds normal GENITOURINARY Genitourinary: Present exam deferred SKIN Skin: Present warm, Present dry MUSCULOSKELETAL Musculoskeletal: Present ROM normal NEUROLOGICAL Neurological: Present alert, Present oriented x 3, Present no gross motor or sensory deficits PSYCHOLOGICAL Psychological: Present mood/affect normal, Present judgement normal Assessment & Plan Medical Decision Making MDM 89 y.o M presents for concerns over UA from Dr. Newton's office. Patient's daughter gives most of the history and is frustrated that no one can figure out why he has this chronic back pain. Additionally she is concerned he has a rectal infection. Labs unremarkable I discussed the patient with Dr. Newton who recommends inpatient and likely SNF placement. I discussed this option with the patient and daughter who agree to plan as he can no longer take care of himself. He was discussed with Dr. Egan has agreed to accept the patient. Reassessment Reassessment time: 16:42 Reassessment Well appearing, NAD Assessment & Plan Final Impression: (1) Chronic pain Depart Disposition: ADMITTED Last Vital Signs Date Time Temp Pulse Resp B/P (MAP) Pulse Ox O2 Delivery O2 Flow Rate FiO2 06/20/20 14:05 98.5 85 18 124/57 100 Room Air Home Meds Reported Medications Hydrocodone Bit/Acetaminophen (NORCO 7.5-325 TABLET) 1 Each Tablet, 1 TAB PO PRN, TAB 05/25/20 Lisinopril (LISINOPRIL) 5 Mg Tablet, 5 MG PO PRN, #60 TAB 05/25/20 Lactobac Cmb #3/Fos/Pantethine (PROBIOTIC & ACIDOPHILUS CAP) 1 Each Capsule, 1 TAB PO DAILY 02/03/20 Sennosides (SENOKOT) 8.6 Mg Tablet, 1 TAB PO DAILY 02/03/20 Vit A,C & E/Lutein/Minerals (OCUVITE TABLET) 1 Each Tablet, 1 EACH PO DAILY, TAB 02/03/20 Multivitamin (MULTIVITAMINS) 1 Each Capsule, 3 TAB PO DAILY 02/03/20 Calcium Carb/Vitamin D3/Vit K1 (Citracal Soft Chew) 1 Each Tab.chew, 1 TAB PO DAILY 02/03/20 Finasteride (FINASTERIDE) 5 Mg Tablet, 5 MG PO DAILY, #30 TAB 11/09/19 Tamsulosin Hcl* (FLOMAX*) 0.4 Mg Cap, 0.4 MG PO DAILY, #30 CAP 08/24/19 Rabeprazole Sodium (Rabeprazole Sodium) 20 Mg Tablet.dr, 20 MG PO DAILY 08/24/19 LUIS WALKER MD Jun 20, 2020 14:16
--- NOTE | 2020-06-20 14:51 | Diagnostic Imaging Report ---
EXAM: ABDOMEN-1VIEW (KUB) DATE: 06/20/2020 2:32 PM INDICATION: Utero stent identification COMPARISON: Abdominal radiograph from 11/09/2019 FINDINGS: Right ureteral stent identified in stable position with proximal pigtail in the expected location of the right renal pelvis and distal pigtail in the expected location of the urinary bladder. Stable appearing calcifications identified within the upper abdomen likely representing vascular calcifications. No definite radiographically evident renal/urinary calculi appreciated. Vertebral augmentation changes noted within the L2 vertebral body. There are degenerative changes of the visualized spine and bilateral hips. No acute osseous abnormality is identified. IMPRESSION: Right ureteral stent identified in stable position as detailed above. Signed by: Dr. Claude Villagomez MD on 06/20/2020 2:47 PM
--- OUTSIDE RECORDS SUMMARY | 2020-06-20 14:54 | XMS REPORT | Clinical Summary ---
Author Author [facility] Address Unknown Phone Unavailable Care Team Providers Care Art Museum Docent Name Role Phone Pretty Read MD PCP Allergies No Known Active Allergies Medications End Date Status Medication Sig Dispensed Refills Start Date Active atorvastatin (LIPITOR) 10 Take 10 mg by 0 04/2 MG tablet mouth 6 nightly. Active omeprazole (PriLOSEC) 20 Take 20 mg by 0 12/25 /201 MG capsule mouth daily. 6 Active V[employer]ICARE [...] Assigned at Date Recorded Not on file Last Filed Vital Signs Not on file Plan of Treatment Health Maintenance Due Date Last Done Comments SHINGLES VACCINES (#1) 1980 65+ PNEUMOCOCCAL VACCINE 12/07/1995 (1 of 1 - PPSV23) INFLUENZA VACCINE 04/22/2020 Results Not on fileafter 06/20/2019 Insurance Type Payer Benefit Subscriber ID Effective Phone Address Plan / Dates Group Medicare MEDICARE MEDICARE [id number] [id number] [place]IZ, PART A AND resent [place] B Indemnity 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
--- OUTSIDE RECORDS SUMMARY | 2020-06-20 14:55 | XMS REPORT | Continuity of Care Document ---
Author Author [facility] t Organization [facility] Address 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 Name Role Phone NONSTAFF PCP Unavailable Mary Bauman Attphys Unavailable RiaMiriam Spencer Attphys Dino Weiss Attphys HAMNANDO GHOSH Attphys Unavailable Yung Khalil Attphys JOIE VELAZQUEZ Attphys Unavailable IsmailJose Attphys Nellie Velazquez Attphys Lisa Khalil Jam Attphys Yung Khalil Jam Admphys JOIE VELAZQUEZ Admphys Unavailable Payers Payer Name Policy Type Policy Number Effective Date Expiration Date Lis marie [facility] [id number] I [facility] Problems Condition Name Condition Details Condition Category Status Onset Date Resolution Date Last Treatment Date Treating Clinician Comments Source GRICELDA MADISON Active 06/21/2019 [facility] Active 2019-06-21 00:00:00 2019-06-23 12:28:00 M hiro Chowdhury DX: R10.11 =RIGHT UPPER QUADRANT PAIN, M DX: R10.11 =RIGHT UPPER QUADRANT PAIN, M Active 03/15/2019 [facility] Active 2019-03-15 00:00:00 2019-03-30 13:59:00 M hiro Chowdhury Z86.010=PERSONAL HISTORY FO COLONIC POLY Z86.010=PERSONAL HISTORY FO COLONIC POLY Active 03/11/2019 [facility] Active 2019-03-11 00:00:00 2019-03-11 15:17:00 [facility] COUGH COUG H Active 02/28/2017 [facility] Active 2017-02-28 00:00:00 2017-02-28 17:09:00 Susana Chowdhury R13.10 DYSPHAGIA, UNSPECIFIED R93.3 ABN R13.10 DYSPHAGIA, UNSPECIFIED R93.3 ABN Active 04/16/2016 [facility] Active 2016-04-16 00:00:00 2016-04-18 13:54:00 [facility] Z68.20=BMI 20-24/H31=JTTJOMWLYUNR/R13.10 Z68.20=BMI 20- 24/Y96=PNGYSBJIMIHC/R13.10 Active 04/03/2016 [facility] Ac tive 2016-04-03 00:00:00 2016-04-09 13:27:00 Tomas Chowdhury 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 [facility], [facility] Problem Active 2014-10-20 00:00:00 2020-05-04 21:58:15 [facility] OSTEOARTHROSIS, GENERALIZED, MULTIPLE SITES OSTEOARTHROSIS, GENERALIZED, MULTIPLE SITES Active 10/20/2014 Condition 04/20/2015 [facility] Group Condition Active 2014-10-20 00:00:00 2015-04-20 08:15:0 0 [facility] Anemia (disorder) Anem ia (disorder) Active 12/15/2013 Problem 05/04/2020 Data migrated from [employer] on 02/18/15. [facility], [facility] Problem Active 201 12-23-25 00:00:00 2020-05-04 21:58:15 [facility] ANEMIA ANEM IA Active 12/15/2013 Condition 04/20/2015 [facility] Group Condition Active 2013-12-15 00:00:00 2015-04-20 08:15:00 [facility] Hyperlipidemia (disorder) Hype rlipidemia (disorder) Active 08/07/2011 Problem 05/04/2020 Data migrated from [employer] on 02/18/15. [facility] Problem Active 201 10-02-15 00:00:00 2020-05-04 21:58:15 [facility] HYPERLIPIDEMIA HYPE RLIPIDEMIA Active 08/07/2011 Condition 04/20/2015 [facility] Condition Active 2011-08-07 00:00:00 2015-04-20 08:15:00 [facility] Allergic rhinitis (disorder) A llergic rhinitis (disorder) Active 11/30/2010 Problem 05/04/2020 Data migrated from [employer] on 02/18/15. [facility] Problem A ctive 2010-11-30 00:00:00 2020-05-04 21:58:15 [facility] ALLERGIC RHINITIS ONEL RGIC RHINITIS Active 11/30/2010 Condition 04/20/2015 [facility] Group Condition Active 2010-11-30 00:00:00 2015-04-20 08:15:00 [facility] Vitamin D deficiency (disorder) Vitamin D deficiency (disorder) Active 09/07/2010 Problem 05/04/2020 Data migrated from [employer] on 02/18/15. [facility], [facility] Problem A ctive 2010-09-07 00:00:00 2020-05-04 21:58:15 [facility] UNSPECIFIED VITAMIN D DEFICIENCY UNSPECIFIED VITAMIN D DEFICIENCY Active 09/07/2010 Condition 04/20/2015 [facility] Condition Active 2010-09-07 00:00:00 2015-04-20 08:15:00 [facility] Generalized anxiety disorder (disorder) Generalized anxiety disorder (disorder) Active 11/13/2009 Problem 05/04/2020 Data migrated from [employer] on 02/18/15. [facility], [facility] Problem Active 2009-11-13 00:00:00 2020-05-04 21:58:15 [facility] ANXIETY DISORDER, GENERALIZED ANXIETY DISORDER, GENERALIZED Active 11/13/2009 Condition 04/20/2015 [facility] Group Condition Active 2009-11-13 00:00:00 2015-04-20 08:15:00 [facility] Benign hypertension (disorder) Benign hypertension (disorder) Active 10/30/2009 Problem 05/04/2020 Data migrated from [employer] on 02/18/15. [facility], [facility] Problem A ctive 2009-10-30 00:00:00 2020-05-04 21:58:15 M emomatthieu Chowdhury HTN HTN Active 10/30/2009 Condition 04/20/2015 Medical Group Condition Active 2009-10-30 00:00:00 2015-04-20 08:15:00 Susana Chowdhury Hyponatremia Hyponatremia Problem Active [facility] Ureteropelvic junction (UPJ) obstruction UPJ (ureterop elvic junction) obstruction Problem Active [facility] Osteoarthritis -multiple joint (disorder) Osteoarthritis -multiple joint (disorder) Resolved Problem 05/04/2020 [facility] Problem Resolved 2020-05-04 21:58: 15 Susana Chowdhury Acute abdominal pain (finding) Acute abdominal pain (finding) Resolved Problem 05/04/2020 [facility] Problem Resolved 2020-05-04 21:58:15 Malinda Chowdhury Anxiety (finding) Anxi ety (finding) Resolved Problem 05/04/2020 [facility] Problem Resolved 2020-05-04 21:58:15 Susana Chowdhury Chronic osteoarthritis (disorder) Chronic osteoarthritis (disorder) Resolved Problem 05/04/2020 [facility] Problem Resolved 2020-05-04 21:58:15 Malinda Chowdhury Generalized chronic body pains (finding) Generalized chronic body pains (finding) Resolved Problem [facility]04[facility]2020 [facility] 2020-05-04 21:58: 15 Susana Chowdhury Past history of clinical finding (context-dependent ca tegory) Past history of clinical finding (context-dependent category) Resolved Problem 05/04/2020 [facility] Problem Resolved 2020-05-04 21:58:15 Nikko Chowdhury Hypertensive disorder, systemic arterial (disorder) Hypertensive disorder, systemic arterial (disorder) Resolved Problem 05/04/2020 [facility] Problem Resolved 2020-05-04 21:58:15 Susana Chowdhury Inguinal hernia (disorder) Ing uinal hernia (disorder) Resolved Problem 05/04/2020 [facility] Problem Resolved 2020-05-04 21:58:15 Susana Chowdhury Osteoarthritis (disorder) Oste oarthritis (disorder) Resolved Problem 05/04/2020 [facility] Problem Resolved 2020-05-04 21:58:15 Susana Chowdhury Acid reflux status (observable entity) Acid reflux status (observable entity) Active Problem 03/03/2017 [facility] Active 2017-03-03 03:56:28 Susana Chowdhury 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) Active Problem 05/04/2020 [facility], [facility], [facility] Problem Active 2020-05-04 21:58:15 Susana Chowdhury Gastroesophageal reflux disease (disorder) Gastroesophageal reflux disease (disorder) Active Problem 05/04/2020 [facility], [facility], [facility] Problem Active 2020-05-04 21:58:15 Susana Chowdhury 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 [facility] Active 2016-04-09 13:27:00 Susana Chowdhury DYSPHAGIA, UNSPECIFIED DYSP HAGIA, UNSPECIFIED Active [facility] Active 2016-04-18 13:54:00 M hiro Chowdhury 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 02/28/2017 03/03/2017 [facility] Problem 2017-02-28 05:00:00 2017-03-03 03:56:28 2017-02 03:56:28 Susana Chowdhury Hemoptysis Hemo ptysis 02/28/2017 03/03/2017 [facility] Problem 2017-02-28 05:00:00 2017-03-03 03:56:28 2017-03-03 03:56:28 Susana Chowdhury Cough Coug h 02/28/2017 03/03/2017 [facility] Problem 2017-02-28 05:00:00 2017-03-03 03:56:28 2017-03-03 03:56:28 Susana Chowdhury History of Past Illness Condition Name Condition Details Condition Category Status Onset Date Resolution Date Last Treatment Date Treating Clinician Comments Source Bronchitis (disorder) Bron chitis (disorder) Resolved 01/27/2013 Problem 05/04/2020 Data migrated from [facility] on 04/08/15. [facility], [facility] Problem Resolved 2013-01-27 00:00:00 2020-05-04 21:58:15 2020-05-04 21:58:15 M hiro Chowdhury Acute sinusitis (disorder) Acu te sinusitis (disorder) Resolved 12/23/2011 Problem 05/04/2020 Data migrated from [employer] on 04/08/15. [facility] 2011-12-23 00:00:00 2020-05-04 21:58:15 2020-05-04 21:58:15 Susana Chowdhury Pneumonia (disorder) Pneu monia (disorder) Resolved 02/08/2011 Problem 05/04/2020 Data migrated from [employer] on 04/08/15. [facility] 2011-02-08 00:00:00 2020-05-04 21:58:15 2020-05-04 21:58:15 M hiro Chowdhury Upper respiratory infection (disorder) Upper respiratory infection (disorder) Resolved 01/29/2011 Problem 05/04/2020 Data migrated from [employer] on 04/08/15. [facility] 2011-01-29 00:00:00 2020-05-04 21:58:15 2020-05-04 21:58:1 5 Susana Chowdhury Backache (finding) Back ache (finding) Resolved 09/07/2010 Problem 05/04/2020 Data migrated from [employer] on 04/08/15. [facility] 2010-09-07 00:00:00 2020-05-04 21:58:15 2020-05-04 21:58:15 M hiro Chowdhury WEIGHT LOSS, ABNORMAL WEIG HT LOSS, ABNORMAL Inactive 12/14/2013 Condition 04/20/2015 Medical Group Condition Inactive 2013-12-14 00:00:00 2015-04-20 08:15:00 2015-04-20 08:15:00 M hiro Chowdhury THYROID NODULE THYR OID NODULE Inactive 12/14/2013 Condition 04/20/2015 [facility] Condition Inactive 2013-12-14 00: 00:00 2015-04-20 08:15:00 2015-04-20 08:15:00 Susana Chowdhury NEED PROPHYLACTIC VACCINATION&INOCULATION FLU NEED PROPHYLACTIC VACCINATION&INOCULATION FLU Inactive 07/09/2013 Condition 04/20/2015 [facility] Group Condition Inactive 2013-07-09 00:00:00 2015-04-20 08:15:00 2015-04-20 08:15:00 [facility] BRONCHITIS BRON CHITIS Inactive 01/27/2013 Condition 04/20/2015 [facility] Group Condition Inactive 2013-01-27 00:00:00 2015-04-20 08: 15:00 2015-04-20 08:15:00 [facility] OTHER SPECIFIED DERMATOSES OTH ER SPECIFIED DERMATOSES Inactive 01/29/2012 Condition 04/20/2015 [facility] Condition Inactive 2012-01-29 00:00:00 2015-04-20 08:15:00 2015-04-20 08:15:00 [facility] OTHER ACUTE SINUSITIS OTHE R ACUTE SINUSITIS Inactive 12/23/2011 Condition 04/20/2015 [facility] Group Condition Inactive 2011-12-23 00:00:00 2015-04-20 08:15:00 2015-04-20 08:15:00 [facility] URINARY FREQUENCY URIN LAMAR FREQUENCY Inactive 08/07/2011 Condition 04/20/2015 [facility] Group Condition Inactive 2011-08-07 00: 00:00 2015-04-20 08:15:00 2015-04-20 08:15:00 [facility] HYPERGLYCEMIA HYPE RGLYCEMIA Inactive 08/07/2011 Condition 04/20/2015 [facility] Group Condition Inactive 2011-08-07 00: 00:00 2015-04-20 08:15:00 2015-04-20 08:15:00 [facility] COUGH COUG H Inactive 03/22/2011 Condition 04/20/2015 Medical Group Condition Inactive 2011-03-22 00:00:00 2015-04-20 08:15:00 2015-04-20 08:15:00 [facility] PNEUMONIA PNEU MONIA Inactive 02/08/2011 Condition 04/20/2015 [facility] Group Condition Inactive 2011-02-08 00:00:00 2015-04-20 08:15 :00 2015-04-20 08:15:00 [facility] URI URI Inactive 01/29/2011 Condition 04/20/2015 [facility] Group Condition Inactive 2011-01-29 00:00:00 2015-04-20 08:15:00 2015-04-20 08:15:00 [facility] NOCTURIA NOCT URIA Inactive 11/30/2010 Condition 04/20/2015 [facility] Group Condition Inactive 2010-11-30 00:00:00 2015-04-20 08:15:0 0 2015-04-20 08:15:00 [facility] DYSURIA DYSU SHAYLA Inactive 11/30/2010 Condition 04/20/2015 [facility] Group Condition Inactive 2010-11-30 00:00:00 2015-04-20 08:15:00 2015-04-20 08:15:00 [facility] BACK PAIN BACK PAIN Inactive 09/07/2010 Condition 04/20/2015 [facility] Condition Inactive 2010-09-07 00:00:00 2015-04-20 08:15 :00 2015-04-20 08:15:00 [facility] B12 DEFICIENCY B12 DEFICIENCY Inactive 09/07/2010 Condition 04/20/2015 [facility] Group Condition Inactive 2010-09-07 00: 00:00 2015-04-20 08:15:00 2015-04-20 08:15:00 [facility] NEUROPATHY, UNSPECIFIED NEUR OPATHY, UNSPECIFIED Inactive 04/24/2010 Condition 04/20/2015 [facility] Group Condition Inactive 2010-04-24 00:00:00 2015-04-20 08:15:00 2015-04-20 08:15:00 [facility] ORTHOSTATIC HYPOTENSION ORTH OSTATIC HYPOTENSION Inactive 11/27/2009 Condition 04/20/2015 [facility] Group Condition Inactive 2009-11-27 00:00:00 2015-04-20 08:15:00 2015-04-20 08:15:00 [facility] ABDOMINAL PAIN, PERIUMBILICAL ABDOMINAL PAIN, PERIUMBILICAL Inactive 11/13/2009 Condition 04/20/2015 [facility] Group Condition Inactive 2009-11-13 00:00:00 2015-04-20 08:15:00 2015-04-20 08:15:00 [facility] SCREENING FOR COLON CANCER SCR EENING FOR COLON CANCER Inactive 11/13/2009 Condition 04/20/2015 [facility] Group Condition Inactive 2009-11-13 00:00:00 2015-04-20 08:15:00 2015-04-20 08:15:00 [facility] LEG PAIN LEG PAIN Inactive 10/30/2009 Condition 04/20/2015 [facility] Group Condition Inactive 2009-10-30 00:00:00 2015-04-20 08:15:0 0 2015-04-20 08:15:00 [facility] CLAUDICATION, INTERMITTENT CLA UDICATION, INTERMITTENT Inactive 10/30/2009 Condition 04/20/2015 [facility] Group Condition Inactive 2009-10-30 00:00:00 2015-04-20 08:15:00 2015-04-20 08:15:00 [facility] THYROMEGALY THYR OMEGALY Inactive 10/30/2009 Condition 04/20/2015 Medical Group Condition Inactive 2009-10-30 00:00:00 20 05-04-30 08:15:00 2015-04-20 08:15:00 [facility] ling Allergies, Adverse Reactions, Alerts Allergy Name Allergy Type Status Severity Reaction(s) Onset Date Inacti ve Date Treating Clinician Comments Source No Known Medication Allergies No Known Medication Allergies Active [facility] Social History Smoking Status Start Date Stop Date Source Social History 2019-06-23 18:59:02 2019-06-23 18:59:02 Susana [facility] Medications Ordered Medication Name Filled Medication Name Start Date Stop Da te Current Medication? Ordering Clinician Indication Dosage Frequency Signature (SIG) Comments Components Source RABEprazole 20 mg oral enteric coated tablet 2019-06-23 19:56:00 Yes 20 mg = 1 tab, PO, Daily, # 30 tab, 1 Refill(s) Susana Chowdhury Sucralfate 100 MG/ML Oral Suspension [Carafate] 2019-06-23 19:56 :00 Yes 1 gm = 10 ml, PO, QID-Before Meals, # 400 ml, 0 Refill (s) Susana Chowdhury Sodium Chloride 0.9% IV 1000 mL 2019-06-23 18:54:00 No 1,000 mL, Rate: 75 ml/hr, Infuse over: 13.3 hr, Route: IV, Dosing Weight 49.318 kg, Total Volume: 1,000, Start date: 06/23/19 13:54:00 CDT, Duration: 30 day, Stop date: 07/23/19 13:53:00 CDT, 1.56, m2 [facility] Omnipaque 350 injectable solution 2019-03-11 23:00:00 Yes Notes: (same as:Omnipaque 350). WASTE: F/P - Black; E - [employer] Susana Chowdhury Albuterol 0.833 MG/ML / Ipratropium [place] 0.167 MG/ML Inha lant Solution 2017-02-28 20:24:00 No Notes: (Same as: Shadia ivera) [facility] Saline Flush 0.9% 2017-02-28 20:14:00 No Notes: preservative free. [facility] ROLLDRE WALKER MISC 2015-01-12 00:00:00 Yes u se as directed [facility] VITAMIN D-3 CAPS 2014-10-20 00:00:00 Yes 1 tab by mouth once a day [facility] IRON TABS 2014-10-20 00:00:00 Yes 1 tab by m outh once a day [facility] CELEBREX 200 MG CAPS 2014-01-25 00:00:00 No Take one capsule by mouth daily [facility] CELEBREX 200 MG [facility] 2014-01-25 00:00:00 Yes Take one capsule by mouth daily [facility] CELEBREX 200 MG CAPS 2014-01-25 00:00:00 No Take one capsule by mouth daily [facility] CENTRUM SILVER TABS 2014-01-11 00:00:00 Yes 1 tab by mouth once a day [facility] CLONIDINE HCL 0.1 MG TABS 2014-01-11 00:00:00 Yes 1/2 tab by mouth twice a day [facility] VITAMIN B12 1000 MCG TABS 2014-01-11 00:00:00 Yes 1 tab by mouth once a day [facility] OMEPRAZOLE 20 MG [facility] 2014-01-11 00:00:00 Yes 1 tab by mouth once a day [facility] XANAX TAB 0.25MG 2014-01-11 00:00:00 Yes 1 tab by mouth twice a day [facility] VESICARE 5 MG TABS 2014-01-11 00:00:00 Yes 1 tab by mouth once a day [facility] LOSARTAN POTASSIUM 100 MG TABS 2014-01-11 00:00:00 No 1 tab by mouth once a day [facility] ESCITALOPRAM OXALATE 10 MG TABS 2014-01-11 00:00:00 Yes [address] [facility] CLONIDINE HCL 0.1 MG TABS 2014-01-11 00:00:00 Yes 1/2 tab by mouth twice a day [facility] VESICARE 5 MG TABS 2014-01-11 00:00:00 Yes 1 tab by mouth once a day [facility] ESCITALOPRAM OXALATE 20 MG TABS 2014-01-11 00:00:00 Yes 1 tab by mouth once a day [facility] LOSARTAN POTASSIUM 100 MG TABS 2014-01-11 00:00:00 No 1 tab by mouth once a day [facility] CLONIDINE HCL 0.1 MG TABS 2014-01-11 00:00:00 Yes 1/2 tab by mouth twice a day [facility] OMEPRAZOLE 20 MG [facility] 2014-01-11 00:00:00 Yes 1 tab by mouth once a day [facility] LOSARTAN POTASSIUM 100 MG TABS 2014-01-11 00:00:00 Yes 1 tab by mouth once a day [facility] VESICARE 5 MG TABS 2014-01-11 00:00:00 Yes 1 tab by mouth once a day [facility] ZOLOFT TAB 50MG 2014-01-11 00:00:00 Yes 1 tab by mouth once a day [facility] LEVAQUIN 500 MG TABS 2013-01-27 00:00:00 No 1 PO Daily [facility] FLONASE 50 MCG/ACT SUSP 2013-01-27 00:00:00 No two sprays each nostril q day [facility] PRAVACHOL 20 MG TABS 2013-01-27 00:00:00 No 1 po qhs [facility] LEVAQUIN 500 MG TABS 2013-01-27 00:00:00 No 1 PO Daily [facility] FLONASE 50 MCG/ACT SUSP 2013-01-27 00:00:00 No two sprays each nostril q day [facility] PRAVACHOL 20 MG TABS 2013-01-27 00:00:00 No 1 po qhs [facility] LEVAQUIN 500 MG TABS 2013-01-27 00:00:00 No 1 PO Daily [facility] FLONASE 50 MCG/ACT SUSP 2013-01-27 00:00:00 No two sprays each nostril q day [facility] LEVAQUIN 500 MG TABS 2011-12-23 00:00:00 No 1 po daily x 10 days [facility] LEVAQUIN 500 MG TABS 2011-12-23 00:00:00 No 1 po daily x 10 days [facility] LEVAQUIN 500 MG TABS 2011-12-23 00:00:00 No 1 po daily x 10 days [facility] AMOXICILLIN CAP 500MG 2011-08-23 00:00:00 No one po tid for 10 days [facility] AMOXICILLIN CAP 500MG 2011-08-23 00:00:00 No one po tid for 10 days [facility] AMOXICILLIN CAP 500MG 2011-08-23 00:00:00 No one po tid for 10 days [facility] LEVAQUIN 500 MG TABS 2011-08-08 00:00:00 No 1 po qd x 7 days [facility] LEVAQUIN 500 MG TABS 2011-08-08 00:00:00 No 1 po qd x 7 days [facility] LEVAQUIN 500 MG TABS 2011-08-08 00:00:00 No 1 po qd x 7 days [facility] AMLODIPINE BESYLATE 2.5 MG TABS 2011-07-24 00:00:00 No one po daily [facility] AMLODIPINE BESYLATE 2.5 MG TABS 2011-07-24 00:00:00 No one po daily [facility] AMLODIPINE BESYLATE 2.5 MG TABS 2011-07-24 00:00:00 No one po daily [facility] LEVAQUIN 750 MG TABS 2011-03-22 00:00:00 No 1 po qd x 5 days [facility] LEVAQUIN 750 MG TABS 2011-03-22 00:00:00 No 1 po qd x [address] [facility] VITAMIN D (ERGOCALCIFEROL) [id number] UNIT CAPS 2011-01-15 00:00:00 No 1 po once a week x 12 weeks, then 1 po once a month [facility] XANAX TAB 0.25MG 2011-01-15 00:00:00 No one tab PO q hs prn anxiety [facility] VITAMIN D (ERGOCALCIFEROL) [id number] UNIT CAPS 2011-01-15 00:00:00 No 1 po once a week x 12 weeks, then 1 po once a month [facility] VITAMIN D (ERGOCALCIFEROL) [id number] UNIT CAPS 2011-01-15 00:00:00 No 1 po once a week x 12 weeks, then 1 po once a month [facility] CLARITIN TAB 10MG 2010-11-30 00:00:00 No on e tablet daily [facility] CLARITIN TAB 10MG 2010-11-30 00:00:00 No on e tablet daily [facility] PREVACID 30 MG CPDR 2010-09-07 00:00:00 No one a daily [facility] PREVACID 30 MG CPDR 2010-09-07 00:00:00 No one a daily [facility] PREVACID 30 MG CPDR 2010-09-07 00:00:00 No one a daily [facility] COZAAR TAB 25MG 2010-05-08 00:00:00 No 1 po qd [facility] COZAAR TAB 25MG 2010-05-08 00:00:00 No 1 po qd [facility] LEXAPRO 10 MG TABS 2010-04-24 00:00:00 No 1 po qd [facility] LISINOPRIL 10 MG TABS 2010-04-24 00:00:00 No one daily [facility] LISINOPRIL 10 MG TABS 2010-04-24 00:00:00 No one daily [facility] LISINOPRIL 10 MG TABS 2010-04-24 00:00:00 No one daily [facility] LEXAPRO 10 MG TABS 2010-04-24 00:00:00 No 1 po qd [facility] LISINOPRIL 10 MG TABS 2010-04-24 00:00:00 No one daily [facility] Clonidine Hcl 0.1 Mg Tablet Clonidine Hcl 0.1 Mg Tablet Yes 1 Twice A Day [facility] Esomeprazazole Esomeprazazole Yes [facility] Lisinopril 2.5 Mg Tablet Lisinopril 2.5 Mg Tablet Yes [address] [facility] Paroxetine Hcl 20 Mg Tablet Paroxetine Hcl 20 Mg Tablet Yes 10 Daily [facility] Vit C/Vit E Acetate/Lutein/Min (Ocuvite Lutein Capsule ) 1 Each Capsule Vit C/Vit E Acetate/Lutein/Min (Ocuvite Lutein Capsule) 1 Each Capsule Ye s 1 Daily [facility] Vital Signs Vital Name Observation Time Observation Value Comments Source Respitory Rate 2019-06-23 20:30:00 [facility] Systolic (mm Hg) 2019-06-23 20:30:00 [facility] [place] Diastolic (mm Hg) 2019-06-23 20:30:00 [facility] [place] Respitory Rate 2019-06-23 20:15:00 [facility] Systolic (mm Hg) 2019-06-23 20:15:00 [facility] [place] Diastolic (mm Hg) 2019-06-23 20:15:00 [facility] [place] Respitory Rate 2019-06-23 20:00:00 [facility] [place] Systolic (mm Hg) 2019-06-23 20:00:00 [facility] Diastolic (mm Hg) 2019-06-23 20:00:00 [facility] Height 2019-06-23 18:50:00 177.8 cm [facility] Weight 2019-06-23 18:50:00 [facility] BMI Calculated 2019-06-23 18:50:00 [facility] Heart Rate 2019-06-23 18:38:00 [facility] BMI Calculated 2019-03-11 18:42:00 [facility] Height 2019-03-11 18:42:00 177.8 cm [facility] Weight 2019-03-11 18:42:00 [facility] Systolic (mm Hg) 2019-03-11 18:42:00 [facility] [place] Diastolic (mm Hg) 2019-03-11 18:42:00 [facility] Heart Rate 2019-03-11 18:42:00 [facility] Temperature Oral (F) 2019-03-11 18:42:00 98.0 F [facility] Height 2019-03-09 18:53:00 177.8 cm [facility] Weight 2019-03-09 18:53:00 [facility] BMI Calculated 2019-03-09 18:53:00 [facility] Systolic (mm Hg) 2019-03-09 18:53:00 [facility] Diastolic (mm Hg) 2019-03-09 18:53:00 [facility] Heart Rate 2019-03-09 18:53:00 [facility] Temperature Oral (F) 2019-03-09 18:53:00 97.2 F [facility] Respitory Rate 2019-03-09 18:53:00 [facility] Heart Rate 2017-02-28 22:43:00 [facility] Temperature Oral (F) 2017-02-28 22:43:00 98.3 F [facility] Respitory Rate 2017-02-28 22:43:00 [facility] Systolic (mm Hg) 2017-02-28 22:43:00 [facility] Diastolic (mm Hg) 2017-02-28 22:43:00 [facility] Respitory Rate 2017-02-28 22:03:00 [facility] Heart Rate 2017-02-28 21:41:00 [facility] Respitory Rate 2017-02-28 21:41:00 [facility] Heart Rate 2017-02-28 21:13:00 [facility] Diastolic (mm Hg) 2017-02-28 21:13:00 [facility] Systolic (mm Hg) 2017-02-28 21:13:00 [facility] Weight 2017-02-28 20:10:00 [facility] Height 2017-02-28 20:10:00 177.8 cm [facility] BMI Calculated 2017-02-28 20:10:00 [facility] Temperature Oral (F) 2017-02-28 20:10:00 98.4 F [facility] Systolic (mm Hg) 2017-02-28 20:10:00 [facility] Diastolic (mm Hg) 2017-02-28 20:10:00 [facility] Height 2015-04-20 12:46:42 [facility] Weight 2015-04-20 12:46:42 [facility] Systolic (mm Hg) 2015-04-20 12:46:42 [facility] [place] Diastolic (mm Hg) 2015-04-20 12:46:42 [facility] Heart Rate 2015-04-20 12:46:42 [facility] Temperature Oral (F) 2015-04-20 12:46:42 97.6 F [facility] Height 2014-10-20 13:47:41 [facility] Weight 2014-10-20 13:47:41 [facility] Temperature Oral (F) 2014-10-20 13:47:41 97.7 F [facility] Systolic (mm Hg) 2014-10-20 13:47:41 [facility] Diastolic (mm Hg) 2014-10-20 13:47:41 [facility] Heart Rate 2014-10-20 13:47:41 [facility] Weight 2014-04-21 13:04:11 [facility] Temperature Oral (F) 2014-04-21 13:04:11 98.0 F [facility] Heart Rate 2014-04-21 13:04:11 [facility] Systolic (mm Hg) 2014-04-21 13:04:11 [facility] Diastolic (mm Hg) 2014-04-21 13:04:11 [facility] Weight 2014-02-08 13:22:22 [facility] Temperature Oral (F) 2014-02-08 13:22:22 96.5 F [facility] Heart Rate 2014-02-08 13:22:22 [facility] Systolic (mm Hg) 2014-02-08 13:22:22 [facility] Diastolic (mm Hg) 2014-02-08 13:22:22 [facility] Weight 2014-01-11 18:07:40 [facility] Temperature Oral (F) 2014-01-11 18:07:40 96.8 F [facility] Heart Rate 2014-01-11 18:07:40 [facility] Systolic (mm Hg) 2014-01-11 18:07:40 [facility] Diastolic (mm Hg) 2014-01-11 18:07:40 [facility] Weight 2013-12-14 14:08:51 [facility] Temperature Oral (F) 2013-12-14 14:08:51 96.4 F [facility] Heart Rate 2013-12-14 14:08:51 [facility] Systolic (mm Hg) 2013-12-14 14:08:51 [facility] [place] Diastolic (mm Hg) 2013-12-14 14:08:51 [facility] Weight 2013-10-22 21:52:20 [facility] Temperature Oral (F) 2013-10-22 21:52:20 97.5 F [facility] Heart Rate 2013-10-22 21:52:20 [facility] Systolic (mm Hg) 2013-10-22 21:52:20 [facility] [place] Diastolic (mm Hg) 2013-10-22 21:52:20 [facility] Weight 2013-09-09 16:09:52 [facility] Systolic (mm Hg) 2013-09-09 16:09:52 [facility] Diastolic (mm Hg) 2013-09-09 16:09:52 [facility] Temperature Oral (F) 2013-09-09 16:09:52 96.2 F [facility] Heart Rate 2013-09-09 16:09:52 [facility] Weight 2013-07-09 21:17:30 [facility] Temperature Oral (F) 2013-07-09 21:17:30 97.1 F [facility] Systolic (mm Hg) 2013-07-09 21:17:30 [facility] Diastolic (mm Hg) 2013-07-09 21:17:30 [facility] Heart Rate 2013-07-09 21:17:30 [facility] Weight 2013-06-09 17:51:40 [facility] Temperature Oral (F) 2013-06-09 17:51:40 97.6 F [facility] Systolic (mm Hg) 2013-06-09 17:51:40 [facility] Diastolic (mm Hg) 2013-06-09 17:51:40 [facility] Heart Rate 2013-06-09 17:51:40 [facility] Weight 2013-05-26 17:53:51 [facility] Temperature Oral (F) 2013-05-26 17:53:51 97.2 F [facility] Systolic (mm Hg) 2013-05-26 17:53:51 [facility] [place] Diastolic (mm Hg) 2013-05-26 17:53:51 [facility] Heart Rate 2013-05-26 17:53:51 [facility] Weight 2013-01-27 19:42:02 [facility] Temperature Oral (F) 2013-01-27 19:42:02 98.8 F [facility] Systolic (mm Hg) 2013-01-27 19:42:02 [facility] [place] Diastolic (mm Hg) 2013-01-27 19:42:02 [facility] Heart Rate 2013-01-27 19:42:02 [facility] Weight 2012-08-17 21:56:10 [facility] Systolic (mm Hg) 2012-08-17 21:56:10 [facility] Diastolic (mm Hg) 2012-08-17 21:56:10 [facility] Heart Rate 2012-08-17 21:56:10 [facility] Temperature Oral (F) 2012-08-17 21:56:10 95.6 F [facility] Weight 2012-05-01 13:09:31 [facility] Systolic (mm Hg) 2012-05-01 13:09:31 [facility] Diastolic (mm Hg) 2012-05-01 13:09:31 [facility] Heart Rate 2012-05-01 13:09:31 [facility] Temperature Oral (F) 2012-05-01 13:09:31 96.5 F [facility] Weight 2012-01-29 14:05:10 [facility] Temperature Oral (F) 2012-01-29 14:05:10 97.6 F [facility] Systolic (mm Hg) 2012-01-29 14:05:10 [facility] Diastolic (mm Hg) 2012-01-29 14:05:10 [facility] Heart Rate 2012-01-29 14:05:10 [facility] Weight 2011-12-23 18:47:23 [facility] Systolic (mm Hg) 2011-12-23 18:47:23 [facility] Diastolic (mm Hg) 2011-12-23 18:47:23 [facility] Temperature Oral (F) 2011-12-23 18:47:23 97.2 F [facility] Heart Rate 2011-12-23 18:47:23 [facility] Weight 2011-11-06 15:47:41 [facility] Temperature Oral (F) 2011-11-06 15:47:41 97.0 F [facility] Systolic (mm Hg) 2011-11-06 15:47:41 [facility] Diastolic (mm Hg) 2011-11-06 15:47:41 [facility] Heart Rate 2011-11-06 15:47:41 [facility] Weight 2011-08-23 16:00:20 [facility] Temperature Oral (F) 2011-08-23 16:00:20 97.1 F [facility] Systolic (mm Hg) 2011-08-23 16:00:20 [facility] Diastolic (mm Hg) 2011-08-23 16:00:20 [facility] Heart Rate 2011-08-23 16:00:20 [facility] Weight 2011-08-07 14:47:31 [facility] Temperature Oral (F) 2011-08-07 14:47:31 97.1 F [facility] Systolic (mm Hg) 2011-08-07 14:47:31 [facility] Diastolic (mm Hg) 2011-08-07 14:47:31 [facility] Heart Rate 2011-08-07 14:47:31 [facility] Weight 2011-07-24 14:25:50 [facility] Temperature Oral (F) 2011-07-24 14:25:50 97.9 F [facility] Heart Rate 2011-07-24 14:25:50 [facility] Systolic (mm Hg) 2011-07-24 14:25:50 [facility] Diastolic (mm Hg) 2011-07-24 14:25:50 [facility] Weight 2011-06-26 15:59:21 [facility] Temperature Oral (F) 2011-06-26 15:59:21 97.2 F [facility] Systolic (mm Hg) 2011-06-26 15:59:21 [facility] Diastolic (mm Hg) 2011-06-26 15:59:21 [facility] Heart Rate 2011-06-26 15:59:21 [facility] Weight 2011-05-07 18:28:02 [facility] Temperature Oral (F) 2011-05-07 18:28:02 98.0 F [facility] Systolic (mm Hg) 2011-05-07 18:28:02 [facility] Diastolic (mm Hg) 2011-05-07 18:28:02 [facility] Heart Rate 2011-05-07 18:28:02 [facility] Weight 2011-04-22 14:25:54 [facility] Height 2011-04-22 14:25:54 [facility] Temperature Oral (F) 2011-04-22 14:25:54 96.5 F [facility] Systolic (mm Hg) 2011-04-22 14:25:54 [facility] Diastolic (mm Hg) 2011-04-22 14:25:54 [facility] Heart Rate 2011-04-22 14:25:54 [facility] Height 2011-03-22 20:52:21 [facility] Weight 2011-03-22 20:52:21 [facility] Temperature Oral (F) 2011-03-22 20:52:21 98.1 F [facility] Systolic (mm Hg) 2011-03-22 20:52:21 [facility] Diastolic (mm Hg) 2011-03-22 20:52:21 [facility] Heart Rate 2011-03-22 20:52:21 [facility] Weight 2011-02-08 16:05:33 [facility] Height 2011-02-08 16:05:33 [facility] Temperature Oral (F) 2011-02-08 16:05:33 97.6 F [facility] Systolic (mm Hg) 2011-02-08 16:05:33 [facility] Diastolic (mm Hg) 2011-02-08 16:05:33 [facility] Heart Rate 2011-02-08 16:05:33 [facility] Height 2011-01-29 13:43:51 [facility] Weight 2011-01-29 13:43:51 [facility] Temperature Oral (F) 2011-01-29 13:43:51 98.2 F [facility] Systolic (mm Hg) 2011-01-29 13:43:51 [facility] Diastolic (mm Hg) 2011-01-29 13:43:51 [facility] Heart Rate 2011-01-29 13:43:51 [facility] Weight 2011-01-15 18:15:30 [facility] Height 2011-01-15 18:15:30 [facility] Systolic (mm Hg) 2011-01-15 18:15:30 [facility] Diastolic (mm Hg) 2011-01-15 18:15:30 [facility] Heart Rate 2011-01-15 18:15:30 [facility] Temperature Oral (F) 2011-01-15 18:15:30 98.0 F [facility] Weight 2010-11-30 14:51:23 [facility] Height 2010-11-30 14:51:23 [facility] Systolic (mm Hg) 2010-11-30 14:51:23 [facility] Diastolic (mm Hg) 2010-11-30 14:51:23 [facility] Heart Rate 2010-11-30 14:51:23 [facility] Temperature Oral (F) 2010-11-30 14:51:23 96.9 F [facility] Weight 2010-09-07 15:05:42 [facility] Height 2010-09-07 15:05:42 [facility] Temperature Oral (F) 2010-09-07 15:05:42 96.3 F [facility] Systolic (mm Hg) 2010-09-07 15:05:42 [facility] Diastolic (mm Hg) 2010-09-07 15:05:42 [facility] Heart Rate 2010-09-07 15:05:42 [facility] Height 2010-06-08 14:19:40 [facility] Weight 2010-06-08 14:19:40 [facility] Temperature Oral (F) 2010-06-08 14:19:40 97.1 F [facility] Systolic (mm Hg) 2010-06-08 14:19:40 [facility] [place] Diastolic (mm Hg) 2010-06-08 14:19:40 [facility] Heart Rate 2010-06-08 14:19:40 [facility] Height 2010-05-08 14:19:41 [facility] Weight 2010-05-08 14:19:41 [facility] Temperature Oral (F) 2010-05-08 14:19:41 97.6 F [facility] Systolic (mm Hg) 2010-05-08 14:19:41 [facility] Diastolic (mm Hg) 2010-05-08 14:19:41 [facility] Heart Rate 2010-05-08 14:19:41 [facility] Weight 2010-04-24 15:30:40 [facility] Height 2010-04-24 15:30:40 [facility] Systolic (mm Hg) 2010-04-24 15:30:40 [facility] Diastolic (mm Hg) 2010-04-24 15:30:40 [facility] Heart Rate 2010-04-24 15:30:40 [facility] Temperature Oral (F) 2010-04-24 15:30:40 97.0 F [facility] Height 2009-11-27 15:03:11 [facility] Weight 2009-11-27 15:03:11 [facility] Temperature Oral (F) 2009-11-27 15:03:11 96.5 F [facility] Systolic (mm Hg) 2009-11-27 15:03:11 [facility] Diastolic (mm Hg) 2009-11-27 15:03:11 [facility] Heart Rate 2009-11-27 15:03:11 [facility] Height 2009-11-13 14:29:11 [facility] Weight 2009-11-13 14:29:11 [facility] Temperature Oral (F) 2009-11-13 14:29:11 96.4 F [facility] Systolic (mm Hg) 2009-11-13 14:29:11 [facility] Diastolic (mm Hg) 2009-11-13 14:29:11 [facility] Heart Rate 2009-11-13 14:29:11 [facility] Weight 2009-10-30 19:49:00 [facility] Height 2009-10-30 19:49:00 [facility] Temperature Oral (F) 2009-10-30 19:49:00 96.8 F [facility] Heart Rate 2009-10-30 19:49:00 [facility] Systolic (mm Hg) 2009-10-30 19:49:00 [facility] Diastolic (mm Hg) 2009-10-30 19:49:00 [facility] Procedures Procedure Date / Time Performed Performing Clinician [facility] rudi Cystoscopy with retrograde pyelography 2019-04-19 00:00:[address] [facility] Ultrasound, renal 2019-04-18 00:00:00 [facility] Ultrasound examination of pelvis, limited or follow-up 04-18 [facility]:00[facility] Computed tomography of chest without contrast 2019-04-16 00:00:[address] [facility] Computed tomography of abdomen and pelvis with contrast 2018 00:00:[address] [facility] Collection of venous blood by venipuncture 2019-03-09 20:55:00 [facility] echocardiogram, complete 2013-05-06 05:00:00 [facility] Encounters Start Date/Time End Date/Time En[facility] Ad[facility] Source 2019-03-29 15:07:46 Outpatient [facility] [id number] 2020-05-02 13:45:00 2020-05-02 13:45:00 Outpatient Tj Rollins [facility] [id number] 2020-03-23 08:33:00 2020-03-23 23:59:00 Outpatient Asif Weiss [id number] 2019-06-23 12:20:00 2019-06-23 15:45:00 Outpatient Jam Romano [facility] [id number] 2019-06-23 12:20:00 2019-06-23 12:20:00 Outpatient [facility] 2019-04-27 13:15:00 2019-04-27 13:15:00 Outpatient Tj Rollins [facility] [id number] 2019-04-15 11:36:00 2019-04-21 10:33:00 Discharged Inpatient 1 JOIE VELAZQUEZ [facility] [id number] [facility] 2019-03-30 13:57:00 2019-03-30 23:59:00 Outpatient Mary Weiss [facility] [id number] 2019-03-16 14:45:00 2019-03-16 14:45:00 Outpatient Tj Rollins [facility] [id number] 2019-03-11 14:30:00 2019-03-11 23:59:59 Outpatient Tj Rollins [facility] [id number] 2019-03-11 14:47:00 2019-03-11 23:59:00 Outpatient Tj Rollins [facility] [id number] 2019-03-11 14:47:00 2019-03-11 14:47:00 Outpatient [id number] 2019-03-09 14:00:00 2019-03-09 23:59:59 Outpatient SheriftomUbaldo tee [facility] [id number] 2017-02-28 14:56:00 2017-02-28 17:45:00 Outpatient VelazquezEfrem won Ballard [facility] [id number] 2016-04-18 13:41:00 2016-04-18 23:59:00 Outpatient Jam Khalil [facility] [id number] 2016-04-09 13:12:00 2016-04-09 23:59:00 Outpatient Jam Khalil [facility] [id number] Results Test Description Test Time Test Comments Results Result Comments Source [address] (KUB) 2020-06-20 14:44:[address] [address] Patient Name: SARAH FLORES MR #: [id number] : 1930 Age/Sex: 89/M Req #: [id number] Adm Physician: Ordered by: Luis Bauman MD Report #: [id number] Location: ER Room/Bed: Procedure: [id number] DX/ABDOMEN-1VIEW (KUB) Exam Date: 06/20/20 Exam Time: 1432 REPORT STATUS: Signed EXAM: ABDOMEN-1VIEW (KUB) DATE: 06/20/2020 2:32 PM INDICATION: Utero stent identification COMPARISON: Abdominal radiograph from 11/09/2019 FINDINGS: Right ureteral stent identified in stable position with proximal pigtail in the expected location of the right renal pelvis and distal pigtail in the expected location of the urinary bladder. Stable appearing calcifications identified within the upper abdomen likely representing vascular calcifications. No definite radiographically evident renal/urinary calculi appreciated. Vertebral augmentation changes noted within the L2 vertebral body. There are degenerative changes of the visualized spine and bilateral hips. No acute osseous abnormality is identified. IMPRESSION: Right ureteral stent identified in stable position as detailed above. Signed by: Dr. Claude Villagomez MD on 06/20/2020 2:47 PM Dictated By: CLAUDE VILLAGOMEZ MD Transcribed By: LESLEY on 06/20/201446 COPY TO: LUIS BAUAMN MD RETROGRADE PYELOGRAM 2020-02-09 14:47:[address] [address] Patient Name: SARAH FLORES MR #: [id number] : 1930 Age/Sex: 89/M Req #: [id number] Adm Physician: Ordered by: NANDO STEWART MD Report #: [id number] Location: OR Room/Bed: Procedure: DX/RETROGRADE PYELOGRAM Exam Date: 02/09/20 Exam Time: 1322 REPORT STATUS: Signed OR Fluoroscopy: IMPRESSION: Fluoroscopy service provided in the OR. Interpretation not requested. Signed by: Renny Jamison MD on 02/09/2020 2:47 PM Dictated By: RENNY JAMISON MD 46 Transcribed By: LESLEY on 02/09/201446 COPY TO: NANDO STEWART MD CHEST 2 VIEWS 2020-02-04 13:09:[address] [address] Patient Name: SARAH FLORES MR #: [id number] : 1930 Age/Sex: 89/M Req #: [id number] Adm Physician: Ordered by: NANDO STEWART MD Report #: [id number] Location: OR Room/Bed: Procedure: [id number] DX/CHEST 2 VIEWS Exam Date: 02/04/20 Exam [...] NANDO STEWART MD ABDOMEN-1VIEW (KUB) 2019-11-09 09:20:00 [place] [address] Patient Name: SARAH FLORES MR #: [id number] : 1930 Age/Sex: 88/M Req #: [id number] Adm Physician: Ordered by: NANDO STEWART MD Report #: [id number] Location: OR Room/Bed: Procedure: [id number] DX/ABDOMEN-1VIEW (KUB) Exam Date: 11/09/19 Exam Time: 0840 REPORT STATUS: Signed Exam: KUB - 2 [...] NANDO STEWART MD ABDOMEN-1VIEW (KUB) 2019-08-27 08:16:00 [place] [address] Patient Name: SARAH FLORES MR #: [id number] : 1930 Age/Sex: 88/M Req #: [id number] Adm Physician: Ordered by: NANDO STEWART MD Report #: [id number] Location: OR Room/Bed: Procedure: [id number] DX/ABDOMEN-1VIEW (KUB) Exam Date: 08/27/19 Exam Time: [...] STEWART MD CHEST 2 VIEWS 2019-08-24 10:13:00 [place] [address] Patient Name: SARAH FLORES MR #: [id number] : 1930 Age/Sex: 88/M Req #: [id number] Adm Physician: Ordered by: NANDO STEWART MD Report #: [id number] Location: OR Room/Bed: Procedure: [id number] DX/CHEST 2 VIEWS Exam Date: Exam Time: [...] MD RENAL SCAN W/FLOW FUNCTION 2019-05-14 14:38:00 [place] [address] Patient Name: SARAH FLORES MR #: [id number] : 1930 Age/Sex: 88/M Req #: [id number] Adm Physician: Ordered by: NANDO STEWART MD Report #: [id number] Location: [place] Room/Bed: Procedure: [id number] NM/RENAL SCAN W/FLOW FUNCTION Exam Date: 05/14/19 Exam Time: 0835 REPORT STATUS: Signed Renal Scan Clinical information: [...] Level (test code = 2951-2) 136 136-145 [facility] Ebthv1227-71-42 06:23:00* Test Item Value Reference Range Interpretation Comments Potassium Level (test code = 2823-3) 4.0 3.5-5.1 [facility]Chloride Pnkbw4126-38-11 06:23:00* Test Item Value Reference Range Interpretation Comments Chloride Level (test code = 2075-0) 98 98-107 [facility]Carbon Dioxide Suexs1619-16-06 06:23:00* Test Item Value Reference Range Interpretation Comments Carbon Dioxide Level (test code = 8-9) 30 22-[address] [facility]Anion Byf1847-13-20 06:23:00* Test Item Value Reference Range Interpretation Comments Anion Gap (test code = 78911-0) 12.0 8-16 [facility]Blood Urea Febmxbuu9181-45-28 06:23:00* Test Item Value Reference Range Interpretation Comments Blood Urea Nitrogen (test code = 3094-0) 15 7-26 [facility]Creatinine2019-07-31 06:23:00* Test Item Value Reference Range Interpretation Comments Creatinine (test code = 2160-0) 0.82 0.72-1.25 [facility]BUN/Creatinine Yjguw5080-08-88 06:23:00* Test Item Value Reference Range Interpretation Comments BUN/Creatinine Ratio (test code = 3097-3) 18 6-25 [facility]kinEstimat Glomerular Filtration Rate 2019-04-21 06:23:00* Test Item Value Reference Range Interpretation Comments Estimat Glomerular Filtration Rate (test code = 802796118) > 60 >60 Ranges were taken from the National Kidney Disease Education Program and the [facility] Foundation literature.Reference ranges:60 or greater: Zrqage10-42 ( for 3 consecutive months): Chronic kidney disease 15 or less: Kidney failureSt. Luke's Health – Memorial [facility]ufkinGlucose Yjxjp0375-14-76 06:23:00* Test Item Value Reference Range Interpretation Comments Glucose Level (test code = OLZ1284) 88 74-118 [facility]kinCalcium Dqwii4914-83-50 06:23:00* Test Item Value Reference Range Interpretation Comments Calcium Level (test code = 19836-0) 8.8 8.4-10.2 [facility]kinWhite Blood Yhfmo0973-96-46 06:00:00* Test Item Value Reference Range Interpretation Comments White Blood Count (test code = 6690-2) 6.90 4.8-10.8 [facility]kinRed Blood Tyjkc1862-81-62 06:00:00* Test Item Value Reference Range Interpretation Comments Red Blood Count (test code = 789-8) 3.50 4.3-5.[address] [facility]Hemoglobin2019-07-31 06:00:00* Test Item Value Reference Range Interpretation Comments Hemoglobin (test code = 10011-1) 11.1 14.0-18.[address] [facility]Hematocrit2019-07-31 06:00:00* Test Item Value Reference Range Interpretation Comments Hematocrit (test code = 4544-3) 32.8 38.2-49.[address] [facility] LufkinMean Corpuscular Xktlih6775-93-21 06:00:00* Test Item Value Reference Range Interpretation Comments Mean Corpuscular Volume (test code = 787-2) 93.7 81-99 [facility]kinMean Corpuscular Avmdvggkcv5891-13-28 06:00:00* Test Item Value Reference Range Interpretation Comments Mean Corpuscular Hemoglobin (test code = 785-6) 31.7 28-32 [facility]kinMean Corpuscular Hemoglobin Concent 2019-04-21 06:00:00* Test Item Value Reference Range Interpretation Comments Mean Corpuscular Hemoglobin Concent (test code = 786-4) 33.8 31-35 [facility]kinRed Cell Distribution Kresx7189-75-36 06:00:00* Test Item Value Reference Range Interpretation Comments Red Cell Distribution Width (test code = 00117-7) 14.6 11.7 -14.[address] [facility] LufkinPlatelet Prwnq1963-20-59 06:00:00* Test Item Value Reference Range Interpretation Comments Platelet Count (test code = 777-3) 195 140-360 [facility]kinNeutrophils (%) (Auto)2019-04-21 06:00:00 * Test Item Value Reference Range Interpretation Comments Neutrophils (%) (Auto) (test code = 13336-3) 68.6 38.7-80.0 [facility]kinLymphocytes (%) (Auto)2019-04-21 06:00:00 * Test Item Value Reference Range Interpretation Comments Lymphocytes (%) (Auto) (test code = 736-9) 14.1 18.0-39.[address] [facility]kinMonocytes (%) (Auto)2019-04-21 06:00:00* Test Item Value Reference Range Interpretation Comments Monocytes (%) (Auto) (test code = 5905-5) 11.7 4.4-11.[address] [facility]kinEosinophils (%) (Auto)2019-04-21 06:00:00 * Test Item Value Reference Range Interpretation Comments Eosinophils (%) (Auto) (test code = 713-8) 4.9 0.0-6.0 [facility]Basophils (%) (Auto)2019-04-21 06:00:00* Test Item Value Reference Range Interpretation Comments Basophils (%) (Auto) (test code = 706-2) 0.4 0.0-1.0 [facility]kinIM GRANULOCYTES %2019-04-21 06:00:00* Test Item Value Reference Range Interpretation Comments IM GRANULOCYTES % (test code = IM GRANULOCYTES %) 0.3 0.0- 1.0 [facility]kinNeutrophils # (Auto)2019-04-21 06:00:00* Test Item Value Reference Range Interpretation Comments Neutrophils # (Auto) (test code = 751-8) 4.7 2.1-6.9 [facility]Lymphocytes # (Auto)2019-04-21 06:00:00* Test Item Value Reference Range Interpretation Comments Lymphocytes # (Auto) (test code = 76411-8) 1.0 1.0-3.2 [facility]kinMonocytes # (Auto)2019-04-21 06:00:00* Test Item Value Reference Range Interpretation Comments Monocytes # (Auto) (test code = 742-7) 0.8 0.2-0.8 [facility]Eosinophils # (Auto)2019-04-21 06:00:00* Test Item Value Reference Range Interpretation Comments Eosinophils # (Auto) (test code = 711-2) 0.3 0.0-0.4 [facility]Basophils # (Auto)2019-04-21 06:00:00* Test Item Value Reference Range Interpretation Comments Basophils # (Auto) (test code = 704-7) 0.0 0.0-0.1 [facility] Immature Granulocyte (auto 2019-04-21 06:00:00* Test Item Value Reference Range Interpretation Comments Absolute Immature Granulocyte (auto (antwan t code = Absolute Immature Granulocyte (auto) 0.02 0-0.1 [facility]rine [id number] 22:33:00* Test Item Value Reference Range Interpretation Comments Urine Osmolality (test code = 2695-5) 473 . 24 hr : 300 - 900 Random: 50 - 1400 After 12hr fluid restriction: >850Performed at: - [facility] [id number] Director: Dawit Vincent MD, Phone: [phone] Methodist Baytown Hospitalerum Osmolality 2019-04-20 22:33:00* Test Item Value Reference Range Interpretation Comments Serum Osmolality (test code = 2692-2) 267 280-301 L Performed at: HD - [facility] [address] [id number] Director: Dawit Vincent MD, Phone: [phone]. Luke[facility] Health [facility] Memorial LufkinB-Type Natriuretic Acqmnam8960-31-11 05:54:00* Test Item Value Reference Range Interpretation Comments B-Type Natriuretic Peptide (test code = 27744-9) 152.0 0-[address] [facility] LufkinMODIFIED BA. QFTSRDI6348-23-13 11:05:00 [facility] [address] [place] [address] Patient Name: SARAH FLORES MR #: [id number] : [birth year] Age/Sex: 88/M Req #: [id number] Adm Physician: JOIE VELAZQUEZ MD Ordered by: JOIE VELAZQUEZ MD Report #: [id number] Location: MED/SURG2 Room/Bed: [facility] Procedure: [id number] DX/MOD IFIED BA. SWALLOW Exam Date: 04/16/19 Exam Time: 133 0 REPORT STATUS: Signed PROCEDUR E: X-RAY MODIFIED BARIUM SWALLOW COMPARISON: None. INDICATION: Dyspha denny Radiation Details: Fluoroscopy time: 2.0 minutes Cumulative dose: 3.28mGy DISCUSSION: Fluoroscopic examination was performed in conjunction w [facility] speech pathology during swallowing a variety of thin and thick liquid cons istencies. Provided images demonstrate laryngeal penetration and trace microas piration. CONCLUSION: Modified barium swallow demonstrating laryngeal p enetration and trace microaspiration. Please refer to the speech pathology rep ort for further details. Signed by: Tarah Andrews MD on 04/19/2019 11:07 AM Dictated By: TARAH ANDREWS MD 06 COPY TO: TARA VELAZQUEZ MD RENAL RETROPERITONEAL WZHQ3487-52-01 16:13:00 [place] [address] Patient Name: SARAH FLORES MR #: [id number] : 1930 Age/Sex: 88/M Req #: [id number] Adm Physician: JOIE VELAZQUEZ MD Ordered by: RITCHIE TELLEZ MD Report #: [id number] Location: [facility] Room/Bed: [facility] Procedure: [id number] US/ US RENAL RETROPERITONEAL COMP Exam Date: 04/18/19 Ex am Time: 1445 REPORT STATUS: Signed EXAM: Renal Ultrasound INDICATION: hydronephrosis [id number] 1445 COMPARISON: CT abdomen and pelvis 04/15/2019 [...] 04/23/19 1502 COPY TO: RITCHIE TELLEZ MD PELVIC (NON OB) SANTIAGO OR F/K6174-36-28 16:13:00 [place] [address] Patient Name: SARAH FLORES MR #: [id number] : 1930 Age/Sex: 88/M Req #: [id number] [facility] Physician: JOIE VELAZQUEZ MD Ordered by: RITCHIE TELLEZ MD Report #: [id number] Location: MED/SURG2 Room/Bed: [facility] Procedure: [id number] US/ US PELVIC (NON OB) SANTIAGO OR F/U Exam Date: 04/18/19 Ex am Time: 1445 REPORT STATUS: Signed EXAM: Renal Ultrasound INDICATION: hydronephrosis [id number] 1445 COMPARISON: CT abdomen and pelvis 04/15/2019 [...] Random Sodium (test code = 2955-3) 108 [facility] LufkinUric Eucy5921-94-60 12:12:00* Test Item Value Reference Range Interpretation Comments Uric Acid (test code = 3084-1) 2.1 4.8-8.[address] [facility] Memorial LufkinThyroid Stimulating Hormone (TSH) 2019-04-17 06:25:00* Test Item Value Reference Range Interpretation Comments Thyroid Stimulating Hormone (TSH) (test code = 65777-9) 3.627 0.350-4.940 [facility] LufkinCT CHEST HU9317-76-87 18:48:00 [facility] [address] [place] [address] Patient Name: SARAH FLORES MR #: [id number] : 1930 Age/Sex: 88/M Req #: [id number] Adm Physician: JOIE VELAZQUEZ MD Ordered by: JOIE VELAZQUEZ MD Report #: [id number] Location: MED/SURG2 Room/Bed: [facility] Procedure: [id number] CT/CT CHEST WO Exam Date: 04/16/19 Exam Time: 1814 REPORT STATUS: Signed EXAM: CT Chest WI THOUT contrast 04/16/2019 12:32 PM INDICATION: SOB [id number] COMPARISON: Modified barium swallow 04/16/[address] [...] 04/16/191936 COPY TO: JOIE VELAZQUEZ MD Serum Tcjighcldf0845-14-51 13:29:00* Test Item Value Reference Range Interpretation Comments Serum Osmolality (test code = 19124-5) 260 278-[address] [facility] LufkinTotal Frkrpuqbk5505-71-50 05:35:00* Test Item Value Reference Range Interpretation Comments Total Bilirubin (test code = 1975-2) 0.5 0.2-1.2 [facility] LufkinAspartate Amino Transf (AST/SGOT) 2019-04-16 05:35:00* Test Item Value Reference Range Interpretation Comments Aspartate Amino Transf (AST/SGOT) (test code = Aspartate Amino Transf (AST/SGOT)) 18 5-34 [facility] LufkinAlanine Aminotransferase (ALT/SGPT) 2019-04-16 05:35:00* Test Item Value Reference Range Interpretation Comments Alanine Aminotransferase (ALT/SGPT) (test code = 1742-6) 13 0-55 [facility] LufkinTotal Painxug4067-28-78 05:35:00* Test Item Value Reference Range Interpretation Comments Total Protein (test code = 2885-2) 6.5 6.5-8.1 [facility] LufkinAlbumin2019-07-26 05:35:00* Test Item Value Reference Range Interpretation Comments Albumin (test code = 1751-7) 3.4 3.5-5.[address] [facility] LufkinGlobulin2019-07-26 05:35:00* Test Item Value Reference Range Interpretation Comments Globulin (test code = 25802-9) 3.1 2.3-3.5 [facility] LufkinAlbumin/Globulin Mawjw9506-12-94 05:35:00 * Test Item Value Reference Range Interpretation Comments Albumin/Globulin Ratio (test code = 1759-0) 1.1 0.8-2.0 [facility] LufkinAlkaline Xfksoloijsn3293-40-76 05:35:00* Test Item Value Reference Range Interpretation Comments Alkaline Phosphatase (test code = 6768-6) 60 40-150 [facility] LufkinCT ABDOMEN/PELVIS M8387-39-30 10:59:00 [facility] [address] [place] [address] Patient Name: SARAH FLORES MR #: [id number] : [birth year] Age/Sex: 88/M Req #: [id number] Adm Physician: Ordered by: ISHAN MADERA MD Report #: [id number] Location: ER Room/Bed: Procedure: [id number] C T/CT ABDOMEN/PELVIS W Exam Date: 04/15/19 Exam Time: 1030 REPORT STATUS: Signed C T of the abdomen and pelvis, with contrast, [...] 1123 COPY TO: ISHAN MADERA MD Urine VHT7170-84-35 10:42:00 * Test Item Value Reference Range Interpretation Comments Urine WBC (test code = 5821-4) 6-10 0-[address] [facility] LufkinUrine RFU1762-36-02 10:42:00* Test Item Value Reference Range Interpretation Comments Urine RBC (test code = 45323-6) 6-10 0-[address] [facility] LufkinUrine Nyhgaerp4549-97-97 10:42:00* Test Item Value Reference Range Interpretation Comments Urine Bacteria (test code = 47166-1) MODERATE NONE H [facility] LufkinUrine Epithelial Dlgfl3269-92-09 10:42:00 * Test Item Value Reference Range Interpretation Comments Urine Epithelial Cells (test code = 24393-9) FEW NONE [facility] LufkinUrine Wjhcy8576-82-04 10:18:00* Test Item Value Reference Range Interpretation Comments Urine Color (test code = 5778-6) YELLOW YELLOW [facility] LufkinUrine Sjphrwx8637-69-81 10:18:00* Test Item Value Reference Range Interpretation Comments Urine Clarity (test code = 97093-6) SL CLOUDY CLEAR H [facility] LufkinUrine Specific Ihtmlll2455-61-96 10:18:00 * Test Item Value Reference Range Interpretation Comments Urine Specific [place] (test code = 5811-5) 1.015 1.010-1.[address] [facility] LufkinUrine zD6606-83-38 10:18:00* Test Item Value Reference Range Interpretation Comments Urine pH (test code = 36551-7) 6.5 5-7 [facility] LufkinUrine Leukocyte Yutshqrz9200-79-69 10:18:00* Test Item Value Reference Range Interpretation Comments Urine Leukocyte Esterase (test code = 77076-2) NEGATIVE NEGATIV E [facility] LufkinUrine Vdncbfe9698-75-63 10:18:00* Test Item Value Reference Range Interpretation Comments Urine Nitrite (test code = 12503-5) NEGATIVE NEGATIVE [facility] LufkinUrine Vbdbxhe5343-98-24 10:18:00* Test Item Value Reference Range Interpretation Comments Urine Protein (test code = 53244-8) TRACE NEGATIVE H [facility] LufkinUrine Glucose (UA)2019-04-15 10:18:00* Test Item Value Reference Range Interpretation Comments Urine Glucose (UA) (test code = 85390-8) NEGATIVE NEGATIVE [facility] Mawwich6511-41-68 10:18:00* Test Item Value Reference Range Interpretation Comments Urine Ketones (test code = 36909-9) NEGATIVE NEGATIVE [facility] Jsfzectwbkqx8873-98-93 10:18:00* Test Item Value Reference Range Interpretation Comments Urine Urobilinogen (test code = 42774-9) 0.2 0.2-1 [facility] LufkinUrine Ekauzfhre0883-64-34 10:18:00* Test Item Value Reference Range Interpretation Comments Urine Bilirubin (test code = 1977-8) NEGATIVE NEGATIVE [facility] Zppqa7480-31-14 10:18:00* Test Item Value Reference Range Interpretation Comments Urine Blood (test code = 06635-1) TRACE NEGATIVE [facility] LufkinCHEM IYJUR5558-87-24 21:40:0080Mem[facility] HermannCHEM GVJPA7970-20-06 21:40:000.8[facility] ZssjpnyWYYEIHIZVXUS8979-88-56 19:51:0013.0[facility] OefxxvrEGTQXUMPIFPO8372-49-31 19:51:0042.0[facility] [place] GKLPMSVCIMGF5173-78-17 19:51:0014.3[facility] CckyhioPVPATHWLWQEH7427-94-16 19:51:001.14[facility] OphxyykCBYLQCVGDWQR0619-99-79 19:51:0049[facility] [place] UOWNUKPTPYET6598-49-31 19:51:84973Jbyxzkdz DoycainXNDCBKQOEWQN1649-27-99 19:51:001.3[facility] JvukwgjCMQHDZTVNYKK7773-11-26 19:51:0020[facility] OOEXUWVUAKPL8275-66-60 19:51:0030[facility] PpgacpiKCVDDDCZVKXI4327-52-18 19:51:00 98[facility] MhuduqdKSAQTWLIDONL2246-12-87 19:51:004.7[facility] HermannELECTROLYTES 2019-03-09 19:51:00705Avydydqt HermannURINE AND JNAXO0407-43-99 19:41:00* Test Item Value Reference Range Interpretation Comments POC UA pH (test code = POC UA pH) 5.5 1 5.0-8.0 [facility]annUR[facility] AND ENNOU8673-64-48 19:41:00Negative *NA*(03/09/19 2:41 PM) [facility]annUR[facility] AND JVRVN6080-74-81 19:41:00Small *ABN*(03/09/19 2:41 PM) [facility] NBRWH9714-86-38 19:41:00Negative *NA*(03/09/19 2:41 PM) [facility] YLUSA2518-49-59 19:41:000.2[facility]annURINE AND DSWPF6605-47-38 19:41:00Negative *NA*(03/09/19 2:41 PM)[facility]annUR[facility] AND QSRLT3846-50-55 19:41:00* Test Item Value Reference Range Interpretation Comments POC UA SG (test code = POC UA SG) 1.020 1 [facility]annUR[facility] AND ZIKTZ2742-04-77 19:41:00Clear *NA*(03/09/19 2:41 PM) [facility]annUR[facility] AND NRSWT9956-36-55 19:41:00Yellow *NA*(03/09/19 2:41 PM) [facility] HermannCARDIAC LNMUREF8811-96-07 21:39:002.5[facility] HermannCARDIAC VBARRFL6291-28-77 21:39:0061Mem[facility] HermannCARDIAC YRUCJAR2935-76-99 21:39:00< 0.02Mem[facility] HermannCARDIAC WXVBIJI6564-97-64 21:39:0089Mem[facility] HermannCARDIAC SHQPZIT1670-61-71 21:39:002.2[facility] AuuusyrDIPHNFTNSRGK3469-58-76 21:39:52792 Memorial TtxspyyCPJMRIMBKMFT3477-56-27 21:39:0029[facility] HermannELECTROLYTES 2017-02-28 21:39:0093Mem[facility] KycccydRYTZKXZFLTCD0918-13-31 21:39:0014Mem[facility] AvwepyxENXROQVOSHSN8618-00-37 21:39:009.2[facility] FnfxneeOPQECZCYUUBP2017-89-08 21:39:007.4[facility] FdxbwjjEDPOAXYWKVZF8577-11-71 21:39:000.78[facility] ZMTIOLPTIRUJ4013-32-36 21:39:29588Mupugbin AdnpwpuISKEJFQXMFML5524-91-21 21:39:004.0[facility] HidhgqzYHZEESHQJEFC3779-84-45 21:39:004.0[facility] WCMMJJIMLILG0512-16-93 21:39:0018[facility] OtembchNHELPSSGEQAM6165-73-97 21:39:00 3.4Memorial RdupakoCDEVWJKFNMFT1840-89-23 21:39:001.2[facility] [place] RAXWCTHXFSUT3888-60-20 21:39:0067[facility] KelrldnDLEYKNVWQPSK7876-85-12 21:39:00 20[facility] HinnlhzUUNZFUBJQLEO0692-60-45 21:39:000.6[facility] HermannELECTROLYTES 2017-02-28 21:39:0011.0[facility] QjzjqroSBMHVTEEYRCV7809-45-10 21:39:0015Memorial YjjhcmxVGLNWMPSGVET0361-01-64 21:39:0082Memorial RvwwsagUAZOZUXZYA7238-84-31 21:39:000.7[facility] MbmbonpSYDAWGZFKY5118-31-93 21:39:000.7[facility] OVZQFTPTQT9254-95-21 21:39:000.1[facility] VouojdnTHXZVPLLJQ2706-94-47 21:39:006.2 [facility] ElrivtwGZUKJISNHU9031-38-59 21:39:001.2[facility] HermannHEMATOLOGY 2017-02-28 21:39:000.1[facility] LwehoadDRBEQEGNSJ0904-29-86 21:39:0014.8[facility] ZcmguojVRBSPYXGZD4911-10-95 21:39:0075.4[facility] JscgtjoHMNKKSCFBX0773-14-78 21:39:001.2[facility] YpcitqgREYCXNDOAB6954-60-02 21:39:007.9[facility] DEFRDJIMPI7521-65-37 21:39:00* Test Item Value Reference Range Interpretation Comments PT (test code = PT) 12.8 s 12.0-14.7 [facility] VaskkyqBRVLIIUZVS4079-08-47 21:39:000.94[facility] HermannHEMATOLOGY 2017-02-28 21:39:00* Test Item Value Reference Range Interpretation Comments PTT (test code = PTT) 27.9 s 22.9-35.8 [facility] AgjscdkNBIKOHFFDX3517-63-38 21:39:008.3[facility] HermannHEMATOLOGY 2017-02-28 21:39:004.13[facility] XgevnakASJDZJWLAK7010-29-90 21:39:0039.3[facility] RhgnqdkFSIIEHCMEE0159-39-61 21:39:0013.5[facility] EltxzcuVNWJTKTDSH2315-96-01 21:39:0095.emorial KxiezczGUXBXGAWUW7610-96-73 21:39:00* Test Item Value Reference Range Interpretation Comments MCH (test code = MCH) 32.7 pg 27.0-31.0 [facility] TnqipkpQUSPAVXFRY4950-22-90 21:39:0014.4[facility] HermannHEMATOLOGY 2017-02-28 21:39:0034.3[facility] AdtwsfwCYLYCBELIG3015-08-24 21:39:008.5[facility] EnxpjytTEPITCOJGB0989-76-56 21:39:10396Hrdgeyhj SnilgsbYaccqhjlb7753-58-67 13:15:17401 MEQ/LMemorial QfcjusxSrlnbsyau7227-79-16 13:15:004.1 MEQ/LMemorial QsdevntWjgbhgzbo0586-58-56 13:15:000.9[facility] BjzzibnKjaulguls3338-14-92 13:15:0014Mem[facility] SnccqbsUzjitfbqk5268-83-24 13:15:00* Test Item Value Reference Range Interpretation Comments BUN/CREAT (test code = BUN/CREAT) 16 1 03-16 [facility] VmjhfvdIjpucnoap2517-79-71 13:15:003.8[facility] HermannChemistry 2015-04-20 13:15:008.7[facility] NiyialrCzkvzasut1294-64-99 13:15:0026[facility] KyocppwFhgefapmz9567-53-22 13:15:0018[facility] SuyxrvdFdxuushqv7798-99-17 13:15:0066[facility] GthyllzOiwbdzyiyk5519-73-49 13:15:0014.2[facility] [place] Hstspzfwyo6832-23-58 13:15:0041.9[facility] FjdtjglHufoppgqhj5237-25-82 13:15:00 178 K/CMMMemorial FnldxnzIwwevnpny1571-05-69 16:21:00NegativeMemorial Doss Rtaxbvjxx6374-81-92 16:21:00NegativeMemorial UdfwnbzPngdjqpdkzty1386-86-42 16:21:00NegativeMemorial GlhuaptPmsiybwnb9171-95-91 16:20:00NegativeMemorial CaombqgKrpsewdqf2966-42-82 16:20:00NegativeMemorial HermannMicrobiology 2013-12-17 16:20:00NegativeMemorial QzptyccWarwefgxs8422-75-38 14:39:0015.0 Memorial FxviqaeQzquvnygq4370-14-18 14:39:0015.0[facility] HermannChemistry 2013-12-15 16:18:00NegativeMemorial RbzmogzZldmofhts7650-44-18 16:18:00Negative Memorial RabotunXvheeynqxqjv9800-97-77 16:18:00NegativeMemorial HermannChemistry 2013-12-14 15:09:005.1[facility] KzvxkjqQhlumtstb3300-42-36 15:09:92655 MEQ/L Memorial FksrdenPkcuqcpbz9784-96-92 15:09:004.8 MEQ/LMemorial HermannChemistry 2013-12-14 15:09:000.8[facility] HjpadphZccxujxth0384-06-13 15:09:0010Mem[facility] MfzjzkoZiqqufzdc5308-30-09 15:09:00* Test Item Value Reference Range Interpretation Comments BUN/CREAT (test code = BUN/CREAT) 12 03-16 Memorial WqipsloFeijkzwok3084-60-13 15:09:004.2[facility] HermannChemistry 2013-12-14 15:09:008.9[facility] GkmdgljDbmktqigg6476-35-24 15:09:0022Mem[facility] NkblbhiUakpmibxg1268-29-13 15:09:0013Mem[facility] JpoyyvgBbfosdppp6339-00-37 15:09:0068[facility] ErxxspzMullvkerf5184-89-92 15:09:001.20[facility] [place] Jhgxritim9948-22-58 15:09:001.650[facility] QuzjiuaPyodwsush3409-68-99 15:09:005.1 Memorial XkosylzOitcaufuw2776-99-62 15:09:78554 MEQ/LMemorial HermannChemistry 2013-12-14 15:09:004.8 MEQ/LMemorial QsawubfNpzwieuqwj6417-72-12 15:09:0013.1 Memorial DevbobhWrehligzwo4727-72-30 15:09:0041.1[facility] HermannHematology 2013-12-14 15:09:48661 K/CMMMemorial FbdhpeqVomsbufkkt8865-07-82 15:09:00Light YellowMemorial PsgidzpHfovtkuvbm0281-78-99 15:09:00OccasionalMemorial [place] Uefkpiriov9557-93-42 15:09:00Light YellowMemorial MlitctkAegyiduxba8617-64-43 15:09:00OccasionalMemorial HtrvyaaKtflwbcvp5931-48-63 13:47:74468Judhykwr UvgratkNjkhmrefn2172-82-95 13:47:0074Memorial BnzqhulHnsmkxsog9086-90-23 13:47:0056Mem[facility] IijxqdbYzyjuoydz3719-02-40 13:47:42366 MEQ/LMemorial [place] Mpkqehzxf8658-89-30 13:47:004.0 MEQ/LMemorial KebcbmjGwsrvpdif9054-49-83 13:47:000.9[facility] VivgsqeUadvdszyr7547-42-00 13:47:0014Mem[facility] Doss Ajbgapnkf1059-90-80 13:47:00* Test Item Value Reference Range Interpretation Comments BUN/CREAT (test code = BUN/CREAT) 03-16 Memorial JkvkvcsIpovvnylb0733-50-24 13:47:004.0[facility] HermannChemistry 2013-01-28 13:47:008.8[facility] SxrmjzlGjxkycnfx8421-07-33 13:47:0019[facility] VzduzblMrtnxgnvk9542-99-32 13:47:0014Mem[facility] CjukwvoIdrqbpbuk5281-28-92 13:47:0077Mem[facility] SiafpzgGlhqxkxsq1104-64-94 13:47:85846Gbgixwsm Doss Tnbubccii0135-31-03 13:47:0074Memorial IaiwzopFjlosgkii9483-37-00 13:47:0056 Memorial EuzalbzLyddtehvm1361-26-53 13:47:54175 MEQ/LMemorial HermannChemistry 2013-01-28 13:47:004.0 MEQ/LMemorial OsmslqzFnltnfucz6102-62-07 13:47:000.9 Memorial AznemuwKqgwdvvaq0435-81-44 13:47:0014Mem[facility] HermannChemistry 2013-01-28 13:47:00* Test Item Value Reference Range Interpretation Comments BUN/CREAT (test code = BUN/CREAT) 16 03-16 Memorial CwkrptqUywayzqye9049-55-03 13:47:004.0[facility] HermannChemistry 2013-01-28 13:47:008.8[facility] RuujnbtAoevmmqnf1504-03-03 13:47:0019[facility] UpilnepZnvknuvre1217-55-30 13:47:0014Mem[facility] JpaejhkKkldhbhkc6302-97-09 13:47:0077Mem[facility] BztctslKpmainewu0664-29-59 13:47:89791Qblqfiwz [place] Fqyjrhkau8545-97-20 13:47:0074Mem[facility] CzdwzygRoudifbgx9078-85-00 13:47:0056 Memorial LhxvejrRtdxdyytw7051-95-85 13:47:46896Bftmhezh HermannChemistry 2013-01-28 13:47:72673 MEQ/LMemorial IkerrtoGrcpcwslh2647-16-29 13:47:004.0 MEQ/LMemorial BeihzavVfrdtjjqz6100-65-80 13:47:000.9[facility] HermannChemistry 2013-01-28 13:47:0014Mem[facility] DfllzrgYecxeadga1841-41-33 13:47:00* Test Item Value Reference Range Interpretation Comments BUN/CREAT (test code = BUN/CREAT) 16 1 6-25 Memorial DjlpcjyJvmflmyed3542-35-99 13:47:004.0[facility] HermannChemistry 2013-01-28 13:47:008.8[facility] NfoxydkGfoxcrktx1300-01-10 13:47:0019Mem[facility] LzpslkeOhrzvazeo8678-06-39 13:47:0014Mem[facility] OohwlxcAuikkwier0785-25-50 13:47:0077Mem[facility] GzsivjrFdoedqfnd3031-41-86 13:47:72085Pmhbzlqe [place] Kwpazsano6884-75-04 13:47:0074Mem[facility] XqibtwcEfrdceeso6661-60-53 13:47:0056 Memorial OkukxajDddoeqskr9771-79-94 13:47:11137Dofglbsa HermannChemistry 2013-01-28 13:47:0074Mem[facility] LckxhwzUpmxfqvty2736-59-84 13:47:0056Mem[facility] OjeqcdcTvypjrtnfs8444-85-74 13:47:0013.7Mem[facility] IcfcnjeJlkcgkvuuj1477-09-41 13:47:0040.8[facility] RealmykPfdklckfqv1305-81-85 13:47:88760 K/CMMMemorial AgoxbdsSwbilovizl6289-28-71 13:47:0013.7[facility] QgmivrpSioisispis6724-95-99 13:47:0040.8[facility] ZyaraidWzrrhjvvoo3064-42-51 13:47:54962 K/CMMMemorial UhgrjzuCoyqkpfkaj0126-06-12 13:47:0013.7[facility] WuyleuoMzaijbyttr1675-20-00 13:47:0040.8[facility] XfwpjitRttatihwre6819-30-49 13:47:82569 K/CMMMemorial HqhvlfySjwpkeuhu5027-07-86 15:46:59189Pxsohxnk QdkdwaaDrmjzvrti1476-87-60 15:46:0080[facility] SftldisZbnilwrnl9945-41-48 15:46:0058Mem[facility] Doss Lbchdkslk1232-53-07 15:46:41775 MEQ/LMemorial XhdpbcaImmkuzzxr2916-86-18 15:46:004.0 MEQ/LMemorial HxqwcfdQovghcwzd7011-15-57 15:46:0015[facility] [place] Hrdlkbpwd7588-08-38 15:46:001.0[facility] XxhaandYpvdrcyra6370-13-72 15:46:00* Test Item Value Reference Range Interpretation Comments BUN/CREAT (test code = BUN/CREAT) 15 1 6-25 [facility] RixpjmiJjosfdrap7887-32-76 15:46:003.8[facility] HermannChemistry 2012-05-01 15:46:008.7[facility] EozuvsiJxytssjml3716-29-13 15:46:0013Mem[facility] SobubqkSwidzxpyy5946-95-83 15:46:0023Mem[facility] PpwntmcZsythqate8787-46-07 15:46:0050[facility] OcpbvflWysjtbrez2174-75-29 15:46:18722Obyhzluh [place] Pxefyzhmr3821-81-67 15:46:0080[facility] CbkfyqcHmbmgjrqi3404-82-34 15:46:0058 [facility] FsboxrhSgijhrorb3940-40-91 15:46:0091[facility] HermannChemistry 2012-05-01 15:46:29908 MEQ/LMemorial RamrhirSclkbwxev0247-19-90 15:46:004.0 MEQ/LMemorial CwmizuaYcrxulerb9998-10-63 15:46:0015Mem[facility] HermannChemistry 2012-05-01 15:46:001.0[facility] HzgmltzNnerzfrxg2111-23-38 15:46:00* Test Item Value Reference Range Interpretation Comments BUN/CREAT (test code = BUN/CREAT) 15 03-16 Memorial PeyktrlVfzujwfpm6148-87-40 15:46:003.8[facility] 2012-05-01 15:46:008.7[facility] HjidxspVsfhktfdk7050-29-07 15:46:0013[facility] AfmghokAbxeyzclg0636-20-04 15:46:0023[facility] GlxdpscDshsmjlak5283-74-08 15:46:0050[facility] RmtmfmsQiclqtcax2287-09-19 15:46:98395Zismfrti [place] Gnclzlrru5946-81-24 15:46:0080[facility] YkecsgcXkvxkndeh0338-61-62 15:46:0058 [facility] RllyyelLvwwoggdy8065-67-75 15:46:0091[facility] 2012-05-01 15:46:17064 MEQ/LMem[facility] QihtzqiAmgyyfrlh0893-70-71 15:46:004.0 MEQ/LMem[facility] AfxnuwtEzfgssoqz8694-73-36 15:46:0015[facility] 2012-05-01 15:46:001.0[facility] PjdtsfhVdwbszret4149-02-27 15:46:00* Test Item Value Reference Range Interpretation Comments BUN/CREAT (test code = BUN/CREAT) 15 03-16 [facility] ZlrhekuIxlzyisld0304-46-87 15:46:003.8[facility] 2012-05-01 15:46:008.7[facility] UmhlyynQsoybdejo0320-46-41 15:46:0013[facility] FkmuuhtUbxjjochf1265-06-85 15:46:0023[facility] RmpiwfqDjazcevxi2192-17-21 15:46:0050[facility] GsciutmHbwyrpree9206-90-63 15:46:23774Ijqlvrfl [place] Whvzyuwyy9211-61-59 15:46:0080[facility] YvdtqeqJjyavppwy4768-81-08 15:46:0058 [facility] EbvzdcpUxspsikrz3065-81-45 15:46:41961Ooywtpuj [facility] 2012-05-01 15:46:0080[facility] GnpzlutZwicneilz7950-57-19 15:46:0058[facility] HlbqcasZfhcqlttz1362-15-65 14:35:28255Fzvrsgtn OerdwqeHaicynvqt2314-33-95 14:35:0098[facility] ImsyxnpOwmadfnlb7001-59-04 14:35:0062[facility] Doss Qpqpgppvu8518-33-78 14:35:0084[facility] RelcdrlMckcfujcc6003-54-79 14:35:67993 MEQ/LMem[facility] LaiiboyUsgmeluun7146-02-77 14:35:004.2 MEQ/LMem[facility] [place] Akjdgfdek0435-20-95 14:35:0014[facility] BlngcgrKqoxysbdg1497-90-04 14:35:000.9 [facility] LjirwpjKcdwdmshi9957-71-51 14:35:00* Test Item Value Reference Range Interpretation Comments BUN/CREAT (test code = BUN/CREAT) 16 1 6-25 [facility] EsndergIluibfgri5971-45-02 14:35:004.0[facility] 2011-11-08 14:35:009.2[facility] WzglrqtDohzebgwz7621-98-53 14:35:0017[facility] YsofapnPdmhtefco7501-30-84 14:35:0028[facility] RwzozqmTojcmbdde9991-97-34 14:35:0058[facility] NfehyplZxoyljmsh5453-47-14 14:35:97263Fifgpdqv [place] Mnewvbspq5812-25-76 14:35:0098[facility] IjfhwovYtoltffpg2147-22-14 14:35:0062 [facility] OiwhqgwBmkqhfzpk3908-67-47 14:35:0084[facility] 2011-11-08 14:35:32039 MEQ/LMem[facility] QnkvaslBsmkmcchx7600-60-87 14:35:004.2 MEQ/LMem[facility] FdaxderGafinirlr8199-66-34 14:35:0014[facility] 2011-11-08 14:35:000.9[facility] LyteaaeIwdoicuwh5471-23-32 14:35:00* Test Item Value Reference Range Interpretation Comments BUN/CREAT (test code = BUN/CREAT) 16 03-16 [facility] PihzhjfNxuqnjskd6881-26-82 14:35:004.0[facility] 2011-11-08 14:35:009.2[facility] NhuzrwhRawbcvyzl5364-05-46 14:35:0017[facility] XphwstsGyvqgzrfd5754-57-91 14:35:0028[facility] SzjgvmgXxjoyegni5602-57-52 14:35:0058[facility] XkiexvlNxibgejag5695-86-40 14:35:81246Bupjutbb [place] Ibrqwsact5670-61-14 14:35:0098[facility] DidlacxPvxyvznva0757-02-99 14:35:0062 [facility] EbmzrfqCpdggtcus7917-88-29 14:35:0084[facility] 2011-11-08 14:35:59501 MEQ/LMemorial KkegconKzjkzyiah0801-24-73 14:35:004.2 MEQ/LMem[facility] QxfzzekOdscaugsu3461-59-82 14:35:0014[facility] 2011-11-08 14:35:000.9[facility] HpoyigqZnelihnti4414-26-67 14:35:00* Test Item Value Reference Range Interpretation Comments BUN/CREAT (test code = BUN/CREAT) 16 03-16 [facility] JugvaniIkosyeaxd8227-22-21 14:35:004.0[facility] 2011-11-08 14:35:009.2[facility] MafjgohGuopndmam5898-57-92 14:35:0017[facility] SvyxphnEicuwacan3895-27-59 14:35:0028[facility] ZmtxgltAzqqcaokj0406-42-08 14:35:0058[facility] NifeedgNbhsxyvzw3101-48-47 14:35:25593Oapvzqvy [place] Vhbfbwxpq4060-62-06 14:35:0098[facility] KznrcypPyhjjvhau0232-70-08 14:35:0062 [facility] BlrlhhxSpzokhgor0850-00-10 14:35:59788Lzbnteeo [facility] 2011-11-08 14:35:0098[facility] LpvngxpResyjyata0125-94-88 14:35:0062[facility] LujohnyRwowfhoqb0962-10-17 16:25:07937 MEQ/LMemorial SksybzxTgjcqefyk2188-00-58 16:25:004.2 [facility]/L[facility] QjwvcxuLfctiehft2045-38-33 16:25:0014[facility] Oxxcmtkmh8749-38-02 16:25:000.8[facility] FsacsbpHpnefvuzw4574-40-93 16:25:00* Test Item Value Reference Range Interpretation Comments BUN/CREAT (test code = BUN/CREAT) 18 1 6-25 [facility] QyqukgoVfctdijyn9518-55-05 16:25:003.9[facility] 2011-08-23 16:25:008.6[facility] OnwakmiZavzoonzk7032-70-94 16:25:0020[facility] HjenjzqUlrvnvvup3881-30-69 16:25:0029[facility] CzlxszzAxipncwsq6057-93-78 16:25:0063[facility] JbgzuscZmgifsqgb9595-47-93 16:25:14606 [facility] [place] Qzpdcyvvf0358-58-06 16:25:004.2 MEQ/LMem[facility] IzhjdnwLrprkikpq5166-72-27 16:25:0014[facility] ArxxacyXevdmvlsv6841-49-07 16:25:000.8[facility] Xphaijqfl7694-19-13 16:25:00* Test Item Value Reference Range Interpretation Comments BUN/CREAT (test code = BUN/CREAT) 18 1 6-25 [facility] BmcmkxoJwljlfbvi0394-09-77 16:25:003.9[facility] 2011-08-23 16:25:008.6[facility] WqljufdWruharggl3787-04-41 16:25:0020[facility] MeqfaoqKmnpureod3402-65-85 16:25:0029[facility] MxcxiynLqxywyqjn5387-22-39 16:25:0063[facility] PootuafGjsyyjjoe9806-94-23 16:25:31341 ME[facility]/L[facility]oss Feemgdaqv2149-12-68 16:25:004.2 MEQ/LMem[facility] QihghicMxtdwcxav6035-75-08 16:25:0014[facility] PyunnbmFnaoinfmw7991-35-27 16:25:78965 [facility] Zhsvyxumt0771-18-31 16:25:004.2 MEQ/LMem[facility] SfwidhsZkpxcszdx0041-69-41 16:25:0014[facility] EnywmmhTthmssfynb3305-87-52 16:25:0014.0[facility] Ohagsgusck7202-08-28 16:25:0041.5[facility] SmsepeaDpqrsohjoa1497-67-89 16:25:00 213 K/CMMMemorial ZxldsehBnyeaalqfy6732-66-66 16:25:0014.0[facility] Pgwstarhqm6277-51-35 16:25:0041.5[facility] GfsyrsvTwtdjcvpir2348-01-05 16:25:00 213 K/CMMMemorial SbkobszUcjcuvskh8353-48-29 15:10:005.8[facility] Ywmjdhhoz0306-30-31 15:10:008.17[facility] ZftvecbYqmjzixlu7481-22-21 15:10:005.8 [facility] YekpnjaBxheyhshv1187-21-95 15:10:008.17[facility]ann[facility]inalysis 2011-08-07 15:10:00YellowMemorial QyzipigMhomnjuddg3431-21-45 15:10:00None Seen [facility] CcjtvuuXblwbyorqz1235-89-98 15:10:00YellowMem[facility] HermannUrinalysis 2011-08-07 15:10:00None SeenMemorial IkqroojHybyotpuf6256-30-70 14:20:24022 MEQ/LMemorial OiizygzJkdcvyztm2727-10-40 14:20:004.1 [facility] Mlntposnt5686-50-99 14:20:0012[facility] JblikyfUhmraatno3257-68-52 14:20:000.8 [facility] IvckvcwBwjsmzbuz3435-44-01 14:20:00* Test Item Value Reference Range Interpretation Comments BUN/CREAT (test code = BUN/CREAT) 15 03-16 [facility] PhxhvycOeianjlgo6594-51-89 14:20:004.2[facility] 2011-07-12 14:20:008.9[facility] XmzgndiJgonspjfd1845-49-57 14:20:0010[facility] ObnuowhAkdrwlunz6972-29-33 14:20:0025[facility] WdvhmutQouiypqjy2715-37-44 14:20:0066[facility] FyurvhzJgjmxpzdr6256-89-44 14:20:36508 MEQ/L[facility]oss Qdzdebyax6985-09-44 14:20:004.1 MEQ/LMem[facility] UxuuuxeRweolmcxa5004-88-79 14:20:0012[facility] RxvuhakHeclpasas9598-68-42 14:20:000.8[facility] Uhrxeuzwc8168-62-77 14:20:00* Test Item Value Reference Range Interpretation Comments BUN/CREAT (test code = BUN/CREAT) 15 03-16 [facility] UsmttidSozitjehd9708-49-69 14:20:004.2[facility] 2011-07-12 14:20:008.9[facility] CbnqciiNyqmspbis3429-24-97 14:20:0010[facility] BrocyyjHeompzvlz1590-03-62 14:20:0025[facility] NsqmtnrJwgcejpfv5094-83-13 14:20:0066[facility] WebbfkrLeorugmvw5380-74-16 14:20:33639 MEQ/L[facility] Qlaymemdy2117-97-82 14:20:004.1 MEQ/LMem[facility] YcdishkKdrtnyfwz3941-99-93 14:20:0012[facility] DikubyrXbihiwjpc6176-75-30 14:20:58228 [facility] Abrmpyshy2389-33-84 14:20:004.1 MEQ/LMem[facility] SsfristSxsnwxwjf4693-24-80 14:20:0012[facility] WcceynpLdcqwgwza1727-96-86 17:00:0014[facility] Ueqlppsyx8712-95-77 17:00:000.8[facility] LikmsrdFwhfujfty6663-97-22 17:00:40827 MEQ/LMemorial AwvlsxiCwwwlepyr7175-31-18 17:00:004.3 [facility] Rlkepdnjz2270-08-34 17:00:008.8[facility] JpdweroBozccwaoa3989-62-68 17:00:0014 [facility] TdqhdvySzhwghdkr9255-69-02 17:00:000.8[facility] 2011-06-26 17:00:78991 MEQ/LMem[facility] AcggqzvAieueszlh1023-98-96 17:00:004.3 MEQ/LMem[facility] JlvrymaEunfmewxa6464-58-71 17:00:008.8[facility] 2011-06-26 17:00:0014[facility] XqedoydIdozfzjbo7881-87-34 17:00:000.8[facility] FfpinvfGnlfkokub5630-54-83 17:00:72115 MEQ/LMemorial FjrievaBirmvefej8948-66-85 17:00:0014[facility] QxynwtcQnxnkwlkv4176-79-93 17:00:000.8[facility] Arcsbelzj2514-87-34 17:00:41388 MEQ/LMemorial XjdyohuUzwiknpps6358-98-87 18:50:44810 MEQ/LMem[facility] DpfrvdbHroeviruz1850-88-86 18:50:004.5 MEQ/LMem[facility] BszqgvpTedauzsvb0912-63-23 18:50:0013[facility] ZdhorwdFmxqsogre9644-43-33 18:50:000.8[facility] UglsgcsDeudncctv2397-51-27 18:50:00* Test Item Value Reference Range Interpretation Comments BUN/CREAT (test code = BUN/CREAT) 16 03-16 [facility] DsaowsfVgthuitws5035-26-56 18:50:003.8[facility] 2011-05-07 18:50:009.1[facility] MseflzcYubydomtk6023-80-47 18:50:0010[facility] UpajwwcAggksfirf2136-43-99 18:50:0023[facility] UkikqtrOoufdtuuy0356-99-72 18:50:0059[facility] LslvzabBczctctfl3947-56-31 18:50:05897 MEQ/L[facility] Yrsmytwzm6101-40-31 18:50:004.5 MEQ/LMem[facility] YgjffecSwwzhruke2095-72-04 18:50:0013[facility] UgljvyiDbnltxzvh8569-83-76 18:50:000.8[facility] Vayhqhtmp6034-61-52 18:50:00* Test Item Value Reference Range Interpretation Comments BUN/CREAT (test code = BUN/CREAT) 03-16 [facility] IqlvfvcDdgvygoci3601-17-78 18:50:003.8[facility] 2011-05-07 18:50:009.1[facility] HsvrzqqLkekiyitt8240-68-29 18:50:0010[facility] NiawfzdAkqpvzdgu7472-18-94 18:50:0023[facility] MvqzkcvDvtwhzqsc9720-30-99 18:50:0059[facility] AuszgzqLtklsirfy8031-37-82 18:50:36544 [facility] Ralwzqtkb2985-73-09 18:50:004.5 MEQ/LMem[facility] FuyalccLgfpeokfx0284-89-89 18:50:0013[facility] WayqvsbRlzvebydb4143-35-69 18:50:60836 [facility] Vlkhqbwce0288-81-75 18:50:004.5 MEQ/LMem[facility] IqbljlpKnypksrdh4530-04-96 18:50:0013[facility] YyzfvjpKhmrdtfdo5334-04-07 21:35:16672Qxsggots Doss Csepwyylv6937-03-38 21:35:004.4[facility] MmnsxiuOjtmatlmu7990-87-32 21:35:0019 [facility] GbsxeajTqmdeousa8803-82-89 21:35:001.1[facility] 2011-03-22 21:35:00* Test Item Value Reference Range Interpretation Comments BUN/CREAT (test code = BUN/CREAT) 17 1 6-25 [facility] IsmllynOcyofspto4515-41-75 21:35:004.1[facility] 2011-03-22 21:35:009.0[facility] GrgdjlvMapasnqyx3254-48-81 21:35:006[facility] KslyiaqIbhgirdlu4824-93-76 21:35:0026[facility] EhpqzqrOdurrywpp4365-93-28 21:35:0070[facility] FoxxkgeNcptqgzrv7327-04-08 21:35:90794Belcchio Doss Nbjngkwvd7431-47-33 21:35:004.4[facility] CcebmesIikhlhxuw1249-01-05 21:35:0019 [facility] LgqugxeIjqodcvnty5305-82-38 21:35:0014.4[facility]ann[facility] 2011-03-22 21:35:0042.9[facility] XgvurrfJwlzkljecd4164-24-11 21:35:29391 K/[facility] KcuchdwJhusdgvzbr2440-97-65 21:35:004[facility] 2011-01-29 14:37:0013.9[facility] VfdboxoGrzjxpgtlf5506-57-67 14:37:0041.4[facility] KswsyomMopmcsoixf8607-32-26 14:37:34049 K[facility] 2010-11-30 15:39:007.6[facility] MwkrjxrUdfjaejdo1719-94-50 15:39:007.6[facility] FajrcvgShgszrjhl4239-28-35 14:40:08913Atsueogw FuslqlrDwilqtgho1507-74-96 14:40:33274Ihxhisft LjssukwKjbrjymbz9161-86-61 14:40:0056[facility] Clxymqdif1198-59-28 14:40:98882Ptvterhw VddwqstHmqhgcsoz3141-08-90 14:40:85479 [facility] OiuzoctYdidhgzdg2352-77-19 14:40:004.5[facility] 2010-09-10 14:40:0018[facility] ZfqkspvXtldvwxod7396-78-96 14:40:000.8[facility] JrjwmurNgfwfakpg9567-70-23 14:40:00* Test Item Value Reference Range Interpretation Comments BUN/CREAT (test code = BUN/CREAT) 23 1 6-25 [facility] WfmnjjtHfnvybhqr8090-85-36 14:40:003.8[facility] 2010-09-10 14:40:009.0[facility] VlwbhtgDhgusuyxy3996-09-53 14:40:0015[facility] MadetklIvusxxgpf2766-12-98 14:40:0028[facility] XbdptfnNhvumyvqg7418-61-42 14:40:0052[facility] YbxtbrrBdpohhuxg3127-33-19 14:40:14886Veaotopy Doss Cutxcvnja0509-63-17 14:40:47854Mhyrukud VhibrilIloecwyzm3181-80-42 14:40:0056 [facility] LjefqciWkphprikja1390-55-58 14:40:0014.2[facility]ann[facility] 2010-09-10 14:40:0043.6[facility] AkdvheyTbeccoihto3127-48-31 14:40:95478 K/[facility] ZbwnrhqTnnacjzgdh2206-10-88 14:40:00YellowMemorial HermannUrinalysis 2010-09-10 14:40:00None SeenMemorial XfygdwqAmicroxwni1892-70-86 14:40:00Yellow [facility] MznpnvqFjbhxvdhlw0478-82-86 14:40:00None SeenMem[facility] HermannChemistry 2009-11-27 16:40:001.120[facility] CsavmczCnfkhobdg8290-00-55 16:40:66727Fuclvffy RaafnapCyygkchlr4236-41-29 16:40:004.2[facility] KhjiuqhLgxjuxrir9932-32-96 16:40:0011[facility] ZqchrbpNxzzbepff8229-04-00 16:40:000.9[facility] Miymcscrm6981-46-89 16:40:00* Test Item Value Reference Range Interpretation Comments BUN/CREAT (test code = BUN/CREAT) 12 1 25 [facility] DlhaxauHuvavkkso5105-75-25 16:40:004.2[facility] 2009-11-27 16:40:008.8[facility] DxwjspaUqpvceuzh8093-19-82 16:40:0028[facility] JruvqswEjjyudnjh8985-45-04 16:40:0034[facility] EyjbbwdIgkdvklow5538-97-35 16:40:0060[facility] RywouuhHbdfgztip9463-41-26 16:40:65564Xifbuimn [place] Kcfhnezvo8763-35-81 16:40:001.120[facility] ZpknswxCqspjxxzo2648-59-13 16:40:03873 [facility] WjdvtwwPzwlpuglv4078-83-74 16:40:004.2[facility]annH[facility] 2009-11-27 16:40:0014.6[facility] AigdpodQrgdgyzsev5258-64-21 16:40:0043.6[facility] JabmygiIgeiemoosi3824-60-97 16:40:24873 K/CMMMemorial HermannUrinalysis 2009-11-27 16:40:00STRAWMemorial IylkmqfUayldmdyei7935-15-98 16:40:00None Seen [facility] DusjxcbLxnsfrildj0796-24-53 16:40:00STRAWMemorial HermannUrinalysis 2009-11-27 16:40:00None [facility]
--- OUTSIDE RECORDS SUMMARY | 2020-06-20 14:55 | XMS REPORT | Continuity of Care Document ---
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 [facility] OSTEOARTHROSIS, GENERALIZED, MULTIPLE SITES Active 10/20/2014 Condition 04/20/2015 [facility] Anemia (disorder) Active 12/15/2013 Problem 05/04/2020 Data migrated from [employer] on 02/18. [facility] ANEMIA Active 12/15/2013 Condition 04/20/2015 [facility] WEIGHT LOSS, ABNORMAL Inactive 12/14/2013 Condition 04/20/2015 [facility] THYROID NODULE Inactive 12/14/2013 Condition 04/20/2015 [facility] NEED PROPHYLACTIC VACCINATION&INOCULATION FLU Inactive 07/09/2013 Condition 04/20/2015 [facility] Bronchitis (disorder) Resolved 01/27/2013 Problem 05/04/2020 Data migrated from [employer] on 04/08. [facility], JASE Pearson,[facility] BRONCHITIS Inactive 01/27/2013 Condition 04/20/2015 [facility] OTHER SPECIFIED DERMATOSES [place] ctive 01/29/2012 Condition 04/20/2015 [facility] Acute sinusitis (disorder) Res olved 12/23/2011 Problem 05/04/2020 Data migrated from [employer] on 04/08. [facility], JASE Pearson, [facility] OTHER ACUTE SINUSITIS Inactive 12/23/2011 Condition 04/20/2015 [facility] Hyperlipidemia (disorder) Acti ve 08/07/2011 Problem 05/04/2020 Data migrated from [employer] on 02/18. [facility], OPID [place], [facility] URINARY FREQUENCY Inactive 08/07/2011 Condition 04/20/2015 [facility] HYPERLIPIDEMIA Active 08/07/2011 Condition 04/20/2015 [facility] HYPERGLYCEMIA Inactive 08/07/2011 Condition 04/20/2015 [facility] COUGH Inactive 03/22/2011 Condition 04/20/2015 [facility] Pneumonia (disorder) Resolved 02/08/2011 Problem 05/04/2020 Data migrated from [employer] on 04/08. [facility], JASE Pearson, [facility] PNEUMONIA Inactive 02/08/2011 Condition 04/20/2015 [facility] Upper respiratory infection (disorder) Resolved 01/29/2011 Problem 05/04/2020 Data migrated from [employer] on 04/08/15. [facility], JASE Pearson, [facility] URI Inactive 01/29/2011 Condition 04/20/2015 [facility] Allergic rhinitis (disorder) A ctive 11/30/2010 Problem 05/04/2020 Data migrated from [employer] on 02/18. [facility], OPID L[place], [facility] ALLERGIC RHINITIS Active 11/30/2010 Condition 04/20/2015 [facility] NOCTURIA Inactive 11/30/2010 Condition 04/20/2015 [facility] DYSURIA Inactive 11/30/2010 Condition 04/20/2015 [facility] Backache (finding) Resolved 09/07/2010 Problem 05/04/2020 Data migrated from [employer] on 04/08. [facility], JASE Pearson, [facility] Vitamin D deficiency (disorder) Active 09/07/2010 Problem 05/04/2020 Data migrated from [employer] on 02/18. [facility], OPID [place], [facility] BACK PAIN Inactive 09/07/2010 Condition 04/20/2015 [facility] B12 DEFICIENCY Inactive 09/07/2010 Condition 04/20/2015 [facility] UNSPECIFIED VITAMIN D DEFICIENCY Active 09/07/2010 Condition 04/20/2015 [facility] NEUROPATHY, UNSPECIFIED Inacti ve 04/24/2010 Condition 04/20/2015 [facility] ORTHOSTATIC HYPOTENSION Inacti ve 11/27/2009 Condition 04/20/2015 [facility] Generalized anxiety disorder (disorder) Active 11/13/2009 Problem 05/04/2020 Data migrated from [employer] on 02/18/15. [facility], OPID [facility], [facility] ABDOMINAL PAIN, PERIUMBILICAL Inactive 11/13/2009 Condition 04/20/2015 [facility] ANXIETY DISORDER, GENERALIZED Active 11/13/2009 Condition 04/20/2015 [facility] SCREENING FOR COLON CANCER [place] ctive 11/13/2009 Condition 04/20/2015 [facility] Benign hypertension (disorder) Active 10/30/2009 Problem 05/04/2020 Data migrated from [employer] on 02/18. 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 Problem 05/04/2020 [facility], OPID Boyd,[facility] Gastroesophageal reflux disease (disorder) Active Problem 05/04/2020 [facility], OPID Boyd,[facility] Osteoarthritis -multiple joint (disorder) Resolved Problem 05/04/2020 [facility], OPID Boyd,[facility] Acute abdominal pain (finding) Resolved Problem [facility], OPID [facility], [facility] Anxiety (finding) Resolved Problem 05/04/2020 [facility], OPID [place],[facility] Chronic osteoarthritis (disorder) Resolved Problem [facility] Generalized chronic body pains (finding) Resolved Problem 05/04/2020 [facility] Past history of clinical finding (contex t-dependent category) Resolved Pr oblem 05/04/2020 [facility] Boyd,[facility] Hypertensive disorder, systemic arterial (disorder) Resolved Problem 05/04/2020 [facility] [place],[facility] Inguinal hernia (disorder) Res olved Problem [facility] [place],[facility] Osteoarthritis (disorder) Reso lved Problem [facility] 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 [facility] DYSPHAGIA, UNSPECIFIED Active [facility] Medications Medication Details Route Status Patient Instructions Ordering Provider Order Date Source RABEprazole 20 mg oral enteric coated tablet 20 mg = 1 tab, PO, Daily, # 30 tab, 1 Refill(s) Active 06/23/2019 [facility] Sucralfate 100 MG/ML Oral Suspension [Carafate] 1 gm = 10 ml, PO, QID-Before Meals, # 400 ml, 0 Refill(s) Active 06/23/2019 [facility] Sodium Chloride 0.9% IV 1000 mL 1,000 mL, Rate: 75 ml/hr, Infuse over: 13.3 hr, Route: IV, Dosing Weight 49.318 kg, Total Volume: 1,000, Start date: 06/23/19 13:54:00 CDT, Duration: 30 day, Stop date: 07/23/19 13:53:00 CDT, 1.56, m2 Inactiv e 06/23/2019 [facility] Omnipaque 350 injectable solution Notes: (same as:Omnipaque 350). WASTE: F/P - Black; E - [employer]ash [employer] Active 03/11/2019 [facility] Albuterol 0.833 MG/ML / Ipratropium Brom em 0.167 MG/ML Inhalant Solution Notes: (Same as: [place]) Inactive 02/28/2017 [facility] Saline Flush 0.9% Notes: prese rvative free. Inactive 02/28/2017 [facility] ROLLER WALKER MISC use as dire cted Active 01/12/2015 [facility] VITAMIN D-3 CAPS 1 tab by mout h once a day Active 10/20/2014 [facility] IRON TABS 1 tab by [...] CENTRUM SILVER TABS 1 tab by m out once a day Active 01/11/2014 [facility] [...] Inactive 03/22/2011 [facility] VITAMIN D (ERGOCALCIFEROL) [id number] UNIT CAPS 1 po once a week x 12 weeks, then 1 po once a month Inactive 01/15/2011 [facility] XANAX TAB 0.25MG one tab PO q hs prn anxiety Inactive 01/15/2011 [facility] VITAMIN D (ERGOCALCIFEROL) [id number] UNIT CAPS 1 po once a week x 12 weeks, then 1 po once a month Inactive 01/15/2011 [facility] VITAMIN D (ERGOCALCIFEROL) [id number] UNIT CAPS 1 po once a week [...] 04/24/2010 [facility] Allergies, Adverse Reactions, Alerts Substance Category Reaction Severity Reaction type Status Date Reported Comments Source No Known Medication Allergies Assertion Drug aller gy [facility] Immunizations Immunization Date Given Site Status Last Updated Comments Source Hx influenza vaccine-unspecified<sup>1</sup> 07/09/2013 Right Deltoid completed [facility] Result Comment: fluzone. Mi grated from OBS ; Data migrated from [employer] on 10/23/2015. [facility] influenza immunization (Flu Vax) has been administered 07/09/2013 completed [facility] Results Order Name Results Value Reference Range Date Interpretation Comments Source CHEM PANEL eGFR 80 03/11/2019 Result Comment: The eGFR is calculated using the CKD-EPI formula. In most young, healthy individuals the eGFR will be >90 mL/min/1.73m2. The eGFR declines with age. An eGFR of 60-89 may be normal in some populations, particularly the elderly, for whom the CKD-EPI formula has not been extensively validated. Use of the eGFR is not recommended in the following populations:

Individuals with unstable creatinine concentrations, including patients and those with serious co-morbid conditions.

Patients with extremes in muscle mass or diet.

The data above are obtained from the National Kidney Disease Education Program (NKDEP) which additionally recommends that when the eGFR is used in patients with extremes of body mass index for purposes of drug dosing, the eGFR should be multiplied by the estimated BMI. [facility] CHEM PANEL POC Creatinine 0.8 0.5 - 1.4 03/11/2019 [facility] ELECTROLYTES POC AGAP 13.0 10.0 - 20.0 03/09/2019 [facility] ELECTROLYTES POC Hematocrit 42. 0 42.0 - 54.0 03/09/2019 [facility] ELECTROLYTES POC Hemoglobin 14. 3 14.0 - 18.0 03/09/2019 [facility] ELECTROLYTES POC Ion Ca 1.14 1.05 - 1.25 03/09/2019 [facility] ELECTROLYTES eGFR 49 03/09/2019 Result Comment: The eGFR is calculated using the CKD-EPI formula. In most young, healthy individuals the eGFR will be >90 mL/min/1.73m2. The eGFR declines with age. An eGFR of 60-89 may be normal in some populations, particularly the elderly, for whom the CKD-EPI formula has not been extensively validated. Use of the eGFR is not recommended in the following populations:

Individuals with unstable creatinine concentrations, including patients and those with serious co-morbid conditions.

Patients with extremes in muscle mass or diet.

The data above are obtained from the National Kidney Disease Education Program (NKDEP) which additionally recommends that when the eGFR is used in patients with extremes of body mass index for purposes of drug dosing, the eGFR should be multiplied by the estimated BMI. [facility] ELECTROLYTES POC Glucose 121 70 - 99 03/09/2019 [facility] ELECTROLYTES POC Creatinine 1.3 0.5 - 1.4 03/09/2019 [facility] ELECTROLYTES POC BUN 20 7 - 22 03/09/2019 [facility] ELECTROLYTES POC Carbon Dioxide 30 24 - 32 03/09/2019 [facility] ELECTROLYTES POC Chloride 98 95 - 109 03/09/2019 [facility] ELECTROLYTES POC Potassium 4.7 3.5 - 5.1 03/09/2019 [facility] ELECTROLYTES POC Sodium 136 135 - 145 03/09/2019 [facility] URINE AND STOOL POC UA pH 5.5 5.0 - 8.0 03/09/2019 [facility] URINE AND STOOL POC UA Glu Negative mg/dL Negative mg/dL 03/09/2019 [facility] URINE AND STOOL POC UA Prot Negative mg/dL Negative mg/dL 03/09/2019 [facility] URINE AND STOOL POC UA Bili Negative *NA* (03/09/19 2:41 PM) Negative 03/09/2019 [facility] URINE AND STOOL POC UA Ket Trace mg/dL Negative mg/dL 03/09/2019 [facility] URINE AND STOOL POC UA Bld Small *ABN* (03/09/19 2:41 PM) Negative 03/09/2019 [facility] URINE AND STOOL POC UA Nit Negative *NA* (03/09/19 2:41 PM) Negative 03/09/2019 [facility] URINE AND STOOL POC UA Uro 0.2 0.1 - 1.0 03/09/2019 [facility] URINE AND STOOL POC UA LeukEst Negative *NA* (03/09/19 2:41 PM) Negative 03/09/2019 [facility] URINE AND STOOL POC UA SG 1.020 <=1.030 03/09/2019 [facility] URINE AND STOOL POC UA Turbidity Clear *NA* (03/09/19 2:41 PM) Clear 03/09/2019 [facility] URINE AND STOOL POC UA Color Yellow *NA* (03/09/19 2:41 PM) Yellow 03/09/2019 [facility] CARDIAC ENZYMES CK MB Index 2.5 0.0 - 2.5 02/28/2017 [facility] CARDIAC ENZYMES BNP 61 <=100 pg/mL 02/28/2017 [facility] CARDIAC ENZYMES Troponin-I <0.02 0.00 - 0.40 02/28/2017 [facility] CARDIAC ENZYMES Total CK 89 12 - 191 02/28/2017 [facility] CARDIAC ENZYMES CK MB 2.2 0.5 - 3.6 02/28/2017 [facility] ELECTROLYTES Chloride Lvl 102 95 - 109 02/28/2017 [facility] ELECTROLYTES CO2 29 24 - 32 02/28/2017 [facility] ELECTROLYTES Glucose Lvl 93 70 - 99 02/28/2017 [facility] ELECTROLYTES BUN 14 7 - 22 02/28/2017 [facility] ELECTROLYTES Calcium Lvl 9.2 8.5 - 10.5 02/28/2017 [facility] ELECTROLYTES Total Protein 7.4 6.4 - 8.4 02/28/2017 [facility] ELECTROLYTES Creatinine Lvl 0.7 8 0.50 - 1.40 02/28/2017 [facility] ELECTROLYTES Sodium Lvl 138 135 - 145 02/28/2017 [facility] ELECTROLYTES Potassium Lvl 4.0 3.5 - 5.1 02/28/2017 [facility] ELECTROLYTES Albumin Lvl 4.0 3.5 - 5.0 02/28/2017 [facility] ELECTROLYTES B/C Ratio 18 6 - 25 02/28/2017 [facility] ELECTROLYTES Globulin 3.4 2.7 - 4.2 02/28/2017 [facility] ELECTROLYTES A/G Ratio 1.2 0.7 - 1.6 02/28/2017 [facility] ELECTROLYTES Alk Phos 67 39 - 136 02/28/2017 [facility] ELECTROLYTES ALT 20 0 - 65 02/28/2017 [facility] ELECTROLYTES Bili Total 0.6 0.2 - 1.3 02/28/2017 [facility] ELECTROLYTES AGAP 11.0 10.0 - 20.0 02/28/2017 [facility] ELECTROLYTES AST 15 0 - 37 02/28/2017 [facility] ELECTROLYTES eGFR 82 02/28/2017 Result Comment: The eGFR is calculated using the CKD-EPI formula. In most young, healthy individuals the eGFR will be >90 mL/min/1.73m2. The eGFR declines with age. An eGFR of 60-89 may be normal in some populations, particularly the elderly, for whom the CKD-EPI formula has not been extensively validated. Use of the eGFR is not recommended in the following populations:

Individuals with unstable creatinine concentrations, including patients and those with serious co-morbid conditions.

Patients with extremes in muscle mass or diet.

The data above are obtained from the National Kidney Disease Education Program (NKDEP) which additionally recommends that when the eGFR is used in patients with extremes of body mass index for purposes of drug dosing, the eGFR should be multiplied by the estimated BMI. [facility] HEMATOLOGY Basophils 0.7 0.0 - 1.0 02/28/2017 [facility] HEMATOLOGY Monocytes # 0.7 0.0 - 0.8 02/28/2017 [facility] HEMATOLOGY Eosinophils # 0.1 0.0 - 0.5 02/28/2017 [facility] Segs-Bands # 6.2 1.5 - 8.1 02/28/2017 [facility] Lymphocytes # 1.2 1.0 - 5.5 02/28/2017 [facility] Basophils # 0.1 0.0 - 0.2 02/28/2017 [facility] Lymphocytes 14.8 20.0 - 40.0 02/28/2017 [facility] Segs 75.4 45.0 - 75.0 02/28/2017 [facility] Eosinophils 1.2 0.0 - 4.0 02/28/2017 [facility] Monocytes 7.9 2.0 - 12.0 02/28/2017 [facility] PT 12.8 12.0 - 14.7 02/28/2017 [facility] INR 0.94 0.85 - 1.17 02/28/2017 [facility] PTT 27.9 22.9 - 35.8 02/28/2017 [facility] WBC 8.3 3.7 - 10.4 02/28/2017 [facility] RBC 4.13 4.70 - 6.10 02/28/2017 [facility] Hct 39.3 42.0 - 54.0 02/28/2017 [facility] Hgb 13.5 14.0 - 18.0 02/28/2017 [facility] MCV 95.3 80.0 - 94.0 02/28/2017 [facility] MCH 32.7 27.0 - 31.0 02/28/2017 [facility] RDW 14.4 11.5 - 14.5 02/28/2017 [facility] MCHC 34.3 32.0 - 36.0 02/28/2017 [facility] MPV 8.5 7.4 - 10.4 02/28/2017 [facility] HEMATOLOGY Platelet 180 133 - 450 02/28/2017 [facility] Chemistry SODIUM 142 MEQ/L 135 - 145 [...] HCT 41.9 42.0 - 54.0 04/20/2015 [facility] Hematology PLATELETS 178 K/CMM 133 - 450 [...] HCT 43.6 42.0 - 54.0 09/10/2010 [facility] Hematology PLATELETS 201 K/CMM 133 - [...] PHOS 60 39 - 136 11/27/2009 [facility] Chemistry T3, TOTAL 109 11/27/2009 [facility] Chemistry TSH 1.120 0.360 - 3.740 11/27/2009 [facility] Chemistry SODIUM 138 135 - 145 11/27/2009 [facility] Chemistry POTASSIUM 4.2 3.5 - 5.1 11/27/2009 [facility] Hematology HGB 14.6 14.0 - 18.0 11/27/2009 [facility] Hematology HCT 43.6 42.0 - 54.0 11/27/2009 [facility] Hematology PLATELETS 195 K/CMM 133 - 450 11/27/2009 [facility] Urinalysis UA COLOR STRAW 11/27/2009 [facility] Urinalysis BACTERIA URN None Seen NoneSeen 11/27/2009 [facility] Urinalysis UA COLOR STRAW 11/27/2009 [facility] Urinalysis BACTERIA URN None Seen NoneSeen 11/27/2009 [facility] Pathology Reports No Data Provided for This Section Diagnostic Reports Report Value Date Source Spine lumbar 2 or 3 views DX P ROCEDURE INFORMATION: Exam: XR Lumbosacral Spine, 2 or 3 Views Exam date and time: 03/23/2020 4:51 PM Age: 89 years old Clinical indication: Low back pain; Additional info: /low back pain TECHNIQUE: Imaging protocol: XR of the lumbosacral spine, 2 or 3 views. Views: AP Lateral and Coned down lateral COMPARISON: No relevant prior studies available. FINDINGS: Vertebrae: There is mild left curvature of the lumbar spine. Age-indeterminate 10% vertebral body compression fracture at L2 is noted. Alignment is preserved. No other vertebral body height loss is noted. There are osteophytes at all levels. Pedicles and spinous processes are within normal limits. Moderate degenerative changes involving the facet joints at L5-S1 is noted. There is narrowing of the L5-S1 disc space. Vasculature: Right ureteral stent is noted. Soft tissues: Paraspinal soft tissues are unremarkable. Notes: If there is further concern or neurological abnormalities on clinical exam, CT or MRI of the lumbar spine may be performed for complete assessment. IMPRESSION: 1. Age-indeterminate 10% vertebral body compression fracture at L2. 2. No malalignment. 3. Straightening of lumbar spine may be related to patient positioning or muscle spasm. 4. Moderate degenerative changes at L5-S 1. Brian Gambino MD On 03/24/2020 18:33:03; [id number] 03/23/2020 [facility] Abdomen complete US Clinical I ndication: - RUQ pain; Comparison: Abdominopelvic CTA on 03/11/2019 TECHNIQUE: Grayscale and limited color sonographic evaluation of the abdomen was performed with standard technique. FINDINGS: LIVER: The visualized liver shows normal contour, size, and morphology with normal parenchymal echo texture. The liver measures 13.5 cm. Limited visualized portal vein is grossly patent. The main portal vein diameter is 1.1 cm. BILE DUCTS: The intrahepatic and extrahepatic bile ducts are not dilated with the common bile duct measuring 4.3 mm. The distal common bile duct is not well seen. GALLBLADDER: There are no gallstones, gallbladder sludge, pericholecystic fluid or wall thickening. PANCREAS: The pancreas is not well visualized due to overlying bowel gas.. SPLEEN: The spleen is unremarkable and measures 8.5 x 4.1 x 4.3 cm. KIDNEY: The right kidney measures 11.5 x 6.5 x 6.7 cm. The left kidney measures 10.3 x 5.7 x 4.7 cm. The right renal cortex measures 1.3 cm. The left renal cortex measures 1.2 cm. There is normal renal contour and morphology, with normal parenchymal echotexture. There is no left hydronephrosis. There is moderate hydronephrosis versus parapelvic cysts of the right kidney. AORTA AND INFERIOR VENA CAVA: Visualized portions of the IVC appear unremarkable. The proximal abdominal aorta measures 2.1 cm. The mid abdominal aorta measures 2.9 cm. The distal abdominal aorta measures 2.7 cm. Atherosclerotic calcified plaques of the abdominal aorta. ASCITES: There is no right abdominal ascites. IMPRESSION: 1. Moderate hydronephrosis versus para pelvic cysts of the right kidney. 2. Prominent abdominal aorta, similar to prior CTA within the limitation of differences in technique. SL: NGHIA 03/30/2019 [facility] Abdomen/Pelvis CTA CTA abdomen pelvis: Multiplanar helical imaging acquired from the diaphragm to the pubic symphysis before and after IV injection 100 mL Omnipaque 350. Oral contrast used for the study. Three-minute delayed postcontrast images were obtained from diaphragm to pubic symphysis. Three-dimensional MIP reconstruction images of the abdominal aorta and branch vessels obtained from the early arterial phase images. CT imaging performed at this location utilizes radiation dose optimization techniques which include one or more of the following: -Automated exposure control -Adjustment of the mA and/or kV accordin g to patient size (this includes techniques or standardized protocols for targeted exams where the dose is matched to indication/reason for exam; i.e. extremities or head) -Use of iterative reconstruction Exogenesis. CT Radiation Dose DLP 1142 mGy-cm. COMPARISON: Chest abdomen pelvis CT 04/01/2011. HISTORY: Aortic aneurysm, hernia, right-sided abdominal pain. FINDINGS: Lung bases are clear. Renal pelvic calcifications are vascular. Fullness in the right renal pelvis appears to be parapelvic cysts when considering the delayed images. No definite hydronephrosis or ureteral dilatation. No left-sided kidney stone or hydronephrosis. Early arterial enhancement is normal in the liver and spleen. No focal lesions. Bile ducts, gallbladder, pancreas and adrenal glands unremarkable. The kidney parenchyma shows normal enhancement bilaterally. No mass. No retroperitoneal or pelvic adenopathy. Large and small bowel loops are normal caliber without obstruction. There are a few scattered colonic diverticula without diverticulitis. No findings to suggest appendicitis. The prostate is enlarged impressing on the base of bladder. Fusiform enlargement of the upper abdominal aorta from diaphragm to the bifurcation. The maximum diameter is only 3 cm. No dissection. Calcification is noted throughout the iliac arteries. The common and external iliac arteries are widely patent bilaterally down to the groin. Single renal arteries supply each kidney. No renal artery stenosis. Extensive calcification is found at the origin of the celiac artery and SMA but no definite flow-limiting stenosis is observed. The JOEL is patent off the aorta as well. Review on bone window shows no acute bony pathology. No vertebral compression. IMPRESSION: 1. Mild fusiform prominence of the abdom inal aorta without a discrete aneurysm, maximum diameter 3 cm. No flow-limiting stenosis or dissection seen in any of the branch vessels from the abdominal aorta. 2. Right kidney parapelvic cysts. 3. Distal colonic diverticulosis without diverticulitis. 4. Prostate enlargement. SL: JUVE 03/11/2019 [facility] Abdomen AP DX Patient Name: CALEB FLORES : 1930; Age: 88 years y/o Male MR: [id number] Study: Abdomen AP DX 03/09/2019 2:58 PM CDT Ordering Physician: Epi Roberto MD Comparison: None Clinical Indication: - abdominal pain and weight lost Findings: Bilateral calcified pleural plaques. No abnormally dilated loops of bowel. Calcifications overlying the upper abdomen may be atherosclerotic. No mass effect. Decreased bone mineralization with degenerative changes of the spine. IMPRESSION: Nonobstructive bowel gas pattern. SL: DEANN 03/09/2019 [facility] Chest 2 views DX Patient Name: SARAH FLORES : 1930; Age: 88 years y/o Male MR: [id number] Study: Chest 2 views DX 03/09/2019 2:58 PM CDT Ordering Physician: Epi Roberto MD Comparison: Chest radiograph 02/28/2017 Clinical Indication: - weight loss Findings: The lungs are hyperinflated with flattening of the hemidiaphragms. Stable pleural calcifications at the lung bases. Coarse pulmonary markings likely related to emphysematous change. No focal consolidation, pleural effusion or pneumothorax. The cardiac silhouette is within normal limits of size. Atherosclerotic calcifications of the aortic arch. Decreased bone mineralization. IMPRESSION: Findings suggestive of chronic obstructive pulmonary disease. SL: [id number] 03/09/2019 [facility] Chest [address] Patien t Name: SARAH FLORES : 1930; Age: 86 years y/o Male MR: [id number] * CHEST, 2 views HISTORY: cough COMPARISON: 72,012. A chest computed tomography scan of 09/04/2012 was reviewed. TECHNIQUE: Frontal and lateral radiographs of the chest were obtained. IMPRESSION: 1. No acute process. There are no infilt rates or pleural effusions. 2. Changes, possibly related to prior as bestos exposure. There are moderate bilateral calcified pleural plaques and mild chronic nonspecific interstitial change. There is also mild pulmonary hyperexpansion consistent with mild emphysematous change. 3. The heart is normal in size. There is no evidence of failure. 4. Mild tortuosity of the descending tho racic aorta. 5. There are very mild degenerative leigh ges involving the mid thoracic spine. The regional skeleton is otherwise unremarkable. SL: [id number] 02/28/2017 [facility] Barium Swallow w Esophagus Function DX Patient Name: SARAH FLORES : 1930; Age: 85 years y/o Male MR: [id number] Study: Barium Swallow w Esophagus Function DX 04/18/2016 1:52 PM CDT Ordering Physician: Jam Khalil MD Clinical Indication: R13.10 Dysphagia, unspecified, R93.3 Abnormal findings on diagnostic imaging of other parts of digestive tract; Comparison: None FINDINGS: The study was performed in the presence of speech pathology. The patient was given the following consistency contrast material with noted findings: Thin: No penetration and aspiration. Laird: No penetration and aspiration. Honey: No penetration and aspiration. Pudding: No penetration and aspiration. Barium coated cookie: No penetration and aspiration. There is residue in the vallecula with all consistencies. Visualized upper esophageal motility and emptying was normal. Fluoroscopy time: 1.2 minutes IMPRESSION: No penetration or aspiration was noted. Extensive vallecular residue with all consistencies. For complete details please refer to speech pathologist report. SL: [id number] 04/18/2016 [facility] Barium Swallow w Esophagus Function DX Barium Swallow w Esophagus Function DX CLINICAL HISTORY: R13.10 Dysphagia, unspecified, K44.9 Diaphragmatic hernia without obstruction or gangrene. COMPARISON: None TECHNIQUE: Thin barium was utilized for recumbent prone oblique and upright imaging. Single swallow of thick barium was given in the upright position. FINDINGS: Video barium swallow was attempted but could not be completed. Single swallow of thin barium was administered in the prone oblique position. Patient demonstrates marked difficulty in passing the administered bolus from the pharynx to the esophagus. Patient was subsequently placed in the upright position and small swallow of thin barium was given po. Patient again demonstrates moderate to marked difficulty in passing the bolus from the pharynx to the esophagus. Multiple swallows are needed to clear small amount of thin barium from the pharynx to the esophagus. The barium is noted to pool in the valleculae and piriform sinuses. Mild aspiration is noted with thin barium. One additional swallow of thick barium was administered. Patient demonstrated laryngeal penetration and large amount of residual in the vallecula and piriform sinuses. No additional barium was administered. IMPRESSION: The patient demonstrates marked difficulty in passing barium from the pharynx to the esophagus. Aspiration is noted with thin barium. ENT consultation and formal evaluation with speech pathology and a modified barium swallow is recommended before proceeding with the video esophagram examination. Fluoroscopy Time: 0.8 minutes SL: [id number] 04/09/2016 [facility] Consultation Notes No Data Provided for This Section Discharge Summaries No Data Provided for This Section History and Physicals No Data Provided for This Section Vital Signs Vital Sign Value Date Comments Source Respitory Rate 24 06/23/2019 [facility] Systolic (mm Hg) 163 06/23/2019 [facility] Diastolic (mm Hg) 69 06/23/2019 [facility] Respitory Rate 18 06/23/2019 [facility] Systolic (mm Hg) 157 06/23/2019 [facility] Diastolic (mm Hg) 64 06/23/2019 [facility] Respitory Rate 17 06/23/2019 [facility] Systolic (mm Hg) 111 06/23/2019 [facility] Diastolic (mm Hg) 99 06/23/2019 [facility] Height 177.8 cm 06/23/2019 [facility] Weight 49.318 06/23/2019 [facility] BMI Calculated 15.6 06/23/2019 [facility] Heart Rate 66 06/23/2019 [facility] BMI Calculated 16.39 03/11/2019 [facility] Height 177.8 cm 03/11/2019 [facility] Weight 51.818 03/11/2019 [facility] Systolic (mm Hg) 154 03/11/2019 [facility] Diastolic (mm Hg) 67 03/11/2019 [facility] Heart Rate 65 03/11/2019 [facility] Temperature Oral (F) 98.0 F 03/11/2019 [facility] Height 177.8 cm 03/09/2019 [facility] Weight 51.932 03/09/2019 [facility] BMI Calculated 16.43 03/09/2019 [facility] Systolic (mm Hg) 146 03/09/2019 [facility] Diastolic (mm Hg) 67 03/09/2019 [facility] Heart Rate 85 03/09/2019 [facility] Temperature Oral (F) 97.2 F 03/09/2019 [facility] Respitory Rate 18 03/09/2019 [facility] Heart Rate 84 02/28/2017 [facility] Temperature Oral (F) 98.3 F 02/28/2017 [facility] Respitory Rate 16 02/28/2017 [facility] Systolic (mm Hg) 147 02/28/2017 [facility] Diastolic (mm Hg) 69 02/28/2017 [facility] Respitory Rate 15 02/28/2017 [facility] Heart Rate 60 02/28/2017 [facility] Respitory Rate 16 02/28/2017 [facility] Heart Rate 62 02/28/2017 [facility] Diastolic (mm Hg) 87 02/28/2017 [facility] Systolic (mm Hg) 157 02/28/2017 [facility] Weight 54.545 02/28/2017 [facility] Height 177.8 cm 02/28/2017 [facility] BMI Calculated 17.25 02/28/2017 [facility] Temperature Oral (F) 98.4 F 02/28/2017 [facility] Systolic (mm Hg) 142 02/28/2017 [facility] Diastolic (mm Hg) 55 02/28/2017 [facility] Height 70 0 04/20/2015 [facility] Weight 156 04/20/2015 [facility] Systolic (mm Hg) 149 04/20/2015 [facility] Diastolic (mm Hg) 66 04/20/2015 [facility] Heart Rate 64 04/20/2015 [facility] Temperature Oral (F) 97.6 F 04/20/2015 [facility] Height 70 0 10/20/2014 [facility] Weight 159 10/20/2014 [facility] Temperature Oral (F) 97.7 F 10/20/2014 [facility] Systolic (mm Hg) 140 10/20/2014 [facility] Diastolic (mm Hg) 73 10/20/2014 [facility] Heart Rate 64 10/20/2014 [facility] Weight 141.38 04/21/2014 [facility] Temperature Oral (F) 98.0 F 04/21/2014 [facility] Heart Rate 63 04/21/2014 [facility] Systolic (mm Hg) 130 04/21/2014 [facility] Diastolic (mm Hg) 60 04/21/2014 [facility] Weight 136.13 02/08/2014 [facility] Temperature Oral (F) 96.5 F 02/08/2014 [facility] Heart Rate 66 02/08/2014 [facility] Systolic (mm Hg) 140 02/08/2014 [facility] Diastolic (mm Hg) 60 02/08/2014 [...] [facility] Diastolic (mm Hg) 70 12/14/2013 [facility] Weight 135.13 10/22/2013 [facility] Temperature Oral (F) 97.5 F 10/22/2013 [facility] Heart Rate 60 10/22/2013 [facility] Systolic (mm Hg) 130 10/22/2013 [facility] Diastolic (mm Hg) 70 10/22/2013 [facility] Weight 139 09/09/2013 [facility] Systolic (mm Hg) 140 09/09/2013 [facility] Diastolic (mm Hg) 64 09/09/2013 [facility] Temperature Oral (F) 96.2 F 09/09/2013 [facility] Heart Rate 64 09/09/2013 [facility] Weight 144 07/09/2013 [facility] Temperature Oral (F) 97.1 F 07/09/2013 [facility] Systolic (mm Hg) 128 07/09/2013 [facility] Diastolic (mm Hg) 57 07/09/2013 [facility] Heart Rate 58 07/09/2013 [facility] Weight 144.0 06/09/2013 [facility] Temperature Oral (F) 97.6 F 06/09/2013 [facility] Systolic (mm Hg) 129 06/09/2013 [facility] Diastolic (mm Hg) 66 06/09/2013 [facility] Heart Rate 65 06/09/2013 [facility] Weight 144.6 05/26/2013 [facility] Temperature Oral (F) 97.2 F 05/26/2013 [facility] Systolic (mm Hg) 148 05/26/2013 [facility] Diastolic (mm Hg) 59 05/26/2013 [facility] Heart Rate 64 05/26/2013 [facility] Weight 145.25 01/27/2013 [facility] Temperature Oral (F) 98.8 F 01/27/2013 [facility] Systolic (mm Hg) 139 01/27/2013 [facility] Diastolic (mm Hg) 62 01/27/2013 [facility] Heart Rate 79 01/27/2013 [facility] Weight 151 08/17/2012 [facility] Systolic (mm Hg) 120 08/17/2012 [facility] Diastolic (mm Hg) 66 08/17/2012 [facility] Heart Rate 76 08/17/2012 [facility] Temperature Oral (F) 95.6 F 08/17/2012 [facility] Weight 152.13 05/01/2012 [facility] Systolic (mm Hg) 141 05/01/2012 [facility] Diastolic (mm Hg) 74 05/01/2012 [facility] Heart Rate 59 05/01/2012 [facility] Temperature Oral (F) 96.5 F 05/01/2012 [facility] Weight 154 01/29/2012 [facility] Temperature Oral (F) 97.6 F 01/29/2012 [facility] Systolic (mm Hg) 137 01/29/2012 [facility] Diastolic (mm Hg) 65 01/29/2012 [facility] Heart Rate 59 01/29/2012 [facility] Weight 154.4 12/23/2011 [facility] Systolic (mm Hg) 140 12/23/2011 [facility] Diastolic (mm Hg) 61 12/23/2011 [...] [facility] Systolic (mm Hg) 128 08/23/2011 [facility] Diastolic (mm Hg) 68 08/23/2011 [...] Group Temperature Oral (F) 98.1 F 03/22/2011 [facility] Systolic (mm Hg) 121 03/22/2011 [facility] Diastolic (mm Hg) 69 03/22/2011 [...] [facility] Systolic (mm Hg) 138 11/30/2010 [facility] Diastolic (mm Hg) 65 11/30/2010 [...] Group Diastolic (mm Hg) 65 10/30/2009 [facility] Encounters Location Location Details Encounter Type Encounter Number Reason For Visit Attending Provider ADM Date DC Date Status Source [facility] Office Visit [id number] Pretty Read MD 02/08/2014 02/08/2014 [facility] Office Visit [id number] Pretty Read MD 04/21/2014 04/21/2014 [facility] Office Visit [id number] Pretty Read MD 10/20/2014 10/20/2014 [facility] Lab Report [id number] Pretty Read MD 04/20/2015 04/20/2015 [facility] Office Visit [id number] Pretty Read MD 04/20/2015 04/20/2015 [facility] Outpatient [id number] PRETTY READ 04/20/2015 [facility] Outpatient [id number] PRETTY READ 10/17/2015 Active [facility] Outpatient [id number] PRETTY READ 04/02/2016 Active [facility] Outpatient [id number] PRETTY READ 04/08/2016 Active [facility] [id number] [facility] 04/10/2016 [facility] Outpatient [id number] [facility] 04/18/2016 04/19/2016 [facility] Outpatient [id number] EYAD BAKER 07/18/2016 Active [facility] Outpatient [id number] PRETTY READ 09/27/2016 Active [facility] Outpatient [id number] FIRAS QUDDOS 10/15/2016 Active [facility] Outpatient [id number] PHILIP EM MARGO 02/28/2017 Active [facility] Emergency [id number] Marietta Minor 02/28/2017 02/28/2017 [facility] Outpatient [id number] FIRAS QUDDOS 05/30/2017 Active [facility] Outpatient [id number] Epi Ismail 03/09/[address] [facility] Outpatient [id number] Abrar Ismail 03/09/2019 03/10/2019 [facility] Outpatient [id number] Tj Rollins 03/11/[address] [facility] General Surgery [facility] Outpatient [id number] Tj Rollins 03/11/2019 03/12/2019 [facility] Outpatient [id number] Jam Landisendran 03/11/2019 03/12/2019 [facility] Outpatient [id number] Spencer Le 03/16/2019 [facility] Ambulatory Pre-Reg [id number] Spencer Le 03/16/2019 03/16/2019 [facility] Outpatient [id number] Asif Johnsonjacobbruno 03/30/2019 03/31/2019 [facility] Outpatient [id number] Spencer Le 04/27/2019 [facility] Ambulatory Pre-Reg [id number] Spencer Le 04/27/2019 04/27/2019 [facility] Bedded Outpatient [id number] Jam Khalil 06/23/2019 06/23/2019 [facility] [id number] Asif Abhishek 03/23/2020 03/24/2020 [facility] [id number] Tj Rollins 05/02/2020 [facility] Ambulatory Pre-Reg [id number] Hellenliana Osvaldo 0 05/02/2020 [facility] Procedures Procedure Code Date Perfomer Comments Source Collection of venous blood by venipuncture 75791 03/09/2019 [facility] echocardiogram, complete [id number] 05/06/2013 [facility] Assessment and Plan No Data Provided for This Section Plan of Care No Data Provided for This Section Social History Social History Date Source Social History TypeResponse Smoking Status Former smoker; Ready to change: No; Concerns about tobacco use in household: No; Exposure to Tobacco Smoke None; Cigarette Smoking Last 365 Days No; Reg Smoking Cessation Counseling No1 entered on: 06/23/19 1stopped 30years ago 06/23/2019 [facility] Social History TypeResponse Smoking Status Former smoker; Ready to change: No; Concerns about tobacco use in household: No; Exposure to Tobacco Smoke None; Cigarette Smoking Last 365 Days No; Reg Smoking Cessation Counseling No1 entered on: 06/23/19 1stopped 30years ago 06/23/2019 [facility] Social History TypeResponse Smoking Status Former smoker; Ready to change: No; Concerns about tobacco use in household: No; Exposure to Tobacco Smoke None; Cigarette Smoking Last 365 Days No; Reg Smoking Cessation Counseling No1 entered on: 06/23/19 1stopped 30years ago 06/23/2019 [facility] LAGU[facility] Family History No Data Provided for This Section Advance Directives No Data Provided for This Section Functional Status No Data Provided for This Section
[2020-06-20 15:42] LABS: CLARITY,URINE CLEAR (CLEAR); COLOR,URINE YELLOW (YELLOW)
[2020-06-20 15:43] LABS: BILIRUBIN,URINE NEGATIVE (NEGATIVE); KETONES,URINE NEGATIVE (NEGATIVE); LEUKOCYTE ESTERASE ,URINE TRACE (NEGATIVE); NITRITE,URINE NEGATIVE (NEGATIVE); PROTEIN,URINE DIPSTICK 1+ (NEGATIVE); URINE UROBILINOGEN 0.2 mg/dL (0.2 - 1)
[2020-06-20 15:52] LABS: BACTERIA,URINE FEW /HPF; EPITHELIAL CELLS,URINE FEW /LPF; MUCUS,URINE FEW (RARE)
[2020-06-20 15:55] LABS: BASOPHILS % 0.6 % (0.0-1.0); EOSINOPHILS # (AUTO) 0.1 (0.0-0.4); EOSINOPHILS % 1.1 % (0.0-6.0); LYMPHOCYTES # (AUTO) 0.8 (1.0-3.2); LYMPHOCYTES % 12.3 % (18.0-39.1); MEAN CORPUSCULAR HEMOGLOBIN 31.3 pg (28-32); MEAN CORPUSCULAR HGB CONC 32.4 g/dL (31-35); MEAN CORPUSCULAR VOLUME 96.9 fL (81-99); MONOCYTES # (AUTO) 0.6 (0.2-0.8); MONOCYTES % 9.2 % (4.4-11.3); NEUTROPHILS # (AUTO) 4.9 (2.1-6.9); NEUTROPHILS % 76.6 % (38.7-80.0); PLATELET COUNT 282 x10e3/uL (140-360); RED BLOOD COUNT 3.51 x10e6/uL (4.3-5.7)
[2020-06-20 16:18] LABS: ALANINE AMINOTRANSFERASE 17 IU/L (0-55); ALBUMIN 3.8 g/dL (3.5-5.0); ALBUMIN/GLOBULIN RATIO 1.5 (0.8-2.0); ALKALINE PHOSPHATASE 84 IU/L (40-150); ANION GAP 14.9 mmol/L (8-16); BLOOD UREA NITROGEN 15 mg/dL (7-26); BUN/CREATININE RATIO 23 (6-25); CALCIUM 8.4 mg/dL (8.4-10.2); CARBON DIOXIDE 28 mmol/L (22-29); CHLORIDE 97 mmol/L (98-107); CREATININE, SERUM 0.65 mg/dL (0.72-1.25); EST GLOMERULAR FILTRATION RATE > 60 ML/MIN (60-); GLUCOSE 94 mg/dL (74-118); POTASSIUM 4.9 mmol/L (3.5-5.1); SODIUM 135 mmol/L (136-145)
[2020-06-20] MEDS ORDERED: FENTANYL CITRATE/PF 100MCG/2 ML INJ IV PRN (16:45)
--- OUTSIDE RECORDS SUMMARY | 2020-06-20 16:46 | XMS REPORT | Clinical Summary ---
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
--- OUTSIDE RECORDS SUMMARY | 2020-06-20 16:47 | XMS REPORT | Continuity of Care Document ---
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 [facility] OSTEOARTHROSIS, GENERALIZED, MULTIPLE SITES Active 10/20/2014 Condition 04/20/2015 [facility] Anemia (disorder) Active 12/15/2013 Problem 05/04/2020 Data migrated from [employer] on 02/18. [facility] ANEMIA Active 12/15/2013 Condition 04/20/2015 [facility] WEIGHT LOSS, ABNORMAL Inactive 12/14/2013 Condition 04/20/2015 [facility] THYROID NODULE Inactive 12/14/2013 Condition 04/20/2015 [facility] NEED PROPHYLACTIC VACCINATION&INOCULATION FLU Inactive 07/09/2013 Condition 04/20/2015 [facility] Bronchitis (disorder) Resolved 01/27/2013 Problem 05/04/2020 Data migrated from [employer] on 04/08. [facility] JASE [facility] BRONCHITIS Inactive 01/27/2013 Condition 04/20/2015 [facility] OTHER SPECIFIED DERMATOSES Ignacia ctive 01/29/2012 Condition 04/20/2015 [facility] Acute sinusitis (disorder) Res olved 12/23/2011 Problem 05/04/2020 Data migrated from [employer] on 04/08. [facility], J[facility], [facility] OTHER ACUTE SINUSITIS Inactive 12/23/2011 Condition 04/20/2015 [facility] Hyperlipidemia (disorder) Acti ve 08/07/2011 Problem 05/04/2020 Data migrated from [employer] on 02/18. [facility], [facility] [place], [facility] URINARY FREQUENCY Inactive 08/07/2011 Condition 04/20/2015 [facility] HYPERLIPIDEMIA Active 08/07/2011 Condition 04/20/2015 [facility] HYPERGLYCEMIA Inactive 08/07/2011 Condition 04/20/2015 [facility] COUGH Inactive 03/22/2011 Condition 04/20/2015 [facility] Pneumonia (disorder) Resolved 02/08/2011 Problem 05/04/2020 Data migrated from [employer] on 04/08. [facility], JASE [facility], [facility] PNEUMONIA Inactive 02/08/2011 Condition 04/20/2015 [facility] Upper respiratory infection (disorder) Resolved 01/29/2011 Problem 05/04/2020 Data migrated from [employer] on 04/08/15. [facility], [facility], [facility] URI Inactive 01/29/2011 Condition 04/20/2015 [facility] Allergic rhinitis (disorder) A ctive 11/30/2010 Problem 05/04/2020 Data migrated from [employer] on 02/18. [facility], [facility] [place], [facility] ALLERGIC RHINITIS Active 11/30/2010 Condition 04/20/2015 [facility] NOCTURIA Inactive 11/30/2010 Condition 04/20/2015 [facility] DYSURIA Inactive 11/30/2010 Condition 04/20/2015 [facility] Backache (finding) Resolved 09/07/2010 Problem 05/04/2020 Data migrated from [employer] on 04/08. [facility], JASE [facility], [facility] Vitamin D deficiency (disorder) Active 09/07/2010 Problem 05/04/2020 Data migrated from [employer] on 02/18. [facility], [facility] [place], [facility] BACK PAIN Inactive 09/07/2010 Condition 04/20/2015 [facility] B12 DEFICIENCY Inactive 09/07/2010 Condition 04/20/2015 [facility] UNSPECIFIED VITAMIN D DEFICIENCY Active 09/07/2010 Condition 04/20/2015 [facility] NEUROPATHY, UNSPECIFIED Inacti ve 04/24/2010 Condition 04/20/2015 [facility] ORTHOSTATIC HYPOTENSION Inacti ve 11/27/2009 Condition 04/20/2015 [facility] Generalized anxiety disorder (disorder) Active 11/13/2009 Problem 05/04/2020 Data migrated from [employer] on 02/18/15. [facility], [facility] [place], [facility] ABDOMINAL PAIN, PERIUMBILICAL Inactive 11/13/2009 Condition 04/20/2015 [facility] ANXIETY DISORDER, GENERALIZED Active 11/13/2009 Condition 04/20/2015 [facility] SCREENING FOR COLON CANCER Ignacia ctive 11/13/2009 Condition 04/20/2015 [facility] Benign hypertension (disorder) Active 10/30/2009 Problem 05/04/2020 Data migrated from [employer] on 02/18. 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 Problem 05/04/2020 [facility], [facility] [place],[facility] Gastroesophageal reflux disease (disorder) Active Problem 05/04/2020 [facility], [facility] [place],[facility] Osteoarthritis -multiple joint (disorder) Resolved Problem 05/04/2020 [facility], [facility] [place],[facility] Acute abdominal pain (finding) Resolved Problem [facility], [facility] [place], [facility] Anxiety (finding) Resolved Problem 05/04/2020 [facility], [facility] [place],[facility] Chronic osteoarthritis (disorder) Resolved Problem [facility] [place],[facility] Generalized chronic body pains (finding) Resolved Problem 05/04/2020 [facility] Past history of clinical finding (contex t-dependent category) Resolved Pr oblem 05/04/2020 [facility] [place],[facility] Hypertensive disorder, systemic arterial (disorder) Resolved Problem 05/04/2020 [facility] [place],[facility] Inguinal hernia (disorder) Res olved Problem [facility] [place],[facility] Osteoarthritis (disorder) Reso lved Problem [facility] 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 [facility] DYSPHAGIA, UNSPECIFIED Active [facility] Medications Medication Details Route Status Patient Instructions Ordering Provider Order Date Source RABEprazole 20 mg oral enteric coated tablet 20 mg = 1 tab, PO, Daily, # 30 tab, 1 Refill(s) Active 06/23/2019 [facility] Sucralfate 100 MG/ML Oral Suspension [Carafate] 1 gm = 10 ml, PO, QID-Before Meals, # 400 ml, 0 Refill(s) Active 06/23/2019 [facility] Sodium Chloride 0.9% IV 1000 mL 1,000 mL, Rate: 75 ml/hr, Infuse over: 13.3 hr, Route: IV, Dosing Weight 49.318 kg, Total Volume: 1,000, Start date: 06/23/19 13:54:00 CDT, Duration: 30 day, Stop date: 07/23/19 13:53:00 CDT, 1.56, m2 Inactiv e 06/23/2019 [facility] Omnipaque 350 injectable solution Notes: (same as:Omnipaque 350). WASTE: F/P - Black; E - Municipal Trash Bin Active 03/11/2019 [facility] Albuterol 0.833 MG/ML / Ipratropium Brom em 0.167 MG/ML Inhalant Solution Notes: (Same as: [place]) Inactive 02/28/2017 [facility] Saline Flush 0.9% Notes: prese rvative free. Inactive 02/28/2017 [facility] ROLLER WALKER MISC use as dire cted [...] Inactive 03/22/2011 [facility] VITAMIN D (ERGOCALCIFEROL) [id number] UNIT CAPS 1 po once a week x 12 weeks, then 1 po once a month Inactive 01/15/2011 [facility] XANAX TAB 0.25MG one tab PO q hs prn anxiety Inactive 01/15/2011 [facility] VITAMIN D (ERGOCALCIFEROL) [id number] UNIT CAPS 1 po once a week x 12 weeks, then 1 po once a month Inactive 01/15/2011 [facility] VITAMIN D (ERGOCALCIFEROL) [id number] UNIT CAPS 1 po once a week [...] grated from OBS ; Data migrated from [employer] on 10/23/2015. [facility] influenza immunization (Flu Vax) has been administered 07/09/2013 completed [facility] Results Order Name Results Value Reference Range [...] should be multiplied by the estimated BMI. [facility] CHEM PANEL POC Creatinine 0.8 0.5 - 1.4 03/11/2019 [facility] ELECTROLYTES POC AGAP 13.0 10.0 - 20.0 03/09/2019 [facility] ELECTROLYTES POC Hematocrit 42. 0 42.0 - 54.0 03/09/2019 [facility] ELECTROLYTES POC Hemoglobin 14. 3 14.0 - 18.0 03/09/2019 [facility] ELECTROLYTES POC Ion Ca 1.14 1.05 - 1.25 03/09/2019 [facility] ELECTROLYTES eGFR 49 03/09/2019 Result Comment: The [...] should be multiplied by the estimated BMI. [facility] ELECTROLYTES POC Glucose 121 70 - 99 03/09/2019 [facility] ELECTROLYTES POC Creatinine 1.3 0.5 - 1.4 03/09/2019 [facility] ELECTROLYTES POC BUN 20 7 - 22 03/09/2019 [facility] ELECTROLYTES POC Carbon Dioxide 30 24 - 32 03/09/2019 [facility] ELECTROLYTES POC Chloride 98 95 - 109 03/09/2019 [facility] ELECTROLYTES POC Potassium 4.7 3.5 - 5.1 03/09/2019 [facility] ELECTROLYTES POC Sodium 136 135 - 145 03/09/2019 [facility] URINE AND STOOL POC UA pH 5.5 5.0 - 8.0 03/09/2019 [facility] URINE AND STOOL POC UA Glu Negative mg/dL Negative mg/dL 03/09/2019 [facility] URINE AND STOOL POC UA Prot Negative mg/dL Negative mg/dL 03/09/2019 [facility] URINE AND STOOL POC UA Bili Negative *NA* (03/09/19 2:41 PM) Negative 03/09/2019 [facility] URINE AND STOOL POC UA Ket Trace mg/dL Negative mg/dL 03/09/2019 [facility] URINE AND STOOL POC UA Bld Small *ABN* (03/09/19 2:41 PM) Negative 03/09/2019 [facility] URINE AND STOOL POC UA Nit Negative *NA* (03/09/19 2:41 PM) Negative 03/09/2019 [facility] URINE AND STOOL POC UA Uro 0.2 0.1 - 1.0 03/09/2019 [facility] URINE AND STOOL POC UA LeukEst Negative *NA* (03/09/19 2:41 PM) Negative 03/09/2019 [facility] URINE AND STOOL POC UA SG 1.020 <=1.030 03/09/2019 [facility] URINE AND STOOL POC UA Turbidity Clear *NA* (03/09/19 2:41 PM) Clear 03/09/2019 [facility] URINE AND STOOL POC UA Color Yellow *NA* (03/09/19 2:41 PM) Yellow 03/09/2019 [facility] CARDIAC ENZYMES CK MB Index 2.5 0.0 - 2.5 02/28/2017 [facility] CARDIAC ENZYMES BNP 61 <=100 pg/mL 02/28/2017 [facility] CARDIAC ENZYMES Troponin-I <0.02 0.00 - 0.40 02/28/2017 [facility] CARDIAC ENZYMES Total CK 89 12 - 191 02/28/2017 [facility] CARDIAC ENZYMES CK MB 2.2 0.5 - 3.6 02/28/2017 [facility] ELECTROLYTES Chloride Lvl 102 95 - 109 02/28/2017 [facility] ELECTROLYTES CO2 29 24 - 32 02/28/2017 [facility] ELECTROLYTES Glucose Lvl 93 70 - 99 02/28/2017 [facility] ELECTROLYTES BUN 14 7 - 22 02/28/2017 [facility] ELECTROLYTES Calcium Lvl 9.2 8.5 - 10.5 02/28/2017 [facility] ELECTROLYTES Total Protein 7.4 6.4 - 8.4 02/28/2017 [facility] ELECTROLYTES Creatinine Lvl 0.7 8 0.50 - 1.40 02/28/2017 [facility] ELECTROLYTES Sodium Lvl 138 135 - 145 02/28/2017 [facility] ELECTROLYTES Potassium Lvl 4.0 3.5 - 5.1 02/28/2017 [facility] ELECTROLYTES Albumin Lvl 4.0 3.5 - 5.0 02/28/2017 [facility] ELECTROLYTES B/C Ratio 18 6 - 25 02/28/2017 [facility] ELECTROLYTES Globulin 3.4 2.7 - 4.2 02/28/2017 [facility] ELECTROLYTES A/G Ratio 1.2 0.7 - 1.6 02/28/2017 [facility] ELECTROLYTES Alk Phos 67 39 - 136 02/28/2017 [facility] ELECTROLYTES ALT 20 0 - 65 02/28/2017 [facility] ELECTROLYTES Bili Total 0.6 0.2 - 1.3 02/28/2017 [facility] ELECTROLYTES AGAP 11.0 10.0 - 20.0 02/28/2017 [facility] ELECTROLYTES AST 15 0 - 37 02/28/2017 [facility] ELECTROLYTES eGFR 82 02/28/2017 Result Comment: The [...] should be multiplied by the estimated BMI. [facility] HEMATOLOGY Basophils 0.7 0.0 - 1.0 02/28/2017 [facility] HEMATOLOGY Monocytes # 0.7 0.0 - 0.8 02/28/2017 [facility] HEMATOLOGY Eosinophils # 0.1 0.0 - 0.5 02/28/[address] [facility] Segs-Bands # 6.2 1.5 - 8.1 02/28/[address] [facility] Lymphocytes # 1.2 1.0 - 5.5 02/28/[address] [facility] Basophils # 0.1 0.0 - 0.2 02/28/[address] [facility] Lymphocytes 14.8 20.0 - 40.0 02/28/[address] [facility] Segs 75.4 45.0 - 75.0 02/28/[address] [facility] Eosinophils 1.2 0.0 - 4.0 02/28/[address] [facility] Monocytes 7.9 2.0 - 12.0 02/28/[address] [facility] PT 12.8 12.0 - 14.7 02/28/[address] [facility] INR 0.94 0.85 - 1.17 02/28/[address] [facility] PTT 27.9 22.9 - 35.8 02/28/[address] [facility] WBC 8.3 3.7 - 10.4 02/28/[address] [facility] RBC 4.13 4.70 - 6.10 02/28/[address] [facility] Hct 39.3 42.0 - 54.0 02/28/[address] [facility] Hgb 13.5 14.0 - 18.0 02/28/[address] [facility] MCV 95.3 80.0 - 94.0 02/28/[address] [facility] MCH 32.7 27.0 - 31.0 02/28/[address] [facility] RDW 14.4 11.5 - 14.5 02/28/[address] [facility] MCHC 34.3 32.0 - 36.0 02/28/[address] [facility] MPV 8.5 7.4 - 10.4 02/28/2017 [facility] [...] HCT 43.6 42.0 - 54.0 09/10/2010 [facility] Hematology PLATELETS 201 K/CMM 133 - [...] PHOS 60 39 - 136 11/27/2009 [facility] Chemistry T3, TOTAL 109 11/27/2009 [facility] Chemistry TSH 1.120 0.360 - 3.740 11/27/2009 [facility] Chemistry SODIUM 138 135 - 145 11/27/2009 [facility] Chemistry POTASSIUM 4.2 3.5 - 5.1 11/27/2009 [facility] Hematology HGB 14.6 14.0 - 18.0 11/27/2009 [facility] Hematology HCT 43.6 42.0 - 54.0 11/27/2009 [facility] Hematology PLATELETS 195 K/CMM 133 - 450 11/27/2009 [facility] Urinalysis UA COLOR STRAW 11/27/2009 [facility] Urinalysis BACTERIA URN None Seen NoneSeen 11/27/2009 [facility] Urinalysis UA COLOR STRAW 11/27/2009 [facility] Urinalysis BACTERIA URN None Seen NoneSeen 11/27/2009 [facility] Pathology Reports No Data Provided for This [...] 1. Brian Gambino MD On 03/24/2020 18:33:03; [id number] 03/23/2020 [facility] [place] Abdomen complete US Clinical I ndication: - [...] of differences in technique. SL: NGHIA 03/30/2019 [facility] Abdomen/Pelvis CTA CTA abdomen pelvis: Multiplanar helical [...] extremities or head) -Use of iterative reconstruction Clicko. CT Radiation Dose DLP 1142 mGy-cm. COMPARISON: [...] diverticulitis. 4. Prostate enlargement. SL: JUVE 03/11/2019 [facility] Abdomen AP DX Patient Name: CALEB FLORES : 1930; Age: 88 years y/o Male MR: [id number] Study: Abdomen AP DX 03/09/2019 2:58 PM CDT Ordering Physician: Epi Roberto MD Comparison: None Clinical Indication: - abdominal pain and weight lost Findings: Bilateral calcified pleural plaques. No abnormally dilated loops of bowel. Calcifications overlying the upper abdomen may be atherosclerotic. No mass effect. Decreased bone mineralization with degenerative changes of the spine. IMPRESSION: Nonobstructive bowel gas pattern. SL: DEANN 03/09/2019 [facility] Chest 2 views DX Patient Name: SARAH FLORES : 1930; Age: 88 years y/o Male MR: [id number] Study: Chest 2 views DX 03/09/2019 2:58 [...] chronic obstructive pulmonary disease. SL: [id number] 03/09/2019 [facility] Chest [address] Patien t Name: SRAAH FLORES : 1930; Age: 86 years y/o Male MR: [id number] * CHEST, 2 views HISTORY: cough COMPARISON: [...] The regional skeleton is otherwise unremarkable. SL: [id number] 02/28/2017 [facility] Barium Swallow w Esophagus Function DX Patient Name: SARAH FLORES : 1930; Age: 85 years y/o Male MR: [id number] Study: Barium Swallow w Esophagus Function DX 04/18/2016 1:52 PM CDT Ordering Physician: Jam Khalil MD Clinical Indication: R13.10 Dysphagia, unspecified, R93.3 Abnormal findings on diagnostic imaging of other parts of digestive tract; Comparison: None FINDINGS: The study was performed in the presence of speech pathology. The patient was given the following consistency contrast material with noted findings: Thin: No penetration and aspiration. [place]: No penetration and aspiration. [place]: No penetration [...] please refer to speech pathologist report. SL: [id number] 04/18/2016 [facility] Barium Swallow w Esophagus Function DX Barium [...] esophagram examination. Fluoroscopy Time: 0.8 minutes SL: [id number] 04/09/2016 [facility] Consultation Notes No Data Provided for This Section Discharge Summaries No Data Provided for This Section History and Physicals No Data Provided for This Section Vital Signs Vital Sign Value Date Comments Source Respitory Rate 24 06/23/2019 [facility] Systolic (mm Hg) 163 06/23/2019 [facility] Diastolic (mm Hg) 69 06/23/2019 [facility] Respitory Rate 18 06/23/2019 [facility] Systolic (mm Hg) 157 06/23/2019 [facility] Diastolic (mm Hg) 64 06/23/2019 [facility] Respitory Rate 17 06/23/2019 [facility] Systolic (mm Hg) 111 06/23/2019 [facility] Diastolic (mm Hg) 99 06/23/2019 [facility] Height 177.8 cm 06/23/2019 [facility] Weight 49.318 06/23/2019 [facility] BMI Calculated 15.6 06/23/2019 [facility] Heart Rate 66 06/23/2019 [facility] BMI Calculated 16.39 03/11/2019 [facility] Height [...] 03/09/2019 [facility] Heart Rate 84 02/28/2017 [facility] Temperature Oral (F) 98.3 F 02/28/2017 [facility] Respitory Rate 16 02/28/2017 [facility] Systolic (mm Hg) 147 02/28/2017 [facility] Diastolic (mm Hg) 69 02/28/2017 [facility] Respitory Rate 15 02/28/2017 [facility] Heart Rate 60 02/28/2017 [facility] Respitory Rate 16 02/28/2017 [facility] Heart Rate 62 02/28/2017 [facility] Diastolic (mm Hg) 87 02/28/2017 [facility] Systolic (mm Hg) 157 02/28/2017 [facility] Weight 54.545 02/28/2017 [facility] Height 177.8 cm 02/28/2017 [facility] BMI Calculated 17.25 02/28/2017 [facility] Temperature Oral (F) 98.4 F 02/28/2017 [facility] Systolic (mm Hg) 142 02/28/2017 [facility] Diastolic (mm Hg) 55 02/28/2017 [facility] Height 70 0 04/20/2015 [facility] Weight [...] Provider ADM Date DC Date Status Source [facility] Office Visit [id number] Pretty Read MD 02/08/2014 02/08/2014 [facility] Office Visit [id number] Pretty Read MD 04/21/2014 04/21/2014 [facility] Office Visit [id number] Pretty Read MD 10/20/2014 10/20/2014 [facility] Lab Report [id number] Pretty Read MD 04/20/2015 04/20/2015 [facility] Office Visit [id number] Pretty Read MD 04/20/2015 04/20/2015 [facility] Outpatient [id number] PRETTY READ 04/20/2015 Active [facility] Outpatient [id number] PRETTY READ 10/17/2015 Active [facility] Outpatient [id number] PRETTY READ 04/02/2016 Active [facility] Outpatient [id number] PRETTY READ 04/08/2016 Active [id number] [facility]10[facility]2016 [facility] [id number] [facility]/18[facility]2016 04/19/2016 [facility] Outpatient [id number] EYAD BAKER 07/18/2016 Active [facility] Outpatient [id number] PRETTY READ 09/27/2016 Active [facility] Outpatient [id number] FIRAS QUDDOS 10/15/2016 Active [facility] Outpatient [id number] PHILIP EM MARGO 02/28/2017 Active [facility] Emergency [id number] Marietta Minor 02/28/2017 02/28/2017 [facility] Outpatient [id number] FIRAS QUDDOS 05/30/2017 Active [facility] Outpatient [id number] Epi Ismail 03/09/2019 Active [facility] Outpatient [id number] Abrar Ismail 03/09/2019 03/10/2019 [facility] Outpatient [id number] Tj Rollins 03/11/2019 Active [facility] General [facility] Outpatient [id number] Tj Rollins 03/11/2019 03/12/2019 [facility] Outpatient [id number] Jam Landisendran 03/11/2019 03/12/2019 [facility] Outpatient [id number] Spencer Le 03/16/2019 [facility] Ambulatory Pre-Reg [id number] Spencer Le 03/16/2019 03/16/2019 [facility] Outpatient [id number] Asif Johnsonjacobbruno 03/30/2019 03/31/2019 [facility] Outpatient [id number] Spencer Le 04/27/2019 [facility] Ambulatory Pre-Reg [id number] Spencer Le 04/27/2019 04/27/2019 [facility] Bedded Outpatient [id number] Jam Khalil 06/23/2019 06/23/2019 [facility] Outpatient [facility] [place] [facility] [id number] Asif Abhishek 03/23/2020 03/24/2020 [facility] [place] Outpatient [id number] Tj Rollins 05/02/2020 [facility] Ambulatory Pre-Reg [id number] Hellenliana Osvaldo 0 05/02/2020 [facility] Procedures Procedure Code Date Perfomer Comments Source Collection of venous blood by venipuncture [id number] 03/09/2019 [facility] echocardiogram, complete [id number] 05/06/2013 [facility] Assessment and Plan [...] entered on: 06/23/19 1stopped 30years ago 06/23/2019 [facility] Social History TypeResponse Smoking Status Former smoker; Ready to change: No; Concerns about tobacco use in household: No; Exposure to Tobacco Smoke None; Cigarette Smoking Last 365 Days No; Reg Smoking Cessation Counseling No1 entered on: 06/23/19 1stopped 30years ago 06/23/2019 [facility] Social History TypeResponse Smoking Status Former smoker; Ready to change: No; Concerns about tobacco use in household: No; Exposure to Tobacco Smoke None; Cigarette Smoking Last 365 Days No; Reg Smoking Cessation Counseling No1 entered on: 06/23/19 1stopped 30years ago 06/23/2019 [facility] [place] Family History No Data Provided for This Section Advance Directives No Data Provided for This Section Functional Status No Data Provided for This Section
--- OUTSIDE RECORDS SUMMARY | 2020-06-20 16:47 | XMS REPORT | Continuity of Care Document ---
Author Author [facility] t Organization [facility] Address [address] [place] [address] Phone Unavailable Care Team Providers Care Quality Control Projectionist Name Role Phone NONSTAFF PCP Unavailable Mary Bauman Attphys Unavailable Miriam Rollins Attphys Dino Weiss Attphys HAMPEL, NANDO Attphys Unavailable Yung Khalil Attphys JOIE VELAZQUEZ Attphys Unavailable Ismail, Jose Chowdary Attphys Velazquez, Nellieelif Mcmanus Attphys Lisa Khalil Attphys Yung Khalil Admphys JOIE VELAZQUEZ Admphys Unavailable Payers Payer Name Policy Type Policy Number Effective Date Expiration Date [facility] [id number] I [facility] Problems Condition Name Condition Details Condition Category Status Onset Date Resolution Date Last Treatment Date Treating Clinician Comments Source SALUDK SALUDK Active 06/21/2019 [facility] Active 2019-06-21 00:00:00 2019-06-23 12:28:00 M hiro Chowdhury DX: R10.11 =RIGHT UPPER QUADRANT PAIN, M DX: R10.11 =RIGHT UPPER QUADRANT PAIN, M Active 03/15/2019 [facility] Active 2019-03-15 00:00:00 2019-03-30 13:59:00 M hiro Chowdhury Z86.010=PERSONAL HISTORY FO COLONIC POLY Z86.010=PERSONAL HISTORY FO COLONIC POLY Active 03/11/2019 [facility] Active 2019-03-11 00:00:00 2019-03-11 15:17:00 Susana Chowdhury COUGH COUG H Active 02/28/2017 [facility] Active 2017-02-28 00:00:00 2017-02-28 17:09:00 Susana Chowdhury R13.10 DYSPHAGIA, UNSPECIFIED R93.3 ABN R13.10 DYSPHAGIA, UNSPECIFIED R93.3 ABN Active 04/16/2016 [facility] Active 2016-04-16 00:00:00 2016-04-18 13:54:00 [facility] Z68.20=BMI 20-24/O96=DZRHXHJRFDIJ/R13.10 Z68.20=BMI 20- 24/T25=LAHSFLFXUEQJ/R13.10 Active 04/03/2016 [facility] Ac tive 2016-04-03 00:00:00 2016-04-09 13:27:00 M hiro Chowdhury Hyperlipidemia Hyperlipidemia Disease Active 2016-03-04 00:00:00 Thomas Huerta Essential hypertension Essential hypertension Disease Active 2016-03-03 00:00:[address] GI bleed GI bleed Disease Active 2016-03-02 00:00:00 Thomas Huerta 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 [facility] Active 2014-10-20 00:00:00 2020-05-04 21:58:15 Susana Chowdhury OSTEOARTHROSIS, GENERALIZED, MULTIPLE SITES OSTEOARTHROSIS, GENERALIZED, MULTIPLE SITES Active 10/20/2014 Condition 04/20/2015 Medical Group Condition Active 2014-10-20 00:00:00 2015-04-20 08:15:0 0 [facility] Anemia (disorder) Anem ia (disorder) Active 12/15/2013 Problem 05/04/2020 Data migrated from [employer] on 02/18/15. [facility] Problem Active 201 12-23-25 00:00:00 2020-05-04 21:58:15 Susana dubon ANEMIA ANEM IA Active 12/15/2013 Condition 04/20/2015 Medical Group Condition Active 2013-12-15 00:00:00 2015-04-20 08:15:00 [facility] Hyperlipidemia (disorder) Hype rlipidemia (disorder) Active 08/07/2011 Problem 05/04/2020 Data migrated from [employer] on 02/18/15. [facility], [facility] Pearson,[facility] Problem Active 201 10-02-15 00:00:00 2020-05-04 21:58:15 [facility] HYPERLIPIDEMIA HYPE RLIPIDEMIA Active 08/07/2011 Condition 04/20/2015 [facility] Group Condition Active 2011-08-07 00:00:00 2015-04-20 08:15:00 [facility] Allergic rhinitis (disorder) A llergic rhinitis (disorder) Active 11/30/2010 Problem 05/04/2020 Data migrated from [employer] on 02/18/15. [facility], [facility] Pearson,[facility] Problem A ctive 2010-11-30 00:00:00 2020-05-04 21:58:15 [facility] ALLERGIC RHINITIS ONEL RGIC RHINITIS Active 11/30/2010 Condition 04/20/2015 [facility] Group Condition Active 2010-11-30 00:00:00 2015-04-20 08:15:00 [facility] Vitamin D deficiency (disorder) Vitamin D deficiency (disorder) Active 09/07/2010 Problem 05/04/2020 Data migrated from [employer] on 02/18/15. [facility], [facility] Pearson,[facility] Problem A ctive 2010-09-07 00:00:00 2020-05-04 21:58:15 [facility] UNSPECIFIED VITAMIN D DEFICIENCY UNSPECIFIED VITAMIN D DEFICIENCY Active 09/07/2010 Condition 04/20/2015 [facility] Group Condition Active 2010-09-07 00:00:00 2015-04-20 08:15:00 [facility] Generalized anxiety disorder (disorder) Generalized anxiety disorder (disorder) Active 11/13/2009 Problem 05/04/2020 Data migrated from [employer] on 02/18/15. [facility], [facility]ASE Pearson,[facility] Problem Active 2009-11-13 00:00:00 2020-05-04 21:58:15 [facility] ANXIETY DISORDER, GENERALIZED ANXIETY DISORDER, GENERALIZED Active 11/13/2009 Condition 04/20/2015 [facility] Group Condition Active 2009-11-13 00:00:00 2015-04-20 08:15:00 Susana Chowdhury Benign hypertension (disorder) Benign hypertension (disorder) Active 10/30/2009 Problem 05/04/2020 Data migrated from [facility] on 02/18/15. [facility] A ctive 2009-10-30 00:00:00 2020-05-04 21:58:15 M hiro Chowdhury HTN HTN Active 10/30/2009 Condition 04/20/2015 Medical Group Condition Active 2009-10-30 00:00:00 2015-04-20 08:15:00 Susana Chowdhury Hyponatremia Hyponatremia Problem Active [facility] Ureteropelvic junction (UPJ) obstruction UPJ (ureterop elvic junction) obstruction Problem Active [facility] Osteoarthritis -multiple joint (disorder) Osteoarthritis -multiple joint (disorder) Resolved Problem 05/04/2020 [facility] Problem Resolved 2020-05-04 21:58: 15 Susana Chowdhury Acute abdominal pain (finding) Acute abdominal pain (finding) Resolved Problem 05/04/2020 [facility] Problem Resolved 2020-05-04 21:58:15 Malinda Chowdhury Anxiety (finding) Anxi ety (finding) Resolved Problem 05/04/2020 [facility] Resolved 2020-05-04 21:58:15 Susana Chowdhury Chronic osteoarthritis (disorder) Chronic osteoarthritis (disorder) Resolved Problem 05/04/2020 [facility] Resolved 2020-05-04 21:58:15 Malinda Chowdhury Generalized chronic body pains (finding) Generalized chronic body pains (finding) Resolved Problem 05/04/2020 [facility] Resolved 2020-05-04 21:58: 15 Susana Chowdhury Past history of clinical finding (context-dependent ca tegory) Past history of clinical finding (context-dependent category) Resolved Problem 05/04/2020 [facility] Resolved 2020-05-04 21:58:15 Nikko Chowdhury Hypertensive disorder, systemic arterial (disorder) Hypertensive disorder, systemic arterial (disorder) Resolved Problem 05/04/2020 [facility] Problem Resolved 2020-05-04 21:58:15 [facility] Inguinal hernia (disorder) Ing uinal hernia (disorder) Resolved Problem 05/04/2020 [facility] Resolved 2020-05-04 21:58:15 Susana Chowdhury Osteoarthritis (disorder) Oste oarthritis (disorder) Resolved Problem 05/04/2020 [facility], [facility] [place], [facility] Problem Resolved 2020-05-04 21:58:15 Susana Chowdhury Acid reflux status (observable entity) Acid reflux status (observable entity) Active Problem 03/03/2017 [facility] Problem Active 2017-03-03 03:56:28 Susana Chowdhury 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) Active Problem 05/04/2020 [facility] Problem Active 2020-05-04 21:58:15 [facility] Gastroesophageal reflux disease (disorder) Gastroesophageal reflux disease (disorder) Active Problem 05/04/2020 [facility] Problem Active 2020-05-04 21:58:15 [facility] 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 [facility]olved 2013-01-27 00:00:00 2020-05-04 21:58:15 2020-05-04 21:58:15 M hiro Chowdhury Acute sinusitis (disorder) Acu te sinusitis (disorder) Resolved 12/23/2011 Problem 05/04/2020 Data migrated from [employer] on 04/08/15. Medical [facility] R esolved 2011-12-23 00:00:00 2020-05-04 21:58:15 2020-05-04 21:58:15 Susana Chowdhury Pneumonia (disorder) Pneu monia (disorder) Resolved 02/08/2011 Problem 05/04/2020 Data migrated from [employer] on 04/08/15. Medical [facility]olved 2011-02-08 00:00:00 2020-05-04 21:58:15 2020-05-04 21:58:15 M hiro Chowdhury Upper respiratory infection (disorder) Upper respiratory infection (disorder) Resolved 01/29/2011 Problem 05/04/2020 Data migrated from [employer] on 04/08/15. Medical [facility] Resolved 2011-01-29 00:00:00 2020-05-04 21:58:15 2020-05-04 21:58:1 5 Susana Chowdhury Backache (finding) Back ache (finding) Resolved 09/07/2010 Problem 05/04/2020 Data migrated from [employer] on 04/08/15. Medical [facility] Resolved 2010-09-07 00:00:00 2020-05-04 21:58:15 2020-05-04 [...] Inactive 2013-07-09 00:00:00 2015-04-20 08:15:00 2015-04-20 08:15:00 [facility] BRONCHITIS BRON CHITIS Inactive 01/27/2013 Condition 04/20/2015 Medical Group Condition Inactive 2013-01-27 00:00:00 2015-04-20 08: 15:00 2015-04-20 08:15:00 Susana Chowdhury OTHER SPECIFIED DERMATOSES OTH ER SPECIFIED DERMATOSES Inactive 01/29/2012 Condition 04/20/2015 [facility] Group Condition Inactive 2012-01-29 00:00:00 2015-04-20 08:15:00 2015-04-20 08:15:00 Susana Chowdhury OTHER ACUTE SINUSITIS OTHE R ACUTE SINUSITIS Inactive 12/23/2011 Condition 04/20/2015 [facility] Condition Inactive 2011-12-23 00:00:00 2015-04-20 08:15:00 2015-04-20 08:15:00 M hiro Chowdhury URINARY FREQUENCY URIN LAMAR FREQUENCY Inactive 08/07/2011 Condition 04/20/2015 [facility] Group Condition Inactive 2011-08-07 00: 00:00 2015-04-20 08:15:00 2015-04-20 08:15:00 [facility] HYPERGLYCEMIA HYPE RGLYCEMIA Inactive 08/07/2011 Condition 04/20/2015 [facility] Group Condition Inactive 2011-08-07 00: 00:00 2015-04-20 08:15:00 2015-04-20 08:15:00 [facility] COUGH COUG H Inactive 03/22/2011 Condition 04/20/2015 Medical Group Condition Inactive 2011-03-22 00:00:00 2015-04-20 08:15:00 2015-04-20 08:15:00 [facility] PNEUMONIA PNEU MONIA Inactive 02/08/2011 Condition 04/20/2015 [facility] Condition Inactive 2011-02-08 00:00:00 2015-04-20 08:15 :00 2015-04-20 08:15:00 [facility] URI Inactive 01/29/2011 Condition 04/20/2015 [facility] Group Condition Inactive 2011-01-29 00:00:00 2015-04-20 08:15:00 2015-04-20 08:15:00 [facility] NOCTURIA NOCT URIA Inactive 11/30/2010 Condition 04/20/2015 [facility] Group Condition Inactive 2010-11-30 00:00:00 2015-04-20 08:15:0 0 2015-04-20 08:15:00 [facility] DYSURIA DYSU SHAYLA Inactive 11/30/2010 Condition 04/20/2015 Medical Group Condition Inactive 2010-11-30 00:00:00 2015-04-20 08:15:00 2015-04-20 08:15:00 [facility] BACK PAIN BACK PAIN Inactive 09/07/2010 Condition 04/20/2015 Medical Group Condition Inactive 2010-09-07 00:00:00 2015-04-20 08:15 :00 2015-04-20 08:15:00 [facility] B12 DEFICIENCY B12 DEFICIENCY Inactive 09/07/2010 Condition 04/20/2015 [facility] Group Condition Inactive 2010-09-07 00: 00:00 2015-04-20 08:15:00 2015-04-20 08:15:00 [facility] NEUROPATHY, UNSPECIFIED NEUR OPATHY, UNSPECIFIED Inactive 04/24/2010 Condition 04/20/2015 [facility] Group Condition Inactive 2010-04-24 00:00:00 2015-04-20 08:15:00 2015-04-20 08:15:00 [facility] ORTHOSTATIC HYPOTENSION ORTH OSTATIC HYPOTENSION Inactive 11/27/2009 Condition 04/20/2015 Medical Group Condition Inactive 2009-11-27 00:00:00 2015-04-20 08:15:00 2015-04-20 08:15:[address] [facility] ABDOMINAL PAIN, PERIUMBILICAL ABDOMINAL PAIN, PERIUMBILICAL Inactive 11/13/2009 Condition 04/20/2015 Medical Group Condition Inactive 2009-11-13 00:00:00 2015-04-20 08:15:00 2015-04-20 08:15:00 [facility] SCREENING FOR COLON CANCER SCR EENING FOR COLON CANCER Inactive 11/13/2009 Condition 04/20/2015 Medical Group Condition Inactive 2009-11-13 00:00:00 2015-04-20 08:15:00 2015-04-20 08:15:00 Susana Chowdhury LEG PAIN LEG PAIN Inactive 10/30/2009 Condition 04/20/2015 Medical Group Condition Inactive 2009-10-30 00:00:00 2015-04-20 08:15:0 0 2015-04-20 08:15:00 Susana Chowdhury CLAUDICATION, INTERMITTENT CLA UDICATION, INTERMITTENT Inactive 10/30/2009 Condition 04/20/2015 Medical Group Condition Inactive 2009-10-30 00:00:00 2015-04-20 08:15:00 2015-04-20 08:15:00 Susana Chowdhury THYROMEGALY THYR OMEGALY Inactive 10/30/2009 Condition 04/20/2015 Medical Group Condition Inactive 2009-10-30 00:00:00 20 05-04-30 08:15:00 2015-04-20 08:15:00 Susana dubon Allergies, Adverse Reactions, Alerts Allergy Name Allergy Type Status Severity Reaction(s) Onset Date Inacti ve Date Treating Clinician Comments Source No Known Medication Allergies No Known Medication Allergies Active Susana Chowdhury Social History Social Habit Start Date Stop Date Quantity Comments Source History of tobacco use Cigarette Smoker Thomas Huerta Sex Assigned At [place]anna Alcohol intake 2016-03-21 00:00:00 2016-03-21 00:00:00 Current non-drinker of alcohol (finding) Thomas Huerta Smoking Status Start Date Stop Date Source Social History 2019-06-23 18:59:02 2019-06-23 18:59:02 Susana Chowdhury Smoker, current status unknown 2016-03-21 00:00:00 Thomas [...] Stop date: 07/23/19 13:53:00 CDT, 1.56, m2 Susana Chowdhury Omnipaque 350 injectable solution 2019-03-11 23:00:00 Yes Notes: (same as:Omnipaque 350). WASTE: F/P - Black; E - [facility] Trash [facility] Susana Chowdhury Albuterol 0.833 MG/ML / Ipratropium [place] 0.167 MG/ML Inha lant Solution 2017-02-28 20:24:00 No Notes: (Same as: D [place]) Susana Chowdhury Saline Flush 0.9% 2017-02-28 20:14:00 No Notes: preservative free. Susana Chowdhury aspirin (ECOTRIN) 81 MG enteric coated tablet 2016-03-05 17:16:4 0 Yes 81mg QD Take 81 mg by mouth daily. Jason Huerta VIT C/VIT E/LUTEIN/MIN/OMEGA-3 (OCUVITE ORAL) 2016-03-05 [...] Take 10 mg by mouth nightly. Thomas roy omeprazole (PriLOSEC) 20 MG capsule 2015-12-26 00:00:00 Yes 20mg QD Take 20 mg by mouth daily. Guzman Celsa Stanford [facility] 2015-01-12 00:00:00 Yes u se as directed [facility] VITAMIN D-3 [facility] 2014-10-20 00:00:00 Yes 1 tab by mouth once a day [facility] IRON TABS 2014-10-20 00:00:00 Yes 1 tab by m outh once a day [facility] CELEBREX 200 MG [facility] 2014-01-25 00:00:00 No Take one capsule by mouth daily [facility] CELEBREX 200 MG [facility] 2014-01-25 00:00:00 Yes Take one capsule by mouth daily [facility] CELEBREX 200 MG [facility] 2014-01-25 00:00:00 No Take one capsule by mouth daily [facility] CENTRUM SILVER TABS 2014-01-11 00:00:00 Yes 1 tab by mouth once a day [facility] CLONIDINE HCL 0.1 MG TABS 2014-01-11 00:00:00 Yes 1/2 tab by mouth twice a day [facility] VITAMIN B12 1000 MCG TABS 2014-01-11 00:00:00 Yes 1 tab by mouth once a day [facility] OMEPRAZOLE 20 MG TBEC 2014-01-11 00:00:00 Yes 1 tab by mouth once a day [facility] XANAX TAB 0.25MG 2014-01-11 00:00:00 Yes 1 tab by mouth twice a day [facility] VESICARE 5 MG TABS 2014-01-11 00:00:00 Yes 1 tab by mouth once a day [facility] LOSARTAN POTASSIUM 100 MG TABS 2014-01-11 00:00:00 No 1 tab by mouth once a day [facility] ESCITALOPRAM OXALATE 10 MG TABS 2014-01-11 00:00:00 Yes 1 tablet daily [facility] CLONIDINE HCL 0.1 MG TABS 2014-01-11 00:00:00 Yes 1/2 tab by mouth twice a day [facility] VESICARE 5 MG TABS 2014-01-11 00:00:00 Yes 1 tab by mouth once a day [facility] ESCITALOPRAM OXALATE 20 MG TABS 2014-01-11 00:00:00 Yes 1 tab by mouth once a day [facility] LOSARTAN POTASSIUM 100 MG TABS 2014-01-11 00:00:00 No 1 tab by mouth once a day [facility] CLONIDINE HCL 0.1 MG TABS 2014-01-11 00:00:00 Yes 1/2 tab by mouth twice a day [facility] OMEPRAZOLE 20 MG TBEC 2014-01-11 00:00:00 Yes 1 tab by mouth once a day [facility] LOSARTAN POTASSIUM 100 MG TABS 2014-01-11 00:00:00 Yes 1 tab by mouth once a day [facility] VESICARE 5 MG TABS 2014-01-11 00:00:00 Yes 1 tab by mouth once a day [facility] ZOLOFT TAB 50MG 2014-01-11 00:00:00 Yes 1 tab by mouth once a day [facility] LEVAQUIN 500 MG TABS 2013-01-27 00:00:00 No 1 PO Daily [facility] FLONASE 50 MCG/ACT SUSP 2013-01-27 00:00:00 No two sprays each nostril q day [facility] PRAVACHOL 20 MG TABS 2013-01-27 00:00:00 No 1 po qhs [facility] LEVAQUIN 500 MG TABS 2013-01-27 00:00:00 No 1 PO Daily [facility] FLONASE 50 MCG/ACT SUSP 2013-01-27 00:00:00 No two sprays each nostril q day [facility] PRAVACHOL 20 MG TABS 2013-01-27 00:00:00 No 1 po qhs [facility] LEVAQUIN 500 MG TABS 2013-01-27 00:00:00 No 1 PO Daily [facility] FLONASE 50 MCG/ACT SUSP 2013-01-27 00:00:00 No two sprays each nostril q day [facility] LEVAQUIN 500 MG TABS 2011-12-23 00:00:00 No 1 po daily x 10 days [facility] LEVAQUIN 500 MG TABS 2011-12-23 00:00:00 No 1 po daily x 10 days [facility] LEVAQUIN 500 MG TABS 2011-12-23 00:00:00 No 1 po daily x 10 days [facility] AMOXICILLIN CAP 500MG 2011-08-23 00:00:00 No one po tid for 10 days [facility] AMOXICILLIN CAP 500MG 2011-08-23 00:00:00 No one po tid for 10 days [facility] AMOXICILLIN CAP 500MG 2011-08-23 00:00:00 No one po tid for 10 days [facility] LEVAQUIN 500 MG TABS 2011-08-08 00:00:00 No 1 po qd x 7 days [facility] LEVAQUIN 500 MG TABS 2011-08-08 00:00:00 No 1 po qd x 7 days [facility] LEVAQUIN 500 MG TABS 2011-08-08 00:00:00 No 1 po qd x 7 days [facility] AMLODIPINE BESYLATE 2.5 MG TABS 2011-07-24 00:00:00 No one po daily [facility] AMLODIPINE BESYLATE 2.5 MG TABS 2011-07-24 00:00:00 No one po daily [facility] AMLODIPINE BESYLATE 2.5 MG TABS 2011-07-24 00:00:00 No one po daily [facility] LEVAQUIN 750 MG TABS 2011-03-22 00:00:00 No 1 po qd x 5 days [facility] LEVAQUIN 750 MG TABS 2011-03-22 00:00:00 No 1 po qd x 5 days [facility] VITAMIN D (ERGOCALCIFEROL) [id number] UNIT CAPS 2011-01-15 00:00:00 No 1 po once a week x 12 weeks, then 1 po once a month [facility] XANAX TAB 0.25MG 2011-01-15 00:00:00 No one tab PO q hs prn anxiety [facility] VITAMIN D (ERGOCALCIFEROL) [id number] UNIT CAPS 2011-01-15 00:00:00 No 1 po once a week x 12 weeks, then 1 po once a month [facility] VITAMIN D (ERGOCALCIFEROL) [id number] UNIT CAPS 2011-01-15 00:00:00 No 1 po once a week x 12 weeks, then 1 po once a month [facility] CLARITIN TAB 10MG 2010-11-30 00:00:00 No on e tablet daily [facility] CLARITIN TAB 10MG 2010-11-30 00:00:00 No on e tablet daily [facility] PREVACID 30 MG CPDR 2010-09-07 00:00:00 No one a daily [facility] PREVACID 30 MG CPDR 2010-09-07 00:00:00 No one a daily [facility] PREVACID 30 MG CPDR 2010-09-07 00:00:00 No one a daily [facility] COZAAR TAB 25MG 2010-05-08 00:00:00 No 1 po qd [facility] COZAAR TAB 25MG 2010-05-08 00:00:00 No 1 po qd [facility] LEXAPRO 10 MG TABS 2010-04-24 00:00:00 No 1 po qd [facility] LISINOPRIL 10 MG TABS 2010-04-24 00:00:00 No one daily [facility] LISINOPRIL 10 MG TABS 2010-04-24 00:00:00 No one daily [facility] LISINOPRIL 10 MG TABS 2010-04-24 00:00:00 No one daily [facility] LEXAPRO 10 MG TABS 2010-04-24 00:00:00 No 1 po qd [facility] LISINOPRIL 10 MG TABS 2010-04-24 00:00:00 No one daily [facility] Clonidine Hcl 0.1 Mg Tablet Clonidine Hcl 0.1 Mg Tablet Yes 1 Twice A Day [facility] [place] [place] Esomeprazazole Esomeprazazole Yes [facility] Lisinopril 2.5 Mg Tablet Lisinopril 2.5 Mg Tablet Yes 5 Daily [facility] Paroxetine Hcl 20 Mg Tablet Paroxetine Hcl 20 Mg Tablet Yes 10 Daily [facility] Vit C/Vit E Acetate/Lutein/Min (Ocuvite Lutein Capsule ) 1 Each Capsule Vit C/Vit E Acetate/Lutein/Min (Ocuvite Lutein Capsule) 1 Each Capsule Ye s [address] [facility] [place] [place] Vital Signs Vital Name Observation Time Observation Value Comments Source Respitory Rate 2019-06-23 20:30:00 [facility] Systolic (mm Hg) 2019-06-23 20:30:00 Jason rial [place] Diastolic (mm Hg) 2019-06-23 20:30:00 [facility] [place] Respitory Rate 2019-06-23 20:15:00 [facility] Systolic (mm Hg) 2019-06-23 20:15:00 [facility] [place] Diastolic (mm Hg) 2019-06-23 20:15:00 [facility] Respitory Rate 2019-06-23 20:00:00 [facility] [place] Systolic (mm Hg) 2019-06-23 20:00:00 [facility] Diastolic (mm Hg) 2019-06-23 20:00:00 [facility] [place] Height 2019-06-23 18:50:00 177.8 cm [facility] Weight 2019-06-23 18:50:00 [facility] BMI Calculated 2019-06-23 18:50:00 [facility] [place] Heart Rate 2019-06-23 18:38:00 [facility] BMI Calculated 2019-03-11 18:42:00 [facility] Height 2019-03-11 18:42:00 177.8 cm [facility] Weight 2019-03-11 18:42:00 [facility] Systolic (mm Hg) 2019-03-11 18:42:00 Jason [facility] Diastolic (mm Hg) 2019-03-11 18:42:00 [facility] Heart Rate 2019-03-11 18:42:00 [facility] Temperature Oral (F) 2019-03-11 18:42:00 98.0 F [facility] Height 2019-03-09 18:53:00 177.8 cm [facility] Weight 2019-03-09 18:53:00 [facility] BMI Calculated 2019-03-09 18:53:00 [facility] Systolic (mm Hg) 2019-03-09 18:53:00 Jason [facility] Diastolic (mm Hg) 2019-03-09 18:53:00 [facility] [place] Heart Rate 2019-03-09 18:53:00 [facility] Temperature Oral (F) 2019-03-09 18:53:00 97.2 F [facility] Respitory Rate 2019-03-09 18:53:00 [facility] [place] Heart Rate 2017-02-28 22:43:00 [facility] Temperature Oral (F) 2017-02-28 22:43:00 98.3 F [facility] Respitory Rate 2017-02-28 22:43:00 [facility] Systolic (mm Hg) 2017-02-28 22:43:00 Jason [facility] Diastolic (mm Hg) 2017-02-28 22:43:00 [facility] Respitory Rate 2017-02-28 22:03:00 [facility] Heart Rate 2017-02-28 21:41:00 [facility] Respitory Rate 2017-02-28 21:41:00 [facility] [place] [facility] 2017-02-28 21:13:00 [facility] Diastolic (mm Hg) 2017-02-28 21:13:00 [facility] [place] Systolic (mm Hg) 2017-02-28 21:13:00 [facility] [place] Weight 2017-02-28 20:10:00 [facility] Height 2017-02-28 20:10:00 177.8 cm [facility] BMI Calculated 2017-02-28 20:10:00 [facility] [place] Temperature Oral (F) 2017-02-28 20:10:00 98.4 F [facility] Systolic (mm Hg) 2017-02-28 20:10:00 [facility] [place] Diastolic (mm Hg) 2017-02-28 20:10:00 [facility] [place] Height 2015-04-20 12:46:42 [facility] Weight 2015-04-20 12:46:42 [facility] Systolic (mm Hg) 2015-04-20 12:46:42 [facility] [place] Diastolic (mm Hg) 2015-04-20 12:46:42 [facility] [place] Heart Rate 2015-04-20 12:46:42 [facility] Temperature Oral (F) 2015-04-20 12:46:42 97.6 F [facility] Height 2014-10-20 13:47:41 [facility] Weight 2014-10-20 13:47:41 [facility] Temperature Oral (F) 2014-10-20 13:47:41 97.7 F [facility] Systolic (mm Hg) 2014-10-20 13:47:41 [facility] [place] Diastolic (mm Hg) 2014-10-20 13:47:41 [facility] [place] Heart Rate 2014-10-20 13:47:41 [facility] Weight 2014-04-21 13:04:11 [facility] Temperature Oral (F) 2014-04-21 13:04:11 98.0 F [facility] Heart Rate 2014-04-21 13:04:11 [facility] Systolic (mm Hg) 2014-04-21 13:04:11 [facility] [place] Diastolic (mm Hg) 2014-04-21 13:04:11 [facility] [place] Weight 2014-02-08 13:22:22 [facility] Temperature Oral (F) 2014-02-08 13:22:22 96.5 F [facility] Heart Rate 2014-02-08 13:22:22 [facility] Systolic (mm Hg) 2014-02-08 13:22:22 [facility] [place] Diastolic (mm Hg) 2014-02-08 13:22:22 [facility] [place] Weight 2014-01-11 18:07:40 [facility] Temperature Oral (F) 2014-01-11 18:07:40 96.8 F [facility] Heart Rate 2014-01-11 18:07:40 [facility] Systolic (mm Hg) 2014-01-11 18:07:40 [facility] [place] Diastolic (mm Hg) 2014-01-11 18:07:40 [facility] [place] Weight 2013-12-14 14:08:51 [facility] Temperature Oral (F) 2013-12-14 14:08:51 96.4 F [facility] Heart Rate 2013-12-14 14:08:51 [facility] Systolic (mm Hg) 2013-12-14 14:08:51 [facility] [place] Diastolic (mm Hg) 2013-12-14 14:08:51 [facility] [place] Weight 2013-10-22 21:52:20 [facility] Temperature Oral (F) 2013-10-22 21:52:20 97.5 F [facility] Heart Rate 2013-10-22 21:52:20 [facility] Systolic (mm Hg) 2013-10-22 21:52:20 [facility] [place] Diastolic (mm Hg) 2013-10-22 21:52:20 [facility] [place] Weight 2013-09-09 16:09:52 [facility] Systolic (mm Hg) 2013-09-09 16:09:52 [facility] [place] Diastolic (mm Hg) 2013-09-09 16:09:52 [facility] [place] Temperature Oral (F) 2013-09-09 16:09:52 96.2 F [facility] Heart Rate 2013-09-09 16:09:52 [facility] Weight 2013-07-09 21:17:30 [facility] Temperature Oral (F) 2013-07-09 21:17:30 97.1 F [facility] Systolic (mm Hg) 2013-07-09 21:17:30 [facility] [place] Diastolic (mm Hg) 2013-07-09 21:17:30 [facility] [place] Heart Rate 2013-07-09 21:17:30 [facility] Weight 2013-06-09 17:51:40 [facility] Temperature Oral (F) 2013-06-09 17:51:40 97.6 F [facility] Systolic (mm Hg) 2013-06-09 17:51:40 [facility] [place] Diastolic (mm Hg) 2013-06-09 17:51:40 [facility] [place] Heart Rate 2013-06-09 17:51:40 [facility] Weight 2013-05-26 17:53:51 [facility] Temperature Oral (F) 2013-05-26 17:53:51 97.[address] F [facility] Systolic (mm Hg) 2013-05-26 17:53:51 [facility] [place] Diastolic (mm Hg) 2013-05-26 17:53:51 [facility] [place] Heart Rate 2013-05-26 17:53:51 [facility] Weight 2013-01-27 19:42:02 [facility] Temperature Oral (F) 2013-01-27 19:42:02 98.[address] F [facility] Systolic (mm Hg) 2013-01-27 19:42:02 [facility] [place] Diastolic (mm Hg) 2013-01-27 19:42:02 [facility] [place] Heart Rate 2013-01-27 19:42:02 [facility] Weight 2012-08-17 21:56:10 [facility] Systolic (mm Hg) 2012-08-17 21:56:10 [facility] [place] Diastolic (mm Hg) 2012-08-17 21:56:10 [facility] [place] Heart Rate 2012-08-17 21:56:10 [facility] Temperature Oral (F) 2012-08-17 21:56:10 95.6 F [facility] Weight 2012-05-01 13:09:31 [facility] Systolic (mm Hg) 2012-05-01 13:09:31 [facility] [place] Diastolic (mm Hg) 2012-05-01 13:09:31 [facility] [place] Heart Rate 2012-05-01 13:09:31 [facility] Temperature Oral (F) 2012-05-01 13:09:31 96.5 F [facility] Weight 2012-01-29 14:05:10 [facility] Temperature Oral (F) 2012-01-29 14:05:10 97.6 F [facility] Systolic (mm Hg) 2012-01-29 14:05:10 [facility] [place] Diastolic (mm Hg) 2012-01-29 14:05:10 [facility] [place] Heart Rate 2012-01-29 14:05:10 [facility] Weight 2011-12-23 18:47:23 [facility] Systolic (mm Hg) 2011-12-23 18:47:23 [facility] [place] Diastolic (mm Hg) 2011-12-23 18:47:23 [facility] [place] Temperature Oral (F) 2011-12-23 18:47:23 97.2 F [facility] Heart Rate 2011-12-23 18:47:23 [facility] Weight 2011-11-06 15:47:41 [facility] Temperature Oral (F) 2011-11-06 15:47:41 97.0 F [facility] Systolic (mm Hg) 2011-11-06 15:47:41 [facility] [place] Diastolic (mm Hg) 2011-11-06 15:47:[address] [facility] [place] [facility] Rate 2011-11-06 15:47:41 [facility] Weight 2011-08-23 16:00:20 [facility] Temperature Oral (F) 2011-08-23 16:00:20 97.1 F [facility] Systolic (mm Hg) 2011-08-23 16:00:20 [facility] [place] Diastolic (mm Hg) 2011-08-23 16:00:20 [facility] [place] [facility] Rate 2011-08-23 16:00:20 [facility] Weight 2011-08-07 14:47:31 [facility] Temperature Oral (F) 2011-08-07 14:47:31 97.1 F [facility] Systolic (mm Hg) 2011-08-07 14:47:31 [facility] [place] Diastolic (mm Hg) 2011-08-07 14:47:31 [facility] [place] Heart Rate 2011-08-07 14:47:31 [facility] Weight 2011-07-24 14:25:50 [facility] Temperature Oral (F) 2011-07-24 14:25:50 97.9 F [facility] Rate 2011-07-24 14:25:50 [facility] Systolic (mm Hg) 2011-07-24 14:25:50 [facility] [place] Diastolic (mm Hg) 2011-07-24 14:25:50 [facility] [place] Weight 2011-06-26 15:59:21 [facility] Temperature Oral (F) 2011-06-26 15:59:21 97.[address] F [facility] Systolic (mm Hg) 2011-06-26 15:59:21 [facility] [place] Diastolic (mm Hg) 2011-06-26 15:59:21 [facility] [place] Heart Rate 2011-06-26 15:59:21 [facility] Weight 2011-05-07 18:28:02 [facility] Temperature Oral (F) 2011-05-07 18:28:02 98.0 F [facility] Systolic (mm Hg) 2011-05-07 18:28:02 [facility] [place] Diastolic (mm Hg) 2011-05-07 18:28:02 [facility] [place] [facility] Rate 2011-05-07 18:28:02 [facility] Weight 2011-04-22 14:25:54 [facility] Height 2011-04-22 14:25:54 [facility] Temperature Oral (F) 2011-04-22 14:25:54 96.5 F [facility] Systolic (mm Hg) 2011-04-22 14:25:54 [facility] [place] Diastolic (mm Hg) 2011-04-22 14:25:54 [facility] [place] [facility] Rate 2011-04-22 14:25:54 [facility] Height 2011-03-22 20:52:21 [facility] Weight 2011-03-22 20:52:21 [facility] Temperature Oral (F) 2011-03-22 20:52:21 98.1 F [facility] Systolic (mm Hg) 2011-03-22 20:52:21 [facility] [place] Diastolic (mm Hg) 2011-03-22 20:52:21 [facility] [place] Heart Rate 2011-03-22 20:52:21 [facility] Weight 2011-02-08 16:05:33 [facility] Height 2011-02-08 16:05:33 [facility] Temperature Oral (F) 2011-02-08 16:05:33 97.6 F [facility] Systolic (mm Hg) 2011-02-08 16:05:33 [facility] [place] Diastolic (mm Hg) 2011-02-08 16:05:33 [facility] [place] Heart Rate 2011-02-08 16:05:33 [facility] Height 2011-01-29 13:43:51 [facility] Weight 2011-01-29 13:43:51 [facility] Temperature Oral (F) 2011-01-29 13:43:51 98.2 F [facility] Systolic (mm Hg) 2011-01-29 13:43:51 [facility] [place] Diastolic (mm Hg) 2011-01-29 13:43:51 [facility] [place] Heart Rate 2011-01-29 13:43:51 [facility] Weight 2011-01-15 18:15:30 [facility] Height 2011-01-15 18:15:30 [facility] Systolic (mm Hg) 2011-01-15 18:15:30 [facility] [place] Diastolic (mm Hg) 2011-01-15 18:15:30 [facility] [place] Heart Rate 2011-01-15 18:15:30 [facility] Temperature Oral (F) 2011-01-15 18:15:30 98.0 F [facility] Weight 2010-11-30 14:51:23 [facility] Height 2010-11-30 14:51:23 [facility] Systolic (mm Hg) 2010-11-30 14:51:23 [facility] [place] Diastolic (mm Hg) 2010-11-30 14:51:23 [facility] [place] Heart Rate 2010-11-30 14:51:23 [facility] Temperature Oral (F) 2010-11-30 14:51:23 96.9 F [facility] Weight 2010-09-07 15:05:42 [facility] Height 2010-09-07 15:05:42 [facility] Temperature Oral (F) 2010-09-07 15:05:42 96.3 F [facility] Systolic (mm Hg) 2010-09-07 15:05:42 [facility] [place] Diastolic (mm Hg) 2010-09-07 15:05:[address] [facility] [place] Heart Rate 2010-09-07 15:05:42 [facility] Height 2010-06-08 14:19:40 [facility] Weight 2010-06-08 14:19:40 [facility] Temperature Oral (F) 2010-06-08 14:19:40 97.1 F [facility] Systolic (mm Hg) 2010-06-08 14:19:40 [facility] [place] Diastolic (mm Hg) 2010-06-08 14:19:40 [facility] [place] Heart Rate 2010-06-08 14:19:40 [facility] Height 2010-05-08 14:19:41 [facility] Weight 2010-05-08 14:19:41 [facility] Temperature Oral (F) 2010-05-08 14:19:41 97.6 F [facility] Systolic (mm Hg) 2010-05-08 14:19:41 [facility] [place] Diastolic (mm Hg) 2010-05-08 14:19:[address] [facility] [place] Heart Rate 2010-05-08 14:19:41 [facility] Weight 2010-04-24 15:30:40 [facility] Height 2010-04-24 15:30:40 [facility] Systolic (mm Hg) 2010-04-24 15:30:40 [facility] [place] Diastolic (mm Hg) 2010-04-24 15:30:40 [facility] [place] Heart Rate 2010-04-24 15:30:40 [facility] Temperature Oral (F) 2010-04-24 15:30:40 97.0 F [facility] Height 2009-11-27 15:03:11 [facility] Weight 2009-11-27 15:03:11 [facility] Temperature Oral (F) 2009-11-27 15:03:11 96.5 F [facility] Systolic (mm Hg) 2009-11-27 15:03:11 [facility] [place] Diastolic (mm Hg) 2009-11-27 15:03:11 [facility] [place] Heart Rate 2009-11-27 15:03:11 [facility] Height 2009-11-13 14:29:11 [facility] Weight 2009-11-13 14:29:11 [facility] Temperature Oral (F) 2009-11-13 14:29:11 96.4 F [facility] Systolic (mm Hg) 2009-11-13 14:29:11 [facility] [place] Diastolic (mm Hg) 2009-11-13 14:29:11 [facility] [place] Heart Rate 2009-11-13 14:29:11 [facility] Weight 2009-10-30 19:49:00 [facility] Height 2009-10-30 19:49:00 [facility] Temperature Oral (F) 2009-10-30 19:49:00 96.8 F [facility] Heart Rate 2009-10-30 19:49:00 [facility] Systolic (mm Hg) 2009-10-30 19:49:00 Jason riarussell [place] Diastolic (mm Hg) 2009-10-30 19:49:00 [facility] [place] Procedures Procedure Date / Time Performed Performing Clinician [facility] e Cystoscopy with retrograde pyelography 2019-04-19 00:00:00 NANDO HUMPHREY [facility] Ultrasound, renal 2019-04-18 00:00[facility] examination of pelvis, limited or follow-up 04-18 [facility]:00[facility] Computed tomography of chest without contrast 2019-04-16 00:00:0 0 JOIE VELAZQUEZ [facility] Computed tomography of abdomen and pelvis with contrast 2018 00:00:00 SANTYISHAN VALDIIVA [facility] Collection of venous blood by venipuncture 2019-03-09 20:55:00 [facility] 2013-05-06 05:00:00 [facility] nandokristy [place] Plan of Care Planned Activity Planned Date Details Comments Source Future Scheduled Test 2020-04-22 00:00:00 INFLUENZA VACCINE [code = INFLUENZA VACCINE] [facility] Future Scheduled Test 1995-12-07 00:00:00 65+ PNEUMOCOCCAL V ACCINE (1 of 1 - PPSV23) [code = 65+ PNEUMOCOCCAL VACCINE (1 of 1 - PPSV23)] [facility] Future Scheduled Test 1980 00:00:00 SHINGLES VACCINES (#1) [code = SHINGLES VACCINES (#1)] [facility] Encounters Start Date/Time End Date/Time Encounter Type Admission Type Attendi [facility] Care Department Encounter ID Source 2019-03-29 15:07:46 Outpatient [facility] MED [id number] Located within [facility] 2020-05-02 13:45:00 2020-05-02 13:45:00 Outpatient Tj Rollins [place] [id number] 2020-03-23 08:33:00 2020-03-23 23:59:00 Outpatient Asif Weiss [id number] 2019-06-23 12:20:00 2019-06-23 15:45:00 Outpatient Jam Romano MHSE MHSE [id number] 2019-06-23 12:20:00 2019-06-23 12:20:00 Outpatient [facility]SE [facility]SE [id number] Located within [facility] 2019-04-27 13:15:00 2019-04-27 13:15:00 Outpatient Tj Rollins MG MG [id number] 2019-04-15 11:36:00 2019-04-21 10:33:00 Discharged Inpatient 1 MARCUS JOIE [facility] [id number] [facility] [place] [place] 2019-03-30 13:57:00 2019-03-30 23:59:00 Outpatient Mary Weiss MHSE MHSE [id number] 2019-03-16 14:45:00 2019-03-16 14:45:00 Outpatient Tj Rollins MG MG [id number] 2019-03-11 14:30:00 2019-03-11 23:59:59 Outpatient Tj Rollins MG MG [id number] 2019-03-11 14:47:00 2019-03-11 23:59:00 Outpatient Tj Rollins MHSE MHSE [id number] 2019-03-11 14:47:00 2019-03-11 14:47:00 Outpatient MHSE [facility]SE [id number] Located within [facility] 2019-03-09 14:00:00 2019-03-09 23:59:59 Outpatient Ubaldo Roberto MG MG [id number] 2017-02-28 14:56:00 2017-02-28 17:45:00 Outpatient Efrem Velazquez [facility] [id number] 2016-04-18 13:41:00 2016-04-18 23:59:00 Outpatient Jam Khalil [facility] [id number] 2016-04-09 13:12:00 2016-04-09 23:59:00 Outpatient Jam Khalil [facility] [id number] Results Test Description Test Time Test Comments Results Result Comments Source ABDOMEN-1VIEW ([facility]) 2020-06-20 14:44:00 [place] [address] Patient Name: SARAH GILMAN MR #: [id number] : 1930 Age/Sex: 89/M Req #: [id number] Adm Physician: Ordered by: Luis Bauman MD Report #: [id number] Location: ER Room/Bed: Procedure: [id number] DX/ABDOMEN-1VIEW ([facility]) Exam Date: 06/20/20 Exam Time: 1432 REPORT STATUS: Signed EXAM: ABDOMEN-1VIEW ([facility]) DATE: 06/20/2020 2:32 PM INDICATION: Utero stent [...] 2:47 PM Dictated By: CLAUDE VILLAGOMEZ MD 46 Transcribed By: LESLEY on 06/20/201446 COPY TO: LUIS BAUMAN MD RETROGRADE PYELOGRAM 2020-02-09 14:47:00 [place] [address] Patient Name: SARAH GILMAN MR #: [id number] : 1930 Age/Sex: 89/M Req #: [id number] Adm Physician: Ordered by: NANDO STEWART MD Report #: [id number] Location: OR Room/Bed: Procedure: [id number] DX/RETROGRADE PYELOGRAM Exam Date: 02/09/20 Exam Time: 1322 REPORT STATUS: Signed OR Fluoroscopy: IMPRESSION: Fluoroscopy service provided in the OR. Interpretation not requested. Signed by: Renny Jamison MD on 02/09/2020 2:47 PM Dictated By: RENNY JAMISON MD 46 Transcribed By: LESLEY on 02/09/201446 COPY TO: NANDO STEWART MD CHEST 2 VIEWS 2020-02-04 13:09:00 [place] [address] Patient Name: SARAH GILMAN MR #: [id number] : 1930 Age/Sex: 89/M Req #: [id number] Adm Physician: Ordered by: NANDO STEWART MD Report #: [id number] Location: OR Room/Bed: Procedure: [id number] DX/CHEST 2 VIEWS Exam Date: 02/04/20 Exam [...] 1:11 PM Dictated By: TARAH ANDREWS MD 10 Transcribed By: BEKA CASAS on 02/04/20 131 COPY TO: NANDO STEWART MD ABDOMEN-1VIEW ([facility]) 2019-11-09 09:20:00 [place] [address] Patient Name: SARAH GILMAN MR #: [id number] : 1930 Age/Sex: 88/M Req #: [id number] Adm Physician: Ordered by: NANDO STEWART MD Report #: [id number] Location: OR Room/Bed: Procedure: [id number] DX/ABDOMEN-1VIEW ([facility]) Exam Date: 11/09/19 Exam Time: [...] NANDO STEWART MD ABDOMEN-1VIEW ([facility]) 2019-08-27 08:16:00 [place] [address] Patient Name: SARAH GILMAN MR #: [id number] : 1930 Age/Sex: 88/M Req #: [id number] Adm Physician: Ordered by: NANDO STEWART MD Report #: [id number] Location: OR Room/Bed: Procedure: [id number] DX/ABDOMEN-1VIEW ([facility]) Exam Date: 08/27/19 Exam Time: 729 REPORT STATUS: Signed Abdomen, one view Clinical [...] STEWART MD CHEST 2 VIEWS 2019-08-24 10:13:00 [place] [address] Patient Name: SARAH GILMAN MR #: [id number] : 1930 Age/Sex: 88/M Req #: [id number] Adm Physician: Ordered by: NANDO STEWART MD Report #: [id number] Location: OR Room/Bed: Procedure: [id number] DX/CHEST 2 VIEWS Exam Date: Exam Time: [...] MD RENAL SCAN W/FLOW FUNCTION 2019-05-14 14:38:00 [place] [address] Patient Name: SARAH GILMAN MR #: [id number] : 1930 Age/Sex: 88/M Req #: [id number] Adm Physician: Ordered by: NANDO STEWART MD Report #: [id number] Location: [place] Room/Bed: Procedure: [id number] NM/RENAL SCAN W/FLOW FUNCTION Exam Date: 05/14/19 [...] 2:53 PM Dictated By: DORI BOWLES MD [id number] Transcribed By: LESLEY on 05/14/19 1455 COPY TO: NANDO STEWART MD Sodium Level 2019-04-21 06:23:00 Test Item Sodium Level (test code = 2951-2) 136 136-145 [facility] Oykvf7367-21-48 06:23:00* Test Item Value Reference Range Interpretation Comments Potassium Level (test code = 2823-3) 4.0 3.5-5.1 [facility] HospitalChloride Ylrha0329-02-30 06:23:00* Test Item Value Reference Range Interpretation Comments Chloride Level (test code = 2075-0) 98 98-107 [facility] HospitalCarbon Dioxide Iceom3137-89-28 06:23:00* Test Item Value Reference Range Interpretation Comments Carbon Dioxide Level (test code = 2028-9) 30 22-29 H [facility] HospitalAnion Ssa5326-69-00 06:23:00* Test Item Value Reference Range Interpretation Comments Anion Gap (test code = 74644-2) 12.0 8-16 [facility] HospitalBlood Urea Wdgmxkth7094-75-73 06:23:00* Test Item Value Reference Range Interpretation Comments Blood Urea Nitrogen (test code = 3094-0) 15 7-26 [facility] HospitalCreatinine2019-07-31 06:23:00* Test Item Value Reference Range Interpretation Comments Creatinine (test code = 2160-0) 0.82 0.72-1.25 [facility] HospitalBUN/Creatinine Rtuaz4675-36-27 06:23:00* Test Item Value Reference Range Interpretation Comments BUN/Creatinine Ratio (test code = 3097-3) 18 6- [facility] HospitalEstimat Glomerular Filtration Rate 2019-04-21 06:23:00* Test Item Value Reference Range Interpretation Comments Estimat Glomerular Filtration Rate (test code = 096094674) > 60 >60 Ranges were taken from the National Kidney Disease Education Program and the [facility] Kid[facility] Foundation literature.Reference ranges:60 or greater: Qfdlqx56-74 ( for 3 consecutive months): Chronic kidney disease 15 or less: Kidney failureNorth Central Surgical Center HospitalGlucose Raxan0995-03-87 06:23:00* Test Item Value Reference Range Interpretation Comments Glucose Level (test code = QBO5566) 88 74-118 [facility] HospitalCalcium Nusfl3891-73-54 06:23:00* Test Item Value Reference Range Interpretation Comments Calcium Level (test code = 01588-9) 8.8 8.4-10.2 [facility] HospitalWhite Blood Lzflf1167-69-86 06:00:00* Test Item Value Reference Range Interpretation Comments White Blood Count (test code = 6690-2) 6.90 4.8-10.8 [facility] HospitalRed Blood Xlsdz2454-75-66 06:00:00* Test Item Value Reference Range Interpretation Comments Red Blood Count (test code = 789-8) 3.50 4.3-5.7 L [facility] HospitalHemoglobin2019-07-31 06:00:00* Test Item Value Reference Range Interpretation Comments Hemoglobin (test code = 23232-4) 11.1 14.0-18.0 L [facility] HospitalHematocrit2019-07-31 06:00:00* Test Item Value Reference Range Interpretation Comments Hematocrit (test code = 4544-3) 32.8 38.2-49.6 L [facility] HospitalMean Corpuscular Rrpewr4341-78-50 06:00:00* Test Item Value Reference Range Interpretation Comments Mean Corpuscular Volume (test code = 787-2) 93.7 81-99 [facility] HospitalMean Corpuscular Ktqbzsgzbz6344-38-08 06:00:00* Test Item Value Reference Range Interpretation Comments Mean Corpuscular Hemoglobin (test code = 785-6) 31.7 28-32 [facility] HospitalMean Corpuscular Hemoglobin Concent 2019-04-21 06:00:00* Test Item Value Reference Range Interpretation Comments Mean Corpuscular Hemoglobin Concent (test code = 786-4) 33.8 31-35 [facility] HospitalRed Cell Distribution Prkkt1588-22-52 06:00:00* Test Item Value Reference Range Interpretation Comments Red Cell Distribution Width (test code = 05251-0) 14.6 11.7 -14.4 H [facility] HospitalPlatelet Syejj1344-26-05 06:00:00* Test Item Value Reference Range Interpretation Comments Platelet Count (test code = 777-3) 195 140-360 [facility] HospitalNeutrophils (%) (Auto)2019-04-21 06:00:00 * Test Item Value Reference Range Interpretation Comments Neutrophils (%) (Auto) (test code = 62920-6) 68.6 38.7-80.0 [facility] HospitalLymphocytes (%) (Auto)2019-04-21 06:00:00 * Test Item Value Reference Range Interpretation Comments Lymphocytes (%) (Auto) (test code = 736-9) 14.1 18.0-39.1 L [facility] HospitalMonocytes (%) (Auto)2019-04-21 06:00:00* Test Item Value Reference Range Interpretation Comments Monocytes (%) (Auto) (test code = 5905-5) 11.7 4.4-11.3 H [facility] HospitalEosinophils (%) (Auto)2019-04-21 06:00:00 * Test Item Value Reference Range Interpretation Comments Eosinophils (%) (Auto) (test code = 713-8) 4.9 0.0-6.0 [facility] HospitalBasophils (%) (Auto)2019-04-21 06:00:00* Test Item Value Reference Range Interpretation Comments Basophils (%) (Auto) (test code = 706-2) 0.4 0.0-1.0 [facility] HospitalIM GRANULOCYTES %2019-04-21 06:00:00* Test Item Value Reference Range Interpretation Comments IM GRANULOCYTES % (test code = IM GRANULOCYTES %) 0.3 0.0- 1.0 [facility] HospitalNeutrophils # (Auto)2019-04-21 06:00:00* Test Item Value Reference Range Interpretation Comments Neutrophils # (Auto) (test code = 751-8) 4.7 2.1-6.9 [facility] HospitalLymphocytes # (Auto)2019-04-21 06:00:00* Test Item Value Reference Range Interpretation Comments Lymphocytes # (Auto) (test code = 36755-5) 1.0 1.0-3.2 [facility] HospitalMonocytes # (Auto)2019-04-21 06:00:00* Test Item Value Reference Range Interpretation Comments Monocytes # (Auto) (test code = 742-7) 0.8 0.2-0.8 [facility] HospitalEosinophils # (Auto)2019-04-21 06:00:00* Test Item Value Reference Range Interpretation Comments Eosinophils # (Auto) (test code = 711-2) 0.3 0.0-0.4 [facility] HospitalBasophils # (Auto)2019-04-21 06:00:00* Test Item Value Reference Range Interpretation Comments Basophils # (Auto) (test code = 704-7) 0.0 0.0-0.1 [facility] HospitalAbsolute Immature Granulocyte (auto 2019-04-21 06:00:00* Test Item Value Reference Range Interpretation Comments Absolute Immature Granulocyte (auto (antwan t code = Absolute Immature Granulocyte (auto) 0.02 0-0.1 [facility] HospitalUrine Egxpygrkrj6443-27-46 22:33:00* Test Item Value Reference Range Interpretation Comments Urine Osmolality (test code = 2695-5) 473 . 24 hr : 300 - 900 Random: 50 - 1400 After 12hr fluid restriction: >850Performed at: - Lab[address] [id number] Director: Dawit Vincent MD, Phone: [phone] [facility] Hospitalerum Osmolality 2019-04-20 22:33:00* Test Item Value Reference Range Interpretation Comments Serum Osmolality (test code = 2692-2) 267 280-301 L Performed at: HD - [facility] [address] [id number] Director: Dawit Vincent MD, Phone: [phone] [facility] Surgical Center HospitalB-Type Natriuretic Hsxlkmi1533-56-74 05:54:00* Test Item Value Reference Range Interpretation Comments B-Type Natriuretic Peptide (test code = 96229-5) 152.0 0-100 H [facility] HospitalMODIFIED BA. VRIDINY5429-90-25 11:05:00 [facility] [address] [place] [address] Patient Name: SARAH GILMAN MR #: [id number] : 1930 Age/Sex: 88/M Req #: [id number] Adm Physician: JOIE VELAZQUEZ MD Ordered by: JOIE VELAZQUEZ MD Report #: [id number] Location: MED/SURG2 Room/Bed: [facility] Procedure: [id number] DX/MOD IFIED BA. SWALLOW Exam Date: 04/16/19 Exam Time: 133 0 REPORT STATUS: Signed PROCEDUR E: X-RAY MODIFIED BARIUM SWALLOW COMPARISON: None. INDICATION: Dyspha denny Radiation Details: Fluoroscopy time: 2.0 minutes Cumulative dose: 3.28mGy DISCUSSION: Fluoroscopic examination was performed in conjunction w [facility] speech pathology during swallowing a variety [...] COPY TO: TARA VELAZQUEZ MD RENAL RETROPERITONEAL JSOA5512-43-78 16:13:00 [place] [address] Patient Name: SARAH GILMAN MR #: [id number] : 1930 Age/Sex: 88/M Req #: [id number] Adm Physician: JOIE VELAZQUEZ MD Ordered by: RITCHIE TELLEZ MD Report #: [id number] Location: MED/SURG2 Room/Bed: Procedure: [id number] US/ US RENAL RETROPERITONEAL COMP Exam Date: 04/18/19 Ex am Time: 1445 REPORT STATUS: Signed EXAM: Renal Ultrasound INDICATION: hydronephrosis [id number] COMPARISON: CT abdomen and pelvis 04/15/2019 [...] TELLEZ MD PELVIC (NON OB) SANTIAGO OR F/X1706-33-03 16:13:00 [place] [address] Patient Name: SARAH GILMAN MR #: [id number] : 1930 Age/Sex: 88/M Req #: [id number] Adm Physician: JOIE VELAZQUEZ MD Ordered by: RITCHIE TELLEZ MD Report #: [id number] Location: MED/SURG2 Room/Bed: 205-1 Procedure: [id number] US/ US PELVIC (NON OB) SANTIAGO OR F/U Exam Date: 04/18/19 Ex am Time: 1445 REPORT STATUS: Signed EXAM: Renal Ultrasound INDICATION: hydronephrosis [id number] COMPARISON: CT abdomen and pelvis 04/15/2019 [...] Random Sodium (test code = 2955-3) 108 [facility] HospitalUric Fovq2479-31-29 12:12:00* Test Item Value Reference Range Interpretation Comments Uric Acid (test code = 3084-1) 2.1 4.8-8.0 L [facility] HospitalThyroid Stimulating Hormone (TSH) 2019-04-17 06:25:00* Test Item Value Reference Range Interpretation Comments Thyroid Stimulating Hormone (TSH) (test code = 50392-6) 3.627 0.350-4.940 [facility] HospitalCT CHEST VO8143-57-14 18:48:00 [facility] [address] [address] Patient Name: SARAH GILMAN MR #: [id number] : 1930 Age/Sex: 88/M Req #: [id number] Adm Physician: JOIE VELAZQUEZ MD Ordered by: JOIE VELAZQUEZ MD Report #: [id number] Location: [facility]/SURG Room/Bed: [facility] Procedure: [id number] CT/CT CHEST WO Exam Date: 04/16/19 Exam Time: 1814 REPORT STATUS: Signed EXAM: CT Chest WI THOUT contrast 04/16/2019 12:32 PM INDICATION: SOB [id number] COMPARISON: Modified barium swallow 04/16/2019 and [...] 04/16/191936 COPY TO: JOIE VELAZQUEZ MD Serum Fekrzjemli2592-40-12 13:29:00* Test Item Value Reference Range Interpretation Comments Serum Osmolality (test code = 54937-3) 260 278-305 L [facility] Qwticegwc7926-82-94 05:35:00* Test Item Value Reference Range Interpretation Comments Total Bilirubin (test code = 1975-2) 0.5 0.2-1.2 [facility] HospitalAspartate Amino Transf (AST/SGOT) 2019-04-16 05:35:00* Test Item Value Reference Range Interpretation Comments Aspartate Amino Transf (AST/SGOT) (test code = Aspartate Amino Transf (AST/SGOT)) 18 5-34 [facility] HospitalAlanine Aminotransferase (ALT/SGPT) 2019-04-16 05:35:00* Test Item Value Reference Range Interpretation Comments Alanine Aminotransferase (ALT/SGPT) (test code = 1742-6) 13 0-55 [facility] HospitalTotal Kzkifsp8668-43-09 05:35:00* Test Item Value Reference Range Interpretation Comments Total Protein (test code = 2885-2) 6.5 6.5-8.1 [facility] HospitalAlbumin2019-07-26 05:35:00* Test Item Value Reference Range Interpretation Comments Albumin (test code = 1751-7) 3.4 3.5-5.0 L [facility] HospitalGlobulin2019-07-26 05:35:00* Test Item Value Reference Range Interpretation Comments Globulin (test code = 01440-0) 3.1 2.3-3.5 [facility] HospitalAlbumin/Globulin Qzhvf8283-56-73 05:35:00 * Test Item Value Reference Range Interpretation Comments Albumin/Globulin Ratio (test code = 1759-0) 1.1 0.8-2.0 [facility] HospitalAlkaline Baidfdnqpeo6737-64-64 05:35:00* Test Item Value Reference Range Interpretation Comments Alkaline Phosphatase (test code = 6768-6) 60 40-150 [facility] HospitalCT ABDOMEN/PELVIS J1941-64-62 10:59:00 [facility] [address] [address] Patient Name: SARAH GILMAN MR #: [id number] : 1930 Age/Sex: 88/M Req #: [id number] [facility] Physician: Ordered by: ISHAN MADERA MD Report #: [id number] Location: ER Room/Bed: Procedure: [id number] C T/CT ABDOMEN/PELVIS W Exam Date: 04/15/19 [...] 1123 COPY TO: ISHAN MADERA MD Urine SRW3520-54-54 10:42:00 * Test Item Value Reference Range Interpretation Comments Urine WBC (test code = 5821-4) 6-10 0-5 H [facility] HospitalUrine PQB9935-15-61 10:42:00* Test Item Value Reference Range Interpretation Comments Urine RBC (test code = 12446-0) 6-10 0-5 H [facility] HospitalUrine Aezzghxj6685-81-05 10:42:00* Test Item Value Reference Range Interpretation Comments Urine Bacteria (test code = 88360-6) MODERATE NONE H [facility] HospitalUrine Epithelial Eaxpb5001-81-04 10:42:00 * Test Item Value Reference Range Interpretation Comments Urine Epithelial Cells (test code = 32189-8) FEW NONE [facility] HospitalUrine Hqowe0402-44-13 10:18:00* Test Item Value Reference Range Interpretation Comments Urine Color (test code = 5778-6) YELLOW YELLOW [facility] HospitalUrine Csfpsiu0024-28-52 10:18:00* Test Item Value Reference Range Interpretation Comments Urine Clarity (test code = 55583-2) SL CLOUDY CLEAR H [facility] HospitalUrine Specific Edqmbaw5999-51-70 10:18:00 * Test Item Value Reference Range Interpretation Comments Urine Specific [place] (test code = 5811-5) 1.015 1.010-1.02 5 [facility] HospitalUrine iQ4889-47-74 10:18:00* Test Item Value Reference Range Interpretation Comments Urine pH (test code = 38539-4) 6.5 5-7 [facility] HospitalUrine Leukocyte Gcltlxtf8499-87-33 10:18:00* Test Item Value Reference Range Interpretation Comments Urine Leukocyte Esterase (test code = 22726-0) NEGATIVE NEGATIV E [facility] HospitalUrine Ryahncg7483-99-03 10:18:00* Test Item Value Reference Range Interpretation Comments Urine Nitrite (test code = 11698-9) NEGATIVE NEGATIVE [facility] HospitalUrine Ldlrjzf7495-52-26 10:18:00* Test Item Value Reference Range Interpretation Comments Urine Protein (test code = 07135-9) TRACE NEGATIVE H [facility] HospitalUrine Glucose (UA)2019-04-15 10:18:00* Test Item Value Reference Range Interpretation Comments Urine Glucose (UA) (test code = 61431-7) NEGATIVE NEGATIVE [facility] HospitalUrine Hvwfkyf4142-36-38 10:18:00* Test Item Value Reference Range Interpretation Comments Urine Ketones (test code = 57619-8) NEGATIVE NEGATIVE [facility] Vrbbmwsrjabm1827-26-45 10:18:00* Test Item Value Reference Range Interpretation Comments Urine Urobilinogen (test code = 59660-6) 0.2 0.2-1 [facility] HospitalUrine Fkcqwhhcw0081-70-94 10:18:00* Test Item Value Reference Range Interpretation Comments Urine Bilirubin (test code = 1977-8) NEGATIVE NEGATIVE [facility] HospitalUrine Auwfw5124-60-27 10:18:00* Test Item Value Reference Range Interpretation Comments Urine Blood (test code = 27796-5) TRACE NEGATIVE [facility] HospitalCHEM WDTVY5870-19-77 21:40:0080[facility] HermannCHEM MJEFZ2199-77-28 21:40:000.8[facility] AhusiigKVLZMGOROZJG8864-39-73 19:51:0013.0[facility] JojfxphQMLNYNPKPITV5723-53-19 19:51:0042.0[facility] [place] VJSNUOCCWKJC7890-92-62 19:51:0014.3[facility] FwzfoufGKALMPDSPMPK4061-19-37 19:51:001.14[facility] MrsmzkfSKMDFCYNVDHG2378-20-94 19:51:0049[facility] [place] NBWNVUBNEOPL1548-27-75 19:51:24409Yhymoabx GcbyjbyFLTMBZJNPVUW1691-64-69 19:51:001.3[facility] RgpnuujYTQOTTNXOQOV1649-82-28 19:51:0020[facility] FFEKPPPFLAKI0042-92-27 19:51:0030[facility] LqckoiwVKKHYKZXUAEA0497-09-59 19:51:00 98[facility] WeovlphCHEFUEZVFGDE9750-80-06 19:51:004.7[facility] HermannELECTROLYTES 2019-03-09 19:51:53949Ndqijrdp HermannURINE AND ZYBFE3481-79-23 19:41:00* Test Item Value Reference Range Interpretation Comments POC UA pH (test code = POC UA pH) 5.5 1 5.0-8.0 [facility] AND DHVND0309-74-57 19:41:00Negative *NA*(03/09/19 2:41 PM) [facility] DWBVX1143-70-49 19:41:00Small *ABN*(03/09/19 2:41 PM) [facility] SSPQL6944-84-52 19:41:00Negative *NA*(03/09/19 2:41 PM) [facility] SRLVS0457-43-07 19:41:000.2[facility] AND XXBMD6494-76-14 19:41:00Negative *NA*(03/09/19 2:41 PM)[facility] FDGWC8601-67-92 19:41:00* Test Item Value Reference Range Interpretation Comments POC UA SG (test code = POC UA SG) 1.020 1 [facility] XECZF5846-69-11 19:41:00Clear *NA*(03/09/19 2:41 PM) [facility] GNDXN8980-72-58 19:41:00Yellow *NA*(03/09/19 2:41 PM) [facility]annCARDIAC LSAEAJM6838-55-55 21:39:002.5[facility] HermannCARDIAC IEANVNC8416-61-77 21:39:0061[facility] HermannCARDIAC URBBTII8347-01-38 21:39:00< 0.02[facility] HermannCARDIAC AVWEBEV0005-37-75 21:39:0089[facility] HermannCARDIAC SWVAGYH3299-80-89 21:39:002.2[facility] NgkegkjXPLLYZGCZUPJ9415-84-04 21:39:29872 Memorial QjvseoiPXIWRMPMJKOF0604-50-67 21:39:0029[facility] HermannELECTROLYTES 2017-02-28 21:39:0093Mem[facility] XazzrczRDLFJDBLGDSL3396-96-67 21:39:0014Mem[facility] MwszpvhNMAPJZVYVHWE0637-84-59 21:39:009.2[facility] OllzfwfIYMZZCRTOWKX3667-92-11 21:39:007.4[facility] GvitvvfLRDOAKLOGRSX8901-91-55 21:39:000.78[facility] RMJKBQMATMLS7844-23-41 21:39:44477Rwpdftdg WivqrmnCZXKXVBDZIEF1266-64-11 21:39:004.0[facility] IhwdviwWIYMVDLPMETX8074-44-95 21:39:004.0[facility] EUTYPXKCBTFH6177-50-08 21:39:0018[facility] MevezrgFPRHKSILPYGA2888-47-35 21:39:00 3.4Memorial AcwhmgxDEUIOLZEFRBA4312-10-40 21:39:001.2[facility] JKETEEOWSLEH0512-17-91 21:39:0067[facility] WpqtebsOGEKOYQDENRP5517-80-15 21:39:00 20[facility]orial RcdnpuhLLXUGHRGZUNA5139-37-75 21:39:000.6[facility] HermannELECTROLYTES 2017-02-28 21:39:0011.0[facility] IganhmsWKKBFTWADSYM4344-52-84 21:39:0015Mem[facility] RawihnzGMHIAORKUCSK4324-34-70 21:39:0082[facility] RcfxmnlRQQABTRCGS9993-07-20 21:39:000.7[facility] YvzetmbVOVHSBXLFK5182-65-54 21:39:000.7[facility] [place] ZGEFIKCKWH3679-49-66 21:39:000.1[facility] EzcbicxJTHNFRRGVY2668-64-67 21:39:006.2 Memorial YwbxlhqEOEBRBDQQZ3313-51-91 21:39:001.2[facility] HermannHEMATOLOGY 2017-02-28 21:39:000.1[facility] UkkuoboSNTOOFMOXI6191-63-15 21:39:0014.8[facility] XvwujlmHNPMDSSABH2761-30-70 21:39:0075.4[facility] WdnhfjaDLHDQGFHIQ8860-35-99 21:39:001.2[facility] KvwhaprOWSHEMBCYV7095-02-04 21:39:007.9[facility] IGITDYAKTY0697-21-26 21:39:00* Test Item Value Reference Range Interpretation Comments PT (test code = PT) 12.8 s 12.0-14.7 Memorial VwnqxjxBCJBHSMCKE0299-57-95 21:39:000.94[facility] HermannHEMATOLOGY 2017-02-28 21:39:00* Test Item Value Reference Range Interpretation Comments PTT (test code = PTT) 27.9 s 22.9-35.8 Memorial BucviscDPDLFNGSQE1926-46-02 21:39:008.3[facility] HermannHEMATOLOGY 2017-02-28 21:39:004.13[facility] NaqcoruXUEGKAKAXW3932-11-82 21:39:0039.3[facility] WxmatxbJLRVWBRXBD1123-37-60 21:39:0013.5[facility] DnhdzsnKOAUNMWJZN8035-51-19 21:39:0095.3[facility] YfqcpivWBSIJPBKBE3051-83-92 21:39:00* Test Item Value Reference Range Interpretation Comments MCH (test code = MCH) 32.7 pg 27.0-31.0 Memorial GlwpnzuXVXWBTYQZY6113-42-51 21:39:0014.4[facility] HermannHEMATOLOGY 2017-02-28 21:39:0034.3[facility] PrdkublLCNEFJDBRN7826-66-11 21:39:008.5[facility] RcoydhsSWCIOFRJRZ1338-10-26 21:39:41579Sexfstjz KwniayjYlxiltjzl6365-49-54 13:15:26017 MEQ/LMemorial QjzbjscKurbzwyub6720-12-30 13:15:004.1 MEQ/LMemorial EjdwyscLhsvyaydm8315-14-80 13:15:000.9[facility] ZqiitcfGgreumkym0630-32-54 13:15:0014Mem[facility] AjnfmpsOybqtynig7309-93-77 13:15:00* Test Item Value Reference Range Interpretation Comments BUN/CREAT (test code = BUN/CREAT) 16 03-16 Memorial QbfmdnyEaymbgwzj4548-25-58 13:15:003.8[facility] HermannChemistry 2015-04-20 13:15:008.7[facility] EvmkcpnMoldnbtsl6886-52-66 13:15:0026[facility] WcnubhiFajktwpph6068-54-40 13:15:0018[facility] GretafiMqsdbtvur5759-60-93 13:15:0066[facility] GqlgwroGjnsvapchp8756-44-86 13:15:0014.2[facility] [place] Kbecegddqe6908-63-96 13:15:0041.9[facility] MbrfhlzJctuakkdas9456-11-63 13:15:00 178 K/CMMMemorial KmfnjwsQmprwzdkp4319-46-93 16:21:00NegativeMem[facility] [place] Fgnvebbwt2266-13-12 16:21:00NegativeMemorial QzxbzkeIdisofmbsdqi8337-52-68 16:21:00NegativeMemorial DyxgaafYbgczzxfv2461-99-48 16:20:00NegativeMemorial HlggrhtDxltfvvqp3331-78-93 16:20:00NegativeMemorial HermannMicrobiology 2013-12-17 16:20:00NegativeMemorial WhraqpvNdthmtovw5732-75-71 14:39:0015.0 Memorial YpksamwZwjozouag7172-11-73 14:39:0015.0[facility] HermannChemistry 2013-12-15 16:18:00NegativeMemorial FdkikchXeexxbfjt0925-16-63 16:18:00Negative Memorial BrpdmgbUtynrilwsply2113-42-53 16:18:00NegativeMemorial HermannChemistry 2013-12-14 15:09:005.1[facility] NulczpjCpwmjxjad1937-71-92 15:09:98259 MEQ/L Memorial CzdkhkcTgkpuqkqz9639-07-78 15:09:004.8 MEQ/LMemorial HermannChemistry 2013-12-14 15:09:000.8[facility]orial NtpupfqYrmlymvvt7813-58-73 15:09:0010Mem[facility] VbahhzdVwphpftun2550-31-33 15:09:00* Test Item Value Reference Range Interpretation Comments BUN/CREAT (test code = BUN/CREAT) 12 03-16 Memorial KsydspxOzqykvghz3114-62-78 15:09:004.2[facility] HermannChemistry 2013-12-14 15:09:008.9[facility] MvetsdnStchpdtbc6706-86-93 15:09:0022Mem[facility] MandurvAfemaapby2916-78-22 15:09:0013Mem[facility] GhelchnDejdxsokf9862-28-65 15:09:0068[facility] UowbiehHfrborkuj0804-34-86 15:09:001.20[facility] [place] Zhffrdyml3501-56-10 15:09:001.650[facility] BekdaxeEhskldxhi0338-88-15 15:09:005.1 Memorial XfrgmaiNwjfzgvdz0963-37-00 15:09:84469 MEQ/LMemorial HermannChemistry 2013-12-14 15:09:004.8 MEQ/LMemorial VfnscpkIwsmrayvwk6218-00-50 15:09:0013.1 Memorial OxowzblQoyekanhnh0337-26-60 15:09:0041.1[facility] HermannHematology 2013-12-14 15:09:99361 K/CMMMemorial ReisvxsVezqgjofnu2192-73-75 15:09:00Light YellowMemorial KmzakqeFcvllttdqh3214-00-78 15:09:00[facility]ional[facility] [place] Tmgghyywio6504-66-04 15:09:00Light YellowMemorial AbnswtfSccxmkihru4412-73-94 15:09:00OccasionalMemorial RjabqeoBnzrzqhys5798-84-53 13:47:33679Aorjcvxw QsimrqlQuxwktzqn4973-64-50 13:47:0074Memorial IibtlpfRcnqohjvx0676-69-39 13:47:0056Mem[facility] NyxbnajZcyghndbh7046-20-26 13:47:36823 [facility] [place] Htvcgsbli2268-87-05 13:47:004.0 MEQ/LMemorial RqwjleoAabbrmzsx7770-91-41 13:47:000.9[facility] RavpojwOshwoyxxa0726-78-90 13:47:0014[facility] [place] Vwfaperhn8360-42-43 13:47:00* Test Item Value Reference Range Interpretation Comments BUN/CREAT (test code = BUN/CREAT) 16 03-16 Memorial ZdzzjxwNfnfxpxqu1307-18-97 13:47:004.0[facility] HermannChemistry 2013-01-28 13:47:008.8[facility] QmjirwuZhzjhjrlt4338-82-12 13:47:0019[facility] CrtobklYkrrmxqcd5264-18-60 13:47:0014Mem[facility] ZvgvzydQuynhhkjq5736-02-35 13:47:0077Mem[facility] NivoalvAbwerivbj4404-23-02 13:47:63662Mvixzkte [place] Sjngqhzvs4842-82-75 13:47:0074Mem[facility] DvvzmjbSrrxjjtdr9557-62-11 13:47:0056 Memorial EljkzmiHfakenmui8729-32-95 13:47:75634 MEQ/LMemorial HermannChemistry 2013-01-28 13:47:004.0 MEQ/LMemorial FipcabeMsqjsmxlh7499-06-30 13:47:000.9 [facility] NxgygwhZxhseilxh9650-27-79 13:47:0014[facility] HermannChemistry 2013-01-28 13:47:00* Test Item Value Reference Range Interpretation Comments BUN/CREAT (test code = BUN/CREAT) 16 09 27- Memorial OiqjajfInygjagvm7024-18-64 13:47:004.0[facility] HermannChemistry 2013-01-28 13:47:008.8[facility] BmkrlhxDldwlegsf6382-49-63 13:47:0019[facility] EfzlmfuKnehryicw6993-66-52 13:47:0014Mem[facility] QbnhvyiUkgyvochs7479-73-79 13:47:0077Memorial AyajccmLxzswqzqm3864-83-68 13:47:00614Cacqknha [place] Kecvpxbdz2010-91-47 13:47:0074[facility] HkigfeaVxxioogln0769-12-66 13:47:0056 Memorial PtqhqtbBmenvkjnc9331-36-60 13:47:18766Kvctrcmu HermannChemistry 2013-01-28 13:47:43266 MEQ/LMemorial UuxlgwqEfikxvlud6843-20-86 13:47:004.0 MEQ/LMemorial YtfgbfkAfmxoknei3399-55-71 13:47:000.9[facility] HermannChemistry 2013-01-28 13:47:0014[facility] WyhmyjeQfyadetqi8870-74-73 13:47:00* Test Item Value Reference Range Interpretation Comments BUN/CREAT (test code = BUN/CREAT) 16 03-16 Memorial RmsamjoYfagqclbt1449-33-40 13:47:004.0[facility] HermannChemistry 2013-01-28 13:47:008.8[facility] PnjedaoOfpozzpsy8869-29-90 13:47:0019[facility] JvxcfdaSljtokykf1519-86-45 13:47:0014Mem[facility] GpdjbibMkitskrqi9285-84-59 13:47:0077[facility] XqirxgiUwgbwhfsp0006-38-82 13:47:95777Fxbfyina [place] Ocvsfyace8386-72-39 13:47:0074[facility] KjjrownHjvjmorbu8905-13-40 13:47:0056 [facility] TmghmevIfqqwgibz1623-87-64 13:47:55300Fvkidgpc HermannChemistry 2013-01-28 13:47:0074[facility] UdmzsgbUjqfazjkb7574-84-86 13:47:0056Memorial ZwdsbrnGkjbxiiihn9668-59-55 13:47:0013.7[facility] MutgqoePrewnlwhqt4355-72-21 13:47:0040.8[facility] VjloeaaPlwdfsqknr6906-01-36 13:47:18808 K/CMMMemorial QhtpamtJeskowudud4815-21-24 13:47:0013.7[facility] QaloyyjBdmmobannw0893-92-09 13:47:0040.8[facility] QkbltkyHwqcoyhvdu4287-81-41 13:47:90244 K/CMMMemorial LdjtsdyMjwwzvwqrr5568-01-43 13:47:0013.7[facility] RxygzogFumizwzuqc7707-24-43 13:47:0040.8[facility] YkykduwKyikydaeox1075-47-17 13:47:83507 K/CMMMemorial EnyuegsLivbbuaww4499-94-34 15:46:84162Mqujxujq YrwacmxNspmyrrmm8085-10-36 15:46:0080[facility] EgfgipwJrhxfbsnz5068-41-82 15:46:0058[facility] [place] Bgyglhxgr4377-15-31 15:46:82302 MEQ/LMemorial ZskymdbXbsbljkpa5988-75-68 15:46:004.0 MEQ/LMemorial IgotldcSqshiujxt9607-92-22 15:46:0015[facility] [place] Xtkrywgbq7510-26-63 15:46:001.0[facility] XhefkigVvpjhvcss6251-82-50 15:46:00* Test Item Value Reference Range Interpretation Comments BUN/CREAT (test code = BUN/CREAT) 15 1 6-25 [facility] NhwmktnCwkxropvq5819-26-10 15:46:003.8[facility] HermannChemistry 2012-05-01 15:46:008.7[facility] RweyydiQfojiefpg3457-30-64 15:46:0013Mem[facility] VgrtbtzMnujosnqy4910-51-39 15:46:0023[facility] AfeaqgmUoztlphln7795-03-18 15:46:0050[facility] GpnbiawEbwkibztv1316-24-99 15:46:77614Hfuunffi [place] Rdkanpawk7028-02-41 15:46:0080[facility] ChzrnkiIklcmcqkx0072-04-23 15:46:0058 [facility] UnfavyqAwimuwcxd8775-19-44 15:46:0091[facility] HermannChemistry 2012-05-01 15:46:32246 MEQ/LMemorial DulrwmhPedvlxize9737-54-85 15:46:004.0 MEQ/LMemorial KmeaojsQftsiuozi5642-56-71 15:46:0015[facility] HermannChemistry 2012-05-01 15:46:001.0[facility] OpveuhvByhhfmhzj6322-27-16 15:46:00* Test Item Value Reference Range Interpretation Comments BUN/CREAT (test code = BUN/CREAT) 15 1 6-25 [facility] SwfkvwrZbuigmafu2827-69-56 15:46:003.8[facility] HermannChemistry 2012-05-01 15:46:008.7[facility] EfnqexgNakvncdbw1355-14-49 15:46:0013[facility] SdjieehZsjcjaofd7120-23-05 15:46:0023[facility] EdppwnoAxkmppwlc5717-48-97 15:46:0050[facility] QmugaxrVdkqmrdnw6550-76-45 15:46:52867Nbylhsez [place] Iwstdjbcr6997-23-28 15:46:0080[facility] CxpqcumBlubwjwer1191-26-49 15:46:0058 Memorial JyqyilhTtizqqhun1169-80-65 15:46:0091[facility] HermannChemistry 2012-05-01 15:46:57573 MEQ/LMemorial UmuksnhQrrpcotzj3143-74-34 15:46:004.0 MEQ/LMemorial KomiolhTbkjrqosv7614-57-70 15:46:0015[facility] HermannChemistry 2012-05-01 15:46:001.0[facility] WnfiqmaDgigboipo7989-10-48 15:46:00* Test Item Value Reference Range Interpretation Comments BUN/CREAT (test code = BUN/CREAT) 15 09 27- [facility] VimzlkySsvwxivyr5598-75-36 15:46:003.8[facility] 2012-05-01 15:46:008.7[facility] FuaccdmHvchpktcf1693-79-91 15:46:0013[facility] DtdqfejLsirqpktp7741-13-41 15:46:0023[facility] ApctajqVqgbisvch7081-27-46 15:46:0050[facility] EqxiqmsDoskixbcp8065-29-56 15:46:33309Jyqyhwdg [place] Lwfphwvyq7075-33-28 15:46:0080[facility] UcnebqvLgnwlagnl7148-13-66 15:46:0058 [facility] LwctclbLdunvrxgv7201-85-28 15:46:00481Cxcunwiv [facility] 2012-05-01 15:46:0080[facility] BhpnndnYmrqjmgcu2154-99-44 15:46:0058[facility] QcrycouDzsutkoqb3174-66-16 14:35:47689Xiirizcy TovueodDsnsuiwdg3508-83-70 14:35:0098[facility] ZsmfadbLpsuayzsp0826-50-50 14:35:0062[facility] [place] Gcxxbjnsa1394-26-26 14:35:0084[facility] EvvykguKvlkmazqa3964-04-93 14:35:52053 MEQ/LMem[facility] JiiknqmIhgvbhoaq5966-21-68 14:35:004.2 [facility] [place] Oqoqmyblx3175-92-81 14:35:0014[facility] XeitxabQmcjjmrik6333-76-28 14:35:000.9 [facility] IhlonpmCuzvjfkpj8945-86-12 14:35:00* Test Item Value Reference Range Interpretation Comments BUN/CREAT (test code = BUN/CREAT) 16 03-16 [facility] XdkmbcjVbvhrfzye4311-90-21 14:35:004.0[facility] 2011-11-08 14:35:009.2[facility] AyhjuwxCtnhwaqpd7199-42-59 14:35:0017[facility] VzunnjqGrdxdjioh0757-65-34 14:35:0028[facility] PqmtpdaFkinbgljt2707-18-89 14:35:0058[facility] FwnrfofWmrdssehb0619-53-62 14:35:62250Jvsfjtsx [place] Uexsrutrt7993-20-43 14:35:0098[facility] BaraplrWsuvcwayu3283-45-80 14:35:0062 [facility] XccffnyIpeuyfefu3821-33-28 14:35:0084[facility] 2011-11-08 14:35:32226 MEQ/LMem[facility] ItssudoKtopuqfjc7847-40-86 14:35:004.2 MEQ/LMem[facility] XoueqprArulohecd4869-68-75 14:35:0014[facility] 2011-11-08 14:35:000.9[facility] EmotwstStbtsfemz4234-51-21 14:35:00* Test Item Value Reference Range Interpretation Comments BUN/CREAT (test code = BUN/CREAT) 16 1 6-25 [facility] RvcqbieCmdrweiqm8838-50-75 14:35:004.0[facility] 2011-11-08 14:35:009.2[facility] ZefueyjQcergrvfb6861-28-83 14:35:0017[facility] RwpvvhmHztmcpeoh2887-23-66 14:35:0028[facility] NtjnrueJsvewpnno0961-17-17 14:35:0058[facility] WsteqqsDcbdfgvuf5507-93-27 14:35:78387Geexrjqy [place] Oitdblken9853-49-01 14:35:0098[facility] VkhrdrxMrglhifty0040-51-90 14:35:0062 [facility] NwlvyxgJxrjwjrle2553-92-99 14:35:0084[facility] 2011-11-08 14:35:51776 MEQ/LMem[facility] IvpyostQdijxvkvx7300-00-12 14:35:004.2 MEQ/LMem[facility] QmnuzomZwzftcgbi5787-28-69 14:35:0014[facility] 2011-11-08 14:35:000.9[facility] AwxjiyiHpynkdmop2852-95-88 14:35:00* Test Item Value Reference Range Interpretation Comments BUN/CREAT (test code = BUN/CREAT) 16 1 6-25 [facility] YvlzpqeSoaxhjikn9690-72-57 14:35:004.0[facility] 2011-11-08 14:35:009.2[facility] IlyqmkgZwppvpkvn8284-39-28 14:35:0017[facility] KhtvlgzGwdhbcygb5502-85-96 14:35:0028[facility] VguaireTecmzdguv6496-03-67 14:35:0058[facility] NomjsrpVzvnfhini8789-51-96 14:35:22265Ukwuxmka [place] Rugojnyfo4756-16-77 14:35:0098[facility] ZhjlmhvDhohziwah5750-33-80 14:35:0062 [facility] DjpfkglJkjtkahfk0777-24-98 14:35:51071Cbnhitub [facility] 2011-11-08 14:35:0098[facility] QsbjdsqSdfrvpxhf6399-73-99 14:35:0062[facility] IjuwlorSrmcxqikm9077-25-91 16:25:36600 MEQ/LMem[facility] LctfkjdQtvfkndkg5756-04-04 16:25:004.2 MEQ/LMem[facility] CzwjctqZfevinsra3699-86-31 16:25:0014[facility] [place] Vdhhtsntf4082-25-27 16:25:000.8[facility] PxjmzgaXeyprfqje1131-11-99 16:25:00* Test Item Value Reference Range Interpretation Comments BUN/CREAT (test code = BUN/CREAT) 18 1 6-25 [facility] QgcfnqhJziewijqk1573-51-32 16:25:003.9[facility] 2011-08-23 16:25:008.6[facility] ZvxxfggZzhxogncs5718-60-57 16:25:0020[facility] FsmqiioZuxazvyvf9441-62-85 16:25:0029[facility] QkvtkojWyjothsfi0955-93-23 16:25:0063[facility] JurfegyPdbybklyj2743-92-24 16:25:41818 [facility] Nrvfcubmq9297-05-40 16:25:004.2 MEQ/LMem[facility] RfmgnawKjgilygwr4194-54-44 16:25:0014[facility] JkzxkncGovqrfjti7853-12-03 16:25:000.8[facility] Lcklrnaky6499-56-20 16:25:00* Test Item Value Reference Range Interpretation Comments BUN/CREAT (test code = BUN/CREAT) 18 1 6-25 [facility] YiokzstAfmgttsfy7710-73-21 16:25:003.9[facility] 2011-08-23 16:25:008.6[facility] XqewqfrGfqkffjbh9768-95-01 16:25:0020[facility] IodolgmLxzwhahtj6849-72-71 16:25:0029[facility] KhrtaymEuiwavrkm2459-47-21 16:25:0063[facility] YavaszsQzjcdngcl5068-84-11 16:25:32107 [facility] [place] Lyqewxaif2551-60-65 16:25:004.2 MEQ/LMem[facility] KqyovbwQduhmmbor8970-33-70 16:25:0014[facility] NvnbujmMpbgpcsiq9333-19-97 16:25:43044 [facility] [place] Kzpikqxqc4707-38-78 16:25:004.2 MEQ/LMem[facility] IrgljvnHjihgcmmx7611-09-29 16:25:0014[facility] BbeghgqCxzyidzblu8628-74-17 16:25:0014.0[facility] Miabfgkhew2994-94-39 16:25:0041.5[facility] KwqdzrzCocadkrspl4285-00-71 16:25:00 213 K/CMMMemorial QtoifqtFzzibvelzo6080-64-68 16:25:0014.0[facility] Fteaasnoqe6301-50-58 16:25:0041.5[facility] MbuclpmBrddqbihck7286-75-42 16:25:00 213 K/CMMMemorial FcihzuoYynlmqrxq1317-59-08 15:10:005.8[facility] Yulzlsjou5214-39-68 15:10:008.17[facility] YtfoekfOeivjqmwh0220-36-13 15:10:005.8 [facility] MyflcvtEhwksomtx1248-10-04 15:10:008.17[facility]ann[facility]inal[facility] 2011-08-07 15:10:00YellowMem[facility] OrujlvmJofhoqrftj8016-44-56 15:10:00None Seen [facility] EfizpucFdbkmailze5654-73-86 15:10:00[facility]ellowMem[facility] HermannUrinalysis 2011-08-07 15:10:00None SeenMemorial DsfvxsvMaaxrhgip5614-71-66 14:20:62711 MEQ/LMemorial AawmbccSxpxspyze7007-04-97 14:20:004.1 [facility] [place] Pnxsmspwv0374-85-94 14:20:0012[facility] GgvrlfeAzfzzueha2501-44-63 14:20:000.8 [facility] RqbiklqIxyocozbw1964-46-24 14:20:00* Test Item Value Reference Range Interpretation Comments BUN/CREAT (test code = BUN/CREAT) 15 03-16 [facility] LylatdoJnsgpilud3297-23-20 14:20:004.2[facility] 2011-07-12 14:20:008.9[facility] FumvmvcUaqkoauek4740-86-05 14:20:0010[facility] KrxmzwpQdbrzhdib6762-62-50 14:20:0025[facility] IcjxizeTekgvokwr1007-83-39 14:20:0066[facility] WxslpxaDridtnstd7188-90-95 14:20:69665 [facility] [place] Clbxtjiwj0821-64-18 14:20:004.1 MEQ/LMem[facility] RxgynhfGcmfedolh4137-90-40 14:20:0012[facility] OrzceluXzitkrxso0177-55-21 14:20:000.8[facility] Hzsprndqw1995-34-12 14:20:00* Test Item Value Reference Range Interpretation Comments BUN/CREAT (test code = BUN/CREAT) 15 03-16 [facility] IutnwglSwsxasnhs2853-43-64 14:20:004.2[facility] 2011-07-12 14:20:008.9[facility] KelfuscQnjbpoort8183-50-90 14:20:0010[facility] TvxfohyKqtijnzjn0792-65-65 14:20:0025[facility] CucyumvEznwungii8908-99-91 14:20:0066[facility] HpgbdnoGqjtkyrwp0443-52-14 14:20:15883 [facility] [place] Byzsvljju5653-06-47 14:20:004.1 MEQ/LMem[facility] RaujztrWguxbwhtm0874-91-82 14:20:0012[facility] YgwehvyTlsrmirqz7067-34-38 14:20:34383 [facility] [place] Tiphdzbck1149-11-11 14:20:004.1 MEQ/LMem[facility] ZpsclgsGsrmpbzcx5310-51-24 14:20:0012[facility] PyhwzieUregrkopg5667-91-36 17:00:0014[facility] Vakdquryk3481-44-93 17:00:000.8[facility] TtgzjhaEdrcjboqh4057-20-73 17:00:55095 MEQ/LMem[facility] DjhbfliPszdcosha2320-55-51 17:00:004.3 [facility] [place] Zfivhribg2412-51-06 17:00:008.8[facility] UsnozmqNdyzlaltn0466-38-25 17:00:0014 [facility] MovvueoOxivxxllu0132-07-19 17:00:000.8[facility] 2011-06-26 17:00:72046 MEQ/LMem[facility] DkgsruyHaykkzwhm5048-55-36 17:00:004.3 MEQ/LMem[facility] EumdpmdWsgmdbohn4363-00-14 17:00:008.8[facility] 2011-06-26 17:00:0014[facility] PnokjclXzoowdzgm5963-62-86 17:00:000.8[facility] GwmqayeHmwtzzrtm6891-21-20 17:00:54443 MEQ/LMem[facility] EtuhaavOgdtszgcq8897-72-64 17:00:0014Mem[facility] KojwamcWfmmxmwwp7241-81-60 17:00:000.8[facility] Enjwodbaz8782-74-81 17:00:03786 MEQ/LMem[facility] JnewsxgOvpahhtkj8587-24-23 18:50:37271 MEQ/LMem[facility] EyyrlbwUreqysuqv1138-27-55 18:50:004.5 MEQ/LMem[facility] JavcxkqCpsrjobej4624-14-64 18:50:0013[facility] NlgqwvfMlzlifnxs4205-21-49 18:50:000.8[facility] HjaiwwaZkhjchcnp7441-41-53 18:50:00* Test Item Value Reference Range Interpretation Comments BUN/CREAT (test code = BUN/CREAT) 16 03-16 [facility] NrknynwYdytmpqxl0101-18-44 18:50:003.8[facility] 2011-05-07 18:50:009.1[facility] FwoparjGjxiptvsf3908-83-89 18:50:0010[facility] CsrnmilZbthextcg0433-09-48 18:50:0023[facility] PoxewciZrqevnsmb0249-80-55 18:50:0059[facility] RbmpeqqClpnainvx9035-31-63 18:50:84569 [facility] Rearglhni5296-86-64 18:50:004.5 MEQ/LMem[facility] IceidxlJlqtrfxbf3482-19-61 18:50:0013[facility] CmzgvcgWnncpqtfo1139-10-51 18:50:000.8[facility] Pbcyetatt6143-24-26 18:50:00* Test Item Value Reference Range Interpretation Comments BUN/CREAT (test code = BUN/CREAT) 16 03-16 [facility] NcxqdblEgebjdftv6491-12-14 18:50:003.8[facility] 2011-05-07 18:50:009.1[facility] SnadhvpYulsczsij3589-39-00 18:50:0010[facility] SrkwucyWyvlrpzmk6175-46-54 18:50:0023[facility] CqugmmkCiudmayvh7392-73-13 18:50:0059[facility] AvhflhaKlbqbixfa8397-28-99 18:50:31516 [facility] [place] Znukfwlie7791-46-52 18:50:004.5 MEQ/LMem[facility] OldecllCnndnimys8626-37-63 18:50:0013[facility] NfqisjoIzuasjxia4268-91-68 18:50:51350 [facility] [place] Nrqcytyri5883-01-81 18:50:004.5 MEQ/LMem[facility] ZmfpppgXpdpxsvoy8415-14-18 18:50:0013[facility] WspmvofFjnedchtg1252-77-79 21:35:41046Gxhejhgm [place] Oduwbdrtm7476-02-95 21:35:004.4[facility] NwzjlqgChafkfriy4668-30-54 21:35:0019 [facility] OvkqnhxDjuiqjwtp2979-76-32 21:35:001.1[facility] 2011-03-22 21:35:00* Test Item Value Reference Range Interpretation Comments BUN/CREAT (test code = BUN/CREAT) 17 1 03-16 [facility] IgqdivaMuxqpptjr6390-51-11 21:35:004.1[facility] 2011-03-22 21:35:009.0[facility] EhcajudBakwpdvdk8023-49-71 21:35:006[facility] DxkazjkGocjcmcgd8137-32-06 21:35:0026[facility] FvzcyuuTmshvfisj3880-23-24 21:35:0070[facility] BjnytzpJbiggxbej0380-36-14 21:35:95634Djzppniv [place] Gmijaflvu5422-79-12 21:35:004.4[facility] RwlqvatVnepsisxv3862-88-55 21:35:0019 [facility] DccnwwvDmjowpqikx5844-24-85 21:35:0014.4[facility]ann[facility] 2011-03-22 21:35:0042.9[facility] NhtchpuIufanwmnzf8407-65-46 21:35:52424 K/CMM [facility] CdkjcasWautfutcgt1118-63-82 21:35:004[facility] 2011-01-29 14:37:0013.9[facility] PzqqmtlOlfiocgsxh1009-00-10 14:37:0041.4[facility] NjkueyoVlcyqnvjkg7974-43-22 14:37:10596 K/CMMMemorial GjxgilpRqwjvgjup2585-95-65 15:39:007.6[facility] KbujafxFjdxlvahe2644-04-01 15:39:007.6[facility] Ppxlnjccg1746-95-28 14:40:60947Xqorvwen OxwqjqsVmcovzxwu3891-20-36 14:40:89357 [facility] ZgqthrlMwpyajdwf3506-15-52 14:40:0056[facility] 2010-09-10 14:40:37589Yoxnrqfk AnoynnbOpmotjuiw4008-36-54 14:40:00757Rcfsmtdb QxsrsioJehxznlpu9197-43-57 14:40:004.5[facility] SvsorvvAplnptbwj7503-73-52 14:40:0018[facility] OmhlnmiCivrslnpa6282-46-55 14:40:000.8[facility] [place] Evdjjewnf6492-77-35 14:40:00* Test Item Value Reference Range Interpretation Comments BUN/CREAT (test code = BUN/CREAT) 23 1 6-25 [facility] TkcvvafWmtwhfces9962-81-74 14:40:003.8[facility] 2010-09-10 14:40:009.0[facility] EoogughLykabbfrz6464-97-87 14:40:0015[facility] HmgtawsMyjyrabkp3801-09-05 14:40:0028[facility] BdluycbJmxbedots6109-29-75 14:40:0052[facility] KozgqfrGsuxvwahe0736-72-56 14:40:89058Fwigcmkk [place] Dhhrslmmj2426-76-21 14:40:49524Ajywbdnb OiazpetBvvoghulr5612-85-18 14:40:0056 [facility] LutavicQwyhelfemu5569-63-03 14:40:0014.2[facility] 2010-09-10 14:40:0043.6[facility] YoyrzorLpvarvqwjn8854-26-67 14:40:18697 K/CMM [facility] NmpryefZdyrqiqwsf2929-72-73 14:40:00YellowMem[facility] HermannUrinalysis 2010-09-10 14:40:00None SeenMemorial HsjyyoaDkovklbmot2337-64-32 14:40:00Yellow [facility] GevvrjtNuvjvafwjw8685-62-01 14:40:00None SeenMem[facility]annChemistry 2009-11-27 16:40:001.120[facility] EfbugphFiadzsubz7070-12-83 16:40:19536Tlrvktyt YcvahcwBystgxtiw1792-42-50 16:40:004.2[facility] HzdoyumPvyydqecs3400-01-62 16:40:0011[facility] AtiuakbZywztdrxc0122-65-84 16:40:000.9[facility] Eiqspklcx3975-67-86 16:40:00* Test Item Value Reference Range Interpretation Comments BUN/CREAT (test code = BUN/CREAT) 12 03-16 [facility] AzedgdaPbpinyudx4194-18-42 16:40:004.2[facility] 2009-11-27 16:40:008.8[facility] EprocrvHnqvzeadj1475-16-55 16:40:0028[facility] WtfjhpiJpfbwotfp7724-98-79 16:40:0034[facility] AfxtibaMdcesmlcx8637-25-55 16:40:0060[facility] PvsablnUxdelysfl2397-96-61 16:40:11812Xombkdfu [place] Rcdewrhvq6487-83-92 16:40:001.120[facility] ZicofmnScjsbnszw8922-82-08 16:40:15801 [facility] EmefqbvAzzqwlsvw5216-65-39 16:40:004.2[facility] 2009-11-27 16:40:0014.6[facility] JgblggaLemffostxy4098-93-99 16:40:0043.6[facility] KmuqxwhMepfnhbwdo4594-11-60 16:40:72868 K/MMem[facility] HermannUrinalysis 2009-11-27 16:40:00STRAWMemorial EtmbolvWoeuwwfzot6374-38-67 16:40:00None Seen [facility] IogaohdOrjiarlzkj3824-01-63 16:40:00STRAWMemorial HermannUrinalysis 2009-11-27 16:40:00None SeenSusana Chowdhury
[2020-06-20] MEDS ORDERED: SODIUM CHLORIDE 0.9% 50ML 50 ML ONE (17:33)
[2020-06-20] MEDS ORDERED: IOPAMIDOL 370 MG/ML 200 ML INFUS..BTL INJ ONE (17:33)
--- NOTE | 2020-06-20 18:51 | Diagnostic Imaging Report ---
CT LUMBAR SPINE W HISTORY: Low back pain COMPARISON: CT of the abdomen/pelvis 04/15/2019, KUB 11/09/2019 TECHNIQUE: Axial CT images of the lumbar spine were obtained with intravenous contrast. Coronal and sagittal reconstructions obtained from the axial data. Images were reconstructed from concurrent CT of the abdomen/pelvis One or more of the following dose reduction techniques were used: Automated exposure control, adjustment of the mA and/or kV according to patient size, and/or utilization of iterative reconstruction technique. DISCUSSION: Bone demineralization limits evaluation. There are 5 nonrib-bearing lumbar vertebral bodies. Lumbar lordosis is preserved. Mild lumbar levoscoliosis is present. Mild to moderate T12 burst fracture (with up to one third loss of vertebral body height anteriorly) may be acute or subacute. Mild fracture retropulsion along the superior endplate does not cause significant canal stenosis. There is no involvement of the pedicles or posterior elements. Moderate L2 vertebral compression fracture (with 50% loss of vertebral body height) is status post vertebroplasty. There is no significant retropulsion. No definite additional acute fracture or compression deformity is seen. No gross spinal canal mass is seen. There is mild diffuse paraspinal muscle atrophy. Diffuse subcutaneous edema is present as well. The paravertebral and paraspinal soft tissues are otherwise grossly unremarkable. Moderate multilevel spondylotic changes are present. No gross spinal canal stenosis is seen. Multilevel foraminal stenoses due to disc bulges and facet arthrosis are present - moderate to severe on the left at L5-S1. Mild bilateral sacroiliac degenerative changes are partially imaged. Please further concurrent CT of the abdomen/pelvis for intra-abdominal/pelvic and lung base findings. IMPRESSION: 1. Mild to moderate T12 vertebral burst fracture may be acute or subacute. Mild fracture retropulsion does not cause significant canal stenosis. 2. Moderate L2 vertebral compression fracture status post vertebroplasty. No significant retropulsion. 3. No other acute osseous abnormalities. 4. Moderate multilevel spondylosis as described above. Signed by: Dr. Jayesh Macias M.D. on 06/20/2020 6:47 PM
--- NOTE | 2020-06-20 18:54 | Diagnostic Imaging Report ---
EXAM: CT Abdomen and Pelvis WITH contrast INDICATION: Lower abdominal pain COMPARISON: None. TECHNIQUE: Abdomen and pelvis were scanned utilizing a multidetector helical scanner from the lung base to the pubic symphysis after administration of IV contrast. Coronal and sagittal reformations were obtained. Dose modulation, iterative reconstruction, and/or weight based adjustment of the mA/kV was utilized to reduce the radiation dose to as low as reasonably achievable. Routine protocol was performed. Scan was performed when during portal venous phase. IV CONTRAST: 150 mL of Omnipaque 300 ORAL CONTRAST: Water COMPLICATIONS: None RADIATION DOSE: Total DLP: 177.4 mGy-cm Estimated effective dose: (DLP x 0.015 x size factor) mSv CTDIvol has been reviewed. It is below the limits set by the Radiation Protocol Committee (RPC). FINDINGS: LINES and TUBES: There is right nephroureteral stent in place. LOWER THORAX: Increased density material along the bilateral lower pleural space, indeterminate could be due to prior procedure HEPATOBILIARY: No focal hepatic lesions. No biliary ductal dilation. GALLBLADDER: No radio-opaque stones or sludge. No gallbladder wall thickening. SPLEEN: No splenomegaly. No focal splenic lesion. PANCREAS: No focal masses or ductal dilatation. ADRENALS: No adrenal nodules KIDNEYS/URETERS: There is right nephroureteral stent in place with very mild residual hydronephrosis noted. Kidneys enhance symmetrically. There is a right renal subcentimeter cortical low-density lesion too small to characterize. No stones. GI TRACT: There is herniation of a loop of small bowel bowel in the left inguinal canal with no evidence of obstruction or strangulation. Large volume of stool in the colon compatible with constipation. PELVIC ORGANS/BLADDER: The bladder is underdistended limiting evaluation. LYMPH NODES: No lymphadenopathy. 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 PERITONEUM / RETROPERITONEUM: No free air or fluid. BONES: There is compression deformity of T12 and L2 vertebral bodies with kyphoplasty noted in the L2 vertebral body. SOFT TISSUES: There is a small fat containing right inguinal hernia. IMPRESSION: 1. Herniation of a loop of small bowel bowel in the left inguinal canal with no evidence of obstruction or strangulation. 2. Right nephroureteral stent in place with very mild residual hydronephrosis noted. 3. 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 4. Increased density material along the bilateral lower pleural space, indeterminate could be due to prior procedure. 5. Compression deformity of T12 and L2 vertebral bodies with kyphoplasty noted in the L2 vertebral body. Signed by: Jv Martinez MD on 06/20/2020 6:50 PM
--- NOTE | 2020-06-20 23:58 | Consultation ---
DATE OF CONSULTATION: 06/20/2020 CONSULTING PHYSICIAN: Dr. Bauman ER physician. REASON FOR CONSULTATION: Chronic pain. HISTORY OF PRESENT ILLNESS: This is an 89-year-old male, who has been dealing with debilitating back pain, but also lower abdominal pain. Apparently, the patient suffered a compression fracture of L2 about three and half months ago. Subsequently, kyphoplasty was done. Initially, pain slightly improved, however, now it is bad again. The patient takes Anderson at home, however, that makes him really constipated and now the patient's condition continued to deteriorate to the point that the patient is no longer ambulatory. Otherwise, the patient denies any fever. No chest pain or shortness of breath. No nausea, vomiting. I spoke to the ER doctor. The reason for admission was for SN[facility] Facility placement. PAST MEDICAL AND SURGICAL HISTORY: 1. Hypertension. 2. Prostate cancer. 3. Kidney stones. 4. Abdominal wall hernia. MEDICATIONS: Please see medication reconciliation form. ALLERGIES: NONE. SOCIAL HISTORY: He smokes. FAMILY HISTORY: Hypertension. REVIEW OF SYSTEMS: A 10-point review of system obtained and nothing else is significant other than what is stated in HPI. PHYSICAL EXAMINATION: VITAL SIGNS: Temperature 98.5, pulse 82, respiratory rate 18, blood pressure 169/80. GENERAL: No acute distress. SKIN: No rash. HEENT: Anicteric. Oropharynx is clear. LUNGS: Clear. HEART: Regular rate and rhythm. Normal S1, S2. GI: Abdomen is soft. Mild tenderness to left lower quadrant where his hernia is. NEUROLOGIC: Alert and oriented x3. Cranial nerves II through XII grossly intact. PSYCHIATRIC: No hallucination. MUSCULOSKELETAL: Cannot assess due to severe back pain. LABORATORY DATA: White count 6.4, hemoglobin 11.0, platelet count 282. Sodium 135, creatinine 0.65. UA just shows trace leukocyte esterase. Abdominal x-ray shows right ureteral stent. Abdominal CT shows herniation of a loop of small bowel in the left inguinal canal with no evidence of obstruction or strangulation. Lumbar CT shows xtqh-zh-jwvydorm T12 vertebral burst fracture, may be acute with subacute and also moderate L2 vertebral compression fracture, status post vertebroplasty. ASSESSMENT/PLAN: Chronic pain. I had a long discussion with both the patient and his daughter at the bedside. The patient does not want a Mcfp Facility placement. The daughter was in agreement. The daughter will try to get more help at nighttime since the patient lives by himself. CT scans are reassuring. There are no other etiology that we can potentially implement to decrease his pain. Daughter is interested in hospice. She endorsed that the patient is ready. I told her to involve his primary care doctor to get the process going. At this time, daughter will take him home, will hire more help and likely we will start the process home hospice. Thank you very much for this consultation. MD SHERINE Hobson/BAMBI /[id number]
== END 2020-06-20 18:40 | disposition home or self-care (01) | DRG 544 ==
LOC: ER 14:20 → ERHOLD 16:33
PROVIDERS: ADMIT Internal Medicine; ATTEND Internal Medicine
DX: M48.54XA Collapsed vertebra, not elsewhere classified, thoracic region, initial encounter for fracture (principal); G89.29 Other chronic pain; I10 Essential (primary) hypertension; Z11.59 Encounter for screening for other viral diseases; M54.9 Dorsalgia, unspecified; Z85.46 Personal history of malignant neoplasm of prostate
CPT/HCPCS: 36415; 72132; 74018; 74177; 80053; 81001; 85025; 87086; 99284; J3010; Q9967; U0002

== ENCOUNTER → 2020-09-20 | Day surgery (SDC) | payer MEDICARE ==
[2020-09-18 11:01] LABS: BASOPHILS # (AUTO) 0.1 (0.0-0.1); BASOPHILS % 0.7 % (0.0-1.0); EOSINOPHILS # (AUTO) 0.2 (0.0-0.4); EOSINOPHILS % 2.5 % (0.0-6.0); HEMATOCRIT 34.2 % (38.2-49.6); LYMPHOCYTES # (AUTO) 1.7 (1.0-3.2); LYMPHOCYTES % 22.1 % (18.0-39.1); MEAN CORPUSCULAR HEMOGLOBIN 32.3 pg (28-32); MEAN CORPUSCULAR HGB CONC 32.2 g/dL (31-35); MEAN CORPUSCULAR VOLUME 100.3 fL (81-99); MONOCYTES # (AUTO) 0.6 (0.2-0.8); NEUTROPHILS % 66.6 % (38.7-80.0); PLATELET COUNT 224 x10e3/uL (140-360); RED BLOOD COUNT 3.41 x10e6/uL (4.3-5.7); RED CELL DISTRIBUTION WIDTH 15.1 % (11.7-14.4)
[2020-09-18 11:18] LABS: ANION GAP 12.1 mmol/L (8-16); BLOOD UREA NITROGEN 28 mg/dL (7-26); BUN/CREATININE RATIO 39 (6-25); CALCIUM 8.8 mg/dL (8.4-10.2); CARBON DIOXIDE 30 mmol/L (22-29); CHLORIDE 100 mmol/L (98-107); CREATININE, SERUM 0.71 mg/dL (0.72-1.25); EST GLOMERULAR FILTRATION RATE > 60 ML/MIN (60-); GLUCOSE 130 mg/dL (74-118); POTASSIUM 4.1 mmol/L (3.5-5.1); SODIUM 138 mmol/L (136-145)
[~2020-09-20] MED LIST changes: +B&O 60MG R/S 60 MG SUPP PR ONE; +EPHEDRINE SULFATE INJ 50 MG/ML VIAL ONE; +FENTANYL CITRATE/PF 100MCG/2 ML INJ ONE; +IOPAMIDOL 300MG/ML 50ML INFUS..BTL IV ONE; +LEVOFLOXACIN 500MG/D5W 100ML 100 ML IV ONE; +LIDOCAINE HCL 2% LOCAL INJ 5 ML SDV VIAL INJ ONE; +MELOXICAM7.5 MG PO; +NORCO 10-325 T1 EACH PO; +ONDANSETRON HCL INJ 2MG/ML 2ML 2 MG/ML VIAL ONE; +PROPOFOL IV EMULSION 10 MG/ML 20 ML VIAL ONE; +SEVOFLURANE INHAL SOLN 250 ML PEN BTL ONE
[2020-09-20 10:45] VITALS: BP 148/74
== END | disposition home or self-care (01) ==
LOC: OR 06:54
PROVIDERS: ATTEND Urology
DX: N13.1 Hydronephrosis with ureteral stricture, not elsewhere classified (principal); C61 Malignant neoplasm of prostate; Z46.6 Encounter for fitting and adjustment of urinary device; Z79.890 Hormone replacement therapy; N40.0 Benign prostatic hyperplasia without lower urinary tract symptoms; N32.89 Other specified disorders of bladder; J61 Pneumoconiosis due to asbestos and other mineral fibers; I25.10 Atherosclerotic heart disease of native coronary artery without angina pectoris; I10 Essential (primary) hypertension; K28.9 Gastrojejunal ulcer, unspecified as acute or chronic, without hemorrhage or perforation; Z01.810 Encounter for preprocedural cardiovascular examination; Z01.812 Encounter for preprocedural laboratory examination; Z01.818 Encounter for other preprocedural examination; Z20.828 Contact with and (suspected) exposure to other viral communicable diseases
CPT/HCPCS: 36415; 52332; 52345; 74018; 74420; 80048; 85025; 93005; C1769; C2617; J1956; J2001; J2405; J2704; Q9967; U0002